=== PATIENT | male | born 1955 | race Caucasian/White ===

== ENCOUNTER 2020-08-12 06:37 | Outpatient (REF) | payer OTHER, SELFPAY ==
[2020-08-12 11:25] LABS: Estimated Average Glucose 114 mg/dL; Hemoglobin A1c % 5.6 %
[2020-08-12 11:35] LABS: Alanine Aminotransferase 17 U/L (0-40); Albumin Level 4.7 g/dL (3.5-5.0); Alkaline Phosphatase 62 U/L (39-117); Anion Gap 10 (12-20); Aspartate Amino Transferase 24 U/L (5-37); Bilirubin Total 0.7 mg/dL (0.0-1.0); Blood Urea Nitrogen 24 mg/dL (9-16); Calcium 9.4 mg/dL (8.4-10.2); Carbon Dioxide 28 mmol/L (22-29); Chloride 103 mmol/L (96-108); Cholesterol 153 mg/dL; Estimated Glomerular Filt Rate > 60; Glucose Fasting 111 mg/dL (60-99); HDL Cholesterol 46 mg/dL; LDL Cholesterol Calculated 90 mg/dl; Potassium 4.2 mmol/l (3.3-5.1); Sodium 137 mmol/L (135-145); Total Protein 7.2 g/dL (6.5-8.0); Triglycerides 85 mg/dL
== END 2020-08-12 06:38 | disposition home or self-care (01) ==
LOC: HO.HMGCLDS 06:37
PROVIDERS: PCP Physician Assistant; Visit Provider Physician Assistant
DX: E78.2 Mixed hyperlipidemia (principal); I10 Essential (primary) hypertension; R73.02 Impaired glucose tolerance (oral)
CPT/HCPCS: 80053; 80061; 83036

== ENCOUNTER 2021-01-22 06:13 | Outpatient (REF) | payer OTHER, SELFPAY ==
[2021-01-22 11:08] LABS: MANUAL DIFF FLAG NO
[2021-01-22 11:17] LABS: Basophils Percent Auto 0.4 % (0-2); Eosinophils Percent Auto 0.3 % (0-4); Hematocrit 47.7 % (42-52); Hemoglobin 16.1 g/dl (14.0-18.0); Imm Gran Abs Auto 0.03 X10*3/uL (0.00-0.03); Imm Gran Pct Auto 0.3 % (0.0-0.4); Lymphocytes Percent Auto 19.6 % (20-40); Mean Corpuscular HGB Conc 33.8 g/dl (31.0-36.0); Mean Corpuscular Hemoglobin 30.3 pg (27.0-33.0); Mean Corpuscular Volume 89.8 fL (80-98); Monocytes Absolute Auto 0.8 X10*3/uL (0.1-1.2); Monocytes Percent Auto 7.7 % (2-11); Neutrophils Absolute Auto 7.2 X10*3/uL (2.0-8.3); Neutrophils Percent Auto 71.7 % (45-73); Platelet Count 354 X10*3/uL (160-400); Red Blood Count 5.31 X10*6/uL (4.60-5.80); Red Cell Distribution Width 12.8 % (11.0-16.0)
[2021-01-22 11:32] LABS: Estimated Average Glucose 120 mg/dL; Hemoglobin A1c % 5.8 %
[2021-01-22 11:51] LABS: Alanine Aminotransferase 19 U/L (0-40); Albumin Level 4.9 g/dL (3.5-5.0); Alkaline Phosphatase 75 U/L (39-117); Anion Gap 17 (12-20); Aspartate Amino Transferase 21 U/L (5-37); Bilirubin Total 0.9 mg/dL (0.0-1.0); Blood Urea Nitrogen 18 mg/dL (9-16); Calcium 9.5 mg/dL (8.4-10.2); Carbon Dioxide 25 mmol/L (22-29); Chloride 102 mmol/L (96-108); Cholesterol 203 mg/dL; Estimated Glomerular Filt Rate > 60; Glucose Fasting 123 mg/dL (60-99); HDL Cholesterol 49 mg/dL; LDL Cholesterol Calculated 127 mg/dl; Potassium 4.8 mmol/L (3.3-5.1); Sodium 139 mmol/L (135-145); Total Protein 7.8 g/dL (6.5-8.0); Triglycerides 137 mg/dL
[2021-01-22 11:53] LABS: Creatinine Urine 208.44 mg/dL; Microalbum/Creatinine Ratio Ur 5.2 ug/mg cr
[2021-01-22 11:58] LABS: Prostate Specific Antigen Scr 1.26 ng/mL (<0.05-4.0); TSH reflex Free T4 1.52 uIU/mL (0.32-4.0)
== END 2021-01-22 06:14 | disposition home or self-care (01) ==
LOC: HO.HMGCLDS 06:13
PROVIDERS: PCP Physician Assistant; Visit Provider Physician Assistant
DX: I10 Essential (primary) hypertension (principal); E78.2 Mixed hyperlipidemia; R73.09 Other abnormal glucose; Z12.5 Encounter for screening for malignant neoplasm of prostate
CPT/HCPCS: 36415; 80053; 80061; 82043; 83036; 84153; 84443; 85025

== ENCOUNTER 2021-04-14 09:44 | Outpatient (REF) | payer MEDICARE, SELFPAY ==
--- NOTE | ~2021-04-14 | US_ITS ---
EXAMINATION: US RETROPERITONEAL LIMITED (AORTA) CLINICAL INFORMATION: Screening for cardiovascular disorders. COMPARISON: None. TECHNIQUE: Grayscale, color Doppler and spectral Doppler evaluation of the abdominal aorta. FINDINGS: The aorta is normal. The measurements of the aorta in maximum AP and transverse dimensions respectively are as follows: PROXIMAL: 2.6 x 2.3 cm. MID: 1.9 x 1.7 cm. DISTAL: 2.0 x 2.1 cm. PSV: 102.5 cm/sec. The measurements of the common iliac arteries in maximum AP dimension are as follows: RIGHT COMMON ILIAC ARTERY: 1.2 cm. LEFT COMMON ILIAC ARTERY: 1.4 cm. US/US abdominal aortic aneurysm IMPRESSION: Normal caliber abdominal aorta measuring up to 2.6 cm proximally. No evidence of aneurysm.
== END 2021-04-14 09:45 | disposition home or self-care (01) ==
LOC: HO.US 09:44
PROVIDERS: PCP Physician Assistant; Visit Provider Physician Assistant
DX: Z13.6 Encounter for screening for cardiovascular disorders (principal); Z87.891 Personal history of nicotine dependence
CPT/HCPCS: 76706

== ENCOUNTER 2022-02-16 16:46 | Observation (INO) | payer MEDICARE, SELFPAY ==
[2022-02-16] VITALS (7 sets, daily range): BP systolic 130–260; BP diastolic 83–130; PULSE 72–88; RESP 11–18; TEMP 36.6–36.8; O2SAT 95–98; BMI 28.2
--- NOTE | 2022-02-16 17:06 | ED.GENADULT ---
HPI - General Adult General Chief complaint: General Medical Stated complaint: HIGH BP 260/130 FROM [facility] PER EMS Time Seen by Provider: 02/16/22 17:06 Source: patient Mode of arrival: EMS Limitations: no limitations History of Present Illness HPI narrative: 66-year-old male who was brought to emergency department for evaluation of elevated blood pressure. The patient states he does have hypertension and takes lisinopril however he only takes his blood pressure medication when he thinks he needs it and does not take it on a regular basis. He states that over the past week he has gone on alcoholic [place]. He states that he has been drinking 14 beers per day and 4-5 shots of fireball whiskey per day. His last drink was on 02/14/2022 (3 days prior to evaluation). He denied any symptoms except for feeling very anxious. He denied headache, nausea, vomiting, weakness, chest pain, abdominal pain, fever, chills, cough, shortness of breath, dyspnea on exertion, dark tarry stools or bloody stools. In reviewing his medication list listed in the computer, the patient has been prescribed lisinopril 20 mg once a day and clonidine 0.1 mg daily Related Data Previous Rx's Medication Instructions Recorded sertraline 50 mg tablet 50 mg PO DAILY #90 tab 10/16/20 clonidine HCl 0.1 mg tablet 0.100f00? mg PO Q8H PRN #90 tab 02/19/21 atorvastatin 10 mg tablet 10 mg PO DAILY #90 tab 03/15/21 baclofen 20 mg tablet 20 mg PO TID PRN #45 tab 04/20/21 lisinopril 20 mg tablet 20 mg PO DAILY #90 tab 09/09/21 Allergies Allergy/AdvReac Type Severity Reaction Status Date / Time AVOID HCTZ - hyponatremia - Allergy Unknown Unknown Uncoded 08/19/20 13:55 1 Review of Systems Review of Systems: Yes all other systems are reviewed and are negative [facility] Past Medical History [facility] Narrative: Past medical history: Hypertension, hyperlipidemia, anxiety, impaired glucose metabolism. Past surgical history: None. Social history: Patient states that he smokes only when he drinks and has been smoking over the past week. He states that he does not drink alcohol regular basis but goes on alcoholic Benders every 3-6 months. Denies delirium tremors or withdrawal seizures. He denies drug use. Medical History (Updated 02/16/22 @ 23:22 by Nicola Gasca MD) Anxiety Hypertension Surgical History History of colonoscopy Family History Family History Father Dementia Mother Melanoma Social History Social History (Updated 03/23/21 @ 12:05 by Amrit Moura PA-C) Alcohol intake: current Alcohol intake frequency: 3 or more drinks per day Alcohol type: beer and hard liquor Patient Tobacco Use Status: Current someday Tobacco user Smoked in Last 30 Days: Yes Use of substances other than those prescribed or required for medical reasons: No Advance Directives: Yes Advance Directives Information Provided: No Advance Directives on File: No Physical Exam ED Vital Signs: Vital Signs - 24 hr 02/16/22 17:02 02/16/22 17:50 02/16/22 20:24 Temperature 98 F 98.2 F Pulse Rate 74 88 82 Respiratory Rate 14 18 11 L Blood Pressure 211/103 H 193/106 H 130/83 Pulse Oximetry 97 95 97 02/16/22 20:45 02/16/22 22:00 02/16/22 22:53 Temperature 98.1 F Pulse Rate 72 78 86 Respiratory Rate 13 18 16 Blood Pressure 145/91 H 162/91 H 162/91 H Pulse Oximetry 97 95 98 BMI result Body Mass Index 28.2 Const General: cooperative and no acute distress Orientation/consciousness: oriented to person and oriented to place Limitations: no limitations [facility] Head: Yes normal to inspection, Yes normocephalic and Yes atraumatic Ears: external ears normal General nose exam: Normal external nose present Face and sinus: Yes normal facial exam Mouth: Normal oral and palatal mucosa present Throat: Yes posterior oropharynx normal Eyes General: appearance normal, both eyes and all related structures Pupils: Equal, round and reactive pupils present Neck Neck: Yes normal visual inspection, Yes no lymphadenopathy, Yes trachea midline and Yes supple Chest Chest palpation & inspection: normal inspection of the chest and normal palpation of entire chest wall Resp Effort & Inspection: normal respiratory effort and able to speak in complete sentences Auscultation: clear to auscultation bilaterally Cardio Rate: regular rate Rhythm: regular rhythm Heart sounds: S1 normal heart sound present, S2 normal heart sound present and no murmurs GI Inspection: Yes normal to inspection Palpation (GI): Soft to palpation, nontender and no guarding Auscultation: normal bowel sounds General: Yes no CVA tenderness Back/Spine/Pelvis Back: no CVA tenderness Skin General skin exam: no rashes or lesions noted Neuro General: oriented to person and oriented to place Cranial nerves: Yes CN's II-XII intact bilaterally and Yes Equal, round and reactive pupils present Cognition (Neuro): normal cognition Motor exam (neuro): 5/5 motor strength present throughout Extrem General: Yes normal to inspection Psych Appearance: grossly normal Speech and movement: Normal speech and movement present Affect: normal affect Attitude: cooperative Thought process: Normal thought process present Thought content: Normal thought content present Course Course Course Narrative: 66-year-old male who presented to the emergency department for evaluation of anxiety and hypertension. The patient has been binge drinking for 1 week and stop drinking 3 days prior to evaluation. He does have a history of hypertension but is non compliant with his medications. He did check his blood pressure today and was elevated. The patient did have a significantly elevated blood pressure 211/103. His exam was otherwise unremarkable. He was not having any chest pain or shortness of breath. He was treated with his outpatient regimen of lisinopril 20 mg orally and Catapres 0.1 mg orally. I was also concerned that he might be withdrawing from alcohol so was given Librium 50 mg orally. Patient's blood pressure did improve to 130/83. Laboratory evaluation and EKG were ordered. 2137: Laboratory evaluation: WBC elevated 11,900. High sensitive troponin 1 at 17:45 hours was 161, repeat at 12:45 was 257. This is a greater than 50% increase. Twelve EKG: Normal sinus rhythm with a rate of 65, prolonged QRS duration of 110 milliseconds, RR prime complex in V1 with inverted T-wave in V1 otherwise no ST segment elevation or depression. The patient's elevation in his troponin with a greater than 50% increase in 3 hours is concerning for myocardial injury. This is most likely caused by his elevated blood pressure. I will discuss management with the covering cotton classer. 2318: I did discuss this patient over tiger text with the cotton classer, Dr. Drake. He felt that patient should be admitted to the hospital service but the patient does not need heparin at this time. The patient told me that he was feeling anxious but he does not appear to be in withdrawal at this time and I did give the 2nd dose of Librium 50 mg orally. I did discuss the patient's presentation with the covering hospitalist the patient will be admitted for further management of his hypertension and myocardial injury. Medical Decision Making Lab Data Result diagrams: 02/16/22 17:45 02/16/22 18:20 Labs: Lab Results 02/16/22 02/16/22 02/16/22 Range/Units 17:45 17:45 17:45 WBC 11.9 H (4.8-10.8) X10*3/uL RBC 5.18 (4.60-5.80) X10*6/uL Hgb 15.5 (14.0-18.0) g/dl Hct 45.2 (42.0-52.0) % MCV 87.3 (80.0-98.0) fL MCH 29.9 (27.0-33.0) pg MCHC 34.3 (31.0-36.0) g/dl RDW 12.2 (11.0-16.0) % Plt Count 230 (160-400) X10*3/uL MPV 9.2 L (9.4-12.4) fL Immature Gran % (Auto) 0.4 (0.0-0.4) % Neut % (Auto) 85.1 H (45-73) % Lymph % (Auto) 8.5 L (20-40) % [place] % (Auto) 5.7 (2-11) % Eos % (Auto) 0.1 (0-4) % Baso % (Auto) 0.2 (0-2) % Lymph # (Auto) 1.0 L (1.2-4.9) X10*3/uL [place] # (Auto) 0.7 (0.1-1.2) X10*3/uL Eos # (Auto) 0.0 (0.0-0.4) X10*3/uL Baso # (Auto) 0.0 (0.0-0.2) X10*3/uL Abs Immat Gran (auto) 0.05 H (0.00-0.03) X10*3/uL Absolute Neuts (auto) 10.2 H (2.0-8.3) x10*3/uL Absolute Nucleated RBC 0.000 (0.0-0.012) X10*3/uL Nucleated RBC % (auto) 0.0 (0.0-0.2) /100WBC Sodium (135-145) mmol/L Potassium (3.3-5.1) mmol/L Chloride (96-108) mmol/L Carbon Dioxide (22-29) mmol/L Anion Gap (12-20) BUN (9-16) mg/dL Creatinine (0.5-1.4) mg/dL Estim Creat Clear Calc Estimated GFR Random Glucose (60-115) mg/dL Calcium (8.4-10.2) mg/dL Total Bilirubin (0.0-1.0) mg/dL AST (5-37) U/L ALT (0-40) U/L Alkaline Phosphatase (39-117) U/L Troponin I High Sens 161.2 H* (<3.5-35.0) ng/L Total Protein (6.5-8.0) g/dL Albumin (3.5-5.0) g/dL Lipase (8-78) U/L Urine Color Urine Appearance Urine pH (5.0-8.0) Ur Specific [place] (1.005-1.025) Urine Protein (NEG-TRACE) MG/DL Urine Glucose (UA) (NEG) MG/DL Urine Ketones (NEG) MG/DL Urine Blood (NEG) Urine Nitrite (NEG) Ur Leukocyte Esterase (NEG) Urine RBC (0) /HPF Urine WBC (0-4) /HPF Ur Squamous Epith Cells /LPF Urine Bacteria /LPF Urine Opiates Screen (Not Detect) Urine Fentanyl Screen (Not Detect) Ur Barbiturates Screen (Not Detect) Ur Phencyclidine Scrn (Not Detect) Ur Amphetamines Screen (Not Detect) U Benzodiazepines Scrn (Not Detect) Urine Cocaine Screen (Not Detect) U Marijuana (THC) Screen (Not Detect) Ethyl Alcohol < 10 mg/dL COVID-19 ([facility]) (Negative) COVID-19 Clin Com Influenza Type A ([facility]) (Negative) Influenza Type B ([facility]) (Negative) Influenza A & B Note 02/16/22 02/16/22 02/16/22 Range/Units 18:20 20:36 20:36 WBC (4.8-10.8) X10*3/uL RBC (4.60-5.80) X10*6/uL Hgb (14.0-18.0) g/dl Hct (42.0-52.0) % MCV (80.0-98.0) fL MCH (27.0-33.0) pg MCHC (31.0-36.0) g/dl RDW (11.0-16.0) % Plt Count (160-400) X10*3/uL MPV (9.4-12.4) fL Immature Gran % (Auto) (0.0-0.4) % Neut % (Auto) (45-73) % Lymph % (Auto) (20-40) % [place] % (Auto) (2-11) % Eos % (Auto) (0-4) % Baso % (Auto) (0-2) % Lymph # (Auto) (1.2-4.9) X10*3/uL [place] # (Auto) (0.1-1.2) X10*3/uL Eos # (Auto) (0.0-0.4) X10*3/uL Baso # (Auto) (0.0-0.2) X10*3/uL Abs Immat Gran (auto) (0.00-0.03) X10*3/uL Absolute Neuts (auto) (2.0-8.3) x10*3/uL Absolute Nucleated RBC (0.0-0.012) X10*3/uL Nucleated RBC % (auto) (0.0-0.2) /100WBC Sodium 139 (135-145) mmol/L Potassium 5.0 (3.3-5.1) mmol/L Chloride 103 (96-108) mmol/L Carbon Dioxide 28 (22-29) mmol/L Anion Gap 13 (12-20) BUN 11 (9-16) mg/dL Creatinine 1.02 (0.5-1.4) mg/dL Estim Creat Clear Calc 83.5 Estimated GFR > 60 Random Glucose 150 H (60-115) mg/dL Calcium 10.0 (8.4-10.2) mg/dL Total Bilirubin 1.0 (0.0-1.0) mg/dL AST 39 H D (5-37) U/L ALT 26 (0-40) U/L Alkaline Phosphatase 73 (39-117) U/L Troponin I High Sens 257.0 H* D (<3.5-35.0) ng/L Total Protein 7.5 (6.5-8.0) g/dL Albumin 4.6 (3.5-5.0) g/dL Lipase 15 (8-78) U/L Urine Color YELLOW Urine Appearance CLEAR Urine pH 6.5 (5.0-8.0) Ur Specific [place] <= 1.005 (1.005-1.025) Urine Protein NEG (NEG-TRACE) MG/DL Urine Glucose (UA) NEG (NEG) MG/DL Urine Ketones NEG (NEG) MG/DL Urine Blood 1+ H (NEG) Urine Nitrite NEG (NEG) Ur Leukocyte Esterase NEG (NEG) Urine RBC 5-9 H (0) /HPF Urine WBC 0 (0-4) /HPF Ur Squamous Epith Cells NONE /LPF Urine Bacteria NONE /LPF Urine Opiates Screen (Not Detect) Urine Fentanyl Screen (Not Detect) Ur Barbiturates Screen (Not Detect) Ur Phencyclidine Scrn (Not Detect) Ur Amphetamines Screen (Not Detect) U Benzodiazepines Scrn (Not Detect) Urine Cocaine Screen (Not Detect) U Marijuana (THC) Screen (Not Detect) Ethyl Alcohol mg/dL COVID-19 ([facility]) (Negative) COVID-19 Clin Com Influenza Type A ([facility]) (Negative) Influenza Type B ([facility]) (Negative) Influenza A & B Note 02/16/22 02/16/22 02/16/22 Range/Units 22:30 22:53 22:53 WBC (4.8-10.8) X10*3/uL RBC (4.60-5.80) X10*6/uL Hgb (14.0-18.0) g/dl Hct (42.0-52.0) % MCV (80.0-98.0) fL MCH (27.0-33.0) pg MCHC (31.0-36.0) g/dl RDW (11.0-16.0) % Plt Count (160-400) X10*3/uL MPV (9.4-12.4) fL Immature Gran % (Auto) (0.0-0.4) % Neut % (Auto) (45-73) % Lymph % (Auto) (20-40) % [place] % (Auto) (2-11) % Eos % (Auto) (0-4) % Baso % (Auto) (0-2) % Lymph # (Auto) (1.2-4.9) X10*3/uL [place] # (Auto) (0.1-1.2) X10*3/uL Eos # (Auto) (0.0-0.4) X10*3/uL Baso # (Auto) (0.0-0.2) X10*3/uL Abs Immat Gran (auto) (0.00-0.03) X10*3/uL Absolute Neuts (auto) (2.0-8.3) x10*3/uL Absolute Nucleated RBC (0.0-0.012) X10*3/uL Nucleated RBC % (auto) (0.0-0.2) /100WBC Sodium (135-145) mmol/L Potassium (3.3-5.1) mmol/L Chloride (96-108) mmol/L Carbon Dioxide (22-29) mmol/L Anion Gap (12-20) BUN (9-16) mg/dL Creatinine (0.5-1.4) mg/dL Estim Creat Clear Calc Estimated GFR Random Glucose (60-115) mg/dL Calcium (8.4-10.2) mg/dL Total Bilirubin (0.0-1.0) mg/dL AST (5-37) U/L ALT (0-40) U/L Alkaline Phosphatase (39-117) U/L Troponin I High Sens (<3.5-35.0) ng/L Total Protein (6.5-8.0) g/dL Albumin (3.5-5.0) g/dL Lipase (8-78) U/L Urine Color Urine Appearance Urine pH (5.0-8.0) Ur Specific [place] (1.005-1.025) Urine Protein (NEG-TRACE) MG/DL Urine Glucose (UA) (NEG) MG/DL Urine Ketones (NEG) MG/DL Urine Blood (NEG) Urine Nitrite (NEG) Ur Leukocyte Esterase (NEG) Urine RBC (0) /HPF Urine WBC (0-4) /HPF Ur Squamous Epith Cells /LPF Urine Bacteria /LPF Urine Opiates Screen Not Detected (Not Detect) Urine Fentanyl Screen Not Detected (Not Detect) Ur Barbiturates Screen Not Detected (Not Detect) Ur Phencyclidine Scrn Not Detected (Not Detect) Ur Amphetamines Screen Not Detected (Not Detect) U Benzodiazepines Scrn POSITIVE H (Not Detect) Urine Cocaine Screen Not Detected (Not Detect) U Marijuana (THC) Screen Not Detected (Not Detect) Ethyl Alcohol mg/dL COVID-19 ([facility]) Negative (Negative) COVID-19 Clin Com See Note Influenza Type A ([facility]) Negative (Negative) Influenza Type B ([facility]) Negative (Negative) Influenza A & B Note See Note Critical Care Time Critical Care Time Critical Care Time: Yes Total Critical Care Time: 30 Attestation: Critical Care: The patient was critically ill with a high probability of imminent or life threatening deterioration. I spent greater than 30 minutes of discontinuous time evaluating the patient,delivering critical care at the bedside, discussing and evaluating pertinent data with consultants. Critical care time does not include time spent performing separately billable procedures or teaching. Total time spent performing critical care was 30 minutes. Discharge Plan Discharge Patient Disposition: Admitted As Inpatient Prescriptions: No Action sertraline 50 mg tablet 50 mg PO DAILY Qty: 90 4RF clonidine HCl 0.1 mg tablet 0.100f00? mg PO Q8H PRN (Reason: for anxiety) Qty: 90 0RF atorvastatin 10 mg tablet 10 mg PO DAILY Qty: 90 3RF baclofen 20 mg tablet 20 mg PO TID PRN (Reason: for pain) Qty: 45 2RF lisinopril 20 mg tablet 20 mg PO DAILY Qty: 90 2RF
--- NOTE | 2022-02-16 17:09 | ECG_ITS ---
Test Reason : CP/HTN Blood Pressure : / mmHG Vent. Rate : 065 BPM Atrial Rate : 065 BPM P-R Int : 182 ms QRS Dur : 110 ms QT Int : 416 ms P-R-T Axes : 060 020 051 degrees QTc Int : 432 ms Normal sinus rhythm Normal ECG When compared with ECG of 07-JAN-2016 09:01, QT has shortened Referred By: Nicola Gasca Electronically Signed By:IVET CONNER MD
[2022-02-16 17:51] LABS: MANUAL DIFF FLAG NO
[2022-02-16] MEDS: lisinopriL 20 MG TABLET PO (17:51)
[2022-02-16] MEDS: chlordiazePOXIDE HCl 25 MG CAPSULE 50 MG PO ×2 (17:51→22:20)
[2022-02-16] MEDS: cloNIDine HCL 0.1 MG TABLET PO (17:51)
--- NOTE | 2022-02-16 17:52 | PC.NURSE ---
iv inserted, labs drawn, pt medicated per order, rater associate intact nsr 70s, pt continues to be hypertensive, call [place] within reach, will continue to monitor
[2022-02-16 17:53] LABS: Basophils Percent Auto 0.2 % (0-2); Eosinophils Percent Auto 0.1 % (0-4); Hematocrit 45.2 % (42.0-52.0); Hemoglobin 15.5 g/dl (14.0-18.0); Imm Gran Abs Auto 0.05 X10*3/uL (0.00-0.03); Imm Gran Pct Auto 0.4 % (0.0-0.4); Lymphocytes Percent Auto 8.5 % (20-40); Mean Corpuscular HGB Conc 34.3 g/dl (31.0-36.0); Mean Corpuscular Hemoglobin 29.9 pg (27.0-33.0); Mean Corpuscular Volume 87.3 fL (80.0-98.0); Mean Platelet Volume 9.2 fL (9.4-12.4); Monocytes Absolute Auto 0.7 X10*3/uL (0.1-1.2); Monocytes Percent Auto 5.7 % (2-11); Neutrophils Absolute Auto 10.2 x10*3/uL (2.0-8.3); Neutrophils Percent Auto 85.1 % (45-73); Platelet Count 230 X10*3/uL (160-400); Red Blood Count 5.18 X10*6/uL (4.60-5.80); Red Cell Distribution Width 12.2 % (11.0-16.0); White Blood Count 11.9 X10*3/uL (4.8-10.8)
[2022-02-16 18:11] LABS: Ethanol < 10 mg/dL
[2022-02-16 18:26] LABS: Troponin-I High Sensitivity 161.2 ng/L (<3.5-35.0)
[2022-02-16 18:44] LABS: Alanine Aminotransferase 26 U/L (0-40); Albumin Level 4.6 g/dL (3.5-5.0); Alkaline Phosphatase 73 U/L (39-117); Anion Gap 13 (12-20); Aspartate Amino Transferase 39 U/L (5-37); Blood Urea Nitrogen 11 mg/dL (9-16); Carbon Dioxide 28 mmol/L (22-29); Chloride 103 mmol/L (96-108); Creatinine Clr Calc Pharmacy 83.5; Estimated Glomerular Filt Rate > 60; Glucose Random 150 mg/dL (60-115); Lipase 15 U/L (8-78); Sodium 139 mmol/L (135-145); Total Protein 7.5 g/dL (6.5-8.0)
--- NOTE | 2022-02-16 20:28 | PC.NURSE ---
spoke w , updated on pt status.
--- NOTE | 2022-02-16 20:37 | PC.NURSE ---
patient a&ox3, vss, repeat trop drawn, urine obtained, pt denies pain/discomfort, school lunch monitor intact, call [place] within reach, will continue to monitor
[2022-02-16 20:47] LABS: Appearance Urine CLEAR; Color Urine YELLOW; Glucose Urine UA NEG (NEG); Leukocyte Esterase Urine NEG (NEG); Nitrite Urine NEG (NEG); PH 6.5 (5.0-8.0); Specific Gravity - Urine <= 1.005 (1.005-1.025); UACC Culture Trigger NO; Urine Blood 1+ (NEG); Urine Ketones NEG (NEG); Urine Protein NEG (NEG-TRACE)
[2022-02-16 20:53] LABS: WBC Urine 0 /HPF (0-4)
[2022-02-16] MEDS: Aspirin 81 MG TAB.CHEW 324 MG PO (21:55)
--- NOTE | 2022-02-16 21:56 | PC.NURSE ---
pt medicated per order
--- NOTE | 2022-02-16 22:11 | PC.NURSE ---
patient a&ox3, residential monitor nsr 70s-80s, vss, pt c/o anxiety will speak to provider, will continue to monitor.
--- NOTE | 2022-02-16 22:21 | PC.NURSE ---
pt medicated per order
[2022-02-16 23:08] LABS: Amphetamine Screen Urine Not Detected (Not Detect); Barbiturates, Urine Not Detected (Not Detect); Benzodiazepines Screen Urine POSITIVE (Not Detect); Cannabinoid Screen Urine Not Detected (Not Detect); Cocaine Screen Urine Not Detected (Not Detect); Fentanyl, urine Not Detected (Not Detect); Opiate Screen Urine Not Detected (Not Detect); Phencyclidine Screen Urine Not Detected (Not Detect)
[2022-02-16 23:17] LABS: COVID-19 Test Negative (Negative); IDNOW Serial# 16C4AD1C; Influenza A Negative (Negative); Influenza B2 Negative (Negative)
--- NOTE | 2022-02-16 23:18 | P.HPHOSP_ITS ---
History of Present Illness Date of Service: 02/16/22 Chief Complaint: Anxiety Is a 66-year-old male with past medical history of hypertension, anxiety, and episodes of alcohol binge drinking presents to the hospital with complaints of anxiety. Patient reports that he went on about a 7 day drinking being inch cinthya amaya 15 beers as well as 5 shots of whiskey nightly. He stop drinking about 3 days ago, he has been feeling severely anxious injury. He checked his blood pressure at home today was found to be very high and he called EMS. On arrival of EMS his blood pressure systolic was found to be 260. Patient was brought into the hospital. On arrival to the hospital patient BP was found to be 211/103. Patient reports that he is usually noncompliant with his antihypertensives and he takes them sporadically. Is not taking them for the past 1 week. Patient was given his home medications with his blood pressure improving significantly. Patient denies any headache, no chest pain, no shortness of breath, no abdominal pain nausea or vomiting, no diarrhea constipation, no urinary symptoms and no lower extremity edema. Patient denies any history of withdrawal seizures in the past but reports that he does have history of withdrawals with no DTs. Labs on arrival were significant for WBC count of 11.9, troponin of 161.2 with no EKG changes, UA negative, COVID-19 negative, influenza negative Patient given Librium for alcohol withdrawal and will be admitted for further management Patient is interested in detoxing Review of Systems Review of Systems: Yes all other systems are reviewed and are negative [facility] Medical History Anxiety Hypertension Family History Father Dementia Mother Melanoma Surgical History History of colonoscopy Social History Alcohol intake: current Alcohol intake frequency: 3 or more drinks per day Alcohol type: beer and hard liquor Patient Tobacco Use Status: Current someday Tobacco user Tobacco use type: Cigarette Smoked in Last 30 Days: Yes Patient Interested in Nicotine Replacement: No Use of substances other than those prescribed or required for medical reasons: No Advance Directives: Yes Advance Directives Information Provided: No Advance Directives on File: No Advance Directives Date on File: 02/17/22 Meds Allergies Allergy/AdvReac Type Severity Reaction Status Date / Time AVOID HCTZ - hyponatremia - Allergy Unknown Unknown Uncoded 08/19/20 13:55 1 Active Medications: Current Medications Pharmacy Consult (Consult Rx Perform Med Rec) 1 each MISCELLANE ONCE PRN PRN Reason: Consult order Physical Exam Vital Signs and Narrative: Vital Signs: Last Vital Signs Temp 98.1 F 02/16/22 22:00 Pulse 86 02/16/22 22:53 Resp 16 02/16/22 22:53 BP 162/91 H 02/16/22 22:53 Pulse Ox 98 02/16/22 22:53 BMI result Body Mass Index 28.2 Const: General: cooperative and no acute distress Orientation/consciousness: patient oriented x3 Eyes: General: appearance normal, both eyes and all related structures Pupils: Equal, round and reactive pupils present Resp: Effort & Inspection: normal respiratory effort Auscultation: clear to auscultation bilaterally Cardio: Rate: regular rate Rhythm: regular rhythm GI: Palpation (GI): Soft to palpation Auscultation: normal bowel sounds Skin: General skin exam: no rashes or lesions noted Neuro: General: patient oriented x3 Cranial nerves: Yes Equal, round and reactive pupils present Cognition (Neuro): normal cognition Extrem: General: Yes normal to inspection and Yes no pedal edema Results Labs CBC and Chem 7: 02/17/22 05:25 02/16/22 18:20 Labs: Laboratory Results - last 24 hr 02/16/22 02/16/22 02/16/22 17:45 17:45 17:45 MCV 87.3 MCH 29.9 MCHC 34.3 RDW 12.2 Plt Count 230 MPV 9.2 L Immature Gran % (Auto) 0.4 Neut % (Auto) 85.1 H Lymph % (Auto) 8.5 L [place] % (Auto) 5.7 Eos % (Auto) 0.1 Baso % (Auto) 0.2 Lymph # (Auto) 1.0 L [place] # (Auto) 0.7 Eos # (Auto) 0.0 Baso # (Auto) 0.0 Abs Immat Gran (auto) 0.05 H Absolute Neuts (auto) 10.2 H Absolute Nucleated RBC 0.000 Nucleated RBC % (auto) 0.0 Anion Gap Estim Creat Clear Calc Estimated GFR Random Glucose Calcium Total Bilirubin AST ALT Alkaline Phosphatase Troponin I High Sens 161.2 H* Total Protein Albumin Lipase Urine Color Urine Appearance Urine pH Ur Specific [place] Urine Protein Urine Glucose (UA) Urine Ketones Urine Blood Urine Nitrite Ur Leukocyte Esterase Urine RBC Urine WBC Ur Squamous Epith Cells Urine Bacteria Urine Opiates Screen Urine Fentanyl Screen Ur Barbiturates Screen Ur Phencyclidine Scrn Ur Amphetamines Screen U Benzodiazepines Scrn Urine Cocaine Screen U Marijuana (THC) Screen Ethyl Alcohol < 10 COVID-19 ([facility]) COVID-19 Clin Com Influenza Type A (STEPHANY) Influenza Type B (STEPHANY) Influenza A & B Note 02/16/22 02/16/22 02/16/22 18:20 20:36 20:36 MCV MCH MCHC RDW Plt Count MPV Immature Gran % (Auto) Neut % (Auto) Lymph % (Auto) [place] % (Auto) Eos % (Auto) Baso % (Auto) Lymph # (Auto) [place] # (Auto) Eos # (Auto) Baso # (Auto) Abs Immat Gran (auto) Absolute Neuts (auto) Absolute Nucleated RBC Nucleated RBC % (auto) Anion Gap 13 Estim Creat Clear Calc 83.5 Estimated GFR > 60 Random Glucose 150 H Calcium 10.0 Total Bilirubin 1.0 AST 39 H D ALT 26 Alkaline Phosphatase 73 Troponin I High Sens 257.0 H* D Total Protein 7.5 Albumin 4.6 Lipase 15 Urine Color YELLOW Urine Appearance CLEAR Urine pH 6.5 Ur Specific [place] <= 1.005 Urine Protein NEG Urine Glucose (UA) NEG Urine Ketones NEG Urine Blood 1+ H Urine Nitrite NEG Ur Leukocyte Esterase NEG Urine RBC 5-9 H Urine WBC 0 Ur Squamous Epith Cells NONE Urine Bacteria NONE Urine Opiates Screen Urine Fentanyl Screen Ur Barbiturates Screen Ur Phencyclidine Scrn Ur Amphetamines Screen U Benzodiazepines Scrn Urine Cocaine Screen U Marijuana (THC) Screen Ethyl Alcohol COVID-19 ([facility]) COVID-19 Clin Com Influenza Type A (STEPHANY) Influenza Type B (STEPHANY) Influenza A & B Note 02/16/22 02/16/22 02/16/22 22:30 22:53 22:53 MCV MCH MCHC RDW Plt Count MPV Immature Gran % (Auto) Neut % (Auto) Lymph % (Auto) [place] % (Auto) Eos % (Auto) Baso % (Auto) Lymph # (Auto) [place] # (Auto) Eos # (Auto) Baso # (Auto) Abs Immat Gran (auto) Absolute Neuts (auto) Absolute Nucleated RBC Nucleated RBC % (auto) Anion Gap Estim Creat Clear Calc Estimated GFR Random Glucose Calcium Total Bilirubin AST ALT Alkaline Phosphatase Troponin I High Sens Total Protein Albumin Lipase Urine Color Urine Appearance Urine pH Ur Specific [place] Urine Protein Urine Glucose (UA) Urine Ketones Urine Blood Urine Nitrite Ur Leukocyte Esterase Urine RBC Urine WBC Ur Squamous Epith Cells Urine Bacteria Urine Opiates Screen Not Detected Urine Fentanyl Screen Not Detected Ur Barbiturates Screen Not Detected Ur Phencyclidine Scrn Not Detected Ur Amphetamines Screen Not Detected U Benzodiazepines Scrn POSITIVE H Urine Cocaine Screen Not Detected U Marijuana (THC) Screen Not Detected Ethyl Alcohol COVID-19 ([facility]IS) Negative COVID-19 Clin Com See Note Influenza Type A (STEPHANY) Negative Influenza Type B (STEPHANY) Negative Influenza A & B Note See Note ECG Interpretation: Normal sinus rhythm Assessment and Plan (1) Hypertensive urgency: Status: Acute (2) Alcohol use disorder, severe, dependence: Status: Acute (3) Alcohol withdrawal: Status: Acute (4) Elevated troponin: Status: Acute Plan This is a 66-year-old male with past medical history of hypertension as well as alcohol abuse presents to the hospital with complaints of anxiety found to have hypertensive urgency # hypertensive urgency - likely secondary to noncompliance worsened by withdrawal - patient has no symptoms - patient received his home medications of clonidine and lisinopril significant improvement of his blood pressure - will continue his home medications # alcohol dependence with withdrawal - patient has anxiety, hypertension, - will start him on Ativan protocol - folic and thiamine supplement - consult made to care team # elevated troponin - likely type 2 in the setting hypertensive urgency - no chest pain, no EKG changes - cardiology notified - monitor DVT prophylaxis: Lovenox Quality Stroke Does the patient have a stroke diagnosis?: No VTE Prior VTE?: No VTE Risk Level:: Medical - moderate - high VTE Device Contraindication: Treatment Not Indicated VTE Drug Contraindication: N/A - Med Ordered
[2022-02-16] MEDS: LORazepam 1 MG TABLET 2 MG PO (23:50)
[2022-02-17] VITALS (12 sets, daily range): BP systolic 80–142; BP diastolic 40–75; PULSE 55–75; RESP 16–20; TEMP 36.2–37; O2SAT 93–99
[2022-02-17] MEDS: LORazepam 1 MG TABLET PO ×3 (01:01→20:46)
[2022-02-17] MEDS: 0.9 % Sodium Chloride Flush 3 ML SYRINGE IVFLUSH ×3 (01:03→20:47)
[2022-02-17 02:03] LABS: Troponin-I High Sensitivity 195.2 ng/L (<3.5-35.0)
[2022-02-17 05:32] LABS: MANUAL DIFF FLAG NO
--- NOTE | 2022-02-17 05:35 | PM.EVENT ---
Event Note Date of Service: 02/17/22 Event Note: pt had low bp readings likely from medications and not due to sepsis he has no evidence of infection, UA negative, COVID -ve, no respiratory symptoms. he will be given 1 L of LR and reassessed BP meds held
[2022-02-17 05:43] LABS: Basophils Percent Auto 0.4 % (0-2); Eosinophils Absolute Auto 0.1 X10*3/uL (0.0-0.4); Eosinophils Percent Auto 0.5 % (0-4); Hemoglobin 14.3 g/dl (14.0-18.0); Imm Gran Abs Auto 0.04 X10*3/uL (0.00-0.03); Imm Gran Pct Auto 0.4 % (0.0-0.4); Lymphocytes Absolute Auto 1.3 X10*3/uL (1.2-4.9); Lymphocytes Percent Auto 11.9 % (20-40); Mean Corpuscular HGB Conc 33.3 g/dl (31.0-36.0); Mean Corpuscular Hemoglobin 29.7 pg (27.0-33.0); Mean Corpuscular Volume 89.4 fL (80.0-98.0); Mean Platelet Volume 9.5 fL (9.4-12.4); Monocytes Absolute Auto 0.7 X10*3/uL (0.1-1.2); Monocytes Percent Auto 6.2 % (2-11); Neutrophils Absolute Auto 8.7 x10*3/uL (2.0-8.3); Neutrophils Percent Auto 80.6 % (45-73); Platelet Count 249 X10*3/uL (160-400); Red Blood Count 4.81 X10*6/uL (4.60-5.80); Red Cell Distribution Width 12.5 % (11.0-16.0); White Blood Count 10.7 X10*3/uL (4.8-10.8)
[2022-02-17] MEDS: Lactated Ringers 1,000 ML 999 ML IV ×2 (05:43→07:05)
[2022-02-17 06:16] LABS: Anion Gap 14 (12-20); Blood Urea Nitrogen 14 mg/dL (9-16); Calcium 9.5 mg/dL (8.4-10.2); Carbon Dioxide 26 mmol/L (22-29); Chloride 101 mmol/L (96-108); Creatinine Clr Calc Pharmacy 44.6; Estimated Glomerular Filt Rate 36; Glucose Random 144 mg/dL (60-115); Potassium 4.2 mmol/L (3.3-5.1); Sodium 137 mmol/L (135-145)
--- NOTE | 2022-02-17 07:47 | P.PNIM_ITS ---
Subjective Subjective Date of Service: 02/17/22 Interval History: hypotension, alcohol withdrawal , elevated troponins,kevin Review of Systems alcohol withdrawal improving , patient was hypertensive range blood pressure receiving fluids . Patient denies any chest pain or shortness of breath or cough or phlegm or nausea or vomiting or any urinary complaints or fever or chills. Physical Exam Vital Signs: Vital Signs: Last Vital Signs Temp 97.1 F 02/17/22 07:27 Pulse 68 02/17/22 07:27 Resp 18 02/17/22 07:27 BP 84/40 L 02/17/22 07:27 Pulse Ox 99 02/17/22 07:27 BMI result Body Mass Index 28.2 Appearance: Alert.? Oriented X3.? not in distress.? cvs: rrr, [id number] , no murmur res: clear to auscultation ,no rhonchii or wheezing abd: no rebound or guarding ,nt, bs present. ext pulses present , no cyanosis . neuro: axo3 , nonfocal. Objective Data Active Medications Acetaminophen (Acetaminophen 325 Mg Tablet) 650 mg PO Q6H PRN PRN Reason: Pain, Mild (Pain Scale 1-3) Docusate Sodium (Docusate Sodium 100 Mg Capsule) 100 mg PO DAILY PRN PRN Reason: Constipation Enoxaparin Sodium (Enoxaparin Sodium 40 Mg/0.4 Ml Syringe) 40 mg SUBCUT Q24H KEELEY Folic Acid (Folic Acid 1 Mg Tablet) 1 mg PO DAILY KEELEY Lactated Ringer's (Lr) 1,000 mls @ 999 mls/hr IV .Q1H1M KEELEY Stop: 02/17/22 08:00 Last Admin: 02/17/22 07:05 Dose: 999 mls/hr Documented by: BESS Lorazepam (Lorazepam 1 Mg Tablet) 1 mg PO Q4H KEELEY; Taper Stop: 02/21/22 01:14 Last Admin: 02/17/22 04:29 Dose: Not Given Documented by: BESS Non-Admin Reason: Decreased Blood Pressure Lorazepam (Lorazepam 1 Mg Tablet) 1 mg PO Q4H PRN PRN Reason: Breakthrough alcohol withdrawa Stop: 02/20/22 23:14 Ondansetron HCl (Ondansetron Hcl 4 Mg/2 Ml Vial) 4 mg IVPUSH Q8H PRN PRN Reason: Nausea and Vomiting Pharmacy Consult (Consult Rx Perform Med Rec) 1 each MISCELLANE ONCE PRN PRN Reason: Consult order Sodium Chloride (0.9 % Sodium Chloride Flush 3 Ml Syringe) 3 ml IVFLUSH QSHIFT [facility] Last Admin: 02/17/22 01:03 Dose: 3 ml Documented by: BESS Thiamine HCl (Thiamine Hcl 100 Mg Tablet) 100 mg PO DAILY [facility] Labs CBC & Chem 7: 02/17/22 05:25 02/17/22 05:25 Labs: Laboratory Results - last 24 hr 02/16/22 02/16/22 02/16/22 17:45 17:45 17:45 MCV 87.3 MCH 29.9 MCHC 34.3 RDW 12.2 Plt Count 230 MPV 9.2 L Immature Gran % (Auto) 0.4 Neut % (Auto) 85.1 H Lymph % (Auto) 8.5 L [place] % (Auto) 5.7 Eos % (Auto) 0.1 Baso % (Auto) 0.2 Lymph # (Auto) 1.0 L [place] # (Auto) 0.7 Eos # (Auto) 0.0 Baso # (Auto) 0.0 Abs Immat Gran (auto) 0.05 H Absolute Neuts (auto) 10.2 H Absolute Nucleated RBC 0.000 Nucleated RBC % (auto) 0.0 Anion Gap Creatinine Estim Creat Clear Calc Estimated GFR Random Glucose Calcium Total Bilirubin AST ALT Alkaline Phosphatase Troponin I High Sens 161.2 H* Total Protein Albumin Lipase Urine Color Urine Appearance Urine pH Ur Specific [place] Urine Protein Urine Glucose (UA) Urine Ketones Urine Blood Urine Nitrite Ur Leukocyte Esterase Urine RBC Urine WBC Ur Squamous Epith Cells Urine Bacteria Urine Opiates Screen Urine Fentanyl Screen Ur Barbiturates Screen Ur Phencyclidine Scrn Ur Amphetamines Screen U Benzodiazepines Scrn Urine Cocaine Screen U Marijuana (THC) Screen Ethyl Alcohol < 10 COVID-19 ([facility]) COVID-19 Clin Com Influenza Type A (STEPHANY) Influenza Type B (STEPHANY) Influenza A & B Note 02/16/22 02/16/22 02/16/22 18:20 20:36 20:36 MCV MCH MCHC RDW Plt Count MPV Immature Gran % (Auto) Neut % (Auto) Lymph % (Auto) [place] % (Auto) Eos % (Auto) Baso % (Auto) Lymph # (Auto) [place] # (Auto) Eos # (Auto) Baso # (Auto) Abs Immat Gran (auto) Absolute Neuts (auto) Absolute Nucleated RBC Nucleated RBC % (auto) Anion Gap 13 Creatinine 1.02 Estim Creat Clear Calc 83.5 Estimated GFR > 60 Random Glucose 150 H Calcium 10.0 Total Bilirubin 1.0 AST 39 H D ALT 26 Alkaline Phosphatase 73 Troponin I High Sens 257.0 H* D Total Protein 7.5 Albumin 4.6 Lipase 15 Urine Color YELLOW Urine Appearance CLEAR Urine pH 6.5 Ur Specific [place] <= 1.005 Urine Protein NEG Urine Glucose (UA) NEG Urine Ketones NEG Urine Blood 1+ H Urine Nitrite NEG Ur Leukocyte Esterase NEG Urine RBC 5-9 H Urine WBC 0 Ur Squamous Epith Cells NONE Urine Bacteria NONE Urine Opiates Screen Urine Fentanyl Screen Ur Barbiturates Screen Ur Phencyclidine Scrn Ur Amphetamines Screen U Benzodiazepines Scrn Urine Cocaine Screen U Marijuana (THC) Screen Ethyl Alcohol COVID-19 ([facility]IS) COVID-19 [employer] Com Influenza Type A (STEPHANY) Influenza Type B (STEPHANY) Influenza A & B Note 02/16/22 02/16/22 02/16/22 22:30 22:53 22:53 MCV MCH MCHC RDW Plt Count MPV Immature Gran % (Auto) Neut % (Auto) Lymph % (Auto) [place] % (Auto) Eos % (Auto) Baso % (Auto) Lymph # (Auto) [place] # (Auto) Eos # (Auto) Baso # (Auto) Abs Immat Gran (auto) Absolute Neuts (auto) Absolute Nucleated RBC Nucleated RBC % (auto) Anion Gap Creatinine Estim Creat Clear Calc Estimated GFR Random Glucose Calcium Total Bilirubin AST ALT Alkaline Phosphatase Troponin I High Sens Total Protein Albumin Lipase Urine Color Urine Appearance Urine pH Ur Specific [place] Urine Protein Urine Glucose (UA) Urine Ketones Urine Blood Urine Nitrite Ur Leukocyte Esterase Urine RBC Urine WBC Ur Squamous Epith Cells Urine Bacteria Urine Opiates Screen Not Detected Urine Fentanyl Screen Not Detected Ur Barbiturates Screen Not Detected Ur Phencyclidine Scrn Not Detected Ur Amphetamines Screen Not Detected U Benzodiazepines Scrn POSITIVE H Urine Cocaine Screen Not Detected U Marijuana (THC) Screen Not Detected Ethyl Alcohol COVID-19 ([facility]IS) Negative COVID-19 [employer] Com See Note Influenza Type A (STEPHANY) Negative Influenza Type B (STEPHANY) Negative Influenza A & B Note See Note 0402/17/22 02/17/22 01:17 05:25 05:25 MCV 89.4 MCH 29.7 MCHC 33.3 RDW 12.5 Plt Count 249 MPV 9.5 Immature Gran % (Auto) 0.4 Neut % (Auto) 80.6 H Lymph % (Auto) 11.9 L [place] % (Auto) 6.2 Eos % (Auto) 0.5 Baso % (Auto) 0.4 Lymph # (Auto) 1.3 [place] # (Auto) 0.7 Eos # (Auto) 0.1 Baso # (Auto) 0.0 Abs Immat Gran (auto) 0.04 H Absolute Neuts (auto) 8.7 H Absolute Nucleated RBC 0.000 Nucleated RBC % (auto) 0.0 Anion Gap 14 Creatinine 1.91 H Estim Creat Clear Calc 44.6 Estimated GFR 36 Random Glucose 144 H Calcium 9.5 Total Bilirubin AST ALT Alkaline Phosphatase Troponin I High Sens 195.2 H* Total Protein Albumin Lipase Urine Color Urine Appearance Urine pH Ur Specific [place] Urine Protein Urine Glucose (UA) Urine Ketones Urine Blood Urine Nitrite Ur Leukocyte Esterase Urine RBC Urine WBC Ur Squamous Epith Cells Urine Bacteria Urine Opiates Screen Urine Fentanyl Screen Ur Barbiturates Screen Ur Phencyclidine Scrn Ur Amphetamines Screen U Benzodiazepines Scrn Urine Cocaine Screen U Marijuana (THC) Screen Ethyl Alcohol COVID-19 ([facility]) COVID-19 Clin Com Influenza Type A (STEPHANY) Influenza Type B (STEPHANY) Influenza A & B Note Assessment and Plan (1) Elevated troponin: Status: Acute (2) Alcohol withdrawal: Status: Acute (3) Hypertensive urgency: Status: Acute (4) Hypotension: Status: Acute Plan 66-year-old male with past medical history of hypertension as well as alcohol abuse presents to the hospital with complaints of anxiety found to have hypertensive urgency 1. hypertensive urgency initially and then became hypotensive received his home medications of clonidine and lisinopril significant i mprovement of his blood pressure Patient was given 3 L fluid bolus, blood pressure is improving, will be continue maintenance lactic linger IV at 100 mL/hour Patient is asymptomatic currently. hold clonidine and htn meds for now 2. alcohol dependence with withdrawal - patient has anxiety, Continue Ativan protocol - folic and thiamine supplement - consult made to care team 3. elevated troponin - likely type 2 in the setting hypertensive urgency, hypotension - no chest pain, no EKG changes cardiology eval noted-troponin leak due to htn urgency ,added echo 4. kevin: Probably related to hypotension/hypoperfusion. Avoid antihypertensive and nephrotoxic medications for now. Continue IV fluid, monitor renal function and electrolytes closely. need for inpatient: hypotension, kevin, alcohol withdrawal Quality Stroke Does the patient have a stroke diagnosis?: No VTE Prior VTE?: No VTE Risk Level:: Medical - moderate - high VTE Device Contraindication: Treatment Not Indicated VTE Drug Contraindication: N/A - Med Ordered
--- NOTE | 2022-02-17 08:12 | PHA.MEDREC ---
Pharmacy Consult ? Medication Reconciliation Pharmacy has completed the medication reconciliation. Patient states that he takes his lisinopril and clonidine when he feels like he needs it. He states probably about half of the time. Last time he filled either medication was 06/09/2021. The patient also states that he was prescribed sertraline at some point but doesn't know when the last time he took it was and I don't see any external fill history for sertraline.
[2022-02-17] MEDS: Lactated Ringers 500 ML 999 ML IV (08:17)
--- NOTE | 2022-02-17 08:28 | MHC.CM.PN ---
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 Home/no services vs Care Team interventions (ETOH, ANXIETY) is the goal for dc and CM has initiated and will follow for dc planning. PCP is Dr.Nicholas Moura and Patient has received Moderna vax X2.
[2022-02-17] MEDS: Lactated Ringers 1,000 ML 100 ML IVCONT ×2 (09:12→16:59)
[2022-02-17] MEDS: Folic Acid 1 MG TABLET PO (09:12)
[2022-02-17] MEDS: Thiamine HCL 100 MG TABLET PO (09:12)
[2022-02-17] MEDS: Enoxaparin Sodium 40 MG/0.4 ML SYRINGE SUBCUT (09:12)
--- NOTE | 2022-02-17 10:49 | PM.CNCAR ---
History of Present Illness History of Present Illness Date of Service: 02/17/22 Requesting physician: Jake Alonzo Consult reason: troponin elevation Chief complaint: Alcohol withdrawal, hypertensive urgency Narrative: I was requested to see Gerard in cardiology consultation today for elevated troponins and hypertensive urgency. He is a 66-year-old male with prior history of recurrent alcohol binge, hypertension, anxiety. He said he has most recent binge was about a week ago he started drinking heavily again and then did not take his medication only for 2 days. At home he is on lisinopril and clonidine for hypertension and anxiety. He has not been taking scanning. Yesterday got very anxious and then checked his blood pressure which was markedly elevated and then decided comes in with very was noted to be in hypertensive urgency with systolic blood pressure up to 260. He had no chest pain. No shortness of breath. No headaches or visual issues. His troponin done was elevated with and subsequently jeffrey further. He was admitted because of hypertensive urgency which corrected quickly with reinstate mint of his medication including Catapres and lisinopril. Blood pressure today systolic 102. He is denying any cardiac symptoms at this point time. His troponins have down trended. He has no prior cardiac history. If the generally he is well and he has no exertional symptoms in his day-to-day activity. Review of Systems Constitutional: Constitutional: Reports no additional constitutional complaints Eyes: Eyes: Reports no additional eye complaints Cardiovascular: Cardiovascular: Reports no additional cardiovascular complaints Respiratory: Respiratory: Reports no additional respiratory complaints Gastrointestinal: Gastrointestinal: Reports no additional gastrointestinal complaints Genitourinary: Genitourinary: Reports no additional male genitourinary complaints Musculoskeletal: Musculoskeletal: Reports no additional musculoskeletal complaints Integumentary/Breasts: Skin/Breast: Reports system reviewed and no additional complaints, except as docu Neurologic: Reports system reviewed and no additional complaints, except as documented Psychiatric: Psychiatric: Reports no additional psychiatric complaints Endocrine: Endocrine: Reports no additional endocrine complaints Hematologic/Lymphatic: Hematologic/Lymphatic: Reports no additional hematologic/lymphatic complaints Allergic/Immunologic: Allergic/Immunologic: Reports no additional allergic/immunologic complaints [facility] Past Medical History Medical History Anxiety Hypertension Family History Family History Father Dementia Mother Melanoma Surgical History Surgical History History of colonoscopy Social History Social History Alcohol intake: current Alcohol intake frequency: 3 or more drinks per day Alcohol type: beer and hard liquor Patient Tobacco Use Status: Current someday Tobacco user Tobacco use type: Cigarette Smoked in Last 30 Days: Yes Patient Interested in Nicotine Replacement: No Use of substances other than those prescribed or required for medical reasons: No Advance Directives: Yes Advance Directives Information Provided: No Advance Directives on File: No Advance Directives Date on File: 02/17/22 service: Yes Current occupational status: retired Meds Allergies Allergy/AdvReac Type Severity Reaction Status Date / Time AVOID HCTZ - hyponatremia - Allergy Unknown Unknown Uncoded 08/19/20 13:55 1 Active Medications: Current Medications Acetaminophen (Acetaminophen 325 Mg Tablet) 650 mg PO Q6H PRN PRN Reason: Pain, Mild (Pain Scale 1-3) Docusate Sodium (Docusate Sodium 100 Mg Capsule) 100 mg PO DAILY PRN PRN Reason: Constipation Enoxaparin Sodium (Enoxaparin Sodium 40 Mg/0.4 Ml Syringe) 40 mg SUBCUT Q24H [facility] Last Admin: 02/17/22 09:12 Dose: 40 mg Documented by: Folic Acid (Folic Acid 1 Mg Tablet) 1 mg PO DAILY [facility] Last Admin: 02/17/22 09:12 Dose: 1 mg Documented by: Lactated Ringer's (Lr) 1,000 mls @ 100 mls/hr IVCONT .Q10H [facility] Last Admin: 02/17/22 09:12 Dose: 100 mls/hr Documented by: Lorazepam (Lorazepam 1 Mg Tablet) 1 mg PO Q4H [facility]; Taper Stop: 02/21/22 01:14 Last Admin: 02/17/22 09:06 Dose: Not Given Documented by: Lorazepam (Lorazepam 1 Mg Tablet) 1 mg PO Q4H PRN PRN Reason: Breakthrough alcohol withdrawa Stop: 02/20/22 23:14 Ondansetron HCl (Ondansetron Hcl 4 Mg/2 Ml Vial) 4 mg IVPUSH Q8H PRN PRN Reason: Nausea and Vomiting Pharmacy Consult (Consult Rx Perform Med Rec) 1 each MISCELLANE ONCE PRN PRN Reason: Consult order Sodium Chloride (0.9 % Sodium Chloride Flush 3 Ml Syringe) 3 ml IVFLUSH QSHIFT [facility] Last Admin: 02/17/22 09:06 Dose: Not Given Documented by: Thiamine HCl (Thiamine Hcl 100 Mg Tablet) 100 mg PO DAILY [facility] Last Admin: 02/17/22 09:12 Dose: 100 mg Documented by: Home Medications Medication Instructions Recorded Confirmed Last Taken Type clonidine HCl 0.1 mg tablet 1 tab PO Q8H PRN 02/17/22 02/17/22 Unknown History Physical Exam Vital Signs: Vital Signs: Last Vital Signs Temp 97.1 F 02/17/22 07:27 Pulse 68 02/17/22 07:27 Resp 18 02/17/22 07:27 BP 102/56 L 02/17/22 09:44 Pulse Ox 99 02/17/22 07:27 BMI result Body Mass Index 28.2 Const: General: cooperative, comfortable, no acute distress, alert and awake Nutritional Appearance: average body habitus Orientation/consciousness: patient oriented x3 Limitations: no limitations HEENT: Head: Yes normocephalic and Yes atraumatic Neck: Neck: Yes trachea midline and Yes no JVD Chest: Chest palpation & inspection: normal inspection of the chest Resp: Effort & Inspection: normal respiratory effort Auscultation: clear to auscultation bilaterally Cardio: Jugular venous distension: no JVD Palpation: normal PMI Rate: regular rate Rhythm: regular rhythm Heart sounds: S1 normal heart sound present, S2 normal heart sound present, no click, no gallops, no murmurs and no rubs GI: Auscultation: normal bowel sounds Skin: General skin exam: no rashes or lesions noted Neuro: General: patient oriented x3 and no focal motor deficits Extrem: General: Yes no clubbing, cyanosis or edema Psych: Appearance: grossly normal Objective Labs and Meds Result diagrams: 02/17/22 05:25 02/17/22 05:25 Lab results: Laboratory Results - last 24 hr 02/16/22 02/16/22 02/16/22 17:45 17:45 17:45 WBC 11.9 H RBC 5.18 Hgb 15.5 Hct 45.2 MCV 87.3 MCH 29.9 MCHC 34.3 RDW 12.2 Plt Count 230 MPV 9.2 L Immature Gran % (Auto) 0.4 Neut % (Auto) 85.1 H Lymph % (Auto) 8.5 L [place] % (Auto) 5.7 Eos % (Auto) 0.1 Baso % (Auto) 0.2 Lymph # (Auto) 1.0 L [place] # (Auto) 0.7 Eos # (Auto) 0.0 Baso # (Auto) 0.0 Abs Immat Gran (auto) 0.05 H Absolute Neuts (auto) 10.2 H Absolute Nucleated RBC 0.000 Nucleated RBC % (auto) 0.0 Sodium Potassium Chloride Carbon Dioxide Anion Gap BUN Creatinine Estim Creat Clear Calc Estimated GFR Random Glucose Calcium Total Bilirubin AST ALT Alkaline Phosphatase Total Creatine Kinase Troponin I High Sens 161.2 H* Total Protein Albumin Lipase Urine Color Urine Appearance Urine pH Ur Specific [place] Urine Protein Urine Glucose (UA) Urine Ketones Urine Blood Urine Nitrite Ur Leukocyte Esterase Urine RBC Urine WBC Ur Squamous Epith Cells Urine Bacteria Urine Opiates Screen Urine Fentanyl Screen Ur Barbiturates Screen Ur Phencyclidine Scrn Ur Amphetamines Screen U Benzodiazepines Scrn Urine Cocaine Screen U Marijuana (THC) Screen Ethyl Alcohol < 10 COVID-19 ([facility]) COVID-19 Clin Com Influenza Type A ([facility]) Influenza Type B (STEPHANY) Influenza A & B Note 02/16/22 02/16/22 02/16/22 18:20 20:36 20:36 WBC RBC Hgb Hct MCV MCH MCHC RDW Plt Count MPV Immature Gran % (Auto) Neut % (Auto) Lymph % (Auto) [place] % (Auto) Eos % (Auto) Baso % (Auto) Lymph # (Auto) [place] # (Auto) Eos # (Auto) Baso # (Auto) Abs Immat Gran (auto) Absolute Neuts (auto) Absolute Nucleated RBC Nucleated RBC % (auto) Sodium 139 Potassium 5.0 Chloride 103 Carbon Dioxide 28 Anion Gap 13 BUN 11 Creatinine 1.02 Estim Creat Clear Calc 83.5 Estimated GFR > 60 Random Glucose 150 H Calcium 10.0 Total Bilirubin 1.0 AST 39 H D ALT 26 Alkaline Phosphatase 73 Total Creatine Kinase Troponin I High Sens 257.0 H* D Total Protein 7.5 Albumin 4.6 Lipase 15 Urine Color YELLOW Urine Appearance CLEAR Urine pH 6.5 Ur Specific [place] <= 1.005 Urine Protein NEG Urine Glucose (UA) NEG Urine Ketones NEG Urine Blood 1+ H Urine Nitrite NEG Ur Leukocyte Esterase NEG Urine RBC 5-9 H Urine WBC 0 Ur Squamous Epith Cells NONE Urine Bacteria NONE Urine Opiates Screen Urine Fentanyl Screen Ur Barbiturates Screen Ur Phencyclidine Scrn Ur Amphetamines Screen U Benzodiazepines Scrn Urine Cocaine Screen U Marijuana (THC) Screen Ethyl Alcohol COVID-19 ([facility]) COVID-19 Clin Com Influenza Type A ([facility]) Influenza Type B (STEPHANY) Influenza A & B Note 02/16/22 02/16/22 02/16/22 22:30 22:53 22:53 WBC RBC Hgb Hct MCV MCH MCHC RDW Plt Count MPV Immature Gran % (Auto) Neut % (Auto) Lymph % (Auto) [place] % (Auto) Eos % (Auto) Baso % (Auto) Lymph # (Auto) [place] # (Auto) Eos # (Auto) Baso # (Auto) Abs Immat Gran (auto) Absolute Neuts (auto) Absolute Nucleated RBC Nucleated RBC % (auto) Sodium Potassium Chloride Carbon Dioxide Anion Gap BUN Creatinine Estim Creat Clear Calc Estimated GFR Random Glucose Calcium Total Bilirubin AST ALT Alkaline Phosphatase Total Creatine Kinase Troponin I High Sens Total Protein Albumin Lipase Urine Color Urine Appearance Urine pH Ur Specific [place] Urine Protein Urine Glucose (UA) Urine Ketones Urine Blood Urine Nitrite Ur Leukocyte Esterase Urine RBC Urine WBC Ur Squamous Epith Cells Urine Bacteria Urine Opiates Screen Not Detected Urine Fentanyl Screen Not Detected Ur Barbiturates Screen Not Detected Ur Phencyclidine Scrn Not Detected Ur Amphetamines Screen Not Detected U Benzodiazepines Scrn POSITIVE H Urine Cocaine Screen Not Detected U Marijuana (THC) Screen Not Detected Ethyl Alcohol COVID-19 ([facility]) Negative COVID-19 Clin Com See Note Influenza Type A ([facility]) Negative Influenza Type B ([facility]) Negative Influenza A & B Note See Note 02/17/22 02/17/22 02/17/22 01:17 05:25 05:25 WBC 10.7 RBC 4.81 Hgb 14.3 Hct 43.0 MCV 89.4 MCH 29.7 MCHC 33.3 RDW 12.5 Plt Count 249 MPV 9.5 Immature Gran % (Auto) 0.4 Neut % (Auto) 80.6 H Lymph % (Auto) 11.9 L [place] % (Auto) 6.2 Eos % (Auto) 0.5 Baso % (Auto) 0.4 Lymph # (Auto) 1.3 [place] # (Auto) 0.7 Eos # (Auto) 0.1 Baso # (Auto) 0.0 Abs Immat Gran (auto) 0.04 H Absolute Neuts (auto) 8.7 H Absolute Nucleated RBC 0.000 Nucleated RBC % (auto) 0.0 Sodium 137 Potassium 4.2 Chloride 101 Carbon Dioxide 26 Anion Gap 14 BUN 14 Creatinine 1.91 H Estim Creat Clear Calc 44.6 Estimated GFR 36 Random Glucose 144 H Calcium 9.5 Total Bilirubin AST ALT Alkaline Phosphatase Total Creatine Kinase 414 H Troponin I High Sens 195.2 H* Total Protein Albumin Lipase Urine Color Urine Appearance Urine pH Ur Specific [place] Urine Protein Urine Glucose (UA) Urine Ketones Urine Blood Urine Nitrite Ur Leukocyte Esterase Urine RBC Urine WBC Ur Squamous Epith Cells Urine Bacteria Urine Opiates Screen Urine Fentanyl Screen Ur Barbiturates Screen Ur Phencyclidine Scrn Ur Amphetamines Screen U Benzodiazepines Scrn Urine Cocaine Screen U Marijuana (THC) Screen Ethyl Alcohol COVID-19 ([facility]) COVID-19 Clin Com Influenza Type A ([facility]PH[facility]) Influenza Type B (STEPHANY) Influenza A & B Note Assessment and Plan (1) Hypertensive urgency: Status: Acute Patient admitted with hypertensive urgency related to noncompliance with medication, with acute hypertensive urgency most likely related to clonidine withdrawal. Contin is not the ideal drug for this patient was unreliable in taking medication as this can lead to further issues with hypertensive urgency and more serious complications including intra cerebral hemorrhage. This was discussed with the patient's pressure noncompliance with medications. Complete avoidance of alcohol bingeing was also discussed with him. Taking his medication on a regular basis was discussed. Blood pressure is optimized although he has developed some acute kidney injury. Also most likely related to hypertensive urgency. His troponin elevations also related to subendocardial strain related to hypertensive urgency rather than acute coronary syndrome. He has no cardiac symptoms at this point time. 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 He will require ischemic workup which can be done as outpatient unless echocardiogram is abnormal. Please request an echocardiogram today. Will follow with him as outpatient Procedures Date of Service Date of Service: 02/17/22
--- NOTE | 2022-02-17 11:08 | MHC.CM.PN ---
Per RN CM during ROUNDS discussion, Patient is being changed from OBSERVATION to INPATIENT; IMM addressed with Patient and original was left at bedside for his review and a copy has been placed on the chart.
--- NOTE | 2022-02-17 11:27 | MHC.RECOVRN ---
Met with pt in 453 after consult placed to Care Team for alcohol use. Upon entering, pt awake, laying in bed, just looking around the room. Pt difficult to engage in conversation, responding very slowly to questions. Pt reports alcohol use for over 20 years, mostly in a binge manner. Pt reports longest period in recovery has been 5-6 months. Pt reports normal pattern is to drink for a few days and stop until cravings return-can be up to a couple months. Pt discloses that he has attempted to abstain in the past, however, states the cravings are real. When asked to quantify amount prior to admission, pt states could have been up to 30 beers over a few days. Pt had previously reported to provider that he had been drinking 14 beers and 4-5 shots of Fireball daily. Pts last drink was 02/14. Pt reports having been to AA and did not find it helpful. Pt has not had other treatment for AUD. Pt educated regarding recovery supports and resources. Pt interested in naltrexone initiation while inpatient. Pt provided with resources as well as t/w contact information if needed. Discussed with Karma Morris APRN.
[2022-02-17 12:54] LABS: Anion Gap 12 (12-20); Blood Urea Nitrogen 20 mg/dL (9-16); Calcium 9.1 mg/dL (8.4-10.2); Carbon Dioxide 26 mmol/L (22-29); Chloride 104 mmol/L (96-108); Creatinine Clr Calc Pharmacy 43.9; Estimated Glomerular Filt Rate 35; Glucose Random 102 mg/dL (60-115); Potassium 4.9 mmol/L (3.3-5.1); Sodium 137 mmol/L (135-145)
--- NOTE | 2022-02-17 13:00 | CA_ITS ---
Transthoracic Echocardiogram Patient (Last, First, Middle): Gerard Duffy P Gender: Male Date of : 1955 Age: 68 Procedure Date: 01/13/2024 Procedure Type: Transthoracic Echocardiogram Location: ER Height: 182.88 cm Weight: 92.08 kg BSA: 2.14 m2 Heart Rate: bpm BP: 117 / 71 mmHg Enterprise Sales Person: Referring MD: Jake Alonzo MD Offset Lithographic Press Setter: Stevo Drake MD Symptoms: elevated troponins Study Quality: Fair ECG Rhythm: Sinus Conclusions: - 1. Normal LV ejection fraction 55-60% with mild LVH with grade 1 diastolic dysfunction 2. Mild mitral regurgitation 3. Normal RV systolic pressure 4. Upper limits of normal ascending aortic size at 3.6 cm 5. No gross pericardial effusion Findings Left Ventricle Normal left ventricular size and systolic function. There is mildly increased left ventricular wall thickness. The visually estimated ejection fraction is between 55-60%. Spectral Doppler is indicative of an impaired relaxation filling pattern. E/E prime ratio is <8, consistent with normal filling pressures. Evidence suggests grade I (mild) diastolic dysfunction. Right Ventricle Normal right ventricular cavity size and systolic function. Atria Both atria are normal in size. There is no evidence of interatrial shunt. Aortic Valve Normal aortic valve structure and function. There is no aortic valve stenosis. There is no aortic valve regurgitation. Mitral Valve Normal mitral valve structure and function. There is mild mitral valve regurgitation. There is no mitral valve stenosis. Pulmonic Valve The pulmonic valve is likely normal. There is trace pulmonic valve regurgitation. Tricuspid Valve Normal tricuspid valve structure. There is trace tricuspid valve regurgitation. The right ventricular systolic pressure is normal. The right ventricular systolic pressure is 25 mmHg. Normal right atrial pressure. There is no evidence of pulmonary hypertension. Great Vessels All visible segments of the aorta are normal in size. The pulmonary artery was not well visualized. Venous The inferior vena cava is normal in size and collapses greater than 50% with inspiration. Pericardium/Pleural There is no evidence of pericardial effusion. Measurements 2D Linear Measurements IVSd: 1.38 0.6-0.9/0.6-1.0 cm LVIDd: 4.45 3.9-5.3/4.2-5.9 cm LVIDd Index: 2.08 2.4-3.2/2.2-3.1 cm/m2 LVIDs: 2.76 2.0-3.6 cm LVPWd: 1.35 0.7-1.1 cm Ao Root: 3.80 2.1-3.5 cm LA Diam: 3.50 2.7-3.8/3.0-4.0 cm LAIDs Index: 1.64 1.5-2.3 cm/m2 LV Mass: 293.31 67-162/88-224 g LV Mass Index: 137.06 43-95/49-115 g/m2 LVOT Diam: 2.50 3.0+(-)1.3 cm 2D Systolic Function EF 4C: 55.40 >55% EF 2C: 56.30 >55% EF BiP: 57.90 >55% Mitral Valve MV Pk E: 0.63 MV PK A: 0.67 MV Decel Time: 289.00 E/A: 0.90 E'Lateral: 8.70 E'Medial: 5.11 E/E' Med: 12.30 E/E' Lat: 7.20 PHT: 85.00 MVA PHT: 2.59 Decel Villalba: 2.17 Aortic Valve AoV Pk Michael: 1.35 AoV Mn Michael: 0.89 AoV VTI: 0.35 AoV Pk Grad: 7.00 Aov Mn Grad: 4.00 LAMONTE Cont.VTI: 3.56 LVOT LVOT Pk Michael: 1.18 LVOT Mn Michael: 0.74 LVOT VTI: 0.25 LVOT Pk Grad: 6.00 LVOT Mn Grad: 3.00 LVOT Diam: 2.50 LVOT Area: 4.91 Diastolic Function MV Pk E: 0.63 MV Pk A: 0.67 E/A: 0.90 E'Medial: 5.11 E/E' Med: 12.30 E' Laterial: 8.70 E/E' Lat: 7.20 Right Ventricle TAPSE (mm): 28.00 TVS' Michael: 14.00 Tricuspid Valve TR Pk Michael: 2.34 TR Pk Grad: 22.00 RA Press: 3.00 RVSP: 25.00 Great Vessels Aorta Ao Root-2D: 3.80 2.0-3.7 cm Ao Asc: 3.60 2.1-3.4 cm Pulmonary Valve PV Pk Michael: 0.86 Peak PV Grad: 3.00 Updated in Other Vendor System with Status of Final Stevo Drake MD electronically signed on 01/13/2024 1:13:21 PM with status of Final
--- NOTE | 2022-02-17 20:30 | HO.ADDICTCON ---
History of Present Illness Date of Service: 02/17/2022 Chief Complaint: Alcohol withdrawal, hypertensive urgency Reason for Consult: AUD Requesting physician: Jake Alonzo HPI Narrative: Patient is a 66 year old male with AUD, currently medically admitted with hypertensive crisis. Seen by Recovery Support RN and expressed interest in Naltrexone for AUD Has been drinking for over 20 years and identifies binge drinking as an issue. On average drinking btwn 7-15 beers per day for 5-10 days at a time. Denies any history or treatment, aside from mutual support groups (AA). Somewhat guarded and slow to respond. Does identify several social stressors and triggers. Minimal coping strategies. No providers or supports At time of interview, denies any withdrawal sx, but reporting some anxiety. No tremor, diaphoresis noted Review of Systems Constitutional: Reports as per HPI Diagnostics Vital Signs (24Hr): Vital Signs - 24 hr 02/16/22 20:45 02/16/22 22:00 02/16/22 22:53 Temperature 98.1 F Pulse Rate 72 78 86 Respiratory Rate 13 18 16 Blood Pressure 145/91 H 162/91 H 162/91 H Pulse Oximetry 97 95 98 02/17/22 00:00 02/17/22 04:00 02/17/22 05:25 Temperature 97.8 F 98.6 F Pulse Rate 57 60 56 Respiratory Rate 16 20 Blood Pressure 109/70 86/42 L 80/40 L Pulse Oximetry 95 96 02/17/22 06:50 02/17/22 07:27 02/17/22 08:09 Temperature 97.1 F Pulse Rate 55 68 Respiratory Rate 18 Blood Pressure 90/48 L 84/40 L 92/44 L Pulse Oximetry 99 02/17/22 09:44 02/17/22 11:10 02/17/22 15:11 Temperature 97.8 F 98.3 F Pulse Rate 75 69 Respiratory Rate 17 20 Blood Pressure 102/56 L 98/50 L 110/55 L Pulse Oximetry 96 94 02/17/22 18:55 Temperature 98.4 F Pulse Rate 72 Respiratory Rate 20 Blood Pressure 107/59 L Pulse Oximetry 95 BMI result Body Mass Index 28.2 Labs Results: 02/17/22 05:25 02/18/22 05:51 Labs: Laboratory Results - last 48 hr 02/16/22 02/16/22 02/16/22 17:45 17:45 17:45 WBC 11.9 H RBC 5.18 Hgb 15.5 Hct 45.2 MCV 87.3 MCH 29.9 MCHC 34.3 RDW 12.2 Plt Count 230 MPV 9.2 L Immature Gran % (Auto) 0.4 Neut % (Auto) 85.1 H Lymph % (Auto) 8.5 L [place] % (Auto) 5.7 Eos % (Auto) 0.1 Baso % (Auto) 0.2 Lymph # (Auto) 1.0 L [place] # (Auto) 0.7 Eos # (Auto) 0.0 Baso # (Auto) 0.0 Abs Immat Gran (auto) 0.05 H Absolute Neuts (auto) 10.2 H Absolute Nucleated RBC 0.000 Nucleated RBC % (auto) 0.0 Sodium Potassium Chloride Carbon Dioxide Anion Gap BUN Creatinine Estim Creat Clear Calc Estimated GFR Random Glucose Calcium Total Bilirubin AST ALT Alkaline Phosphatase Total Creatine Kinase Troponin I High Sens 161.2 H* Total Protein Albumin Lipase Urine Color Urine Appearance Urine pH Ur Specific [place] Urine Protein Urine Glucose (UA) Urine Ketones Urine Blood Urine Nitrite Ur Leukocyte Esterase Urine RBC Urine WBC Ur Squamous Epith Cells Urine Bacteria Urine Opiates Screen Urine Fentanyl Screen Ur Barbiturates Screen Ur Phencyclidine Scrn Ur Amphetamines Screen U Benzodiazepines Scrn Urine Cocaine Screen U Marijuana (THC) Screen Ethyl Alcohol < 10 COVID-19 ([facility]) COVID-19 Clin Com Influenza Type A ([facility]) Influenza Type B (STEPHANY) Influenza A & B Note 02/16/22 02/16/22 02/16/22 18:20 20:36 20:36 WBC RBC Hgb Hct MCV MCH MCHC RDW Plt Count MPV Immature Gran % (Auto) Neut % (Auto) Lymph % (Auto) [place] % (Auto) Eos % (Auto) Baso % (Auto) Lymph # (Auto) [place] # (Auto) Eos # (Auto) Baso # (Auto) Abs Immat Gran (auto) Absolute Neuts (auto) Absolute Nucleated RBC Nucleated RBC % (auto) Sodium 139 Potassium 5.0 Chloride 103 Carbon Dioxide 28 Anion Gap 13 BUN 11 Creatinine 1.02 Estim Creat Clear Calc 83.5 Estimated GFR > 60 Random Glucose 150 H Calcium 10.0 Total Bilirubin 1.0 AST 39 H D ALT 26 Alkaline Phosphatase 73 Total Creatine Kinase Troponin I High Sens 257.0 H* D Total Protein 7.5 Albumin 4.6 Lipase 15 Urine Color YELLOW Urine Appearance CLEAR Urine pH 6.5 Ur Specific [place] <= 1.005 Urine Protein NEG Urine Glucose (UA) NEG Urine Ketones NEG Urine Blood 1+ H Urine Nitrite NEG Ur Leukocyte Esterase NEG Urine RBC 5-9 H Urine WBC 0 Ur Squamous Epith Cells NONE Urine Bacteria NONE Urine Opiates Screen Urine Fentanyl Screen Ur Barbiturates Screen Ur Phencyclidine Scrn Ur Amphetamines Screen U Benzodiazepines Scrn Urine Cocaine Screen U Marijuana (THC) Screen Ethyl Alcohol COVID-19 ([facility]) COVID-19 Clin Com Influenza Type A ([facility]) Influenza Type B ([facility]ANY) Influenza A & B Note 02/16/22 02/16/22 02/16/22 22:30 22:53 22:53 WBC RBC Hgb Hct MCV MCH MCHC RDW Plt Count MPV Immature Gran % (Auto) Neut % (Auto) Lymph % (Auto) [place] % (Auto) Eos % (Auto) Baso % (Auto) Lymph # (Auto) [place] # (Auto) Eos # (Auto) Baso # (Auto) Abs Immat Gran (auto) Absolute Neuts (auto) Absolute Nucleated RBC Nucleated RBC % (auto) Sodium Potassium Chloride Carbon Dioxide Anion Gap BUN Creatinine Estim Creat Clear Calc Estimated GFR Random Glucose Calcium Total Bilirubin AST ALT Alkaline Phosphatase Total Creatine Kinase Troponin I High Sens Total Protein Albumin Lipase Urine Color Urine Appearance Urine pH Ur Specific [place] Urine Protein Urine Glucose (UA) Urine Ketones Urine Blood Urine Nitrite Ur Leukocyte Esterase Urine RBC Urine WBC Ur Squamous Epith Cells Urine Bacteria Urine Opiates Screen Not Detected Urine Fentanyl Screen Not Detected Ur Barbiturates Screen Not Detected Ur Phencyclidine Scrn Not Detected Ur Amphetamines Screen Not Detected U Benzodiazepines Scrn POSITIVE H Urine Cocaine Screen Not Detected U Marijuana (THC) Screen Not Detected Ethyl Alcohol COVID-19 ([facility]) Negative COVID-19 Clin Com See Note Influenza Type A ([facility]) Negative Influenza Type B ([facility]) Negative Influenza A & B Note See Note 02/17/22 02/17/22 02/17/22 01:17 05:25 05:25 WBC 10.7 RBC 4.81 Hgb 14.3 Hct 43.0 MCV 89.4 MCH 29.7 MCHC 33.3 RDW 12.5 Plt Count 249 MPV 9.5 Immature Gran % (Auto) 0.4 Neut % (Auto) 80.6 H Lymph % (Auto) 11.9 L [place] % (Auto) 6.2 Eos % (Auto) 0.5 Baso % (Auto) 0.4 Lymph # (Auto) 1.3 [place] # (Auto) 0.7 Eos # (Auto) 0.1 Baso # (Auto) 0.0 Abs Immat Gran (auto) 0.04 H Absolute Neuts (auto) 8.7 H Absolute Nucleated RBC 0.000 Nucleated RBC % (auto) 0.0 Sodium 137 Potassium 4.2 Chloride 101 Carbon Dioxide 26 Anion Gap 14 BUN 14 Creatinine 1.91 H Estim Creat Clear Calc 44.6 Estimated GFR 36 Random Glucose 144 H Calcium 9.5 Total Bilirubin AST ALT Alkaline Phosphatase Total Creatine Kinase 414 H Troponin I High Sens 195.2 H* Total Protein Albumin Lipase Urine Color Urine Appearance Urine pH Ur Specific [place] Urine Protein Urine Glucose (UA) Urine Ketones Urine Blood Urine Nitrite Ur Leukocyte Esterase Urine RBC Urine WBC Ur Squamous Epith Cells Urine Bacteria Urine Opiates Screen Urine Fentanyl Screen Ur Barbiturates Screen Ur Phencyclidine Scrn Ur Amphetamines Screen U Benzodiazepines Scrn Urine Cocaine Screen U Marijuana (THC) Screen Ethyl Alcohol COVID-19 ([facility]) COVID-19 Clin Com Influenza Type A ([facility]) Influenza Type B ([facility]) Influenza A & B Note 02/17/22 12:28 WBC RBC Hgb Hct MCV MCH MCHC RDW Plt Count MPV Immature Gran % (Auto) Neut % (Auto) Lymph % (Auto) [place] % (Auto) Eos % (Auto) Baso % (Auto) Lymph # (Auto) [place] # (Auto) Eos # (Auto) Baso # (Auto) Abs Immat Gran (auto) Absolute Neuts (auto) Absolute Nucleated RBC Nucleated RBC % (auto) Sodium 137 Potassium 4.9 Chloride 104 Carbon Dioxide 26 Anion Gap 12 BUN 20 H Creatinine 1.94 H Estim Creat Clear Calc 43.9 Estimated GFR 35 Random Glucose 102 Calcium 9.1 Total Bilirubin AST ALT Alkaline Phosphatase Total Creatine Kinase Troponin I High Sens Total Protein Albumin Lipase Urine Color Urine Appearance Urine pH Ur Specific [place] Urine Protein Urine Glucose (UA) Urine Ketones Urine Blood Urine Nitrite Ur Leukocyte Esterase Urine RBC Urine WBC Ur Squamous Epith Cells Urine Bacteria Urine Opiates Screen Urine Fentanyl Screen Ur Barbiturates Screen Ur Phencyclidine Scrn Ur Amphetamines Screen U Benzodiazepines Scrn Urine Cocaine Screen U Marijuana (THC) Screen Ethyl Alcohol COVID-19 ([facility]) COVID-19 Clin Com Influenza Type A (STE[facility]) Influenza Type B (STEPHANY) Influenza A & B Note Mental Status Exam Mental Status Exam Patient Appearance: Disheveled (hospital attire ) Patient Behavior: Guarded Mood Description: Withdrawn and Anxious Affect Description: Blunted Speech Pattern: Long Pauses Thought Process: Slowed Thinking Thought Content: positive for Helper Medications Medications Current Medications Acetaminophen (Acetaminophen 325 Mg Tablet) 650 mg PO Q6H PRN PRN Reason: Pain, Mild (Pain Scale 1-3) Docusate Sodium (Docusate Sodium 100 Mg Capsule) 100 mg PO DAILY PRN PRN Reason: Constipation Enoxaparin Sodium (Enoxaparin Sodium 40 Mg/0.4 Ml Syringe) 40 mg SUBCUT Q24H [facility] Last Admin: 02/17/22 09:12 Dose: 40 mg Documented by: Folic Acid (Folic Acid 1 Mg Tablet) 1 mg PO DAILY [facility] Last Admin: 02/17/22 09:12 Dose: 1 mg Documented by: Lactated Ringer's (Lr) 1,000 mls @ 100 mls/hr IVCONT .Q10H [facility] Last Admin: 02/17/22 16:59 Dose: 100 mls/hr Documented by: Lorazepam (Lorazepam 1 Mg Tablet) 1 mg PO Q4H [facility]; Taper Stop: 02/21/22 01:14 Last Admin: 02/17/22 17:01 Dose: 1 mg Documented by: Lorazepam (Lorazepam 1 Mg Tablet) 1 mg PO Q4H PRN PRN Reason: Breakthrough alcohol withdrawa Stop: 02/20/22 23:14 Ondansetron HCl (Ondansetron Hcl 4 Mg/2 Ml Vial) 4 mg IVPUSH Q8H PRN PRN Reason: Nausea and Vomiting Pharmacy Consult (Consult Rx Perform Med Rec) 1 each MISCELLANE ONCE PRN PRN Reason: Consult order Sodium Chloride (0.9 % Sodium Chloride Flush 3 Ml Syringe) 3 ml IVFLUSH QSHIFT [facility] Last Admin: 02/17/22 17:00 Dose: 3 ml Documented by: Thiamine HCl (Thiamine Hcl 100 Mg Tablet) 100 mg PO DAILY [facility] Last Admin: 02/17/22 09:12 Dose: 100 mg Documented by: Allergies Allergies Allergy/AdvReac Type Severity Reaction Status Date / Time AVOID HCTZ - hyponatremia - Allergy Unknown Unknown Uncoded 08/19/20 13:55 1 Assessment & Plan Assessment & Plan (1) Alcohol use disorder, severe, dependence: Status: Acute Code(s): F10.20 - Alcohol dependence, uncomplicated Assessment and Plan: patient agreeable to Naltrexone. Medication goals, side effects, dosing, etc. Natrexone 25mg X2 days then increase to 50mg daily RSRN to follow up regarding plan for outpatient follow up I spent ___45___ minutes with the patient and/or on the patient floor today, greater than?50% of which was spent counseling/coordinating care. PMFSH Past Medical History Medical History Anxiety Hypertension Family History Family History Father Dementia Mother Melanoma Surgical History Surgical History History of colonoscopy Social History Social History Alcohol intake: current Alcohol intake frequency: 3 or more drinks per day Alcohol type: beer and hard liquor Patient Tobacco Use Status: Current someday Tobacco user Tobacco use type: Cigarette Smoked in Last 30 Days: Yes Patient Interested in Nicotine Replacement: No Use of substances other than those prescribed or required for medical reasons: No Advance Directives: Yes Advance Directives Information Provided: No Advance Directives on File: No Advance Directives Date on File: 02/17/22 service: Yes Current occupational status: retired
[2022-02-18] MEDS: LORazepam 1 MG TABLET PO ×3 (01:31→13:40)
[2022-02-18 03:18] VITALS: BP 93/56; PULSE 65; RESP 16; TEMP 36.4; O2SAT 98
[2022-02-18] MEDS: Lactated Ringers 1,000 ML 100 ML IVCONT (03:28)
[2022-02-18 06:48] LABS: Anion Gap 11 (12-20); Blood Urea Nitrogen 18 mg/dL (9-16); Calcium 8.9 mg/dL (8.4-10.2); Carbon Dioxide 27 mmol/L (22-29); Chloride 106 mmol/L (96-108); Creatinine Clr Calc Pharmacy 73.5; Estimated Glomerular Filt Rate > 60; Glucose Random 139 mg/dL (60-115); Potassium 4.6 mmol/L (3.3-5.1); Sodium 139 mmol/L (135-145)
[2022-02-18 07:18] VITALS: BP 132/78; PULSE 62; RESP 20; TEMP 36.2; O2SAT 98
--- NOTE | 2022-02-18 08:36 | P.PNIM_ITS ---
Subjective Subjective Date of Service: 02/18/22 Interval History: kevin, alcohol withdrawal Physical Exam Vital Signs: Vital Signs: Last Vital Signs Temp 97.2 F 02/18/22 07:18 Pulse 62 02/18/22 07:18 Resp 20 02/18/22 07:18 BP 132/78 02/18/22 07:18 Pulse Ox 98 02/18/22 07:18 BMI result Body Mass Index 28.2 Appearance: Alert.? Oriented X3.? not in distress.? cvs: rrr, [id number] , no murmur res: clear to auscultation ,no rhonchii or wheezing abd: no rebound or guarding ,nt, bs present. ext pulses present , no cyanosis . neuro: axo3 , nonfocal. ? Objective Data Active Medications Acetaminophen (Acetaminophen 325 Mg Tablet) 650 mg PO Q6H PRN PRN Reason: Pain, Mild (Pain Scale 1-3) Docusate Sodium (Docusate Sodium 100 Mg Capsule) 100 mg PO DAILY PRN PRN Reason: Constipation Enoxaparin Sodium (Enoxaparin Sodium 40 Mg/0.4 Ml Syringe) 40 mg SUBCUT Q24H [facility] Last Admin: 02/17/22 09:12 Dose: 40 mg Documented by: GUERRERO Folic Acid (Folic Acid 1 Mg Tablet) 1 mg PO DAILY [facility] Last Admin: 02/17/22 09:12 Dose: 1 mg Documented by: GUERRERO Lactated Ringer's (Lr) 1,000 mls @ 100 mls/hr IVCONT .Q10H [facility] Last Admin: 02/18/22 03:28 Dose: 100 mls/hr Documented by: MARIN Lorazepam (Lorazepam 1 Mg Tablet) 1 mg PO Q6H [facility]; Taper Stop: 02/21/22 01:14 Last Admin: 02/18/22 01:31 Dose: 1 mg Documented by: MARIN Lorazepam (Lorazepam 1 Mg Tablet) 1 mg PO Q4H PRN PRN Reason: Breakthrough alcohol withdrawa Stop: 02/20/22 23:14 Ondansetron HCl (Ondansetron Hcl 4 Mg/2 Ml Vial) 4 mg IVPUSH Q8H PRN PRN Reason: Nausea and Vomiting Pharmacy Consult (Consult Rx Perform Med Rec) 1 each MISCELLANE ONCE PRN PRN Reason: Consult order Sodium Chloride (0.9 % Sodium Chloride Flush 3 Ml Syringe) 3 ml IVFLUSH QSHIFT [facility] Last Admin: 02/17/22 20:47 Dose: 3 ml Documented by: MARIN Thiamine HCl (Thiamine Hcl 100 Mg Tablet) 100 mg PO DAILY [facility] Last Admin: 02/17/22 09:12 Dose: 100 mg Documented by: LYNDSAYTYHAILEEI Labs CBC & Chem 7: 02/17/22 05:25 02/18/22 05:51 Labs: Laboratory Results - last 24 hr 02/16/22 02/17/22 02/17/22 18:20 05:25 12:28 Anion Gap 12 Creatinine 1.02 1.91 H 1.94 H Estim Creat Clear Calc 43.9 Estimated GFR 35 Random Glucose 102 Calcium 9.1 02/18/22 05:51 Anion Gap 11 L Creatinine 1.16 Estim Creat Clear Calc 73.5 Estimated GFR > 60 Random Glucose 139 H D Calcium 8.9 Assessment and Plan Plan 66-year-old male with past medical history of hypertension as well as alcohol abuse presents to the hospital with complaints of anxiety found to have hypertensive urgency 1. hypertensive urgency initially and then became hypotensive ?received his home medications of clonidine and lisinopril significant improvem ent of his blood pressure Patient was given 3 L fluid bolus, blood pressure is improving, will be continue maintenance lactic linger IV at 100 mL/hour Patient is asymptomatic currently. hold clonidine and htn meds for now 2. alcohol dependence with withdrawal - patient has anxiety, Continue Ativan protocol - folic and thiamine supplement - consult made to care team 3. elevated troponin - likely type 2 in the setting hypertensive urgency, hypotension - no chest pain, no EKG changes cardiology eval noted-troponin leak due to htn urgency? ,added echo 4. kevin:? Probably related to hypotension/hypoperfusion. Avoid antihypertensive and nephrotoxic medications for now. Continue IV fluid, monitor renal function and electrolytes closely. need for inpatient: hypotension, kevin, alcohol withdrawal Quality Stroke Does the patient have a stroke diagnosis?: No VTE Prior VTE?: No VTE Risk Level:: Medical - moderate - high VTE Device Contraindication: Treatment Not Indicated VTE Drug Contraindication: N/A - Med Ordered
[2022-02-18] MEDS: Folic Acid 1 MG TABLET PO (08:55)
[2022-02-18] MEDS: Enoxaparin Sodium 40 MG/0.4 ML SYRINGE SUBCUT (08:55)
[2022-02-18] MEDS: 0.9 % Sodium Chloride Flush 3 ML SYRINGE IVFLUSH (08:55)
[2022-02-18] MEDS: Thiamine HCL 100 MG TABLET PO (08:55)
[2022-02-18 11:20] VITALS: BP 157/79; PULSE 75; RESP 20; TEMP 36.8; O2SAT 98
[2022-02-18] MEDS: Naltrexone HCl 50 MG TABLET 25 MG PO (11:44)
--- NOTE | 2022-02-18 14:39 | P.DS_ITS ---
DS: Providers Provider Date of Service: 02/18/22 Date of admission: 02/16/22 23:15 Primary care physician: Amrit Moura PA-C Consults: 02/17/22 05:58 Consult to Care Team Routine Comment: Reason for consultation: Interested in detox from alcohol 02/17/22 07:44 Consult to Cardiology Routine Consulting Provider: [facility] [place] [facility] Reason for consultation: elevated troponins Has provider been notified: No DS: Diagnosis Discharge Diagnosis (1) Alcohol use disorder, severe, dependence: Status: Acute DS: Summary Hospital Course Hospital Course: 66-year-old male with past medical history of hypertension, anxiety, and episodes of alcohol binge drinking presents to the hospital with complaints of anxiety.? Patient reports that he went on about a 7 day drinking being inch drinking 15 beers as well as 5 shots of whiskey nightly.? He stop drinking about 3 days ago, he has been feeling severely anxious injury.? He checked his blood pressure at home today was found to be very high and he called EMS.? On arrival of EMS his blood pressure systolic was found to be 260.? Patient was brought into the hospital.? On arrival to the hospital patient BP was found to be 211/103.? Patient reports that he is usually noncompliant with his antihypertensives and he takes them sporadically.? Is not taking them for the past 1 week.? Patient was given his home medications with his blood pressure improving significantly.? Patient denies any headache, no chest pain, no shortness of breath, no abdominal pain nausea or vomiting, no diarrhea constipation, no urinary symptoms and no lower extremity edema.? Patient denies any history of withdrawal seizures in the past but reports that he does have history of withdrawals with no DTs.? Labs on arrival were significant for WBC count of 11.9, troponin of 161.2 with no EKG changes, UA negative, COVID-19 negative, influenza negative Patient given Librium for alcohol withdrawal and will be admitted for further management Patient is interested in detoxing hospital course:Patient came to the hospital because of alcohol withdrawal and hypertension urgency: Subsequently treated with IV hydration and antihypertensives meds-further his blood pressure dropped as well as developed acute kidney injury and required more aggressive resuscitation with IV fluid- with supportive care blood pressure and INO improved. Patient can start back lisinopril tomorrow. Monitor renal function and electrolyte outpatient with PCP. Patient also had elevated cardiac enzymes probably related to hypertension urgency: Seen by heart doctor: Echo of heart was fine. Cardiology may arrange the outpatient appointment. Due to current blood pressure fluctuation : Cardiology recommended preferably of clonidine. Discussed with psych-recommended to hold of colon and in until patient sees psych outpatient. Alcohol withdrawal: Seems like elevated high blood pressure initially probably related to withdrawals. Treated with Ativan protocol. Seems improved. Discussed with him in detail about stopping alcohol. Above management discussed with the patient in detail- he understand and in agreement with plan Time Spent with Patient Time attestation: Total time spent providing and/or coordinating discharge services: Discharge coordination time: Greater than 30 minutes Quality: Safe Use of Opioids Does Pt have an Active Cancer Diagnosis on the Problem List?: No Quality: Stroke Does the patient have a stroke diagnosis?: No Physical Exam Vital Signs: Vital Signs: Last Vital Signs Temp 98.3 F 02/18/22 11:20 Pulse 75 02/18/22 11:20 Resp 20 02/18/22 11:20 BP 157/79 H 02/18/22 11:20 Pulse Ox 98 02/18/22 11:20 BMI result Body Mass Index 28.2 Appearance: Alert.? Oriented X3.? not in distress.? cvs: rrr, [id number] , no murmur res: clear to auscultation ,no rhonchii or wheezing abd: no rebound or guarding ,nt, bs present. ext pulses present , no cyanosis . neuro: axo3 , nonfocal. DS: Data Data Completed and Pending Labs on day of discharge: Laboratory Results - last 24 hr 02/18/22 05:51 Sodium 139 Potassium 4.6 Chloride 106 Carbon Dioxide 27 Anion Gap 11 L BUN 18 H Creatinine 1.16 Estim Creat Clear Calc 73.5 Estimated GFR > 60 Random Glucose 139 H D Calcium 8.9 Additional Comments Additional comments: echo: Conclusions: - 1.? Normal LV systolic function with grade 1 diastolic ? dysfunction? 2.? Normal cardiac valvular Doppler? 3.? Normal RV systolic pressure? 4.? No pericardial effusion? Discharge Plan Discharge Patient Disposition: Home, Self-Care Discharge Diagnosis: ino ,htn urgency Referrals: Amrit Moura PA-C [Primary Care Provider] - 1 Week Discharge Medications: New folic acid 1 mg Tablet 1 mg PO DAILY Qty: 30 0RF thiamine mononitrate (vit B1) 100 mg Tablet 100 mg PO DAILY Qty: 30 0RF naltrexone 50 mg tablet 50 mg PO DAILY Qty: 30 0RF Continued lisinopril 20 mg tablet 20 mg PO DAILY Qty: 90 2RF Changed lisinopril 20 mg tablet 10 mg PO DAILY Qty: 90 2RF Held clonidine HCl 0.1 mg tablet 1 tab PO Q8H PRN (Reason: anxiety) 0RF Hold Instructions: until blood pressure improves -further use outpatient as per PCP. Discharge Orders: Discharge Order (Routine); Ordered 02/18/22 Ordered By: Jake Alonzo Diet: advance to usual diet Activity on Discharge: As tolerated Stand Alone Forms: Patient Portal Discharge page Other Ambulatory Orders: Basic Metabolic Panel (Routine) Timeframe: 1 Week Facility: [facility] - Location: Laboratory Ordered By: Jake Alonzo Care Plan Goals: Patient came to the hospital because of alcohol withdrawal and hypertension urgency: Subsequently treated with IV hydration and antihypertensives meds- further his blood pressure dropped as well as developed acute kidney injury and required more aggressive resuscitation with IV fluid- with supportive care blood pressure and INO improved. Patient can start back lisinopril tomorrow. Monitor renal function and electrolyte outpatient with PCP. Blood pressure is fluctuating so lisinopril adjusted to 10 mg daily-please monitor blood pressure outpatient and if needed and needed than adjust lisinopril back as per renal function. Further management outpatient with PCP. Patient also had elevated cardiac enzymes probably related to hypertension urgency: Seen by heart doctor: Echo of heart was fine. Cardiology may arrange the outpatient appointment. Due to current blood pressure fluctuation : Cardiology recommended preferably of clonidine. Discussed with psych-recommended to hold of colon and in until patient sees psych outpatient. Alcohol withdrawal: Seems like elevated high blood pressure initially probably related to withdrawals. Treated with Ativan protocol. Seems improved. Discussed with him in detail about stopping alcohol. Above management discussed with the patient in detail- he understand and in agreement with plan Health Concerns: As above. Plan of Treatment: As above. Assessment: As above.
--- NOTE | 2022-02-18 14:53 | MHC.CM.PN ---
Patient has been medically cleared for dc to home today, self care. Last IMM addressed yesterday.
--- NOTE | 2022-02-18 15:26 | MHC.RECOVRN ---
Pt initiated on naltrexone for AUD while inpatient. Script has been sent to pts pharmacy. Has appt on 02/25 at 0900 with Karma Morris APRN at the [facility]. Pt denies questions or concerns at this time. Pt, provider, CM aware.
== END 2022-02-18 15:37 | disposition home or self-care (01) ==
LOC: HO.ED 23:22 → HO.EDOVER 23:29 → HO.IMC 23:37
PROVIDERS: Admitting Provider Internal Medicine; Emergency Provider Emergency Medicine Emergency Medical Services; PCP Physician Assistant; Visit Provider Internal Medicine
DX: I16.0 Hypertensive urgency (principal); F10.20 Alcohol dependence, uncomplicated; Y90.0 Blood alcohol level of less than 20 mg/100 ml; F10.239 Alcohol dependence with withdrawal, unspecified; R77.8 Other specified abnormalities of plasma proteins; R74.8 Abnormal levels of other serum enzymes; R00.1 Bradycardia, unspecified; F41.9 Anxiety disorder, unspecified; F17.210 Nicotine dependence, cigarettes, uncomplicated; Z20.822 Contact with and (suspected) exposure to COVID-19; Z88.8 Allergy status to other drugs, medicaments and biological substances; Z79.899 Other long term (current) drug therapy; Z91.14 Patient's other noncompliance with medication regimen
CPT/HCPCS: 36415; 80048; 80053; 80307; 81001; 82077; 82550; 83690; 84484; 85025; 87502; 87635; 93005; 93306; 96361; 96372; 96374; 99219; 99285; J1650

== ENCOUNTER → 2022-02-25 08:41 | Outpatient (BNVA) | payer MEDICARE, SELFPAY | PROVIDERS: Visit Provider Nurse Practitioner Psychiatric/Mental Health | DX: Z51.81 Encounter for therapeutic drug level monitoring (principal); F10.20 Alcohol dependence, uncomplicated | CPT/HCPCS: 80305; 99212 ==

== ENCOUNTER → 2022-03-02 07:39 | Outpatient (REF) | payer MEDICARE, SELFPAY ==
--- NOTE | ~2022-03-02 | NM_ITS ---
EXERCISE MYOCARDIAL PERFUSION STUDY INDICATION: Elevated troponins, uncontrolled hypertension, assess for coronary disease and ischemia TECHNIQUE: The patient was brought in for an exercise perfusion study on 03/02/2022. Patient performed exercise as per Storm protocol and was injected 30 mCi of sestamibi once target heart rate was achieved. Images were obtained using the SPECT gamma camera interlaced with the gating device. Images were obtained in supine position. Resting perfusion study was performed on 03/04/2022. Patient was administered 30 mCi of sestamibi intravenously at rest. Images were then obtained in supine position. Total DLP 84mGy-cm. Images were processed with the software and compared side to side in short axis, horizontal long axis and vertical long axis views. FINDINGS: Raw images were reviewed. The stress perfusion study showed diminished tracer uptake along the basal part of inferior wall. With CT attenuation correction, there is improvement suggestive of diaphragmatic attenuation artifact. The gated study shows normal LV systolic function with calculated LVEF of 70%. LV cavity is normal in size. The gated study shows normal wall thickening and contraction of segments. Resting study shows diminished tracer uptake in the basal part of inferior wall. There is improvement with CT attenuation correction suggestive of diaphragmatic attenuation artifact. Gating at rest reveals normal wall motion with ejection fraction at 56%. The findings are consistent with fixed basal inferior defect. Suspected to be from diaphragmatic attenuation artifact. No reversible defects.. NM/NM cardiolite stress test IMPRESSION: 1. Myocardial perfusion imaging study shows likely normal myocardial perfusion. Fixed basal inferior defect suspected to be from diaphragmatic attenuation artifact. 2. Gated LVEF is 70% during stress and 56% during rest. 3. Transient ischemic dilatation not present. EKG component of the test reported separately.
--- NOTE | 2022-03-02 07:44 | CA_ITS ---
Acquisition Time: 2022-03-02 08:09:27 Total Exercise Time: 00:06:00 Test Indications: ELEVATED TROP,HTN Medications: LISINOPRIL Protocol: CORAL Max HR: 134 BPM 87% of Pred: 154 BPM Max BP: 204/070 mmHG Max Work Load: 7.0 METS Exercise stress test with exercise 6 min of Coral protocol, without anginal symptoms, with isolated PAC, atrial cupl;ets and isolated PVCs, with hypertensive response to exercise with max BP 204/70, without EKG changes meeting criteria for ischemia. Nuclear images pending. Test reviewed with Dr Mon. note: test was ordered as a pharmacological stress test and unable to perform as he had caffiene this am. Testing changed to exercise nuclear stress test. Referred By: Stevo Drake Overread By: SONIA GALLOWAY
== END ==
LOC: HO.CARD 07:39
PROVIDERS: PCP Physician Assistant; Visit Provider Internal Medicine Cardiovascular Disease
DX: R77.8 Other specified abnormalities of plasma proteins (principal)
CPT/HCPCS: 78452; 93017; A9500

== ENCOUNTER → 2022-03-22 10:46 | Outpatient (BNVA) | payer MEDICARE, SELFPAY | PROVIDERS: PCP Physician Assistant; Visit Provider Nurse Practitioner Psychiatric/Mental Health | DX: F10.20 Alcohol dependence, uncomplicated (principal); Z79.899 Other long term (current) drug therapy | CPT/HCPCS: 80305; 96372; 99211 ==

== ENCOUNTER 2022-03-25 06:05 | Outpatient (REF) | payer MEDICARE, SELFPAY ==
[2022-03-25 11:22] LABS: Hematocrit 45.3 % (42.0-52.0); Hemoglobin 15.1 g/dl (14.0-18.0); Mean Corpuscular HGB Conc 33.3 g/dl (31.0-36.0); Mean Corpuscular Hemoglobin 29.6 pg (27.0-33.0); Mean Corpuscular Volume 88.8 fL (80.0-98.0); Mean Platelet Volume 10.6 fL (9.4-12.4); Platelet Count 233 X10*3/uL (160-400); Red Cell Distribution Width 11.9 % (11.0-16.0)
[2022-03-25 11:40] LABS: Creatinine Urine 73.11 mg/dL; Microalbumin Urine < 5.0 mg/L
[2022-03-25 11:52] LABS: Alanine Aminotransferase 18 U/L (0-40); Albumin Level 4.5 g/dL (3.5-5.0); Alkaline Phosphatase 70 U/L (39-117); Anion Gap 12 (12-20); Aspartate Amino Transferase 25 U/L (5-37); Bilirubin Direct 0.3 mg/dL (0.0-0.5); Bilirubin Total 0.7 mg/dL (0.0-1.0); Blood Urea Nitrogen 21 mg/dL (9-16); Calcium 9.7 mg/dL (8.4-10.2); Carbon Dioxide 25 mmol/L (22-29); Chloride 105 mmol/L (96-108); Estimated Glomerular Filt Rate > 60; Glucose Random 142 mg/dL (60-115); Potassium 4.4 mmol/L (3.3-5.1); Sodium 138 mmol/L (135-145); Total Protein 7.4 g/dL (6.5-8.0)
== END 2022-03-25 06:06 | disposition home or self-care (01) ==
LOC: HO.HMGCLDS 06:05
PROVIDERS: Visit Provider Physician Assistant
DX: I10 Essential (primary) hypertension (principal); F10.20 Alcohol dependence, uncomplicated
CPT/HCPCS: 36415; 80048; 80076; 82043; 85027

== ENCOUNTER → 2022-04-22 09:23 | Outpatient (BNVA) | payer MEDICARE, SELFPAY | PROVIDERS: PCP Physician Assistant; Visit Provider Internal Medicine | DX: Z51.81 Encounter for therapeutic drug level monitoring (principal); F10.20 Alcohol dependence, uncomplicated | CPT/HCPCS: 80305; 96372; 99212; J2315 ==

== ENCOUNTER 2022-09-16 16:25 | Emergency (ER) | payer MEDICARE, SELFPAY ==
[2022-09-16] VITALS (7 sets, daily range): BP systolic 157–200; BP diastolic 82–113; PULSE 70–100; RESP 16–20; TEMP 36.6–36.7; O2SAT 97–98; BMI 25.0
--- NOTE | 2022-09-16 16:39 | ECG_ITS ---
Test Reason : high blood pressure Blood Pressure : / mmHG Vent. Rate : 089 BPM Atrial Rate : 089 BPM P-R Int : 204 ms QRS Dur : 120 ms QT Int : 378 ms P-R-T Axes : 093 037 061 degrees QTc Int : 459 ms Sinus rhythm with Premature atrial complexes Non-specific intra-ventricular conduction delay RSR' or QR pattern in V1 suggests right ventricular conduction delay Abnormal ECG When compared with ECG of 16-FEB-2022 18:07, Premature atrial complexes are now Present Heart rate has increased Referred By: Georgia Diez Electronically Signed By:EDDIE COVARRUBIAS MD
--- NOTE | 2022-09-16 16:41 | ED.GENADULT ---
HPI - General Adult General Chief complaint: General Medical Stated complaint: elevated blood pressure 200/120 Time Seen by Provider: 09/16/22 18:08 Related Data Previous Rx's Medication Instructions Recorded folic acid 1 mg tablet 1 mg PO DAILY #30 tabs 02/18/22 naltrexone 50 mg tablet 50 mg PO DAILY #30 tabs 02/18/22 thiamine mononitrate (vit B1) 100 100 mg PO DAILY #30 tabs 02/18/22 mg tablet naltrexone microspheres 380 mg 380 mg IM Q4W #1 ea 02/25/22 intramuscular suspension,extended release (Vivitrol) clonidine HCl 0.1 mg tablet 0.1 mg PO BID anxiety and 08/02/22 withdrawal symptoms 30 days #60 tabs hydroxyzine HCl 25 mg tablet 25 mg PO TID PRN anxiety 30 days 08/23/22 #90 tabs lisinopril 30 mg tablet 30 mg PO DAILY 30 days #30 tabs 08/28/22 amlodipine 5 mg tablet (Norvasc) 5 mg PO DAILY #30 tabs 09/16/22 Allergies Allergy/AdvReac Type Severity Reaction Status Date / Time AVOID HCTZ - hyponatremia - Allergy Unknown Unknown Uncoded 05/06/22 11:12 1 [facility] Past Medical History Medical History Alcohol use disorder, severe, dependence Anxiety Hypertension Surgical History History of colonoscopy Family History Family History Father Dementia Mother Melanoma Social History Social History Housing: House Alcohol intake: never Patient Tobacco Use Status: Current someday Tobacco user Tobacco use type: Cigarette Substance Use Type: Marijuana Advance Directives Date on File: 02/17/22 service: Yes Current occupational status: retired Cognitive needs: No Hearing needs: No Vision needs: No Physical Exam ED Vital Signs: Vital Signs - 24 hr 09/16/22 16:38 09/16/22 18:22 09/16/22 18:28 Temperature 98.1 F 98.1 F Pulse Rate 100 88 Respiratory Rate 18 Blood Pressure 200/113 H 195/107 H Pulse Oximetry 98 98 Oxygen Delivery Method Room Air Room Air 09/16/22 19:22 09/16/22 19:27 09/16/22 19:37 Temperature 97.8 F Pulse Rate 78 Respiratory Rate 20 Blood Pressure 157/82 H 176/86 H 158/85 H Pulse Oximetry 97 Oxygen Delivery Method Room Air 09/16/22 20:00 Temperature Pulse Rate 70 Respiratory Rate 16 Blood Pressure 158/88 H Pulse Oximetry Oxygen Delivery Method BMI result Body Mass Index 25.0 Course Course Course Narrative: [place]--67-year-old male with past medical history of hypertension, anxiety, and episodes of alcohol binge drinking presents c/o HTN at home. Pt reports HTN due to sciatic back pain he has been experiencing. reports compliance with his BP meds, and taking 2 Clonidine around 230PM. Denies headache, CP/SOB Hypertensive 201/113, Nontoxic appearing, ambulating with steady gait in triage > charge nurse aware EKG, labs, p.o. Flexeril ordered Medications Administered Discontinued Medications Generic Name Dose Route Start Last Admin Trade Name Freq PRN Reason Stop Dose Admin Cyclobenzaprine HCl 10 mg 09/16/22 16:39 09/16/22 18:30 Cyclobenzaprine Hcl 10 Mg Tablet PO 09/16/22 16:40 10 mg ONCE ONE Administration Lorazepam 2 mg 09/16/22 19:06 09/16/22 19:42 Lorazepam 1 Mg Tablet PO 09/16/22 19:07 2 mg ONCE ONE Administration Medical Decision Making Lab Data Result diagrams: 09/16/22 16:52 09/16/22 16:52 Labs: Lab Results 09/16/22 09/16/22 09/16/22 Range/Units 16:52 16:52 16:52 WBC 13.8 H (4.8-10.8) X10*3/uL RBC 5.16 (4.60-5.80) X10*6/uL Hgb 15.4 (14.0-18.0) g/dl Hct 44.9 (42.0-52.0) % MCV 87.0 (80.0-98.0) fL MCH 29.8 (27.0-33.0) pg MCHC 34.3 (31.0-36.0) g/dl RDW 12.4 (11.0-16.0) % Plt Count 276 (160-400) X10*3/uL MPV 9.4 (9.4-12.4) fL Immature Gran % (Auto) 0.4 (0.0-0.4) % Neut % (Auto) 84.4 H (45-73) % Lymph % (Auto) 8.2 L (20-40) % [place] % (Auto) 6.2 (2-11) % Eos % (Auto) 0.6 (0-4) % Baso % (Auto) 0.2 (0-2) % Lymph # (Auto) 1.1 L (1.2-4.9) X10*3/uL [place] # (Auto) 0.9 (0.1-1.2) X10*3/uL Eos # (Auto) 0.1 (0.0-0.4) X10*3/uL Baso # (Auto) 0.0 (0.0-0.2) X10*3/uL Abs Immat Gran (auto) 0.06 H (0.00-0.03) X10*3/uL Absolute Neuts (auto) 11.7 H (2.0-8.3) x10*3/uL Absolute Nucleated RBC 0.000 (0.0-0.012) X10*3/uL Nucleated RBC % (auto) 0.0 (0.0-0.2) /100WBC Sodium 136 (135-145) mmol/L Potassium 4.4 (3.3-5.1) mmol/L Chloride 102 (96-108) mmol/L Carbon Dioxide 22 (22-29) mmol/L Anion Gap 16 (12-20) BUN 17 H (9-16) mg/dL Creatinine 0.94 (0.5-1.4) mg/dL Estim Creat Clear Calc 84.8 Estimated GFR > 60 Random Glucose 163 H (60-115) mg/dL Calcium 9.7 (8.4-10.2) mg/dL Magnesium 2.0 (1.6-2.6) mg/dL Total Bilirubin 0.5 (0.0-1.0) mg/dL Direct Bilirubin 0.2 (0.0-0.5) mg/dL AST 33 (5-37) U/L ALT 22 (0-40) U/L Alkaline Phosphatase 76 (39-117) U/L Troponin I High Sens 23.8 (<3.5-35.0) ng/L Total Protein 7.6 (6.5-8.0) g/dL Albumin 4.8 (3.5-5.0) g/dL Urine Opiates Screen (Not Detect) Urine Fentanyl Screen (Not Detect) Ur Barbiturates Screen (Not Detect) Ur Phencyclidine Scrn (Not Detect) Ur Amphetamines Screen (Not Detect) U Benzodiazepines Scrn (Not Detect) Urine Cocaine Screen (Not Detect) U Marijuana (THC) Screen (Not Detect) Ethyl Alcohol < 10 mg/dL COVID-19 ([facility]) (Negative) COVID-19 Clin Com 09/16/22 09/16/22 09/16/22 Range/Units 16:53 18:47 19:46 WBC (4.8-10.8) X10*3/uL RBC (4.60-5.80) X10*6/uL Hgb (14.0-18.0) g/dl Hct (42.0-52.0) % MCV (80.0-98.0) fL MCH (27.0-33.0) pg MCHC (31.0-36.0) g/dl RDW (11.0-16.0) % Plt Count (160-400) X10*3/uL MPV (9.4-12.4) fL Immature Gran % (Auto) (0.0-0.4) % Neut % (Auto) (45-73) % Lymph % (Auto) (20-40) % [place] % (Auto) (2-11) % Eos % (Auto) (0-4) % Baso % (Auto) (0-2) % Lymph # (Auto) (1.2-4.9) X10*3/uL [place] # (Auto) (0.1-1.2) X10*3/uL Eos # (Auto) (0.0-0.4) X10*3/uL Baso # (Auto) (0.0-0.2) X10*3/uL Abs Immat Gran (auto) (0.00-0.03) X10*3/uL Absolute Neuts (auto) (2.0-8.3) x10*3/uL Absolute Nucleated RBC (0.0-0.012) X10*3/uL Nucleated RBC % (auto) (0.0-0.2) /100WBC Sodium (135-145) mmol/L Potassium (3.3-5.1) mmol/L Chloride (96-108) mmol/L Carbon Dioxide (22-29) mmol/L Anion Gap (12-20) BUN (9-16) mg/dL Creatinine (0.5-1.4) mg/dL Estim Creat Clear Calc Estimated GFR Random Glucose (60-115) mg/dL Calcium (8.4-10.2) mg/dL Magnesium (1.6-2.6) mg/dL Total Bilirubin (0.0-1.0) mg/dL Direct Bilirubin (0.0-0.5) mg/dL AST (5-37) U/L ALT (0-40) U/L Alkaline Phosphatase (39-117) U/L Troponin I High Sens 35.6 H D (<3.5-35.0) ng/L Total Protein (6.5-8.0) g/dL Albumin (3.5-5.0) g/dL Urine Opiates Screen Not Detected (Not Detect) Urine Fentanyl Screen Not Detected (Not Detect) Ur Barbiturates Screen Not Detected (Not Detect) Ur Phencyclidine Scrn Not Detected (Not Detect) Ur Amphetamines Screen Not Detected (Not Detect) U Benzodiazepines Scrn Not Detected (Not Detect) Urine Cocaine Screen Not Detected (Not Detect) U Marijuana (THC) Screen POSITIVE H (Not Detect) Ethyl Alcohol mg/dL COVID-19 ([facility]) Negative (Negative) COVID-19 Clin Com See Note Discharge Plan Discharge Clinical Impression: Elevated blood pressure reading, Hypertensive urgency Patient Disposition: Home, Self-Care Instructions: Hypertensive Crisis (ED) Additional Instructions: Stop taking clonidine and substitute Norvasc beginning tomorrow morning Prescriptions: New amlodipine [Norvasc] 5 mg tablet 5 mg PO DAILY Qty: 30 0RF No Action clonidine HCl 0.1 mg tablet 0.1 mg PO BID 30 Days Qty: 60 2RF hydroxyzine HCl 25 mg tablet 25 mg PO TID PRN (Reason: anxiety) 30 Days Qty: 90 3RF lisinopril 30 mg tablet 30 mg PO DAILY 30 Days Qty: 30 3RF folic acid 1 mg Tablet 1 mg PO DAILY Qty: 30 0RF thiamine mononitrate (vit B1) 100 mg Tablet 100 mg PO DAILY Qty: 30 0RF naltrexone 50 mg tablet 50 mg PO DAILY Qty: 30 0RF Vivitrol 380 mg suspension,extended rel recon 380 mg IM Q4W Qty: 1 5RF Interventions: ED Discharge Assessment Last Done: 09/16/22 21:14 Discharge Date/Time: 09/16/22 21:15
[2022-09-16 16:58] LABS: MANUAL DIFF FLAG NO
[2022-09-16 17:14] LABS: COVID-19 Test Negative (Negative); IDNOW Serial# BCCEAD1C
[2022-09-16 17:16] LABS: Basophils Percent Auto 0.2 % (0-2); Eosinophils Absolute Auto 0.1 X10*3/uL (0.0-0.4); Eosinophils Percent Auto 0.6 % (0-4); Hematocrit 44.9 % (42.0-52.0); Hemoglobin 15.4 g/dl (14.0-18.0); Imm Gran Abs Auto 0.06 X10*3/uL (0.00-0.03); Imm Gran Pct Auto 0.4 % (0.0-0.4); Lymphocytes Absolute Auto 1.1 X10*3/uL (1.2-4.9); Lymphocytes Percent Auto 8.2 % (20-40); Mean Corpuscular HGB Conc 34.3 g/dl (31.0-36.0); Mean Corpuscular Hemoglobin 29.8 pg (27.0-33.0); Mean Platelet Volume 9.4 fL (9.4-12.4); Monocytes Absolute Auto 0.9 X10*3/uL (0.1-1.2); Monocytes Percent Auto 6.2 % (2-11); Neutrophils Absolute Auto 11.7 x10*3/uL (2.0-8.3); Neutrophils Percent Auto 84.4 % (45-73); Platelet Count 276 X10*3/uL (160-400); Red Blood Count 5.16 X10*6/uL (4.60-5.80); Red Cell Distribution Width 12.4 % (11.0-16.0); White Blood Count 13.8 X10*3/uL (4.8-10.8)
[2022-09-16 17:20] LABS: Alanine Aminotransferase 22 U/L (0-40); Albumin Level 4.8 g/dL (3.5-5.0); Alkaline Phosphatase 76 U/L (39-117); Anion Gap 16 (12-20); Aspartate Amino Transferase 33 U/L (5-37); Bilirubin Direct 0.2 mg/dL (0.0-0.5); Bilirubin Total 0.5 mg/dL (0.0-1.0); Blood Urea Nitrogen 17 mg/dL (9-16); Calcium 9.7 mg/dL (8.4-10.2); Carbon Dioxide 22 mmol/L (22-29); Chloride 102 mmol/L (96-108); Creatinine Clr Calc Pharmacy 84.8; Estimated Glomerular Filt Rate > 60; Ethanol < 10 mg/dL; Glucose Random 163 mg/dL (60-115); Potassium 4.4 mmol/L (3.3-5.1); Sodium 136 mmol/L (135-145); Total Protein 7.6 g/dL (6.5-8.0)
[2022-09-16 17:22] LABS: Troponin-I High Sensitivity 23.8 ng/L (<3.5-35.0)
--- NOTE | 2022-09-16 18:29 | PC.NURSE ---
MD made aware of BP 195/107 - no sx of HTN - dizziness, RAMIREZ/blurred vision. no orders at this time..
[2022-09-16] MEDS: Cyclobenzaprine HCl 10 MG TABLET PO (18:30)
[2022-09-16 19:09] LABS: Amphetamine Screen Urine Not Detected (Not Detect); Barbiturates, Urine Not Detected (Not Detect); Benzodiazepines Screen Urine Not Detected (Not Detect); Cannabinoid Screen Urine POSITIVE (Not Detect); Cocaine Screen Urine Not Detected (Not Detect); Fentanyl, urine Not Detected (Not Detect); Opiate Screen Urine Not Detected (Not Detect); Phencyclidine Screen Urine Not Detected (Not Detect)
--- NOTE | 2022-09-16 19:09 | ED.GENADULT ---
HPI - General Adult General Chief complaint: General Medical Stated complaint: elevated blood pressure 200/120 Time Seen by Provider: 09/16/22 18:08 Source: patient Mode of arrival: ambulatory Limitations: no limitations History of Present Illness HPI narrative: 67-year-old male with a past medical history hypertension, sciatica, acute kidney injury and alcohol use disorder presents to the emergency department with hypertension. The patient states he took his blood pressure at home tonight and it was significantly elevated, over 200 systolic. The patient also states that he has had several weeks of sciatica pain for which he is seeing a chiropractor, but is not taking any medications other than [id number] ibuprofen. The patient states that he does take clonidine for his blood pressure, but just started recently taking it again. The patient denies any headaches, chest pain, blurry or double vision. There is no back pain or abdominal pain. Onset (ago): day(s) Severity: moderate Relieving factors: none Exacerbating factors: none Related Data Previous Rx's Medication Instructions Recorded folic acid 1 mg tablet 1 mg PO DAILY #30 tabs 02/18/22 naltrexone 50 mg tablet 50 mg PO DAILY #30 tabs 02/18/22 thiamine mononitrate (vit B1) 100 100 mg PO DAILY #30 tabs 02/18/22 mg tablet naltrexone microspheres 380 mg 380 mg IM Q4W #1 ea 02/25/22 intramuscular suspension,extended release (Vivitrol) clonidine HCl 0.1 mg tablet 0.1 mg PO BID anxiety and 08/02/22 withdrawal symptoms 30 days #60 tabs hydroxyzine HCl 25 mg tablet 25 mg PO TID PRN anxiety 30 days 08/23/22 #90 tabs lisinopril 30 mg tablet 30 mg PO DAILY 30 days #30 tabs 08/28/22 amlodipine 5 mg tablet (Norvasc) 5 mg PO DAILY #30 tabs 09/16/22 Allergies Allergy/AdvReac Type Severity Reaction Status Date / Time AVOID HCTZ - hyponatremia - Allergy Unknown Unknown Uncoded 05/06/22 11:12 1 Review of Systems Review of Systems: Yes all other systems are reviewed and are negative Constitutional: Constitutional: Denies chills, Reports daytime sleepiness, Denies fever(s) and Denies headache(s) Eyes: Eyes: Denies blurry vision, Denies eye discharge and Denies loss of vision ENT: Denies dizziness, Denies facial pain and Denies headache(s) Cardiovascular: Cardiovascular: Denies chest pain, Denies irregular heart rhythm and Denies leg edema Respiratory: Respiratory: Reports no additional respiratory complaints Gastrointestinal: Gastrointestinal: Reports no additional gastrointestinal complaints Musculoskeletal: Musculoskeletal: Reports back pain, Denies numbness and Reports radiating pain into limb Integumentary/Breasts: Skin/Breast: Reports system reviewed and no additional complaints, except as docu Neurologic: Reports system reviewed and no additional complaints, except as documented, Denies Abnormal speech present, Denies confusion, Denies dizziness, Denies headache(s), Denies focal weakness, Denies loss of vision and Denies numbness Psychiatric: Psychiatric: Denies confusion PMFSH Past Medical History Medical History Alcohol use disorder, severe, dependence Anxiety Hypertension Surgical History History of colonoscopy Family History Family History Father Dementia Mother Melanoma Social History Social History Housing: House Alcohol intake: never Patient Tobacco Use Status: Current someday Tobacco user Tobacco use type: Cigarette Smoked in Last 30 Days: Yes Use of substances other than those prescribed or required for medical reasons: No Substance Use Type: Marijuana Substance Use Frequency: Occasionally Advance Directives: Yes Advance Directives Information Provided: No Advance Directives on File: No Advance Directives Date on File: 02/17/22 service: Yes Current occupational status: retired Cognitive needs: No Hearing needs: No Vision needs: No Physical Exam ED Vital Signs: Vital Signs - 24 hr 09/16/22 16:38 09/16/22 18:22 09/16/22 18:28 Temperature 98.1 F 98.1 F Pulse Rate 100 88 Respiratory Rate 18 Blood Pressure 200/113 H 195/107 H Pulse Oximetry 98 98 Oxygen Delivery Method Room Air Room Air 09/16/22 19:22 09/16/22 19:27 09/16/22 19:37 Temperature 97.8 F Pulse Rate 78 Respiratory Rate 20 Blood Pressure 157/82 H 176/86 H 158/85 H Pulse Oximetry 97 Oxygen Delivery Method Room Air BMI result Body Mass Index 25.0 Vital signs noted. Patient is hypertensive Const General: cooperative, healthy appearing and comfortable; No confusion Nutritional Appearance: average body habitus Orientation/consciousness: patient oriented x3 and No confusion HENMT Head: Yes normal to inspection, Yes normocephalic and Yes atraumatic Ears: hearing grossly normal bilaterally and external ears normal General nose exam: Normal external nose present and Normal nares present Face and sinus: Yes normal facial exam Mouth: Normal oral and palatal mucosa present Eyes General: appearance normal, both eyes and all related structures Eyelids: Yes eyelids normal Conjunctivae: conjunctivae normal Sclerae: sclerae normal Pupils: Equal, round and reactive pupils present EOM: EOMs intact bilaterally Direct Ophthalmoscopy: normal light reflex Neck Neck: Yes normal visual inspection and Yes full ROM Chest Chest palpation & inspection: normal inspection of the chest Resp Effort & Inspection: normal respiratory effort, able to speak in complete sentences and no cough Auscultation: clear to auscultation bilaterally Cardio Rate: regular rate Rhythm: regular rhythm GI Inspection: Yes normal to inspection Palpation (GI): nontender and no masses Back/Spine/Pelvis Cervical Spine: normal cervical lordosis and cervical ROM normal Skin General skin exam: no rashes or lesions noted, no erythema, no mottling and no pallor Neuro General: patient oriented x3 and No confusion Cranial nerves: Yes CN's II-XII intact bilaterally and Yes Equal, round and reactive pupils present Cognition (Neuro): normal cognition Speech: No Abnormal speech present Medications Administered Discontinued Medications Generic Name Dose Route Start Last Admin Trade Name Freq PRN Reason Stop Dose Admin Cyclobenzaprine HCl 10 mg 09/16/22 16:39 09/16/22 18:30 Cyclobenzaprine Hcl 10 Mg Tablet PO 09/16/22 16:40 10 mg ONCE ONE Administration Lorazepam 2 mg 09/16/22 19:06 09/16/22 19:42 Lorazepam 1 Mg Tablet PO 09/16/22 19:07 2 mg ONCE ONE Administration Medical Decision Making [facility] Narrative Medical decision making narrative: 67-year-old male with past medical history of alcohol use, hypertension and anxiety presents to the emergency department tonight complaining of high blood pressure at home. Patient states he is nervous and anxious all the time, and took his blood pressure at home this evening which was elevated. The patient also complains of some sciatica on left side of his back which has been bothering him for approximately 6 weeks. Has been taking clonidine for his blood pressure, prescribed by his primary care doctor. Laboratory studies were reviewed. EKG was reviewed. Lab Data Lab results reviewed: Yes I reviewed the patient's lab results. Lab results narrative: WBC slightly elevated at 13.8, remainder of lab studies unremarkable Result diagrams: 09/16/22 16:52 09/16/22 16:52 Labs: Lab Results 09/16/22 09/16/22 09/16/22 Range/Units 16:52 16:52 16:52 WBC 13.8 H (4.8-10.8) X10*3/uL RBC 5.16 (4.60-5.80) X10*6/uL Hgb 15.4 (14.0-18.0) g/dl Hct 44.9 (42.0-52.0) % MCV 87.0 (80.0-98.0) fL MCH 29.8 (27.0-33.0) pg MCHC 34.3 (31.0-36.0) g/dl RDW 12.4 (11.0-16.0) % Plt Count 276 (160-400) X10*3/uL MPV 9.4 (9.4-12.4) fL Immature Gran % (Auto) 0.4 (0.0-0.4) % Neut % (Auto) 84.4 H (45-73) % Lymph % (Auto) 8.2 L (20-40) % [place] % (Auto) 6.2 (2-11) % Eos % (Auto) 0.6 (0-4) % Baso % (Auto) 0.2 (0-2) % Lymph # (Auto) 1.1 L (1.2-4.9) X10*3/uL [place] # (Auto) 0.9 (0.1-1.2) X10*3/uL Eos # (Auto) 0.1 (0.0-0.4) X10*3/uL Baso # (Auto) 0.0 (0.0-0.2) X10*3/uL Abs Immat Gran (auto) 0.06 H (0.00-0.03) X10*3/uL Absolute Neuts (auto) 11.7 H (2.0-8.3) x10*3/uL Absolute Nucleated RBC 0.000 (0.0-0.012) X10*3/uL Nucleated RBC % (auto) 0.0 (0.0-0.2) /100WBC Sodium 136 (135-145) mmol/L Potassium 4.4 (3.3-5.1) mmol/L Chloride 102 (96-108) mmol/L Carbon Dioxide 22 (22-29) mmol/L Anion Gap 16 (12-20) BUN 17 H (9-16) mg/dL Creatinine 0.94 (0.5-1.4) mg/dL Estim Creat Clear Calc 84.8 Estimated GFR > 60 Random Glucose 163 H (60-115) mg/dL Calcium 9.7 (8.4-10.2) mg/dL Magnesium 2.0 (1.6-2.6) mg/dL Total Bilirubin 0.5 (0.0-1.0) mg/dL Direct Bilirubin 0.2 (0.0-0.5) mg/dL AST 33 (5-37) U/L ALT 22 (0-40) U/L Alkaline Phosphatase 76 (39-117) U/L Troponin I High Sens 23.8 (<3.5-35.0) ng/L Total Protein 7.6 (6.5-8.0) g/dL Albumin 4.8 (3.5-5.0) g/dL Urine Opiates Screen (Not Detect) Urine Fentanyl Screen (Not Detect) Ur Barbiturates Screen (Not Detect) Ur Phencyclidine Scrn (Not Detect) Ur Amphetamines Screen (Not Detect) U Benzodiazepines Scrn (Not Detect) Urine Cocaine Screen (Not Detect) U Marijuana (THC) Screen (Not Detect) Ethyl Alcohol < 10 mg/dL COVID-19 ([facility]) (Negative) COVID-19 Clin Com 09/16/22 09/16/22 09/16/22 Range/Units 16:53 18:47 19:46 WBC (4.8-10.8) X10*3/uL RBC (4.60-5.80) X10*6/uL Hgb (14.0-18.0) g/dl Hct (42.0-52.0) % MCV (80.0-98.0) fL MCH (27.0-33.0) pg MCHC (31.0-36.0) g/dl RDW (11.0-16.0) % Plt Count (160-400) X10*3/uL MPV (9.4-12.4) fL Immature Gran % (Auto) (0.0-0.4) % Neut % (Auto) (45-73) % Lymph % (Auto) (20-40) % [place] % (Auto) (2-11) % Eos % (Auto) (0-4) % Baso % (Auto) (0-2) % Lymph # (Auto) (1.2-4.9) X10*3/uL [place] # (Auto) (0.1-1.2) X10*3/uL Eos # (Auto) (0.0-0.4) X10*3/uL Baso # (Auto) (0.0-0.2) X10*3/uL Abs Immat Gran (auto) (0.00-0.03) X10*3/uL Absolute Neuts (auto) (2.0-8.3) x10*3/uL Absolute Nucleated RBC (0.0-0.012) X10*3/uL Nucleated RBC % (auto) (0.0-0.2) /100WBC Sodium (135-145) mmol/L Potassium (3.3-5.1) mmol/L Chloride (96-108) mmol/L Carbon Dioxide (22-29) mmol/L Anion Gap (12-20) BUN (9-16) mg/dL Creatinine (0.5-1.4) mg/dL Estim Creat Clear Calc Estimated GFR Random Glucose (60-115) mg/dL Calcium (8.4-10.2) mg/dL Magnesium (1.6-2.6) mg/dL Total Bilirubin (0.0-1.0) mg/dL Direct Bilirubin (0.0-0.5) mg/dL AST (5-37) U/L ALT (0-40) U/L Alkaline Phosphatase (39-117) U/L Troponin I High Sens 35.6 H D (<3.5-35.0) ng/L Total Protein (6.5-8.0) g/dL Albumin (3.5-5.0) g/dL Urine Opiates Screen Not Detected (Not Detect) Urine Fentanyl Screen Not Detected (Not Detect) Ur Barbiturates Screen Not Detected (Not Detect) Ur Phencyclidine Scrn Not Detected (Not Detect) Ur Amphetamines Screen Not Detected (Not Detect) U Benzodiazepines Scrn Not Detected (Not Detect) Urine Cocaine Screen Not Detected (Not Detect) U Marijuana (THC) Screen POSITIVE H (Not Detect) Ethyl Alcohol mg/dL COVID-19 ([facility]) Negative (Negative) COVID-19 Clin Com See Note ECG Data Attestation: I personally reviewed and interpreted this ECG as follows: Interpretation: Normal sinus rhythm at 89, with a normal axis and normal intervals. No old EKG for comparison. Discharge Plan Discharge Clinical Impression: Elevated blood pressure reading, Hypertensive urgency Patient Disposition: Home, Self-Care Instructions: Hypertensive Crisis (ED) Additional Instructions: Stop taking clonidine and substitute Norvasc beginning tomorrow morning Prescriptions: New amlodipine [Norvasc] 5 mg tablet 5 mg PO DAILY Qty: 30 0RF No Action clonidine HCl 0.1 mg tablet 0.1 mg PO BID 30 Days Qty: 60 2RF hydroxyzine HCl 25 mg tablet 25 mg PO TID PRN (Reason: anxiety) 30 Days Qty: 90 3RF lisinopril 30 mg tablet 30 mg PO DAILY 30 Days Qty: 30 3RF folic acid 1 mg Tablet 1 mg PO DAILY Qty: 30 0RF thiamine mononitrate (vit B1) 100 mg Tablet 100 mg PO DAILY Qty: 30 0RF naltrexone 50 mg tablet 50 mg PO DAILY Qty: 30 0RF Vivitrol 380 mg suspension,extended rel recon 380 mg IM Q4W Qty: 1 5RF
--- NOTE | 2022-09-16 19:21 | PC.NURSE ---
Assumed care of patient.
--- NOTE | 2022-09-16 19:36 | PC.NURSE ---
Patient states sciatic pain went from 6/10 to 3/10 after being administered medication prior to my assuming care. Patient states that he has to continue to lay on his R side helps with the sciatic pain. Patient's blood pressure went from 157/82 at 192 to 176/86 at 1926 when he changed his position from supine to getting up to use the restroom. At 193, patient's bp went back down to 158/85 while supine. Patient denies headache and dizziness (including changing positions) at this time.
[2022-09-16] MEDS: LORazepam 1 MG TABLET 2 MG PO (19:42)
--- NOTE | 2022-09-16 19:43 | PC.NURSE ---
Administered lorazepam 2mg PO per DEC.
--- NOTE | 2022-09-16 19:44 | PC.NURSE ---
Patient resting quietly on his R side supine. No respiratory distress.
[2022-09-16 20:15] LABS: Troponin-I High Sensitivity 35.6 ng/L (<3.5-35.0)
== END 2022-09-16 21:15 | disposition home or self-care (01) ==
PROVIDERS: Physician Assistant; Emergency Provider Emergency Medicine; PCP Physician Assistant
DX: I16.0 Hypertensive urgency (principal); F41.1 Generalized anxiety disorder; F43.0 Acute stress reaction; Z79.899 Other long term (current) drug therapy; Z20.822 Contact with and (suspected) exposure to COVID-19; F17.210 Nicotine dependence, cigarettes, uncomplicated; Z71.6 Tobacco abuse counseling
CPT/HCPCS: 36415; 80048; 80076; 80307; 82077; 83735; 84484; 85025; 87635; 93005; 99283; 99285

== ENCOUNTER 2022-09-17 08:41 | Outpatient (REF) | payer MEDICARE, SELFPAY ==
--- NOTE | ~2022-09-17 | XR_ITS ---
EXAMINATION: XR LUMBOSACRAL SPINE CLINICAL INFORMATION: Low back pain COMPARISON: None TECHNIQUE: Three views of the lumbosacral spine. FINDINGS: Bone alignment is normal. No fracture or dislocation. Degenerative disc disease at L3-L4 and L5-S1. Degenerative spondylosis at L3-L4. Lower lumbar spine facet arthritis. XR/XR lumbar spine 2-3V IMPRESSION: Mild degenerative changes.
== END 2022-09-17 08:42 | disposition home or self-care (01) ==
LOC: HO.XRAY 08:41
PROVIDERS: PCP Physician Assistant; Visit Provider Chiropractor
DX: M54.50 Low back pain, unspecified (principal)
CPT/HCPCS: 72100

== ENCOUNTER 2022-09-18 13:30 | Emergency (ER) | payer MEDICARE, SELFPAY ==
[2022-09-18 13:37] VITALS: BP 215/125; PULSE 100; RESP 19; TEMP 36.6; O2SAT 99; BMI 25.0
--- NOTE | 2022-09-18 14:10 | ECG_ITS ---
Test Reason : HYPERTENTION Blood Pressure : / mmHG Vent. Rate : 081 BPM Atrial Rate : 081 BPM P-R Int : 162 ms QRS Dur : 098 ms QT Int : 358 ms P-R-T Axes : 059 034 059 degrees QTc Int : 415 ms Normal sinus rhythm RSR' or QR pattern in V1 suggests right ventricular conduction delay Otherwise normal ECG When compared with ECG of 16-SEP-2022 16:47, Premature atrial complexes are no longer Present Referred By: Georgia Diez Electronically Signed By:EDDIE COVARRUBIAS MD
[2022-09-18] MEDS: LORazepam 1 MG TABLET PO (14:34)
[2022-09-18 15:06] LABS: MANUAL DIFF FLAG NO
[2022-09-18 15:08] LABS: Basophils Absolute Auto 0.1 X10*3/uL (0.0-0.2); Basophils Percent Auto 0.3 % (0-2); Eosinophils Absolute Auto 0.1 X10*3/uL (0.0-0.4); Eosinophils Percent Auto 0.5 % (0-4); Hematocrit 47.8 % (42.0-52.0); Hemoglobin 16.6 g/dl (14.0-18.0); Imm Gran Abs Auto 0.05 X10*3/uL (0.00-0.03); Imm Gran Pct Auto 0.3 % (0.0-0.4); Lymphocytes Absolute Auto 1.3 X10*3/uL (1.2-4.9); Mean Corpuscular HGB Conc 34.7 g/dl (31.0-36.0); Mean Corpuscular Hemoglobin 29.8 pg (27.0-33.0); Mean Corpuscular Volume 85.8 fL (80.0-98.0); Mean Platelet Volume 9.2 fL (9.4-12.4); Monocytes Percent Auto 6.9 % (2-11); Neutrophils Absolute Auto 11.9 x10*3/uL (2.0-8.3); Platelet Count 280 X10*3/uL (160-400); Red Blood Count 5.57 X10*6/uL (4.60-5.80); Red Cell Distribution Width 12.4 % (11.0-16.0); White Blood Count 14.4 X10*3/uL (4.8-10.8)
[2022-09-18 15:30] LABS: Anion Gap 16 (12-20); Blood Urea Nitrogen 17 mg/dL (9-16); Calcium 10.2 mg/dL (8.4-10.2); Carbon Dioxide 21 mmol/L (22-29); Chloride 102 mmol/L (96-108); Creatinine Clr Calc Pharmacy 80.5; Estimated Glomerular Filt Rate > 60; Glucose Random 143 mg/dL (60-115); Potassium 4.8 mmol/L (3.3-5.1); Sodium 134 mmol/L (135-145)
--- NOTE | 2022-09-18 15:31 | ED_ITS ---
HPI - General Adult General Chief complaint: General Medical Stated complaint: high bp Time Seen by Provider: 09/18/22 15:31 Source: patient Mode of arrival: ambulatory Limitations: no limitations History of Present Illness HPI narrative: 67-year-old male who presents emergency department for evaluation of anxiety and elevated blood pressure. The patient states that 6 weeks prior developed sciatica and since that time he has been having anxiety attacks and high blood pressure. Patient states that whenever he checks his blood pressure meds high it makes him very anxious and then this makes his blood pressure higher. The patient was seen in the emergency department 2 days prior (09/16/2022) for elevated blood pressures at home. The patient's laboratory evaluation at that time was unremarkable. The patient's clonidine was stopped and he was started on amlodipine. Patient states that today his blood pressure was elevated and this made of anxious therefore came back to the emergency department for ev aluation. He denied fever, chills, chest pain, shortness of breath, nausea, vomiting or diarrhea. He denied headache, numbness or weakness. Related Data Previous Rx's Medication Instructions Recorded folic acid 1 mg tablet 1 mg PO DAILY #30 tabs 02/18/22 naltrexone 50 mg tablet 50 mg PO DAILY #30 tabs 02/18/22 thiamine mononitrate (vit B1) 100 100 mg PO DAILY #30 tabs 02/18/22 mg tablet naltrexone microspheres 380 mg 380 mg IM Q4W #1 ea 02/25/22 intramuscular suspension,extended release (Vivitrol) clonidine HCl 0.1 mg tablet 0.1 mg PO BID anxiety and 08/02/22 withdrawal symptoms 30 days #60 tabs hydroxyzine HCl 25 mg tablet 25 mg PO TID PRN anxiety 30 days 08/23/22 #90 tabs lisinopril 30 mg tablet 30 mg PO DAILY 30 days #30 tabs 08/28/22 amlodipine 5 mg tablet (Norvasc) 5 mg PO DAILY #30 tabs 09/16/22 lorazepam 1 mg tablet (Ativan) 1 mg PO TID PRN anxiety #12 tabs 09/18/22 Allergies Allergy/AdvReac Type Severity Reaction Status Date / Time AVOID HCTZ - hyponatremia - Allergy Unknown Unknown Uncoded 05/06/22 11:12 1 Review of Systems Review of Systems: Yes all other systems are reviewed and are negative PMFSH Past Medical History PMFSH Narrative: Past medical history: Reviewed below. Social history: The patient does smoke cigarettes. He states he does not drink alcohol. He states he occasionally smokes marijuana. Medical History Alcohol use disorder, severe, dependence Anxiety Hypertension Surgical History History of colonoscopy Family History Family History Father Dementia Mother Melanoma Social History Social History Housing: House Alcohol intake: never Patient Tobacco Use Status: Current someday Tobacco user Tobacco use type: Cigarette Smoked in Last 30 Days: Yes Use of substances other than those prescribed or required for medical reasons: Yes Substance Use Type: Marijuana Advance Directives: No Advance Directives Information Provided: No Advance Directives Date on File: 02/17/22 service: Yes Current occupational status: retired Cognitive needs: No Hearing needs: No Vision needs: No Physical Exam ED Vital Signs: Vital Signs - 24 hr 09/18/22 13:37 09/18/22 15:33 Temperature 98 F 97.9 F Pulse Rate 100 80 Respiratory Rate 19 18 Blood Pressure 215/125 H 183/107 H Pulse Oximetry 99 98 Oxygen Delivery Method Room Air Room Air BMI result Body Mass Index 25.0 Const Other: Awake, alert, male patient, very pleasant and cooperative, he does appear to be anxious, he is in no distress [facility] Head: Yes normal to inspection, Yes normocephalic and Yes atraumatic Ears: external ears normal General nose exam: Normal external nose present Face and sinus: Yes normal facial exam Mouth: Normal oral and palatal mucosa present Throat: Yes posterior oropharynx normal Eyes General: appearance normal, both eyes and all related structures Pupils: Equal, round and reactive pupils present Neck Neck: Yes normal visual inspection, Yes no lymphadenopathy, Yes trachea midline and Yes supple Chest Chest palpation & inspection: normal inspection of the chest and normal palpation of entire chest wall Resp Effort & Inspection: normal respiratory effort and able to speak in complete sentences Auscultation: clear to auscultation bilaterally Cardio Rate: regular rate Rhythm: regular rhythm Heart sounds: S1 normal heart sound present, S2 normal heart sound present and no murmurs GI Inspection: Yes normal to inspection Palpation (GI): Soft to palpation, nontender and no guarding Auscultation: normal bowel sounds General: Yes no CVA tenderness Back/Spine/Pelvis Back: no CVA tenderness Skin General skin exam: no rashes or lesions noted Neuro Cranial nerves: Yes CN's II-XII intact bilaterally and Yes Equal, round and reactive pupils present Cognition (Neuro): normal cognition Motor exam (neuro): 5/5 motor strength present throughout Extrem General: Yes normal to inspection Psych Appearance: grossly normal Speech and movement: Normal speech and movement present Affect: Anxious affect present Attitude: cooperative Thought process: Normal thought process present Thought content: Normal thought content present Course Course Course Narrative: 67-year-old male who presents emergency department for evaluation of anxiety and hypertension. The patient's vital signs did reveal elevated blood pressures of 215/125 and 183/107 . Despite these elevated blood pressures the patient does not appear to be in distress. The patient does have essential hypertension and does not have hypertensive urgency or emergency based on his clinical presentation. The patient had a CBC, CMP and troponin. His WBC was elevated 14,400, his troponin was detectable but not elevated 12.8. Twelve EKG was unremarkable. The patient was taking clonidine on a regular basis and this was stopped 2 days prior and I told the patient that he should restart this medication since rapid clonidine withdrawal can cause rebound hypertension. Also, I think can continue the clonidine ending amlodipine improve his blood pressure and I did discuss this with him. Patient was also advised to restart his Zoloft (sertraline) for his anxiety and his depression. The patient states that his anxiety is out of control and is requesting medications to take over the next several days therefore I did prescribe a limited dose of Ativan (lorazepam) 1 mg tablets 1 pill 3 times a day as needed for anxiety. Patient was advised to check his blood pressures on Wednesdays and Fridays for 2 weeks and discuss these readings with his doctor Medications Administered Discontinued Medications Generic Name Dose Route Start Last Admin Trade Name [place] PRN Reason Stop Dose Admin Lorazepam 1 mg 09/18/22 14:10 09/18/22 14:34 Lorazepam 1 Mg Tablet PO 09/18/22 14:11 1 mg ONCE ONE Administration Medical Decision Making Lab Data Lab results reviewed: Yes I reviewed the patient's lab results. Result diagrams: 09/18/22 15:00 09/18/22 15:00 Labs: Lab Results 09/18/22 09/18/22 09/18/22 Range/Units 15:00 15:00 15:00 WBC 14.4 H (4.8-10.8) X10*3/uL RBC 5.57 (4.60-5.80) X10*6/uL Hgb 16.6 (14.0-18.0) g/dl Hct 47.8 (42.0-52.0) % MCV 85.8 (80.0-98.0) fL MCH 29.8 (27.0-33.0) pg MCHC 34.7 (31.0-36.0) g/dl RDW 12.4 (11.0-16.0) % Plt Count 280 (160-400) X10*3/uL MPV 9.2 L (9.4-12.4) fL Immature Gran % (Auto) 0.3 (0.0-0.4) % Neut % (Auto) 83.0 H (45-73) % Lymph % (Auto) 9.0 L (20-40) % [place] % (Auto) 6.9 (2-11) % Eos % (Auto) 0.5 (0-4) % Baso % (Auto) 0.3 (0-2) % Lymph # (Auto) 1.3 (1.2-4.9) X10*3/uL [place] # (Auto) 1.0 (0.1-1.2) X10*3/uL Eos # (Auto) 0.1 (0.0-0.4) X10*3/uL Baso # (Auto) 0.1 (0.0-0.2) X10*3/uL Abs Immat Gran (auto) 0.05 H (0.00-0.03) X10*3/uL Absolute Neuts (auto) 11.9 H (2.0-8.3) x10*3/uL Absolute Nucleated RBC 0.000 (0.0-0.012) X10*3/uL Nucleated RBC % (auto) 0.0 (0.0-0.2) /100WBC Sodium 134 L (135-145) mmol/L Potassium 4.8 (3.3-5.1) mmol/L Chloride 102 (96-108) mmol/L Carbon Dioxide 21 L (22-29) mmol/L Anion Gap 16 (12-20) BUN 17 H (9-16) mg/dL Creatinine 0.99 (0.5-1.4) mg/dL Estim Creat Clear Calc 80.5 Estimated GFR > 60 Random Glucose 143 H (60-115) mg/dL Calcium 10.2 (8.4-10.2) mg/dL Troponin I High Sens 12.8 (<3.5-35.0) ng/L ECG Data Attestation: I personally reviewed and interpreted this ECG as follows: Interpretation: 1531: Normal sinus rhythm rate of 81, normal intervals, no ST segment elevation, no ST segment depression, no T-wave abnormalities, no PVCs, no PACs, compared to EKG dated 09/16/2022, no change. Discharge Plan Discharge Clinical Impression: Essential hypertension, Anxiety Patient Disposition: Home, Self-Care Additional Instructions: Your laboratory evaluation was unremarkable. Your 12 EKG was normal and unchanged from several days ago I want you to restart your clonidine since stopping this medication suddenly can cause rebound high blood pressure. Also, I believe that you should continue taking clonidine and also continue taking the amlodipine that was prescribed to use and go. These medications will take 4-6 weeks to lower your blood pressure. I want you to check your blood pressure on Mondays, Wednesdays and Tuesday mornings only, write these blood pressures down and do not take anymore blood pressures except for these 3 readings are week. You then need to show these blood pressure readings to your doctor. Restart your Zoloft (sertraline) as prescribed by your doctor. This will help improve your anxiety in your depression I am starting you on Ativan (lorazepam) 1 mg pill every 6 hours as needed for stress and anxiety. This medication is a benzodiazepine which can be addicting. If your concerned about addiction do not get this medication filled or you can ask your doctor for less pills than prescribed. This medication will make you sleepy. Do not drive while taking this medication Follow-up with your doctor in 2 days. Please return to the emergency department if your symptoms get worse or if you develop any symptoms that are concerning to you. Prescriptions: New lorazepam [Ativan] 1 mg tablet 1 mg PO TID PRN (Reason: anxiety) Qty: 12 0RF Rx Instructions: Patient may request partial fill No Action clonidine HCl 0.1 mg tablet 0.1 mg PO BID 30 Days Qty: 60 2RF hydroxyzine HCl 25 mg tablet 25 mg PO TID PRN (Reason: anxiety) 30 Days Qty: 90 3RF lisinopril 30 mg tablet 30 mg PO DAILY 30 Days Qty: 30 3RF amlodipine [Norvasc] 5 mg tablet 5 mg PO DAILY Qty: 30 0RF folic acid 1 mg Tablet 1 mg PO DAILY Qty: 30 0RF thiamine mononitrate (vit B1) 100 mg Tablet 100 mg PO DAILY Qty: 30 0RF naltrexone 50 mg tablet 50 mg PO DAILY Qty: 30 0RF Vivitrol 380 mg suspension,extended rel recon 380 mg IM Q4W Qty: 1 5RF
[2022-09-18 15:33] VITALS: BP 183/107; PULSE 80; RESP 18; TEMP 36.6; O2SAT 98
--- NOTE | 2022-09-18 15:35 | PC.NURSE ---
patient a&ox3, property assessment monitor applied nsr 80s, pt noted hypertensive in triage and once brought into the room, ekg performed, labs previously drawn in triage, pt awaiting to be seen by provider, will continue to monito r
[2022-09-18 15:38] LABS: Troponin-I High Sensitivity 12.8 ng/L (<3.5-35.0)
[2022-09-18 17:17] VITALS: BP 166/65; PULSE 87; RESP 16; TEMP 36.6; O2SAT 96
== END 2022-09-18 17:21 | disposition home or self-care (01) ==
PROVIDERS: Physician Assistant; Emergency Provider Emergency Medicine Emergency Medical Services; PCP Physician Assistant
DX: I10 Essential (primary) hypertension (principal); F41.9 Anxiety disorder, unspecified; F10.20 Alcohol dependence, uncomplicated; E78.5 Hyperlipidemia, unspecified; F17.210 Nicotine dependence, cigarettes, uncomplicated; F12.90 Cannabis use, unspecified, uncomplicated; Z79.899 Other long term (current) drug therapy
CPT/HCPCS: 36415; 80048; 84484; 85025; 93005; 99283; 99284

== ENCOUNTER 2023-02-03 06:06 | Outpatient (REF) | payer MEDICARE, SELFPAY ==
[2023-02-03 11:50] LABS: Hematocrit 46.3 % (42.0-52.0); Hemoglobin 15.3 g/dl (14.0-18.0); Mean Corpuscular Hemoglobin 29.2 pg (27.0-33.0); Mean Corpuscular Volume 88.4 fL (80.0-98.0); Mean Platelet Volume 10.4 fL (9.4-12.4); Platelet Count 221 X10*3/uL (160-400); Red Blood Count 5.24 X10*6/uL (4.60-5.80); Red Cell Distribution Width 12.2 % (11.0-16.0); White Blood Count 6.4 X10*3/uL (4.8-10.8)
[2023-02-03 12:13] LABS: Alanine Aminotransferase 17 U/L (0-40); Albumin Level 4.4 g/dL (3.5-5.0); Alkaline Phosphatase 67 U/L (39-117); Anion Gap 13 (12-20); Aspartate Amino Transferase 29 U/L (5-37); Bilirubin Total 0.9 mg/dL (0.0-1.0); Blood Urea Nitrogen 17 mg/dL (9-16); Calcium 9.2 mg/dL (8.4-10.2); Carbon Dioxide 24 mmol/L (22-29); Chloride 106 mmol/L (96-108); Cholesterol 227 mg/dL; Estimated Average Glucose 120 mg/dL; Estimated Glomerular Filt Rate > 60; Glucose Fasting 137 mg/dL (60-99); HDL Cholesterol 42 mg/dL; Hemoglobin A1c % 5.8 %; LDL Cholesterol Calculated 169 mg/dl; Potassium 4.3 mmol/L (3.3-5.1); Sodium 139 mmol/L (135-145); Triglycerides 82 mg/dL
[2023-02-03 12:30] LABS: Prostate Specific Antigen Scr 0.67 ng/mL (<0.05-4.0)
== END 2023-02-03 06:07 | disposition home or self-care (01) ==
LOC: HO.HMGCLDS 06:06
PROVIDERS: PCP Physician Assistant; Visit Provider Physician Assistant
DX: Z12.5 Encounter for screening for malignant neoplasm of prostate (principal); R73.01 Impaired fasting glucose; I10 Essential (primary) hypertension
CPT/HCPCS: 36415; 80053; 80061; 83036; 84153; 85027

== ENCOUNTER 2023-05-19 06:06 | Outpatient (REF) | payer MEDICARE, SELFPAY ==
[2023-05-19 20:12] LABS: Cholesterol 160 mg/dL; HDL Cholesterol 44 mg/dL; LDL Cholesterol Calculated 97 mg/dl; Triglycerides 97 mg/dL
== END 2023-05-19 06:07 | disposition home or self-care (01) ==
LOC: HO.LAB 06:06
PROVIDERS: Visit Provider Nurse Practitioner Family
DX: E78.5 Hyperlipidemia, unspecified (principal)
CPT/HCPCS: 36415; 80061

== ENCOUNTER 2023-05-24 08:31 | Outpatient (AMB) | payer MEDICARE, SELFPAY ==
--- NOTE | 2023-05-24 08:37 | A.OFFPC_ITS ---
Vital Signs 05/24/23 08:38 05/24/23 08:58 Height 6 ft Weight 197 lb BMI 26.7 BP 158/86 H 130/80 Blood Pressure Location Lt brachial Position Sitting Pulse 88 Pulse Source Pulse Oximeter Temp Source Skin Pulse Oximetry (%) 98 Oxygen Delivery Method Room Air Intake Visit Reasons: HTN, HLD Allergies AVOID HCTZ - hyponatremia - 1 Allergy (Unknown, Uncoded 05/24/23 08:48) Unknown Medication List - Last Reconciled 05/24/23 by Amrit Moura PA-C baclofen 20 mg PO BID 10 days clonidine HCl 0.1 mg PO BID 30 days lisinopril 30 mg PO DAILY rosuvastatin 5 mg PO DAILY Tobacco use date assessed: 05/24/23 Fall risk assessment: No Falls in past year Last assessed Fall Risk: 05/24/23 Dental Screening Dental Screen Date: 05/24/23 Did you have a dental visit in the last 12 months?: Yes Did you have a dental problem in the last 6 months where you did not have access to dental care?: No Was dental information given to patient?: Patient has dentist HPI HTN, HLD HPI Details A 68-year-old male here today for follow-up visit. Patient has a past medical history significant for essential hypertension, history alcohol use disorder, hyperlipidemia, impaired glucose metabolism. Hyperlipidemia: Patient recently started on statin therapy and most recent fasting lipid panel much improved total cholesterol and LDL. Hypertension: Patient continues on lisinopril 30 mg, blood pressures today in office still slightly elevated. He reports that home blood pressures 130s to 135 systolic. Otherwise denies any chest discomfort, headaches, dizziness or vision issues. .. Alcohol use disorder- in remission, has stopped taking Ultrex own and Vivitrol injections. He reports he has a handle on his alcohol use. Does drink 1-2 beers from time to time while golfing. Laboratory Tests 02/16/22 02/17/22 02/17/22 20:36 05:25 05:25 RBC 4.81 Hgb 14.3 Total Creatine Kin ase 414 H Troponin I High Se ns 257.0 H* D Triglycerides Cholesterol LDL Cholesterol, C alc 02/03/23 05/19/23 06:28 06:23 RBC 5.24 Hgb Total Creatine Kin ase Troponin I High Se ns Triglycerides 97 Cholesterol 160 LDL Cholesterol, C alc 97 PFSH Medical History Alcohol use disorder, severe, dependence Anxiety Hypertension Surgical History History of colonoscopy Family History Father Dementia Mother Melanoma Social History Housing: House Alcohol intake: never Patient Tobacco Use Status: Current someday Tobacco user Tobacco use type: Cigarette Substance Use Type: Marijuana Advance Directives Date on File: 02/17/22 service: Yes Current occupational status: retired Cognitive needs: No Hearing needs: No Vision needs: No Questionnaire PHQ-9 Over the last 2 weeks, how often have you been bothered by any of the following problems? 1. Little interest or pleasure in doing things: not at all 2. Feeling down, depressed, or hopeless: not at all 3. Trouble falling or staying asleep, or sleeping too much: not at all 4. Feeling tired or having little energy: not at all 5. Poor appetite or overeating: not at all 6. Feeling bad about yourself - or that you are a failure or have let yourself o r your family down: not at all 7. Trouble concentrating on things, such as reading the newspaper or watching television: not at all 8. Moving or speaking so slowly that other people could have noticed. Or the opposite - being so fidgety or restless that you have been moving around a lot more than usual: not at all 9. Thoughts that you would be better off or of hurting yourself in some way: not at all Total score: 0 Depression Screening Interpretation: Negative Source: Developed by Drs. Angel Reveles, Kim Landeros, Wayne Levy and colleagues, with an educational jaime from [employer]. Thrive Questionnaire Date Thrive assessed: 02/19/22 AUDIT C Alcohol Use Questionnaire (AUDIT-C) 1. How often do you have a drink containing alcohol?: Never 3. How often do you have six or more drinks on one occasion?: Never Total Score: 0 Score Reviewed/Action Taken: No DAVID-7 AMB Questionnaire DAVID-7 Date DAVID - 7 assessed: 05/24/23 Feeling nervous, anxious, or on edge: 0 = Not at all Not being able to stop or control worryin = Not at all Worrying too much about different things: 0 = Not at all Trouble relaxin = Not at all Being so restless that it is hard to sit still: 0 = Not at all Becoming easily annoyed or irritable: 0 = Not at all Feeling afraid as if something awful might happen: 0 = Not at all Total DAVID-7 score (0-4 normal; 5-9 mild; 10-14 moderate; 15-21 severe): 0 Source: Developed by Drs. Angel Reveles, Kim Landeros, Wayne Levy and colleagues, with an educational jaime from [employer]. Review of Systems Const Denies headache(s) Eyes Denies loss of vision ENT Denies vertigo, Denies dizziness, Denies headache(s) and Denies sore throat Card Denies chest pain, Denies leg edema and Denies lightheadedness Resp Denies cough, Denies hemoptysis and Denies wheezing GI Denies abdominal pain, Denies melena, Denies constipation, Denies diarrhea and Denies vomiting Denies dysuria, Denies urinary frequency and Denies urinary urgency Musc Denies arthralgias, Denies joint swelling, Denies numbness and Denies tingling Neuro Denies Abnormal speech present, Denies behavioral changes, Denies vertigo, Denies dizziness, Denies headache(s), Denies loss of vision, Denies memory loss, Denies numbness and Denies tingling Psych Denies anxiety, Denies behavioral changes, Denies depression, Denies memory loss and Denies panic attacks Deny/Lymph Denies easy bleeding and Denies easy bruising Aller/Immun Denies wheezing Physical exam (Primary Care) Vital Signs: Last Vital Signs Pulse 88 05/24/23 08:38 BP 130/80 05/24/23 08:58 Pulse Ox 98 05/24/23 08:38 Oxygen Delivery Method Room Air 05/24/23 08:38 BMI result Body Mass Index 26.7 Tobacco/Smoking Status: Tobacco use Status Tobacco use date assessed 05/24/23 05/24/23 08:42 Patient Tobacco Use Status Current someday Tobacco 05/24/23 08:42 Tobacco use type Cigarette 05/24/23 08:42 PHQ-9: PHQ-9 Score PHQ-9: Total score 0 05/24/23 08:47 Depression Screening Interpretation: Negative Thrive Assessment: Date of Thrive Assessment Date Thrive assessed 02/19/22 05/24/23 08:42 Const General: healthy appearing, no acute distress, alert and awake Nutritional Appearance: well nourished Orientation/consciousness: oriented to person, oriented to place and oriented to time HENMT Ears: TM's normal bilaterally General nose exam: Normal nasal mucous membranes and turbinates present Eyes Conjunctivae: conjunctivae normal Sclerae: sclerae normal Pupils: Equal, round and reactive pupils present Neck Neck: Yes no lymphadenopathy and Yes no JVD Thyroid: Thyroid normal Carotids: no bruits Resp Effort & Inspection: normal respiratory effort and not tachypneic Auscultation: no crackles, no rales, no rhonchi and no wheezes Cardio Rate: regular rate Rhythm: regular rhythm Heart sounds: no murmurs and normal S1 and S2 GI Palpation (GI): Soft to palpation, nontender, no hepatomegaly and no splenomegaly Auscultation: normal bowel sounds Skin General skin exam: no rashes or lesions noted and dry skin Neuro General: oriented to person, oriented to place and oriented to time Cranial nerves: Yes Equal, round and reactive pupils present Speech: No Abnormal speech present Gait exam (Neuro): Normal gait present Motor exam (neuro): no tremor noted Extrem Right upper extremity: full ROM Left upper extremity: full ROM Right lower extremity: full ROM; no edema Left lower extremity: full ROM; no edema Psych Mental Status: mental status grossly normal Speech and movement: Normal speech and movement present Affect: normal affect Attitude: cooperative Thought process: Normal thought process present Assessment and Plan Assessment & Plan (1) HTN (hypertension): Code(s): I10 - Essential (primary) hypertension Qualifiers: Hypertension type: essential hypertension Qualified Code(s): I10 - Essential (primary) hypertension Plan: Blood pressures today in office slightly elevated. Likely has white coat hypertension as home blood pressures have been stable. Otherwise asymptomatic. Will continue his current dose of lisinopril with goal blood pressure to be below 140/90 (2) HLD (hyperlipidemia): Code(s): E78.5 - Hyperlipidemia, unspecified Qualifiers: Hyperlipidemia type: mixed hyperlipidemia Qualified Code(s): E78.2 - Mixed hyperlipidemia Plan: Patient recently started on statin therapy and total cholesterol and LDL much improved. Will continue statin therapy at this time with goal LDL to be below 130. (3) Alcohol use disorder in remission: Code(s): F10.91 - Alcohol use, unspecified, in remission Plan: Has drastically reduced his alcohol use. Does report having 1-2 beers when golfing. Has stop naltrexone and Vivitrol injections. He reports he is able to manage his alcohol use. Orders: Orders Comprehensive [place]. Panel Fast 5 Months I10 - Essential (primary) hypertension Hemoglobin A1c 5 Months R73.09 - Other abnormal glucose Lipid Panel 5 Months E78.2 - Mixed hyperlipidemia Complete Blood Count no Diff 5 Months I10 - Essential (primary) hypertension Prostate Specific Antigen Scr 5 Months I10 - Essential (primary) hypertension, Z12.5 - Encounter for screening for malignant neoplasm of prostate Medications: Changed From rosuvastatin 5 mg PO DAILY 30 tabs 2RF E78.5 - Hyperlipidemia, unspecified To rosuvastatin 5 mg PO DAILY 90 days 90 tabs 1RF E78.5 - Hyperlipidemia, unspecified Refilled clonidine HCl 0.1 mg PO BID 30 days 60 tabs 2RF anxiety and withdrawal symptoms I10 - Essential (primary) hypertension lisinopril 30 mg PO DAILY 90 tabs 1RF I10 - Essential (primary) hypertension Coding Level of Care Code Est Pt Level 4 (70123) Diagnoses HTN (hypertension) I10 Hypertension type: essential hypertension HLD (hyperlipidemia) E78.2 Hyperlipidemia type: mixed hyperlipidemia Alcohol use disorder in remission F10.91
[2023-05-24 08:38] VITALS: BP 158/86; PULSE 88; O2SAT 98; BMI 26.7
[2023-05-24 08:58] VITALS: BP 130/80
== END 2023-05-24 09:08 | disposition home or self-care (01) ==
PROVIDERS: Visit Provider Physician Assistant
DX: I10 Essential (primary) hypertension (principal); E78.2 Mixed hyperlipidemia; F10.91 Alcohol use, unspecified, in remission
CPT/HCPCS: 99214

== ENCOUNTER 2024-01-12 13:08 | Inpatient (IN) | payer MEDICARE, SELFPAY ==
--- NOTE | 2024-01-12 13:17 | ECG_ITS ---
Test Reason : HYPERTENSION Blood Pressure : / mmHG Vent. Rate : 090 BPM Atrial Rate : 090 BPM P-R Int : 156 ms QRS Dur : 098 ms QT Int : 372 ms P-R-T Axes : 056 008 046 degrees QTc Int : 455 ms Sinus rhythm with Premature atrial complexes Incomplete right bundle branch block Borderline ECG When compared with ECG of 18-SEP-2022 15:32, Premature atrial complexes are now Present Referred By: Wilda Zuluaga Electronically Signed By:IVET CONNER MD
[2024-01-12 13:20] VITALS: BP 195/98; PULSE 92; RESP 17; TEMP 37.1; O2SAT 95; BMI 27.6
--- NOTE | 2024-01-12 13:21 | ED.GENADULT ---
HPI - General Adult General Chief complaint: General Medical Stated complaint: High BP Time Seen by Provider: 01/12/24 18:28 Related Data Previous Rx's Medication Instructions Recorded baclofen 20 mg tablet 20 mg PO BID 10 days #20 tabs 09/20/22 rosuvastatin 5 mg tablet 5 mg PO DAILY 90 days #90 tabs 05/24/23 clonidine HCl 0.1 mg tablet 0.1 mg PO BID anxiety and 09/21/23 withdrawal symptoms 30 days #60 tabs lisinopril 30 mg tablet 30 mg PO DAILY #90 tabs 01/04/24 Allergies Allergy/AdvReac Type Severity Reaction Status Date / Time AVOID HCTZ - hyponatremia - Allergy Unknown Unknown Uncoded 01/12/24 13:20 1 PMF Past Medical History Medical History Alcohol use disorder, severe, dependence Hypertension Anxiety Surgical History History of colonoscopy Family History Family History Father Dementia Mother Melanoma Social History Social History Housing: House Alcohol intake: never Patient Tobacco Use Status: Current someday Tobacco user Tobacco use type: Cigarette Substance Use Type: Marijuana Advance Directives: Yes Advance Directives on File: Yes Advance Directives Date on File: 02/17/22 service: Yes Current occupational status: retired Cognitive needs: No Hearing needs: No Vision needs: No Physical Exam ED Vital Signs: Vital Signs - 24 hr 01/12/24 13:20 01/12/24 16:48 Temperature 98.7 F 96.6 F L Pulse Rate 92 90 Respiratory Rate 17 18 Blood Pressure 195/98 H 172/108 H Pulse Oximetry 95 96 Oxygen Delivery Method Room Air Room Air BMI result Body Mass Index 27.6 Course Course Course Narrative: This is an RME: Additional HPI, ROS, PE not included below will be deferred to primary provider. 68 year old male presents feeling unwell s/p binge drinking alcholic seltzers for the past 3 days, last drink at 0100 today. Hx of withdrawl per patient. Drank to much cant quantify. Feels like BP is high despite home lisinopril and clonidine ( more than he should have) to make his symptoms improve. No si or hi. No drug use.Slight palpitations. No cp or sob. Plan- labs, ekg, ethanol, will give 2 mg of ativan Medical Decision Making Lab Data 01/12/24 13:29 01/12/24 13:29 Labs: Lab Results 01/12/24 01/12/24 Range/Units 13:29 16:15 WBC 14.4 H (4.8-10.8) X10*3/uL RBC 5.25 (4.60-5.80) X10*6/uL Hgb 15.9 (14.0-18.0) g/dl Hct 43.9 (42.0-52.0) % MCV 83.6 (80.0-98.0) fL MCH 30.3 (27.0-33.0) pg MCHC 36.2 H (31.0-36.0) g/dl RDW 12.3 (11.0-16.0) % Plt Count 266 (160-400) X10*3/uL MPV 8.9 L (9.4-12.4) fL Immature Gran % (Auto) 0.3 (0.0-0.4) % Neut % (Auto) 81.9 H (45-73) % Lymph % (Auto) 7.8 L (20-40) % [place] % (Auto) 9.8 (2-11) % Eos % (Auto) 0.1 (0-4) % Baso % (Auto) 0.1 (0-2) % Lymph # (Auto) 1.1 L (1.2-4.9) X10*3/uL [place] # (Auto) 1.4 H (0.1-1.2) X10*3/uL Eos # (Auto) 0.0 (0.0-0.4) X10*3/uL Baso # (Auto) 0.0 (0.0-0.2) X10*3/uL Abs Immat Gran (auto) 0.05 H (0.00-0.03) X10*3/uL Absolute Neuts (auto) 11.8 H (2.0-8.3) x10*3/uL Absolute Nucleated RBC 0.000 (0.0-0.012) X10*3/uL Nucleated RBC % (auto) 0.0 (0.0-0.2) /100WBC Sodium 131 L (135-145) mmol/L Potassium 4.1 (3.3-5.1) mmol/L Chloride 94 L (96-108) mmol/L Carbon Dioxide 24 (22-29) mmol/L Anion Gap 17 (12-20) BUN 9 (9-16) mg/dL Creatinine 0.86 (0.5-1.4) mg/dL Estim Creat Clear Calc 91.4 Estimated GFR > 60 Random Glucose 172 H (60-115) mg/dL Calcium 9.5 (8.4-10.2) mg/dL Magnesium 1.8 (1.6-2.6) mg/dL Total Bilirubin 1.6 H (0.0-1.0) mg/dL AST 63 H (5-37) U/L ALT 23 (0-40) U/L Alkaline Phosphatase 74 (39-117) U/L Total Creatine Kinase 2014 H (38-174) U/L Troponin I High Sens 270.7 H* D 387.8 H* (<3.5-35.0) ng/L Total Protein 7.7 (6.5-8.0) g/dL Albumin 4.6 (3.5-5.0) g/dL Ethyl Alcohol < 10 mg/dL Discharge Plan Discharge Clinical Impression: Myocardial injury, Elevated blood pressure reading, Alcohol withdrawal, Rhabdomyolysis Patient Disposition: Admitted As Inpatient
[2024-01-12 13:39] LABS: MANUAL DIFF FLAG NO
[2024-01-12 13:42] LABS: Basophils Percent Auto 0.1 % (0-2); Eosinophils Percent Auto 0.1 % (0-4); Hematocrit 43.9 % (42.0-52.0); Hemoglobin 15.9 g/dl (14.0-18.0); Imm Gran Abs Auto 0.05 X10*3/uL (0.00-0.03); Imm Gran Pct Auto 0.3 % (0.0-0.4); Lymphocytes Absolute Auto 1.1 X10*3/uL (1.2-4.9); Lymphocytes Percent Auto 7.8 % (20-40); Mean Corpuscular HGB Conc 36.2 g/dl (31.0-36.0); Mean Corpuscular Hemoglobin 30.3 pg (27.0-33.0); Mean Corpuscular Volume 83.6 fL (80.0-98.0); Mean Platelet Volume 8.9 fL (9.4-12.4); Monocytes Absolute Auto 1.4 X10*3/uL (0.1-1.2); Monocytes Percent Auto 9.8 % (2-11); Neutrophils Absolute Auto 11.8 x10*3/uL (2.0-8.3); Neutrophils Percent Auto 81.9 % (45-73); Platelet Count 266 X10*3/uL (160-400); Red Blood Count 5.25 X10*6/uL (4.60-5.80); Red Cell Distribution Width 12.3 % (11.0-16.0); White Blood Count 14.4 X10*3/uL (4.8-10.8)
[2024-01-12 13:54] LABS: Ethanol < 10 mg/dL
[2024-01-12 13:55] LABS: Alanine Aminotransferase 23 U/L (0-40); Albumin Level 4.6 g/dL (3.5-5.0); Alkaline Phosphatase 74 U/L (39-117); Anion Gap 17 (12-20); Aspartate Amino Transferase 63 U/L (5-37); Bilirubin Total 1.6 mg/dL (0.0-1.0); Blood Urea Nitrogen 9 mg/dL (9-16); Calcium 9.5 mg/dL (8.4-10.2); Carbon Dioxide 24 mmol/L (22-29); Chloride 94 mmol/L (96-108); Creatinine Clr Calc Pharmacy 91.4; Estimated Glomerular Filt Rate > 60; Glucose Random 172 mg/dL (60-115); Magnesium 1.8 mg/dL (1.6-2.6); Potassium 4.1 mmol/L (3.3-5.1); Sodium 131 mmol/L (135-145); Total Protein 7.7 g/dL (6.5-8.0)
[2024-01-12 14:05] LABS: Troponin-I High Sensitivity 270.7 ng/L (<3.5-35.0)
[2024-01-12 16:48] VITALS: BP 172/108; PULSE 90; RESP 18; TEMP 35.9; O2SAT 96
[2024-01-12 18:00] LABS: Troponin-I High Sensitivity 387.8 ng/L (<3.5-35.0)
--- NOTE | 2024-01-12 18:29 | ECG_ITS ---
Test Reason : elevated trop Blood Pressure : / mmHG Vent. Rate : 077 BPM Atrial Rate : 077 BPM P-R Int : 166 ms QRS Dur : 096 ms QT Int : 396 ms P-R-T Axes : 043 005 039 degrees QTc Int : 448 ms Normal sinus rhythm Normal ECG When compared with ECG of 12-JAN-2024 13:29, Premature atrial complexes are no longer Present Referred By: Aggie Ferreira Electronically Signed By:IVET CONNER MD
--- NOTE | 2024-01-12 18:52 | ED_ITS ---
HPI - General Adult General Chief complaint: General Medical Stated complaint: High BP Time Seen by Provider: 01/12/24 18:28 History of Present Illness HPI narrative: Patient is a 68-year-old male with a history of alcohol abuse. Patient claims that he binge drinks from time to time. Drank heavily for the last 3-4 days. Last night. Has a history of alcohol withdrawal. Has a history of hypertension. Baseline patient is on lisinopril and clonidine. Patient at times when he drinks elected to stop taking his blood pressure medication. Last night he was noted to have high blood pressure. Patient decided to come to the hospital today after taking his clonidine and his lisinopril this morning. And even took an extra dose of clonidine at approximately noon just prior to coming in. I saw the patient at approximately 18:30. Patient denies having any chest pain. No fever no chills. No coughing or congestion or upper respiratory symptoms. No focal weakness. Related Data Previous Rx's Medication Instructions Recorded baclofen 20 mg tablet 20 mg PO BID 10 days #20 tabs 09/20/22 rosuvastatin 5 mg tablet 5 mg PO DAILY 90 days #90 tabs 05/24/23 clonidine HCl 0.1 mg tablet 0.1 mg PO BID anxiety and 09/21/23 withdrawal symptoms 30 days #60 tabs lisinopril 30 mg tablet 30 mg PO DAILY #90 tabs 01/04/24 Allergies Allergy/AdvReac Type Severity Reaction Status Date / Time AVOID HCTZ - hyponatremia - Allergy Unknown Unknown Uncoded 01/12/24 13:20 1 Review of Systems 2 Review of Systems: Positive history of ETOH positive history of hypertension Yes all other systems are reviewed and are negative [facility] Past Medical History Attestation statement: The following information was validated with the patient. Medical History Alcohol use disorder, severe, dependence Hypertension Anxiety Surgical History History of colonoscopy Family History Family History Father Dementia Mother Melanoma Social History Social History Housing: House Alcohol intake: never Patient Tobacco Use Status: Current someday Tobacco user Tobacco use type: Cigarette Substance Use Type: Marijuana Advance Directives: Yes Advance Directives on File: Yes Advance Directives Date on File: 02/17/22 service: Yes Current occupational status: retired Cognitive needs: No Hearing needs: No Vision needs: No Physical Exam ED Vital Signs: Vital Signs - 24 hr 01/12/24 13:20 01/12/24 16:48 Temperature 98.7 F 96.6 F L Pulse Rate 92 90 Respiratory Rate 17 18 Blood Pressure 195/98 H 172/108 H Pulse Oximetry 95 96 Oxygen Delivery Method Room Air Room Air BMI result Body Mass Index 27.6 Appearance: Alert. Oriented X3. No acute distress. Eyes: Pupils equal, round and reactive to light. ENT: Pharynx normal. Neck: Normal inspection. Neck supple. No lymph nodes noted. No crepitus CVS: Normal heart rate and rhythm. Pulses normal. Normal S1 and S2 Respiratory: No respiratory distress. Breath sounds normal. No Wheezing. No rales Abdomen: Soft and nontender. No rigidity. No distention. good BS x4 Skin: Skin warm and dry. Normal skin color. Normal skin turgor. Extremities: No lower extremity edema. Neurovascular intact to all extremities. No Lacerations. No Rash Neuro: Oriented X 3. No motor deficit. No sensory deficit. Moving all extermities. No slurred speech Medical Decision Making Medical Decision Making MDM Narrative: Patient well-appearing not acute distress. My interpretation of patient's EKG showed a sinus rhythm heart rate is 80 MS QRS QTC within normal limits there has no STEMI noted. Patient's troponin came back x2 sets elevated. The initial 1 was over 270. A repeat troponin done hours later was 387.8. An EKG was repeated. My interpretation of that EKG as above. There has no evidence for STEMI patient has no chest pain no shortness a breath no dizziness no focal weakness. He does have a CK of 2000. Question early rhabdo. Will give IV fluids. Case discussed with cardiology. Okay to observe here in [place]. Patient's creatinine is normal. Will give IV fluids. Will monitor carefully. Alcohol level was actually negative. Case discussed with hospitalist team for admission. Differential Diagnosis Differential Diagnoses: The differential diagnosis associated with the presentation includes Rhabdo, renal failure, hypertensive emergency Consult Healthcare Provider Management of the patient was discussed with: Hospitalist and Precipitate Washer (Internist Medical Doctor Md) Lab Data MDM Lab Attestation statement: I reviewed the patient's lab results. 01/12/24 13:29 01/12/24 13:29 Labs: Lab Results 01/12/24 01/12/24 Range/Units 13:29 16:15 WBC 14.4 H (4.8-10.8) X10*3/uL RBC 5.25 (4.60-5.80) X10*6/uL Hgb 15.9 (14.0-18.0) g/dl Hct 43.9 (42.0-52.0) % MCV 83.6 (80.0-98.0) fL MCH 30.3 (27.0-33.0) pg MCHC 36.2 H (31.0-36.0) g/dl RDW 12.3 (11.0-16.0) % Plt Count 266 (160-400) X10*3/uL MPV 8.9 L (9.4-12.4) fL Immature Gran % (Auto) 0.3 (0.0-0.4) % Neut % (Auto) 81.9 H (45-73) % Lymph % (Auto) 7.8 L (20-40) % [place] % (Auto) 9.8 (2-11) % Eos % (Auto) 0.1 (0-4) % Baso % (Auto) 0.1 (0-2) % Lymph # (Auto) 1.1 L (1.2-4.9) X10*3/uL [place] # (Auto) 1.4 H (0.1-1.2) X10*3/uL Eos # (Auto) 0.0 (0.0-0.4) X10*3/uL Baso # (Auto) 0.0 (0.0-0.2) X10*3/uL Abs Immat Gran (auto) 0.05 H (0.00-0.03) X10*3/uL Absolute Neuts (auto) 11.8 H (2.0-8.3) x10*3/uL Absolute Nucleated RBC 0.000 (0.0-0.012) X10*3/uL Nucleated RBC % (auto) 0.0 (0.0-0.2) /100WBC Sodium 131 L (135-145) mmol/L Potassium 4.1 (3.3-5.1) mmol/L Chloride 94 L (96-108) mmol/L Carbon Dioxide 24 (22-29) mmol/L Anion Gap 17 (12-20) BUN 9 (9-16) mg/dL Creatinine 0.86 (0.5-1.4) mg/dL Estim Creat Clear Calc 91.4 Estimated GFR > 60 Random Glucose 172 H (60-115) mg/dL Calcium 9.5 (8.4-10.2) mg/dL Magnesium 1.8 (1.6-2.6) mg/dL Total Bilirubin 1.6 H (0.0-1.0) mg/dL AST 63 H (5-37) U/L ALT 23 (0-40) U/L Alkaline Phosphatase 74 (39-117) U/L Total Creatine Kinase 2014 H (38-174) U/L Troponin I High Sens 270.7 H* D 387.8 H* (<3.5-35.0) ng/L Total Protein 7.7 (6.5-8.0) g/dL Albumin 4.6 (3.5-5.0) g/dL Ethyl Alcohol < 10 mg/dL Independent Interpretation I performed an independent interpretation of an: EKG (Sinus heart rate is 80 MS QRS QTC within normal limits is no acute ST segment elevation noted.) External Record Review External record reviewed: Inpatient record Previous cardiology records reviewed Chronic Conditions Patient?s care impacted by: Hypertension Social Determinants Patient?s care significantly limited by Social Determinants of Health including: Alcoholism and drug addiction in family Critical Care Time Critical Care Time Critical Care Time: Yes Total Critical Care Time: 40 Attestation: I have personally provided 40 minutes of critical care time exclusive of time spent on separately billable procedures. ?Time includes review of lab data, radiology results, discussion with consultants, and monitoring for potential decompensation. ?Interventions were performed as documented above Discharge Plan Discharge Clinical Impression: Myocardial injury, Elevated blood pressure reading, Alcohol withdrawal, Rhabdomyolysis Patient Disposition: Admitted As Inpatient Prescriptions: No Action clonidine HCl 0.1 mg tablet 0.1 mg PO BID 30 Days Qty: 60 3RF lisinopril 30 mg tablet 30 mg PO DAILY Qty: 90 1RF baclofen 20 mg tablet 20 mg PO BID 10 Days Qty: 20 0RF rosuvastatin 5 mg tablet 5 mg PO DAILY 90 Days Qty: 90 1RF
--- NOTE | 2024-01-12 19:01 | MHC.EDTECH ---
This tech spoke with the doctor, 3rd EKG ordered is not needed.
--- NOTE | 2024-01-12 19:12 | PM.IMHP ---
History of Present Illness Date of Service: 01/12/24 Attending physician on admission: Polly Jenkins Chief Complaint: Eleveatd BP Pt is a 68-year-old male with a PMH significant for?HTN, HLD, and alcohol use disorder who presents to the ED for evaluation of high blood pressure. Pt is a rather poor historian and unable to provide some clarification and/or details. Reports he presented to the ED today after measuring his BP at home and finding it elevated in the 170s. States he has had some mild headache but no other symptoms. Denies chest pain/pressure, though reports some palpitations. No fever, chills, N/V/D, abdominal pain. Denies SOB. No cough. Reports he has been drinking heavily lately, saying he has been on a 3-4 day binge while skiing. Is unable to clarify how much he has been drinking of exactly when his last drink was, but believes it was sometime yesterday. Says he has a his tory of alcohol withdrawal, but denies withdrawal seizures or hallucinations. Do reports some increase in anxiety but currently denies any auditory visual hallucinations. In the ED pt was hypertensive up to 195/98, tachycardic up to 92, and with low temp of 96.6 degrees. Labs were significant for leukocytosis of 14.4, sodium 131, bilirubin 1.6, AST 63, CPK 2014, initial troponin 270.7 with repeats 387.8 and 327.0. EKG demonstrated sinus rhythm with PACs but no evidence of ST elevations or depressions. Repeat EKG showed normal sinus rhythm without evidence of ST elevations or depressions or PACs. ED contacted Cardiology, who said patient should be admitted and given therapeutic Lovenox. Pt was treated with therapeutic Lovenox, Ativan, and Valium. Pt will be admitted to the hospital for treatment and further evaluation of NSTEMI, mild rhabdomyolysis, and alcohol withdrawal. Review of Systems Review of Systems: Elevated blood pressure Intermittent palpitations Increased anxiety Denies chest pain/pressure No SOB, cough Denies fever, chills, nausea, vomiting, abdominal pain No auditory or visual hallucinations [facility] Medical History Alcohol use disorder, severe, dependence Hypertension Anxiety Family History Father Dementia Mother Melanoma Surgical History History of colonoscopy Social History Housing: House Alcohol intake: never Patient Tobacco Use Status: Never used Tobacco Tobacco use type: Cigarette Smoked in Last 30 Days: No Use of substances other than those prescribed or required for medical reasons: No Substance Use Type: Marijuana Advance Directives: Yes Advance Directives on File: Yes Advance Directives Date on File: 02/17/22 service: Yes Current occupational status: retired Cognitive needs: No Hearing needs: No Vision needs: No Meds Allergies Allergy/AdvReac Type Severity Reaction Status Date / Time AVOID HCTZ - hyponatremia - Allergy Unknown Unknown Uncoded 01/12/24 13:20 1 Home Medications Medication Instructions Recorded Confirmed Last Taken Type clonidine HCl 0.1 mg tablet 0.1 mg PO BID PRN anxiety and 01/12/24 01/12/24 Unknown History withdrawal symptoms Physical Exam Vital Signs and Narrative: Vital Signs: Last Vital Signs Temp 96.6 F L 01/12/24 16:48 Pulse 90 01/12/24 16:48 Resp 18 01/12/24 16:48 BP 172/108 H 01/12/24 16:48 Pulse Ox 96 01/12/24 16:48 O2 Del Method Room Air 01/12/24 16:48 BMI result Body Mass Index 27.6 Constitutional: Alert, in no acute distress. Mental Status: Oriented to person, place and time. Eyes: Pupils are equal, round, and reactive to light. Ear, Nose, and Throat: Oropharynx clear, mucous membranes moist. Ears and nose without deformities. Trachea midline. Respiratory: Clear to auscultation bilaterally. No wheezing, rales, or rhonchi. Cardiovascular: S1, S2 regular. No murmurs, rubs, or gallops. Gastrointestinal: Abdomen soft, non-tender, non-distended. Normal bowel sounds. Neurologic: Cranial nerves II-XII are grossly intact bilaterally. No focal neurological deficits. Moves all extremities spontaneously. Skin: Warm, dry. Musculoskeletal: No cyanosis or clubbing. Extremities: No edema. Psychiatric: Normal mood and affect. Results Labs 01/12/24 19:31 01/12/24 13:29 Labs: Laboratory Results - last 24 hr 01/12/24 01/12/24 01/12/24 13:29 16:15 18:45 MCV 83.6 MCH 30.3 MCHC 36.2 H RDW 12.3 Plt Count 266 MPV 8.9 L Immature Gran % (Auto) 0.3 Neut % (Auto) 81.9 H Lymph % (Auto) 7.8 L [place] % (Auto) 9.8 Eos % (Auto) 0.1 Baso % (Auto) 0.1 Lymph # (Auto) 1.1 L [place] # (Auto) 1.4 H Eos # (Auto) 0.0 Baso # (Auto) 0.0 Abs Immat Gran (auto) 0.05 H Absolute Neuts (auto) 11.8 H Absolute Nucleated RBC 0.000 Nucleated RBC % (auto) 0.0 Anion Gap 17 Estim Creat Clear Calc 91.4 Estimated GFR > 60 Random Glucose 172 H Calcium 9.5 Magnesium 1.8 Total Bilirubin 1.6 H AST 63 H ALT 23 Alkaline Phosphatase 74 Total Creatine Kinase 2014 H Troponin I High Sens 270.7 H* D 387.8 H* 327.0 H* Total Protein 7.7 Albumin 4.6 Ethyl Alcohol < 10 Assessment and Plan (1) Rhabdomyolysis: Status: Acute (2) Alcohol withdrawal: Status: Acute (3) Elevated troponin: Status: Acute Plan Pt is a 68-year-old male with a PMH significant for?HTN, HLD, and alcohol use disorder who presents to the ED for evaluation of high blood pressure. Pt will be admitted to the hospital for treatment and further evaluation of NSTEMI, mild rhabdomyolysis, and alcohol withdrawal. NSTEMI Initial troponin 270.7 with repeat 387.8 and 327.0 EKG without ischemic changes Patient with intermittent palpitations, denies chest pain/pressure Will treat with therapeutic Lovenox Cardiology consult Monitor on telemetry Rhabdomyolysis, mild CPK 2013 at time of presentation Patient resuscitated with IVF Acute alcohol withdrawal Patient with recent alcoholic binge, last drink yesterday History of alcohol withdrawal without seizures Will start on phenobarb protocol Daily multivitamin, folic acid, thiamine Follow lytes, Mag IVF CIWA scale Addiction medicine consult Monitor on telemetry HTN Blood pressure initially 195/98 at time of presentation Currently normotensive Continue lisinopril, clonidine Full Code Attending:?Dr. Gregory DVT Prophylaxis: On therapeutic Lovenox Pt will require a hospitalization of at least two nights for treatment of?NSTEMI, rhabdomyolysis, and alcohol withdrawal. Patient required hospitalization for treatment with IVF, phenobarb protocol, specialist consultation, and close monitoring of cardiac function, CPK, and blood pressure. Quality Stroke Does the patient have a stroke diagnosis?: No VTE Prior VTE?: No VTE Risk Level:: Medical - moderate - high VTE Device Contraindication: Treatment Not Indicated VTE Drug Contraindication: N/A - Med Ordered
[2024-01-12] MEDS: Enoxaparin Sodium 100 MG/ML SYRINGE 90 MG SUBCUT (19:21)
[2024-01-12] MEDS: diazePAM 10 MG/2 ML CARTRIDGE IVPUSH (19:21)
[2024-01-12 19:22] VITALS: BP 84/46; PULSE 70; RESP 20; TEMP 36.6; O2SAT 93
[2024-01-12] MEDS: Lactated Ringers 1,000 ML 150 ML IVCONT (19:32)
--- NOTE | 2024-01-12 19:34 | PC.NURSE ---
Assumed care of the pt at 1900> Pt resting in bed, A&Ox4, GCS 15. I medicated pt with IV valium and pt quickly fell asleep, arousable to painful stimuli. Pt Pressure noted to be low, MD aware and at bedside ordered a second IV and a liter of fluids. Pt vitals improved and pt is resting at this time.
[2024-01-12 19:39] LABS: Hematocrit 44.1 % (42.0-52.0); Hemoglobin 15.6 g/dl (14.0-18.0); Mean Corpuscular HGB Conc 35.4 g/dl (31.0-36.0); Mean Corpuscular Hemoglobin 30.2 pg (27.0-33.0); Mean Corpuscular Volume 85.3 fL (80.0-98.0); Mean Platelet Volume 9.2 fL (9.4-12.4); Platelet Count 234 X10*3/uL (160-400); Red Blood Count 5.17 X10*6/uL (4.60-5.80); Red Cell Distribution Width 12.5 % (11.0-16.0); White Blood Count 9.8 X10*3/uL (4.8-10.8)
[2024-01-12 19:48] LABS: INTERNATIONAL NORM RATIO 0.9 (0.9-1.1); Prothrombin Time 11.5 SEC (11.1-13.3)
[2024-01-12] MEDS: Thiamine HCL 200 MG in 0.9 % Sodium Chloride 100 ML 204 MG IV (20:37)
[2024-01-12] MEDS: Lactated Ringers 1,000 ML 999 ML IV (20:38)
[2024-01-12] MEDS: Aspirin Enteric Coated 325 MG TABLET.DR PO (20:42)
[2024-01-12 22:18] VITALS: BP 97/69; PULSE 64; RESP 15; O2SAT 95
[2024-01-12] MEDS: PHENobarbitaL 200 MG, PHENobarbitaL 30 MG 230 MG PO (22:26)
--- NOTE | 2024-01-13 | ECG_ITS ---
Test Reason : NSTEMI Blood Pressure : / mmHG Vent. Rate : 072 BPM Atrial Rate : 072 BPM P-R Int : 180 ms QRS Dur : 102 ms QT Int : 386 ms P-R-T Axes : 000 050 100 degrees QTc Int : 422 ms Sinus rhythm with Premature atrial complexes Possible Lateral infarct , age undetermined Abnormal ECG When compared with ECG of 12-JAN-2024 18:38, Premature atrial complexes are now Present Borderline criteria for Lateral infarct are now Present Nonspecific T wave abnormality now evident in Inferior leads Referred By: Lonnie Navarrete Electronically Signed By:IVET CONNER MD
[2024-01-13] MEDS: PHENobarbitaL 200 MG, PHENobarbitaL 30 MG 230 MG PO (02:06)
[2024-01-13] MEDS: Lactated Ringers 1,000 ML 150 ML IVCONT ×3 (02:09→23:51)
[2024-01-13 02:48] VITALS: BP 86/49; PULSE 47; RESP 15; TEMP 36.6; O2SAT 95
[2024-01-13] MEDS: Lactated Ringers 1,000 ML 999 ML IV (04:12)
[2024-01-13 06:12] LABS: Hematocrit 39.9 % (42.0-52.0); Hemoglobin 13.6 g/dl (14.0-18.0); Mean Corpuscular HGB Conc 34.1 g/dl (31.0-36.0); Mean Corpuscular Volume 88.1 fL (80.0-98.0); Mean Platelet Volume 9.6 fL (9.4-12.4); Platelet Count 177 X10*3/uL (160-400); Red Blood Count 4.53 X10*6/uL (4.60-5.80); Red Cell Distribution Width 12.6 % (11.0-16.0); White Blood Count 7.3 X10*3/uL (4.8-10.8)
[2024-01-13 06:30] LABS: Anion Gap 11 (12-20); Blood Urea Nitrogen 12 mg/dL (9-16); Calcium 8.3 mg/dL (8.4-10.2); Carbon Dioxide 23 mmol/L (22-29); Chloride 104 mmol/L (96-108); Creatinine Clr Calc Pharmacy 66.6; Estimated Glomerular Filt Rate > 60; Glucose Random 123 mg/dL (60-115); Potassium 4.2 mmol/L (3.3-5.1); Sodium 134 mmol/L (135-145)
--- NOTE | 2024-01-13 07:00 | CA_ITS ---
Transthoracic Echocardiogram Amended Patient (Last, First, Middle): Gerard Duffy P Gender: Male Date of : 1955 Age: 68 Procedure Date: 01/13/2024 Procedure Type: Transthoracic Echocardiogram Location: ER Height: 182.88 cm Weight: 92.08 kg BSA: 2.14 m2 Heart Rate: bpm BP: 117 / 71 mmHg Helpdesk Manager: Referring MD: Polly Jenkins MD Wood Patternmaker: Stevo Drake MD Symptoms: NSTEMI Study Quality: Fair ECG Rhythm: Sinus Conclusions: - 1. Normal LV ejection fraction 55-60% with mild LVH with grade 1 diastolic dysfunction 2. Mild mitral regurgitation 3. Normal RV systolic pressure 4. Upper limits of normal ascending aortic size at 3.6 cm 5. No gross pericardial effusion - (due to technical issues, report is being re-signed; originally reported by ) Findings Left Ventricle Normal left ventricular size and systolic function. There is mildly increased left ventricular wall thickness. The visually estimated ejection fraction is between 55-60%. Spectral Doppler is indicative of an impaired relaxation filling pattern. E/E prime ratio is <8, consistent with normal filling pressures. Evidence suggests grade I (mild) diastolic dysfunction. Right Ventricle Normal right ventricular cavity size and systolic function. Atria Both atria are normal in size. There is no evidence of interatrial shunt. Aortic Valve Normal aortic valve structure and function. There is no aortic valve stenosis. There is no aortic valve regurgitation. Mitral Valve Normal mitral valve structure and function. There is mild mitral valve regurgitation. There is no mitral valve stenosis. Pulmonic Valve The pulmonic valve is likely normal. There is trace pulmonic valve regurgitation. Tricuspid Valve Normal tricuspid valve structure. There is trace tricuspid valve regurgitation. The right ventricular systolic pressure is normal. The right ventricular systolic pressure is 25 mmHg. Normal right atrial pressure. There is no evidence of pulmonary hypertension. Great Vessels All visible segments of the aorta are normal in size. The pulmonary artery was not well visualized. Venous The inferior vena cava is normal in size and collapses greater than 50% with inspiration. Pericardium/Pleural There is no evidence of pericardial effusion. Measurements 2D Linear Measurements IVSd: 1.38 0.6-0.9/0.6-1.0 cm LVIDd: 4.45 3.9-5.3/4.2-5.9 cm LVIDd Index: 2.08 2.4-3.2/2.2-3.1 cm/m2 LVIDs: 2.76 2.0-3.6 cm LVPWd: 1.35 0.7-1.1 cm Ao Root: 3.80 2.1-3.5 cm LA Diam: 3.50 2.7-3.8/3.0-4.0 cm LAIDs Index: 1.64 1.5-2.3 cm/m2 LV Mass: 293.31 67-162/88-224 g LV Mass Index: 137.06 43-95/49-115 g/m2 LVOT Diam: 2.50 3.0+(-)1.3 cm 2D Volumes LA Vol: 29.90 2D Systolic Function EF 4C: 55.40 >55% EF 2C: 56.30 >55% EF BiP: 57.90 >55% Mitral Valve MV Pk E: 0.63 MV PK A: 0.67 MV Decel Time: 289.00 E/A: 0.90 E'Lateral: 8.70 E'Medial: 5.11 E/E' Med: 12.30 E/E' Lat: 7.20 PHT: 85.00 MVA PHT: 2.59 Decel Mcdonough: 2.17 Aortic Valve AoV Pk Michael: 1.35 AoV Mn Michael: 0.89 AoV VTI: 0.35 AoV Pk Grad: 7.00 Aov Mn Grad: 4.00 LAMONTE Cont.VTI: 3.56 LVOT LVOT Pk Michael: 1.18 LVOT Mn Michael: 0.74 LVOT VTI: 0.25 LVOT Pk Grad: 6.00 LVOT Mn Grad: 3.00 LVOT Diam: 2.50 LVOT Area: 4.91 Diastolic Function MV Pk E: 0.63 MV Pk A: 0.67 E/A: 0.90 E'Medial: 5.11 E/E' Med: 12.30 E' Laterial: 8.70 E/E' Lat: 7.20 Right Ventricle TAPSE (mm): 28.00 TVS' Michael: 14.00 Tricuspid Valve TR Pk Michael: 2.34 TR Pk Grad: 22.00 RA Press: 3.00 RVSP: 25.00 Great Vessels Aorta Ao Root-2D: 3.80 2.0-3.7 cm Ao Asc: 3.60 2.1-3.4 cm Pulmonary Valve PV Pk Michael: 0.86 Peak PV Grad: 3.00 Updated in Other Vendor System with Status of Final Don Chatterjee MD electronically signed on 01/20/2024 11:41:26 AM with status of Final
--- NOTE | 2024-01-13 07:17 | PHA.MEDREC ---
Pharmacy Consult ? Medication Reconciliation Pharmacy has completed the medication reconciliation.
--- NOTE | 2024-01-13 07:38 | PC.NURSE ---
Pt removed both of his IVs in his room and ambulated out of room to go to bathroom. Pt assisted back to bed, IV access obtained in left hand 20G. Pt is calm and cooperative at this time, reported that he really needed to use the bathroom and could not wait for anyone.
[2024-01-13 08:02] VITALS: BP 117/71; PULSE 72; RESP 16; O2SAT 96
--- NOTE | 2024-01-13 08:05 | PC.NURSE ---
VSS, Pt NSR on electronic organ mechanic. Pt denies any CP or SOB, pt resting in bed.
[2024-01-13] MEDS: Atorvastatin Calcium 20 MG TABLET PO (09:09)
[2024-01-13] MEDS: Thiamine HCL 100 MG TABLET PO (09:09)
[2024-01-13] MEDS: PHENobarbitaL 30 MG TABLET 60 MG PO ×2 (09:10→20:05)
[2024-01-13] MEDS: Enoxaparin Sodium 100 MG/ML SYRINGE 90 MG SUBCUT ×2 (09:11→20:05)
[2024-01-13] MEDS: 0.9 % Sodium Chloride 250 ML 999 ML IV (09:13)
[2024-01-13 09:29] LABS: Amphetamine Screen Urine Not Detected (Not Detect); Barbiturates, Urine POSITIVE (Not Detect); Cannabinoid Screen Urine Not Detected (Not Detect); Cocaine Screen Urine Not Detected (Not Detect); Fentanyl, urine Not Detected (Not Detect); Opiate Screen Urine Not Detected (Not Detect); Phencyclidine Screen Urine Not Detected (Not Detect)
[2024-01-13 09:33] LABS: Benzodiazepines Screen Urine POSITIVE (Not Detect)
[2024-01-13 09:43] LABS: Troponin-I High Sensitivity 165.1 ng/L (<3.5-35.0)
--- NOTE | 2024-01-13 10:34 | P.PNIM_ITS ---
Subjective Subjective Date of Service: 01/13/24 Interval History: Pt seen and examined, he presented to the ED for evaluation of high BPs, while his inital blood pressure was 195/98 and then 172/108, his blood pressure dropped precipitously after ativan, phenobarbital and lorazempam and required fluid boluses. Most of his BP were low overnight along with low heart rate He did not receive meds to treat initial high BP, he was given multiple fluid boluses and BP is now better, he reports no chest pain. His troponin were high but have trended down, CPK was around 2000, ECGs show no acute ischemic changes. He feels fine this morning Physical Exam 2 Vital Signs: Vital Signs: Last Vital Signs Temp 97.8 F 01/13/24 02:48 Pulse 72 01/13/24 08:02 Resp 16 01/13/24 08:02 BP 117/71 01/13/24 08:02 Pulse Ox 96 01/13/24 08:02 O2 Del Method Room Air 01/13/24 08:02 BMI result Body Mass Index 27.6 General: AO X 3, no acute distress Resp: CTA bilateral CVS: S1,S2,RRR GI: +BS, NT, no distention Skin: No rash Neuro: motor grossly intact Psych: appropriate affect Objective Data Active Medications Acetaminophen (Acetaminophen 325 Mg Tablet) 650 mg PO Q6H PRN PRN Reason: Pain, Mild (Pain Scale 1-3) Atorvastatin Calcium (Atorvastatin Calcium 20 Mg Tablet) 20 mg PO DAILY [facility] Last Admin: 01/13/24 09:09 Dose: 20 mg Documented By: YENIFER Enoxaparin Sodium (Enoxaparin Sodium 100 Mg/Ml Syringe) 90 mg SUBCUT Q12H [facility] Last Admin: 01/13/24 09:11 Dose: 90 mg Documented By: YENIFER Lactated Ringer's (Lr) 1,000 mls @ 150 mls/hr IVCONT .Q6H40M [facility] Last Admin: 01/13/24 02:09 Dose: 150 mls/hr Documented By: CARLOS Melatonin (Melatonin 3 Mg Tablet) 6 mg PO BEDTIME PRN PRN Reason: Insomnia Ondansetron HCl (Ondansetron Hcl 4 Mg/2 Ml Vial) 4 mg IVPUSH Q8H PRN PRN Reason: Nausea and Vomiting Pharmacy Consult (Consult Rx Etoh Phenob Po Only) 1 each MISCELLANE ONCE PRN; Protocol PRN Reason: Consult order Phenobarbital (Phenobarbital 30 Mg Tablet) 30 mg PO BID [facility]; Protocol Stop: 01/16/24 21:01 Phenobarbital (Phenobarbital 30 Mg Tablet) 30 mg PO DAILY [facility]; Protocol Stop: 01/18/24 09:01 Phenobarbital (Phenobarbital 30 Mg Tablet) 60 mg PO BID [facility]; Protocol Stop: 01/14/24 21:01 Last Admin: 01/13/24 09:10 Dose: 60 mg Documented By: YENIFER Sodium Chloride (0.9 % Sodium Chloride Flush 3 Ml Syringe) 3 ml IVFLUSH QSHIFT [facility] Last Admin: 01/13/24 07:54 Dose: Not Given Documented By: YENIFER Non-Admin Reason: IV Running Thiamine HCl (Thiamine Hcl 100 Mg Tablet) 100 mg PO DAILY [facility] Last Admin: 01/13/24 09:09 Dose: 100 mg Documented By: YENIFER Labs 01/13/24 05:43 01/13/24 05:43 Labs: Laboratory Results - last 24 hr 01/12/24 01/12/24 01/12/24 13:29 16:15 18:45 MCV 83.6 MCH 30.3 MCHC 36.2 H RDW 12.3 Plt Count 266 MPV 8.9 L Immature Gran % (Auto) 0.3 Neut % (Auto) 81.9 H Lymph % (Auto) 7.8 L [place] % (Auto) 9.8 Eos % (Auto) 0.1 Baso % (Auto) 0.1 Lymph # (Auto) 1.1 L [place] # (Auto) 1.4 H Eos # (Auto) 0.0 Baso # (Auto) 0.0 Abs Immat Gran (auto) 0.05 H Absolute Neuts (auto) 11.8 H Absolute Nucleated RBC 0.000 Nucleated RBC % (auto) 0.0 PT INR APTT Anion Gap 17 Estim Creat Clear Calc 91.4 Estimated GFR > 60 Random Glucose 172 H Calcium 9.5 Magnesium 1.8 Total Bilirubin 1.6 H AST 63 H ALT 23 Alkaline Phosphatase 74 Total Creatine Kinase 2014 H Troponin I High Sens 270.7 H* D 387.8 H* 327.0 H* Total Protein 7.7 Albumin 4.6 Urine Opiates Screen Urine Fentanyl Screen Ur Barbiturates Screen Ur Phencyclidine Scrn Ur Amphetamines Screen U Benzodiazepines Scrn Urine Cocaine Screen U Marijuana (THC) Screen Ethyl Alcohol < 10 01/12/24 01/13/24 01/13/24 19:31 05:43 09:01 MCV 85.3 88.1 MCH 30.2 30.0 MCHC 35.4 34.1 RDW 12.5 12.6 Plt Count 234 177 MPV 9.2 L 9.6 Immature Gran % (Auto) Neut % (Auto) Lymph % (Auto) [place] % (Auto) Eos % (Auto) Baso % (Auto) Lymph # (Auto) [place] # (Auto) Eos # (Auto) Baso # (Auto) Abs Immat Gran (auto) Absolute Neuts (auto) Absolute Nucleated RBC 0.000 0.000 Nucleated RBC % (auto) 0.0 0.0 PT 11.5 INR 0.9 APTT 29.0 Anion Gap 11 L Estim Creat Clear Calc 66.6 Estimated GFR > 60 Random Glucose 123 H Calcium 8.3 L D Magnesium Total Bilirubin AST ALT Alkaline Phosphatase Total Creatine Kinase 779 H Troponin I High Sens 165.1 H* Total Protein Albumin Urine Opiates Screen Urine Fentanyl Screen Ur Barbiturates Screen Ur Phencyclidine Scrn Ur Amphetamines Screen U Benzodiazepines Scrn Urine Cocaine Screen U Marijuana (THC) Screen Ethyl Alcohol 01/13/24 09:05 MCV MCH MCHC RDW Plt Count MPV Immature Gran % (Auto) Neut % (Auto) Lymph % (Auto) [place] % (Auto) Eos % (Auto) Baso % (Auto) Lymph # (Auto) [place] # (Auto) Eos # (Auto) Baso # (Auto) Abs Immat Gran (auto) Absolute Neuts (auto) Absolute Nucleated RBC Nucleated RBC % (auto) PT INR APTT Anion Gap Estim Creat Clear Calc Estimated GFR Random Glucose Calcium Magnesium Total Bilirubin AST ALT Alkaline Phosphatase Total Creatine Kinase Troponin I High Sens Total Protein Albumin Urine Opiates Screen Not Detected Urine Fentanyl Screen Not Detected Ur Barbiturates Screen POSITIVE H Ur Phencyclidine Scrn Not Detected Ur Amphetamines Screen Not Detected U Benzodiazepines Scrn POSITIVE H Urine Cocaine Screen Not Detected U Marijuana (THC) Screen Not Detected Ethyl Alcohol Assessment and Plan (1) Rhabdomyolysis: Status: Acute (2) Alcohol withdrawal: Status: Acute (3) Elevated troponin: Status: Acute Plan 68-year-old male with a PMH significant for?HTN, HLD, and alcohol use disorder who presents to the ED for evaluation of high blood pressure. He was found to have elevated troponin I consistent with acute NSTEMI, later developed Hypotension and concern for alcohol withdrawal NSTEMI-- Initial troponin 270.7 with repeat 387.8 and 327.0 and now 165, EKG without ischemic changes. Patient with intermittent palpitations, denies chest pain/pressure Being treated with Lovenox, given no ECG changes doubt ACS and high troponin maybe related rhabdomyoslsis Will get an echo and get cardiology input Monitor on telemetry Rhabdomyolysis, mild CPK 2013 at time of presentation Patient resuscitated with IVF Hypotension--having initially presented with Hypertenison and BP dropping after receiving valium, ativan and Phenobarbital -He has received multiple fluidboluses and BP is now better. Avoid further benzo and he maybe overally sensitive, he had similar presentation 2 years ago Acute alcohol withdrawal Patient with recent alcoholic binge, last drink yesterday History of alcohol withdrawal without seizures continue phenobarb protocol Daily multivitamin, folic acid, thiamine Follow lytes, Mag IVF CIWA scale Addiction medicine consult Monitor on telemetry HTN on Clonidine and Lisinopril at home, initial BP was very high but became very low. Hold BP meds today and give IV fluid Full Code Attending:?Dr. Jenkins DVT Prophylaxis: On therapeutic Lovenox need for inpatient: Alcohol withdrawal, NSTEMi treatment Quality Stroke Does the patient have a stroke diagnosis?: No VTE Prior VTE?: No VTE Risk Level:: Medical - moderate - high VTE Device Contraindication: Treatment Not Indicated VTE Drug Contraindication: N/A - Med Ordered
--- NOTE | 2024-01-13 11:45 | PM.CNCAR ---
History of Present Illness History of Present Illness Date of Service: 01/13/24 Consult reason: troponin elevation Chief complaint: alcohol withdrawal Narrative: I was consulted to see Don in cardiology consultation today for abnormal troponin. I was never consulted from the ED regarding management but ask for whether patient should be admitted. At that time I would advise given troponin elevation unclear history to be admitted. Patient currently on Lovenox dose. I did consult with patient at bedside and asked him why he came to the hospital. He has not able to provide me any good history. He said he drinks a lot and when he stops drinking he does not feel good and he therefore he decided to come to the hospital. It seems like he was drinking heavily 3 days prior to the hospital presentation then stopped. He has had issue with alcohol dependence and uses binge drinking significantly. He has prior history of hypertension. He did check his blood sugar at home and noted to be elevated. When he came to the emergency room also noted to have significantly elevated blood pressure. Troponin was drawn for unclear reasons. When I asked patient whether he was having any chest pain he said no although his history is very unreliable. He denies any palpitations, lightheadedness, syncope. Overnight was admitted for alcohol withdrawal and elevated troponin was given Lovenox therapeutic dose. He is currently on alcohol withdrawal protocol. Overnight has been hypotensive with a blood pressure in the 80s. Was given IV fluids started this morning blood pressure is normalized. Patient is awaiting echocardiogram. Denies any chest pain at current time. Review of Systems Review of Systems: Yes Unobtainable due to mental status PMFSH Past Medical History Medical History Alcohol use disorder, severe, dependence Hypertension Anxiety Family History Family History Father Dementia Mother Melanoma Surgical History Surgical History History of colonoscopy Social History Social History Housing: House Alcohol intake: never Patient Tobacco Use Status: Never used Tobacco Tobacco use type: Cigarette Smoked in Last 30 Days: No Use of substances other than those prescribed or required for medical reasons: No Substance Use Type: Marijuana Advance Directives: Yes Advance Directives on File: Yes Advance Directives Date on File: 01/13/24 service: Yes Current occupational status: retired Cognitive needs: No Hearing needs: No Vision needs: No Meds Allergies Allergy/AdvReac Type Severity Reaction Status Date / Time AVOID HCTZ - hyponatremia - Allergy Unknown Unknown Uncoded 01/12/24 13:20 1 Active Medications: Current Medications Acetaminophen (Acetaminophen 325 Mg Tablet) 650 mg PO Q6H PRN PRN Reason: Pain, Mild (Pain Scale 1-3) Aspirin (Aspirin Enteric Coated 81 Mg Tablet.) 81 mg PO DAILY [facility] Atorvastatin Calcium (Atorvastatin Calcium 20 Mg Tablet) 20 mg PO DAILY [facility] Last Admin: 01/13/24 09:09 Dose: 20 mg Enoxaparin Sodium (Enoxaparin Sodium 100 Mg/Ml Syringe) 90 mg SUBCUT Q12H [facility] Last Admin: 01/13/24 09:11 Dose: 90 mg Lactated Ringer's (Lr) 1,000 mls @ 150 mls/hr IVCONT .Q6H40M [facility] Last Admin: 01/13/24 02:09 Dose: 150 mls/hr Melatonin (Melatonin 3 Mg Tablet) 6 mg PO BEDTIME PRN PRN Reason: Insomnia Ondansetron HCl (Ondansetron Hcl 4 Mg/2 Ml Vial) 4 mg IVPUSH Q8H PRN PRN Reason: Nausea and Vomiting Pharmacy Consult (Consult Rx Etoh Phenob Po Only) 1 each MISCELLANE ONCE PRN; Protocol PRN Reason: Consult order Phenobarbital (Phenobarbital 30 Mg Tablet) 30 mg PO BID [facility]; Protocol Stop: 01/16/24 21:01 Phenobarbital (Phenobarbital 30 Mg Tablet) 30 mg PO DAILY [facility]; Protocol Stop: 01/18/24 09:01 Phenobarbital (Phenobarbital 30 Mg Tablet) 60 mg PO BID [facility]; Protocol Stop: 01/14/24 21:01 Last Admin: 01/13/24 09:10 Dose: 60 mg Sodium Chloride (0.9 % Sodium Chloride Flush 3 Ml Syringe) 3 ml IVFLUSH QSHIFT [facility] Last Admin: 01/13/24 07:54 Dose: Not Given Thiamine HCl (Thiamine Hcl 100 Mg Tablet) 100 mg PO DAILY [facility] Last Admin: 01/13/24 09:09 Dose: 100 mg Home Medications Medication Instructions Recorded Confirmed Last Taken Type clonidine HCl 0.1 mg tablet 0.1 mg PO BID PRN anxiety and 01/12/24 01/12/24 Unknown History withdrawal symptoms Physical Exam Vital Signs: Vital Signs: Last Vital Signs Temp 97.8 F 01/13/24 02:48 Pulse 72 01/13/24 08:02 Resp 16 01/13/24 08:02 BP 117/71 01/13/24 08:02 Pulse Ox 96 01/13/24 08:02 O2 Del Method Room Air 01/13/24 08:02 BMI result Body Mass Index 27.6 Const: General: cooperative, comfortable, no acute distress, alert and awake Nutritional Appearance: average body habitus Orientation/consciousness: patient oriented x3 HEENT: Head: Yes normocephalic and Yes atraumatic Neck: Neck: Yes trachea midline, Yes supple and Yes no JVD Resp: Effort & Inspection: decreased respiratory effort Auscultation: clear to auscultation bilaterally Cardio: Jugular venous distension: no JVD Palpation: normal PMI Rate: regular rate Rhythm: regular rhythm Heart sounds: S1 normal heart sound present, S2 normal heart sound present, no click, no gallops, no murmurs and no rubs Skin: General skin exam: no rashes or lesions noted Neuro: General: patient oriented x3 and no focal motor deficits Extrem: General: Yes no clubbing, cyanosis or edema Objective Labs and Meds 01/13/24 05:43 01/13/24 05:43 Lab results: Laboratory Results - last 24 hr 01/12/24 01/12/24 01/12/24 13:29 16:15 18:45 WBC 14.4 H RBC 5.25 Hgb 15.9 Hct 43.9 MCV 83.6 MCH 30.3 MCHC 36.2 H RDW 12.3 Plt Count 266 MPV 8.9 L Immature Gran % (Auto) 0.3 Neut % (Auto) 81.9 H Lymph % (Auto) 7.8 L [place] % (Auto) 9.8 Eos % (Auto) 0.1 Baso % (Auto) 0.1 Lymph # (Auto) 1.1 L [place] # (Auto) 1.4 H Eos # (Auto) 0.0 Baso # (Auto) 0.0 Abs Immat Gran (auto) 0.05 H Absolute Neuts (auto) 11.8 H Absolute Nucleated RBC 0.000 Nucleated RBC % (auto) 0.0 PT INR APTT Sodium 131 L Potassium 4.1 Chloride 94 L Carbon Dioxide 24 Anion Gap 17 BUN 9 Creatinine 0.86 Estim Creat Clear Calc 91.4 Estimated GFR > 60 Random Glucose 172 H Calcium 9.5 Magnesium 1.8 Total Bilirubin 1.6 H AST 63 H ALT 23 Alkaline Phosphatase 74 Total Creatine Kinase 2014 H Troponin I High Sens 270.7 H* D 387.8 H* 327.0 H* Total Protein 7.7 Albumin 4.6 Urine Opiates Screen Urine Fentanyl Screen Ur Barbiturates Screen Ur Phencyclidine Scrn Ur Amphetamines Screen U Benzodiazepines Scrn Urine Cocaine Screen U Marijuana (THC) Screen Ethyl Alcohol < 10 01/12/24 01/13/24 01/13/24 19:31 05:43 09:01 WBC 9.8 7.3 RBC 5.17 4.53 L Hgb 15.6 13.6 L Hct 44.1 39.9 L MCV 85.3 88.1 MCH 30.2 30.0 MCHC 35.4 34.1 RDW 12.5 12.6 Plt Count 234 177 MPV 9.2 L 9.6 Immature Gran % (Auto) Neut % (Auto) Lymph % (Auto) [place] % (Auto) Eos % (Auto) Baso % (Auto) Lymph # (Auto) [place] # (Auto) Eos # (Auto) Baso # (Auto) Abs Immat Gran (auto) Absolute Neuts (auto) Absolute Nucleated RBC 0.000 0.000 Nucleated RBC % (auto) 0.0 0.0 PT 11.5 INR 0.9 APTT 29.0 Sodium 134 L Potassium 4.2 Chloride 104 Carbon Dioxide 23 Anion Gap 11 L BUN 12 Creatinine 1.18 Estim Creat Clear Calc 66.6 Estimated GFR > 60 Random Glucose 123 H Calcium 8.3 L D Magnesium Total Bilirubin AST ALT Alkaline Phosphatase Total Creatine Kinase 779 H Troponin I High Sens 165.1 H* Total Protein Albumin Urine Opiates Screen Urine Fentanyl Screen Ur Barbiturates Screen Ur Phencyclidine Scrn Ur Amphetamines Screen U Benzodiazepines Scrn Urine Cocaine Screen U Marijuana (THC) Screen Ethyl Alcohol 01/13/24 09:05 WBC RBC Hgb Hct MCV MCH MCHC RDW Plt Count MPV Immature Gran % (Auto) Neut % (Auto) Lymph % (Auto) [place] % (Auto) Eos % (Auto) Baso % (Auto) Lymph # (Auto) [place] # (Auto) Eos # (Auto) Baso # (Auto) Abs Immat Gran (auto) Absolute Neuts (auto) Absolute Nucleated RBC Nucleated RBC % (auto) PT INR APTT Sodium Potassium Chloride Carbon Dioxide Anion Gap BUN Creatinine Estim Creat Clear Calc Estimated GFR Random Glucose Calcium Magnesium Total Bilirubin AST ALT Alkaline Phosphatase Total Creatine Kinase Troponin I High Sens Total Protein Albumin Urine Opiates Screen Not Detected Urine Fentanyl Screen Not Detected Ur Barbiturates Screen POSITIVE H Ur Phencyclidine Scrn Not Detected Ur Amphetamines Screen Not Detected U Benzodiazepines Scrn POSITIVE H Urine Cocaine Screen Not Detected U Marijuana (THC) Screen Not Detected Ethyl Alcohol EKG shows no acute ST T wave changes Assessment and Plan (1) Elevated troponin: Status: Acute Patient with rise and fall in troponin consistent with myocardial injury of unclear etiology. Patient denies any ischemic symptoms and there are no EKG changes suggestive ischemia. Likelihood of coronary artery disease exist based on age and other risk factors. Although currently he came into the hospital not feeling well because he stopped drinking alcohol all of a sudden and was heavily drink alcohol 3 days prior to presentation. He also was noted to have some rhabdomyolysis. His blood pressure initially was elevated which could also cause subendocardial strain and troponin elevation. Echocardiogram being done. If he has no significant wall motion abnormalities, management would be medical. I would start him on aspirin, high-intensity statin therapy and metoprolol for myocardial protection. Will require outpatient stress test if he remained stable. Continue treat his alcohol withdrawal. No inpatient workup is required unless he has significant wall motion abnormality on echocardiogram. Importance of complete cessation of alcohol and avoiding alcohol binge was discussed with him. Will follow with you if there is significant echocardiographic findings. Procedures Date of Service Date of Service: 01/13/24
[2024-01-13] MEDS: Aspirin Enteric Coated 81 MG TABLET.DR PO (12:04)
[2024-01-13 12:06] VITALS: BP 114/63; PULSE 56; RESP 16; O2SAT 96
--- NOTE | 2024-01-13 13:41 | MHC.CM.PN ---
Attempted to meet with patient in regards to discharge planning. Patient not currently in his room. No family present. Will attempt to meet again. Continue to monitor for d/c needs.
[2024-01-13 18:39] VITALS: BP 162/85; PULSE 78; RESP 16; O2SAT 95
[2024-01-13 19:12] LABS: INTERNATIONAL NORM RATIO 0.9 (0.9-1.1); Prothrombin Time 10.9 SEC (11.1-13.3)
--- NOTE | 2024-01-13 19:19 | PC.NURSE ---
assumed care of patient at 1900 - report received from Mariola GUNN
[2024-01-13 19:36] VITALS: BP 179/84; PULSE 72; RESP 16; TEMP 36.8; O2SAT 96
[2024-01-13 20:00] VITALS: BP 160/84; PULSE 81; RESP 20; TEMP 36.2; O2SAT 97
[2024-01-13] MEDS: Metoprolol Tartrate 25 MG TABLET PO (20:05)
[2024-01-14] VITALS (9 sets, daily range): BP systolic 146–181; BP diastolic 88–98; PULSE 57–72; RESP 18–20; TEMP 36.1–36.7; O2SAT 94–97; BMI 27.3
[2024-01-14] MEDS: Lactated Ringers 1,000 ML 150 ML IVCONT (05:33)
[2024-01-14] MEDS: Atorvastatin Calcium 40 MG TABLET PO (07:56)
[2024-01-14] MEDS: PHENobarbitaL 30 MG TABLET 60 MG PO ×2 (07:56→19:58)
[2024-01-14] MEDS: Metoprolol Tartrate 25 MG TABLET PO ×2 (07:57→19:58)
[2024-01-14] MEDS: Thiamine HCL 100 MG TABLET PO (07:57)
[2024-01-14] MEDS: Enoxaparin Sodium 100 MG/ML SYRINGE 90 MG SUBCUT ×2 (07:57→19:59)
[2024-01-14] MEDS: Aspirin Enteric Coated 81 MG TABLET.DR PO (07:57)
[2024-01-14] MEDS: Acetaminophen 325 MG TABLET 650 MG PO (08:04)
--- NOTE | 2024-01-14 10:55 | PM.PNCARD ---
Subjective Subjective Date of Service: 01/14/24 Principal diagnosis: Elevated troponins, hypertensive urgency Interval history: Echo done yesterday although has not crossed over to the [facility] [employer] system showed normal LV ejection fraction without any significant wall motion abnormality. Patient denies any chest pain. Blood pressure is elevated on today's exam. Being treated for alcohol withdrawal. Also elevated troponins unclear etiology, he continues to denies any chest pain Review of Systems Constitutional: Reports no additional constitutional complaints Cardiovascular: Denies chest pain Respiratory: Reports no additional respiratory complaints Reports system reviewed and no additional complaints, except as documented Endocrine: Reports no additional endocrine complaints Physical Exam Vital Signs: Last Vital Signs Temp 97.2 F 01/14/24 07:25 Pulse 66 01/14/24 07:25 Resp 18 01/14/24 07:25 BP 175/98 H 01/14/24 07:25 Pulse Ox 95 01/14/24 07:25 O2 Del Method Room Air 01/14/24 07:25 BMI result Body Mass Index 27.3 Const General: cooperative, comfortable, no acute distress, alert and awake Nutritional Appearance: average body habitus Orientation/consciousness: patient oriented x3 HEENT Head: Yes normocephalic and Yes atraumatic Neck Neck: Yes trachea midline, Yes supple and Yes no JVD Resp Effort & Inspection: decreased respiratory effort Auscultation: clear to auscultation bilaterally Cardio Jugular venous distension: no JVD Palpation: normal PMI Rate: regular rate Rhythm: regular rhythm Heart sounds: S1 normal heart sound present, S2 normal heart sound present, no click, no gallops, no murmurs and no rubs Skin General skin exam: no rashes or lesions noted Neuro General: patient oriented x3 and no focal motor deficits Extrem General: Yes no clubbing, cyanosis or edema Objective Labs and Meds 01/13/24 05:43 01/13/24 05:43 Lab results: Laboratory Results - last 24 hr 01/13/24 18:57 PT 10.9 L INR 0.9 Progress Note: A&P Assessment and plan (1) Elevated troponin: Status: Acute Assessment and Plan: Elevated troponin in this elderly gentleman with history of hypertension of unclear etiology. He has no clear ischemic symptoms. Echo shows no significant wall motion abnormality or cardiomyopathy process. EKG does not show any acute ischemia. Elevated troponin could be from subendocardial ischemia from hypertension. I have advised him to follow with outpatient nuclear stress test to rule out obstructive coronary artery disease for sure. Meanwhile treat him with aspirin, high-intensity statin therapy. Switch is metoprolol to Toprol-XL 50 mg daily and add Norvasc 5 mg to his regimen for better blood pressure control. From cardiac perspective he can be discharged home if he is medically cleared from his alcohol withdrawal perspective. Will set him up for outpatient follow-up. Will sign of the case. Thank you for allowing me to partake in his care Time Spent With Patient Time: Total time managing care of this patient today ____ minutes. Progress Note: Quality Stroke Does the patient have a stroke diagnosis?: No Procedures Date of Service Date of Service: 01/14/24
--- NOTE | 2024-01-14 11:38 | PM.DS ---
DS: Providers Provider Date of Service: 01/15/24 Date of admission: 01/12/24 19:10 Primary care physician: Amrit Moura PA-C Consults: 01/12/24 19:10 Consult to Cardiology Routine Consulting Provider: [facility] [place] Cardiovascular Services Reason for consultation: NSTEMI 01/12/24 20:32 Addiction Medicine Routine Consulting Provider: Addiction Covering Reason for consultation: alcohol use disorder DS: Diagnosis Discharge Diagnosis (1) Elevated troponin: Status: Resolved DS: Summary Hospital Course Hospital Course: admission hpi Chief Complaint: Eleveatd BP Pt is a 68-year-old male with a PMH significant for?HTN, HLD, and alcohol use disorder who presents to the ED for evaluation of high blood pressure. Pt is a rather poor historian and unable to provide some clarification and/or details. Reports he presented to the ED today after measuring his BP at home and finding it elevated in the 170s. States he has had some mild headache but no other symptoms. Denies chest pain/pressure, though reports some palpitations. No fever, chills, N/V/D, abdominal pain. Denies SOB. No cough. Reports he has been drinking heavily lately, saying he has been on a 3-4 day binge while skiing. Is unable to clarify how much he has been drinking of exactly when his last drink was, but believes it was sometime yesterday. Says he has a his tory of alcohol withdrawal, but denies withdrawal seizures or hallucinations. Do reports some increase in anxiety but currently denies any auditory visual hallucinations. In the ED pt was hypertensive up to 195/98, tachycardic up to 92, and with low temp of 96.6 degrees. Labs were significant for leukocytosis of 14.4, sodium 131, bilirubin 1.6, AST 63, CPK 2014, initial troponin 270.7 with repeats 387.8 and 327.0. EKG demonstrated sinus rhythm with PACs but no evidence of ST elevations or depressions. Repeat EKG showed normal sinus rhythm without evidence of ST elevations or depressions or PACs. ED contacted Cardiology, who said patient should be admitted and given therapeutic Lovenox. Pt was treated with therapeutic Lovenox, Ativan, and Valium. Pt will be admitted to the hospital for treatment and further evaluation of NSTEMI, mild rhabdomyolysis, and alcohol withdrawal. Hospital course: Elevated troponin I (270--.>387-->327-->165) without chest pain and no ischemic changes on ECG. He was treated with Lovenox per ACS protocol, ASA and metoprolol. He was evaluated by cardiology with the thought that elevaed troponin possibly related to subendocardial ischemia from hypertension. Echo showed no wall motion abnormality or cardiomyopathy process. He is symptom free at this time and will be discharge on Metoprolol, ASA and Lipitor Rhabdomyolysis, mild, CPK jose alberto from 2014 to 779 after IV fluid Hypotension--having initially presented with Hypertenison and BP dropping after receiving valium, ativan and Phenobarbital -He has received multiple fluid boluses and fluid is back up, he has been started on metoprol and willl continue Lisinopril and Norvasc 5 mg will be started as well Acute alcohol withdrawal--he has history of withdrwal with seizure and was treated with phenobarbita to prevent full blown alcohol withdrwal and presently is not showing any signs of withdrawal. He is advised to avoid alcohol Time Attestation Discharge Coordination Time (in mins): 40 Quality: Safe Use of Opioids Does Pt have an Active Cancer Diagnosis on the Problem List?: No Quality: Stroke Does the patient have a stroke diagnosis?: No Physical Exam Vital Signs: Vital Signs: Last Vital Signs Temp 97.2 F 01/14/24 07:25 Pulse 66 01/14/24 07:25 Resp 18 01/14/24 07:25 BP 175/98 H 01/14/24 07:25 Pulse Ox 95 01/14/24 07:25 O2 Del Method Room Air 01/14/24 07:25 BMI result Body Mass Index 27.3 DS: Data Data Completed and Pending Labs on day of discharge: Laboratory Results - last 24 hr 01/13/24 18:57 PT 10.9 L INR 0.9 Discharge Plan Discharge Anticipated Discharge Date/Time: 01/15/24 17:35 Patient Disposition: Home, Self-Care Discharge Diagnosis: Elevated troponin I, Uncontrolled HTN and Hypotension Referrals: Amrit Moura PA-C [Primary Care Provider] - 1 Week Discharge Medications: Continued lisinopril 30 mg tablet 30 mg PO DAILY Qty: 90 1RF clonidine HCl 0.1 mg tablet 0.1 mg PO BID PRN (Reason: anxiety and withdrawal symptoms) rosuvastatin 5 mg tablet 5 mg PO DAILY 90 Days Qty: 90 1RF No Action amlodipine 2.5 mg tablet 2.5 mg PO DAILY Qty: 90 1RF metoprolol succinate 25 mg tablet extended release 24 hr 25 mg PO DAILY 90 Days Qty: 90 1RF Discharge Orders: Discharge Order (Routine); Ordered 01/15/24 Ordered By: Lonnie Navarrete Diet: Advance to usual diet Activity on Discharge: As tolerated Stand Alone Forms: Patient Portal Discharge page Print Language: Pashto Care Plan Goals: recovery from High blood pressure, elevated troponin and alcohol withdrawal Health Concerns: uncontrolled high blood pressure alcohol use disorder elevated cardiac troponin Plan of Treatment: take all medications as prescribedtake metoprolol abd norvasc as directed , bothare new medications . your blood pressure daily and record them. if the too number stays above 180, call your doctor for qdvise. If the bottom number over 100 , call yourDoctor . please call your doctor qnd make a follow up appointment within a week Assessment: see above Discharge Date/Time: 01/15/24 18:11
[2024-01-14] MEDS: lisinopriL 10 MG TABLET 30 MG PO (11:44)
[2024-01-14] MEDS: amLODIPine Besylate 5 MG TABLET PO (15:15)
--- NOTE | 2024-01-14 15:29 | MHC.RECOVRN ---
Met with pt in 453 after consult placed to Addiction Medicine for alcohol use disorder. Pt had presented to the ED reporting alcohol use x 3 days, hx withdrawal, last drink 0100 night prior to arrival. Pt sitting in bed, awake, alert, difficult to engage in conversation, appears comfortable. Pt currently on phenobarb protocol. Pt reports unknown amount of alcohol x 3 days prior to admission. Pt difficult to engage in conversation as he continually looks at his phone during conversation and does not answer t/w questions. Pt denies hx tx for AUD other than hospitalizations. When asked if pt is concerned regarding alcohol use, pt states not really. Pt reports is concerned however he will not engage in treatment because someone else wants me to. Pt provided with written resources if needed as well as t/w contact information. Pt encouraged to reach out if he has questions would like to discuss recovery further.
--- NOTE | 2024-01-14 15:36 | MHC.CM.PN ---
IMM 01/14/2024 DELIVERED TO BEDSIDE, CM MET W/PT WHO REPORTS HE LIVES W/, DENIES USE OF DME/SERVICES AND DRIVES, PT DID SEEM CONFUSED WHEN CM FIRST APPROACHED PT BUT WAS ABLE TO ANSWER QUESTIONS, PT DOES REPORTS HE DRIVES AND HIS CAR IS IN [facility] LOT. PT REPORTS GOAL FOR DC IS HOME, ADDICTION MEDICINE CONSULT PENDING. PT VERIFIES PCP IS FRED MORRIS AND HCP IS PT'S MASSIEL AND COPY ON FILE.
[2024-01-14] MEDS: cloNIDine HCL 0.1 MG TABLET PO (16:43)
[2024-01-14] MEDS: 0.9 % Sodium Chloride Flush 3 ML SYRINGE IVFLUSH ×2 (16:44→19:57)
[2024-01-15 03:16] VITALS: BP 165/95; PULSE 63; RESP 20; TEMP 36.4; O2SAT 96
[2024-01-15 07:23] VITALS: BP 161/92; PULSE 65; RESP 18; TEMP 36.2; O2SAT 97
[2024-01-15] MEDS: PHENobarbitaL 30 MG TABLET PO (07:52)
[2024-01-15] MEDS: Thiamine HCL 100 MG TABLET PO (07:52)
[2024-01-15] MEDS: lisinopriL 10 MG TABLET 30 MG PO (07:52)
[2024-01-15] MEDS: amLODIPine Besylate 5 MG TABLET PO ×2 (07:52→14:26)
[2024-01-15] MEDS: Enoxaparin Sodium 100 MG/ML SYRINGE 90 MG SUBCUT (07:52)
[2024-01-15] MEDS: Metoprolol Succinate ER 50 MG TAB.ER.24H PO (07:52)
[2024-01-15] MEDS: 0.9 % Sodium Chloride Flush 3 ML SYRINGE IVFLUSH ×2 (07:53→14:35)
[2024-01-15] MEDS: Aspirin Enteric Coated 81 MG TABLET.DR PO (07:53)
[2024-01-15] MEDS: lisinopriL 10 MG TABLET PO (10:59)
[2024-01-15 11:23] VITALS: BP 177/98; PULSE 67; RESP 18; TEMP 36.7; O2SAT 95
[2024-01-15] MEDS: hydrOXYzine HCL 10 MG TABLET PO (14:26)
[2024-01-15 15:31] VITALS: BP 200/90; PULSE 69; RESP 16; TEMP 37.1; O2SAT 95
[2024-01-15] MEDS: hydrALAZINE HCl 20 MG/ML VIAL 10 MG IVPUSH (16:21)
[2024-01-15 17:15] VITALS: BP 168/70
== END 2024-01-15 18:11 | disposition home or self-care (01) | DRG 558 ==
LOC: HO.ED 19:07 → HO.EDOVER 22:31 → HO.IMC 01-13 19:20
PROVIDERS: Physician Assistant; Admitting Provider Student in an Organized Health Care Education/Training Program; Emergency Provider Emergency Medicine Emergency Medical Services; PCP Physician Assistant; Visit Provider Internal Medicine
DX: M62.82 Rhabdomyolysis (principal); F10.239 Alcohol dependence with withdrawal, unspecified; I10 Essential (primary) hypertension; I95.9 Hypotension, unspecified; E78.5 Hyperlipidemia, unspecified; Z79.899 Other long term (current) drug therapy
CPT/HCPCS: 36415; 80048; 80053; 80307; 82550; 83735; 84484; 85025; 85027; 85610; 85730; 93005; 93306; 99285; J0360; J1650; J3360; J3411; J7120; Q9957

== ENCOUNTER → 2024-01-12 18:27 | Outpatient (BNV) | payer MEDICARE, SELFPAY | PROVIDERS: Emergency Provider Emergency Medicine Emergency Medical Services; PCP Physician Assistant; Visit Provider Student in an Organized Health Care Education/Training Program | DX: R77.8 Other specified abnormalities of plasma proteins (principal); I10 Essential (primary) hypertension | CPT/HCPCS: 99223; 99232; 99239 ==

== ENCOUNTER 2024-01-12 19:10 | Outpatient (BNV) | payer MEDICARE, SELFPAY | END 2024-01-13 19:39 | PROVIDERS: Admitting Provider Student in an Organized Health Care Education/Training Program; Emergency Provider Emergency Medicine Emergency Medical Services; PCP Physician Assistant; Visit Provider Internal Medicine Cardiovascular Disease | DX: I34.0 Nonrheumatic mitral (valve) insufficiency (principal) | CPT/HCPCS: 93010; 93306 ==

== ENCOUNTER → 2024-01-12 19:10 | Outpatient (BNV) | payer MEDICARE, SELFPAY | PROVIDERS: Admitting Provider Student in an Organized Health Care Education/Training Program; Emergency Provider Emergency Medicine Emergency Medical Services; PCP Physician Assistant; Visit Provider Internal Medicine Cardiovascular Disease | DX: R77.8 Other specified abnormalities of plasma proteins (principal); I49.1 Atrial premature depolarization; R79.89 Other specified abnormal findings of blood chemistry | CPT/HCPCS: 93010; 99222; 99233 ==

== ENCOUNTER 2024-01-18 17:21 | Emergency (ER) | payer MEDICARE, SELFPAY ==
[2024-01-18 17:58] VITALS: BP 146/96; PULSE 74; RESP 20; TEMP 37.1; O2SAT 97; BMI 26.1
--- NOTE | 2024-01-18 18:00 | ED_ITS ---
HPI - General Adult General Chief complaint: General Medical Stated complaint: High blood pressure Time Seen by Provider: 01/19/24 00:50 Source: patient Mode of arrival: ambulatory History of Present Illness HPI narrative: 68-year-old male with presentation for recent NSTEMI and presents with concerns regarding high blood pressure and increasing episodes of anxiety and panic that he states occurs this time of the year. Related Data Home Medications Medication Instructions Recorded Confirmed clonidine HCl 0.1 mg tablet 0.1 mg PO BID PRN anxiety and 01/12/24 01/12/24 withdrawal symptoms Previous Rx's Medication Instructions Recorded rosuvastatin 5 mg tablet 5 mg PO DAILY 90 days #90 tabs 05/24/23 lisinopril 30 mg tablet 30 mg PO DAILY #90 tabs 01/04/24 amlodipine 5 mg tablet (Norvasc) 5 mg PO DAILY #30 tabs 01/15/24 metoprolol succinate 50 mg 50 mg PO DAILY #30 tabs 01/15/24 tablet,extended release 24 hr (Toprol XL) Allergies Allergy/AdvReac Type Severity Reaction Status Date / Time AVOID HCTZ - hyponatremia - Allergy Unknown Unknown Uncoded 01/18/24 18:02 1 Review of Systems 2 Review of Systems: Pertinent positives and negatives as stated in HPI [facility] Past Medical History Source: nursing notes reviewed Medical History Alcohol use disorder, severe, dependence Hypertension Anxiety Surgical History History of colonoscopy Family History Family History Father Dementia Mother Melanoma Social History Social History Household Members: Significant Other Housing: House Alcohol intake: current Alcohol intake frequency: 3 or more drinks per day Alcohol type: hard liquor Patient Tobacco Use Status: Never used Tobacco Tobacco use type: Cigarette Smoked in Last 30 Days: Yes Second Hand Smoke Exposure: Yes Use of substances other than those prescribed or required for medical reasons: Yes Substance Use Type: Marijuana Substance Use Frequency: Occasionally Advance Directives: Yes Advance Directives on File: Yes Advance Directives Date on File: 01/13/24 service: Yes Current occupational status: retired Cognitive needs: No Hearing needs: No Vision needs: No Physical Exam ED Vital Signs: Vital Signs - 24 hr 01/18/24 17:58 01/19/24 00:59 Temperature 98.7 F 98.0 F Pulse Rate 74 75 Respiratory Rate 20 16 Blood Pressure 146/96 H 153/81 H Pulse Oximetry 97 97 Oxygen Delivery Method Room Air Room Air BMI result Body Mass Index 26.1 VITAL SIGNS: Reviewed. GENERAL: Well developed, well nourished, in no acute distress. HEAD: Normocephalic/atraumatic EYES: PERRLA, EOMI intact without pain, no nystagmus/pallor/icterus noted EARS: Ext canals without abnormality, TMs non-bulging and non-erythematous NOSE: Nares patent bilateral OROPHARYNX: no oral lesions noted, posterior pharynx clear and non-erythematous without noted tonsillar enlargement/erythema/exudates NECK: Supple, no adenopathy LUNGS: Normal breath sounds. No adventitious sounds or accessory muscle use. SpO2<97> CARDIOVASCULAR: Regular rate and rhythm without noted murmurs ABDOMEN: Soft, non-tender, non-distended with bowel sounds. MUSCULOSKELETAL: No tenderness, deformities, or effusions noted on gross inspection. EXTREMITIES: No cyanosis, clubbing or edema. SKIN: Inspection of the skin reveals no rashes NEUROLOGIC: Alert and oriented x 4. Strength and sensation to light touch were grossly intact x 4. Course Course Course Narrative: This is an RME: Additional HPI, ROS, PE not included below will be deferred to primary provider. Pt is a 68-year-old male with a PMH significant for?HTN, HLD, and alcohol use disorder who presents to the ED for evaluation of high blood pressure. Patient is a poor historian, and unclear about what is exactly bring him in today. Patient was seen here in the emergency room several days ago was diagnosed with NSTEMI, rhabdo, as well as alcohol withdrawal. Patient states that he has had increased stress, it is concerned with some blood pressure readings in the 180s, 190s over 100. He has not seen his primary care physician. He has a stress test on Tuesday. Reporting increasing anxiety and panic attacks. Plan: Labs, EKG, chest x-ray Medical Decision Making Medical Decision Making MDM Narrative: 68-year-old male with history and clinical presentation, DDX: High blood pressure, chest discomfort, infection/anemia/electrolyte derangements. I reviewed all investigations and hematologic indices demonstrate a non infectious leukocytosis and no anemia or thrombocytopenia. Chemistry indices do not demonstrate an INO and there is no electrolyte derangement, there is a noted elevation of transaminases without abdominal pain high sensitivity troponin levels are detectable and mildly elevated but flat without acute changes on EKG. I did review the cardiac workup that patient underwent during his admission and there were no acute findings on the echocardiogram. Patient has no cough or congestion to suggest underlying pneumonia or viral illness. ETOH-undetectable. My interpretation is it patient may have been experiencing an episode of anxiety which cause elevation in the blood pressure, there are no acute findings to suggest ACS. Patient is otherwise discharged home in stable condition. Differential Diagnosis Differential Diagnoses: The differential diagnosis associated with the presentation includes Please see the discussion above Admission/Observation Consideration of admission/observation: Escalation of care including admission/observation considered Please see the discussion above Lab Data MDM Lab Attestation statement: I reviewed the patient's lab results. Please see the discussion above 01/18/24 18:30 01/18/24 18:30 Labs: Lab Results 01/18/24 01/18/24 Range/Units 18:30 23:32 WBC 12.6 H (4.8-10.8) X10*3/uL RBC 5.50 D (4.60-5.80) X10*6/uL Hgb 16.8 D (14.0-18.0) g/dl Hct 48.5 D (42.0-52.0) % MCV 88.2 (80.0-98.0) fL MCH 30.5 (27.0-33.0) pg MCHC 34.6 (31.0-36.0) g/dl RDW 12.4 (11.0-16.0) % Plt Count 251 D (160-400) X10*3/uL MPV 9.4 (9.4-12.4) fL Immature Gran % (Auto) 0.3 (0.0-0.4) % Neut % (Auto) 79.9 H (45-73) % Lymph % (Auto) 10.9 L (20-40) % [place] % (Auto) 7.0 (2-11) % Eos % (Auto) 1.3 (0-4) % Baso % (Auto) 0.6 (0-2) % Lymph # (Auto) 1.4 (1.2-4.9) X10*3/uL [place] # (Auto) 0.9 (0.1-1.2) X10*3/uL Eos # (Auto) 0.2 (0.0-0.4) X10*3/uL Baso # (Auto) 0.1 (0.0-0.2) X10*3/uL Abs Immat Gran (auto) 0.04 H (0.00-0.03) X10*3/uL Absolute Neuts (auto) 10.1 H (2.0-8.3) x10*3/uL Absolute Nucleated RBC 0.000 (0.0-0.012) X10*3/uL Nucleated RBC % (auto) 0.0 (0.0-0.2) /100WBC Sodium 136 (135-145) mmol/L Potassium 5.1 D (3.3-5.1) mmol/L Chloride 103 (96-108) mmol/L Carbon Dioxide 25 (22-29) mmol/L Anion Gap 13 (12-20) BUN 22 H (9-16) mg/dL Creatinine 1.01 (0.5-1.4) mg/dL Estim Creat Clear Calc 82.5 Estimated GFR > 60 Random Glucose 140 H (60-115) mg/dL Calcium 10.0 D (8.4-10.2) mg/dL Total Bilirubin 0.3 (0.0-1.0) mg/dL Direct Bilirubin 0.2 (0.0-0.5) mg/dL AST 82 H (5-37) U/L ALT 145 H (0-40) U/L Alkaline Phosphatase 98 (39-117) U/L Total Creatine Kinase 347 H (38-174) U/L Troponin I High Sens 22.8 D 20.5 (<3.5-35.0) ng/L Total Protein 8.4 H (6.5-8.0) g/dL Albumin 4.9 (3.5-5.0) g/dL Ethyl Alcohol < 10 mg/dL Independent Interpretation I performed an independent interpretation of an: EKG Interpretation: Normal sinus rhythm, HR-63, no STEMI, [place]/QRS/QTC is within normal limits. External Record Review External record reviewed: Inpatient record, Outpatient record, Prior outpatient labs and Prior outpatient radiology Chronic Conditions Patient?s care impacted by: Hypertension NSTEMI Critical Care Time Critical Care Time Critical Care Time: Yes Total Critical Care Time: 30 Attestation: I personally attest to this time spent taking care of the patient. Discharge Plan Discharge Clinical Impression: Anxiety Patient Disposition: Home, Self-Care Instructions: Anxiety (ED) Additional Instructions: 1. Resume all home medications as prescribed. 2. Please follow-up with your primary care doctor in the next 1-2 days and keep the appointment for your stress test. Return to the ER for any worsening symptoms. Prescriptions: No Action lisinopril 30 mg tablet 30 mg PO DAILY Qty: 90 1RF clonidine HCl 0.1 mg tablet 0.1 mg PO BID PRN (Reason: anxiety and withdrawal symptoms) amlodipine [Norvasc] 5 mg tablet 5 mg PO DAILY Qty: 30 0RF metoprolol succinate [Toprol XL] 50 mg tablet extended release 24 hr 50 mg PO DAILY Qty: 30 2RF rosuvastatin 5 mg tablet 5 mg PO DAILY 90 Days Qty: 90 1RF Referrals: Amrit Moura PA-C [Primary Care Provider] -
--- NOTE | 2024-01-18 18:05 | ECG_ITS ---
Test Reason : HIGH BLOOD PRESSURE Blood Pressure : / mmHG Vent. Rate : 063 BPM Atrial Rate : 063 BPM P-R Int : 178 ms QRS Dur : 104 ms QT Int : 386 ms P-R-T Axes : 058 014 049 degrees QTc Int : 395 ms Normal sinus rhythm Normal ECG When compared with ECG of 13-JAN-2024 19:39, Nonspecific T wave abnormality no longer evident in Inferior leads Referred By: Landy Negro Electronically Signed By:DARCY VIEYRA
[2024-01-18 18:36] LABS: MANUAL DIFF FLAG NO
[2024-01-18 18:40] LABS: Basophils Absolute Auto 0.1 X10*3/uL (0.0-0.2); Basophils Percent Auto 0.6 % (0-2); Eosinophils Absolute Auto 0.2 X10*3/uL (0.0-0.4); Eosinophils Percent Auto 1.3 % (0-4); Hematocrit 48.5 % (42.0-52.0); Hemoglobin 16.8 g/dl (14.0-18.0); Imm Gran Abs Auto 0.04 X10*3/uL (0.00-0.03); Imm Gran Pct Auto 0.3 % (0.0-0.4); Lymphocytes Absolute Auto 1.4 X10*3/uL (1.2-4.9); Lymphocytes Percent Auto 10.9 % (20-40); Mean Corpuscular HGB Conc 34.6 g/dl (31.0-36.0); Mean Corpuscular Hemoglobin 30.5 pg (27.0-33.0); Mean Corpuscular Volume 88.2 fL (80.0-98.0); Mean Platelet Volume 9.4 fL (9.4-12.4); Monocytes Absolute Auto 0.9 X10*3/uL (0.1-1.2); Neutrophils Absolute Auto 10.1 x10*3/uL (2.0-8.3); Neutrophils Percent Auto 79.9 % (45-73); Platelet Count 251 X10*3/uL (160-400); Red Cell Distribution Width 12.4 % (11.0-16.0); White Blood Count 12.6 X10*3/uL (4.8-10.8)
[2024-01-18 18:57] LABS: Alanine Aminotransferase 145 U/L (0-40); Albumin Level 4.9 g/dL (3.5-5.0); Alkaline Phosphatase 98 U/L (39-117); Anion Gap 13 (12-20); Aspartate Amino Transferase 82 U/L (5-37); Bilirubin Direct 0.2 mg/dL (0.0-0.5); Bilirubin Total 0.3 mg/dL (0.0-1.0); Blood Urea Nitrogen 22 mg/dL (9-16); Carbon Dioxide 25 mmol/L (22-29); Chloride 103 mmol/L (96-108); Creatinine Clr Calc Pharmacy 82.5; Estimated Glomerular Filt Rate > 60; Glucose Random 140 mg/dL (60-115); Potassium 5.1 mmol/L (3.3-5.1); Sodium 136 mmol/L (135-145); Total Protein 8.4 g/dL (6.5-8.0)
[2024-01-18 19:04] LABS: Troponin-I High Sensitivity 22.8 ng/L (<3.5-35.0)
[2024-01-18 19:28] LABS: Ethanol < 10 mg/dL
[2024-01-18 23:56] LABS: Troponin-I High Sensitivity 20.5 ng/L (<3.5-35.0)
[2024-01-19 00:59] VITALS: BP 153/81; PULSE 75; RESP 16; TEMP 36.7; O2SAT 97
[2024-01-19 01:42] VITALS: BP 156/81; PULSE 63; RESP 18; TEMP 36.4; O2SAT 97
== END 2024-01-19 01:53 | disposition home or self-care (01) ==
PROVIDERS: Physician Assistant; Physician Assistant Medical; Emergency Provider Student in an Organized Health Care Education/Training Program; PCP Physician Assistant
DX: F41.9 Anxiety disorder, unspecified (principal); I10 Essential (primary) hypertension; I21.4 Non-ST elevation (NSTEMI) myocardial infarction
CPT/HCPCS: 36415; 80048; 80076; 80307; 82550; 84484; 85025; 93005; 99283; 99285

== ENCOUNTER → 2024-01-18 18:05 | Outpatient (BNV) | payer MEDICARE, SELFPAY | PROVIDERS: Emergency Provider Student in an Organized Health Care Education/Training Program; PCP Physician Assistant; Visit Provider Internal Medicine | DX: I10 Essential (primary) hypertension (principal) | CPT/HCPCS: 93010 ==

== ENCOUNTER → 2024-01-20 09:09 | Outpatient (REF) | payer MEDICARE, SELFPAY ==
--- NOTE | ~2024-01-20 | NM_ITS ---
EXERCISE MYOCARDIAL PERFUSION STUDY INDICATION: Elevated troponins, assess for ischemia TECHNIQUE: The patient was brought in for an exercise perfusion study on 01/20/2024. Patient performed exercise as per Storm protocol and was injected 30 mCi of sestamibi once target heart rate was achieved. Images were obtained using the SPECT gamma camera interlaced with the gating device. Images were obtained in supine position. Resting perfusion study was performed on 01/25/2024. Patient was administered 30 mCi of sestamibi intravenously at rest. Images were then obtained in supine position. Images were processed with the software and compared side to side in short axis, horizontal long axis and vertical long axis views. Total DLP 95mGy-cm. FINDINGS: Raw images were reviewed. The stress perfusion study showed no significant perfusion abnormality. Both uncorrected as well as CT attenuation corrected images were reviewed. The gated study shows normal LV systolic function with calculated LVEF of 71%. LV cavity is normal in size. The gated study shows normal wall thickening and contraction of segments. Resting study shows no significant perfusion abnormality. Gating at rest reveals normal wall motion with ejection fraction at 64%. The findings are consistent with no clear reversible or fixed perfusion abnormality. ID/NM cardiolite stress test IMPRESSION: 1. Myocardial perfusion imaging study shows normal myocardial perfusion. 2. Gated LVEF is 70% during stress and 64% during rest. 3. Transient ischemic dilatation not present. EKG component of the test reported separately.
--- NOTE | 2024-01-20 09:16 | CA_ITS ---
Acquisition Time: 2024-01-20 09:29:05 Total Exercise Time: 00:09:16 Test Indications: ELEVATED TROPONIN Medications: AMLODIPINE METOPROLOL LISINOPRIL Protocol: CORAL Max HR: 157 BPM 102% of Pred: 153 BPM Max BP: 180/064 mmHG Max Work Load: 10.5 METS Exercise stress test exercise 9 min 16 sec of Coral protocol achieving 98% MPHR, with mild SOB, no chest discomfort, with isolated PACs and PVCs, with normotensive response to exercise, without EKG changes. Nuclear images pending. Test reviewed with Dr. Chatterjee. Referred By: Stevo Drake Overread By: Maria Del Rosario Todd
== END ==
LOC: HO.CARD 09:09
PROVIDERS: PCP Physician Assistant; Visit Provider Internal Medicine Cardiovascular Disease
DX: I10 Essential (primary) hypertension (principal); I16.0 Hypertensive urgency; I5A Non-ischemic myocardial injury (non-traumatic); R77.8 Other specified abnormalities of plasma proteins; R79.89 Other specified abnormal findings of blood chemistry
CPT/HCPCS: 78452; 93017; A9500

== ENCOUNTER → 2024-01-20 09:16 | Outpatient (BNV) | payer MEDICARE, SELFPAY | PROVIDERS: PCP Physician Assistant; Visit Provider Nurse Practitioner | DX: R06.02 Shortness of breath (principal); R79.89 Other specified abnormal findings of blood chemistry | CPT/HCPCS: 78452; 93016; 93018 ==

== ENCOUNTER 2024-02-09 12:45 | Outpatient (AMB) | payer MEDICARE, SELFPAY ==
--- NOTE | 2024-02-09 12:51 | MHC.PC.OV ---
Vital Signs 02/09/24 13:01 Height 6 ft 2 in Weight 198 lb 6 oz BMI 25.5 BP 158/82 H Blood Pressure Location Lt brachial Position Sitting Pulse 80 Pulse Source Pulse Oximeter Pulse Oximetry (%) 98 Oxygen Delivery Method Room Air Intake Visit Reasons: 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 Required: No Accompanied by: Self / Same As Patient Allergies AVOID HCTZ - hyponatremia - 1 Allergy (Unknown, Uncoded 02/09/24 13:16) Unknown Medication List - Last Reconciled 02/09/24 by Amrit Moura PA-C amlodipine (Norvasc) 5 mg PO DAILY clonidine HCl 0.1 mg PO BID PRN lisinopril 30 mg PO DAILY metoprolol succinate ER (Toprol XL) 50 mg PO DAILY rosuvastatin 5 mg PO DAILY 90 days Tobacco use date assessed: 02/09/24 Fall risk assessment: No Falls in past year Last assessed Fall Risk: 02/09/24 Dental Screening Dental Screen Date: 02/09/24 Did you have a dental visit in the last 12 months?: Yes Did you have a dental problem in the last 6 months where you did not have access to dental care?: No Was dental information given to patient?: Patient has dentist HPI [facility] 01/14-R/S from 02/05 HPI Details 68-year-old male here today for hospital discharge follow-up. Patient has a past medical history significant for essential hypertension, history alcohol use disorder, hyperlipidemia, impaired glucose metabolism. Patient recently admitted to [facility] for chest pain, hypertension alcohol withdrawal. Was found to have elevated troponins above 300. No ischemic changes on EKG during cardiac stress test. He underwent echocardiogram did not show any wall motion abnormalities or cardiomyopathy. He was discharged with metoprolol, aspirin and Lipitor. For the alcohol withdrawal he was placed on phenobarbital protocol. He reports since his hospitalization taking all of his blood pressure medication amlodipine, lisinopril metoprolol he reports having low blood pressure readings 90/60 and feels unwell. He has been taking half dose of amlodipine and metoprolol. He reports blood pressures have stabilized 120s to 130 systolic. He has been abstaining from alcohol as he notes that alcohol withdrawal causes him increased anxiety and taxing on his heart. TCM TCM Information Date of Discharge 01/15/24 Discharged From [facility] Medical History Alcohol use disorder, severe, dependence Hypertension Anxiety Surgical History History of colonoscopy Family History Father Dementia Mother Melanoma Social History Household Members: Significant Other Housing: House Alcohol intake: current Alcohol intake frequency: 3 or more drinks per day Alcohol type: hard liquor Patient Tobacco Use Status: Never used Tobacco Tobacco use type: Cigarette e-Cigarette/Vaping Use: Never Used Second Hand Smoke Exposure: Yes Substance Use Type: Marijuana Advance Directives Date on File: 01/13/24 service: Yes Current occupational status: retired Cognitive needs: No Hearing needs: No Vision needs: No Questionnaire PHQ-9 Over the last 2 weeks, how often have you been bothered by any of the following problems? 1. Little interest or pleasure in doing things: not at all 2. Feeling down, depressed, or hopeless: not at all 3. Trouble falling or staying asleep, or sleeping too much: not at all 4. Feeling tired or having little energy: not at all 5. Poor appetite or overeating: not at all 6. Feeling bad about yourself - or that you are a failure or have let yourself or your family down: not at all 7. Trouble concentrating on things, such as reading the newspaper or watching television: not at all 8. Moving or speaking so slowly that other people could have noticed. Or the opposite - being so fidgety or restless that you have been moving around a lot more than usual: not at all 9. Thoughts that you would be better off or of hurting yourself in some way: not at all Total score: 0 Depression Screening Interpretation: Negative Depression Screening Done: Yes [id number] - PHQ-9 Billing: Yes Source: Developed by Drs. Angel Reveles, Kim Landeros, Wayne Levy and colleagues, with an educational jaime from [employer]. Thrive Questionnaire Date Thrive assessed: 02/09/24 I am a: Patient What is your living situation today?: I have a steady place to live Within the past 12 months, did the food you bought not last and you didn't have the money to get more?: Never true Within the past 12 months, did you worry whether your food would run out before you got money to buy more?: Never true Do you have trouble paying for medicines?: No Do you have trouble getting transportation to medical appointments?: No Do you have trouble paying your heating and electricity bill?: No Do you have trouble taking care of your child, family member or friend?: No Do you have trouble with day-to-day activities such as bathing, preparing meals, shopping, managing finances, etc.?: No Are you currently unemployed and looking for a job?: No Are you interested in more education?: No Please select the resources that you would like help with: None Currently or been in a relationship where the following occur: no concerns reported THRIVE Score: 0 AUDIT C Alcohol Use Questionnaire (AUDIT-C) 1. How often do you have a drink containing alcohol?: Never 3. How often do you have six or more drinks on one occasion?: Never Total Score: 0 DAVID-7 AMB Questionnaire DAVID-7 Date DAVID - 7 assessed: 02/09/24 Feeling nervous, anxious, or on edge: 0 = Not at all Not being able to stop or control worryin = Not at all Worrying too much about different things: 0 = Not at all Trouble relaxin = Not at all Being so restless that it is hard to sit still: 0 = Not at all Becoming easily annoyed or irritable: 0 = Not at all Feeling afraid as if something awful might happen: 0 = Not at all Total DAVID-7 score (0-4 normal; 5-9 mild; 10-14 moderate; 15-21 severe): 0 Source: Developed by Drs. Angel Reveles, Kim Landeros, Wayne Levy and colleagues, with an educational jaime from [employer]. DAVID-7 Assessment Billing DAVID-7 Assessment Tool: DAVID-7 Assessment 51429 Review of Systems Const Denies headache(s) Eyes Denies loss of vision ENT Denies vertigo, Denies dizziness, Denies headache(s) and Denies sore throat Card Denies chest pain, Denies leg edema and Denies lightheadedness Resp Denies cough, Denies hemoptysis and Denies wheezing GI Denies abdominal pain, Denies melena, Denies constipation, Denies diarrhea and Denies vomiting Denies dysuria, Denies urinary frequency and Denies urinary urgency Musc Denies arthralgias, Denies joint swelling, Denies numbness and Denies tingling Neuro Denies Abnormal speech present, Denies behavioral changes, Denies vertigo, Denies dizziness, Denies headache(s), Denies loss of vision, Denies memory loss, Denies numbness and Denies tingling Psych Denies anxiety, Denies behavioral changes, Denies depression, Denies memory loss and Denies panic attacks Deny/Lymph Denies easy bleeding and Denies easy bruising Aller/Immun Denies wheezing Physical exam (Primary Care) Vital Signs: Last Vital Signs Pulse 80 02/09/24 13:01 BP 158/82 H 02/09/24 13:01 Pulse Ox 98 02/09/24 13:01 Oxygen Delivery Method Room Air 02/09/24 13:01 BMI result Body Mass Index 25.5 Tobacco/Smoking Status: Tobacco use Status Tobacco use date assessed 02/09/24 02/09/24 13:08 Patient Tobacco Use Status Never used Tobacco 02/09/24 12:51 Tobacco use type Cigarette 02/09/24 12:51 e-Cigarette/Vaping Use Never Used 02/09/24 13:08 PHQ-9: PHQ-9 Score PHQ-9: Total score 0 02/09/24 13:04 Depression Screening Interpretation: Negative Thrive Assessment: Date of Thrive Assessment Date Thrive assessed 02/09/24 02/09/24 13:04 Currently or been in a relationship where the following occur: no concerns reported Const General: healthy appearing, no acute distress, alert and awake Nutritional Appearance: well nourished Orientation/consciousness: oriented to person, oriented to place and oriented to time HENMT Ears: TM's normal bilaterally General nose exam: Normal nasal mucous membranes and turbinates present Eyes Conjunctivae: conjunctivae normal Sclerae: sclerae normal Pupils: Equal, round and reactive pupils present Neck Neck: Yes no lymphadenopathy and Yes no JVD Thyroid: Thyroid normal Carotids: no bruits Resp Effort & Inspection: normal respiratory effort and not tachypneic Auscultation: no crackles, no rales, no rhonchi and no wheezes Cardio Rate: regular rate Rhythm: regular rhythm Heart sounds: no murmurs and normal S1 and S2 GI Palpation (GI): Soft to palpation, nontender, no hepatomegaly and no splenomegaly Auscultation: normal bowel sounds Skin General skin exam: no rashes or lesions noted and dry skin Neuro General: oriented to person, oriented to place and oriented to time Cranial nerves: Yes Equal, round and reactive pupils present Speech: No Abnormal speech present Gait exam (Neuro): Normal gait present Motor exam (neuro): no tremor noted Extrem Right upper extremity: full ROM Left upper extremity: full ROM Right lower extremity: full ROM; no edema Left lower extremity: full ROM; no edema Psych Mental Status: mental status grossly normal Speech and movement: Normal speech and movement present Affect: normal affect Attitude: cooperative Thought process: Normal thought process present Assessment and Plan Assessment & Plan (1) Hospital discharge follow-up: Code(s): Z09 - Encounter for follow-up examination after completed treatment for conditions other than malignant neoplasm Plan: As per HPI (2) HTN (hypertension): Code(s): I10 - Essential (primary) hypertension Qualifiers: Hypertension type: essential hypertension Qualified Code(s): I10 - Essential (primary) hypertension Plan: Blood pressures today in office slightly elevated. Likely has white coat hypertension as home blood pressures have been stable. He reports blood pressures at are 110s- 120 systolic. Otherwise asymptomatic. Will reduce amlodipine dose to 2.5 mg, metoprolol dose reduced to 25 mg. Advised to continue monitoring blood pressure at home with goal blood pressure to remain below 140/90 (3) HLD (hyperlipidemia): Code(s): E78.5 - Hyperlipidemia, unspecified Qualifiers: Hyperlipidemia type: mixed hyperlipidemia Qualified Code(s): E78.2 - Mixed hyperlipidemia Plan: Most recent fasting lipid panel showing excellent control of his total cholesterol and LDL. Will continue statin therapy at this time with goal LDL to be below 130. (4) Alcohol use disorder in remission: Code(s): F10.91 - Alcohol use, unspecified, in remission Plan: He is completely stopped drinking. He does admit to binge drinking and when in alcohol withdrawal he has increasing anxiety and hypertensive events. Orders: Orders Microalbumin, Random (w Creat) Today I10 - Essential (primary) hypertension Lipid Panel Today E78.2 - Mixed hyperlipidemia Hemoglobin A1c Today R73.09 - Other abnormal glucose Comprehensive [place]. Panel Fast Today I10 - Essential (primary) hypertension Medications: New amlodipine 2.5 mg PO DAILY 90 tabs 1RF I10 - Essential (primary) hypertension metoprolol succinate ER 25 mg PO DAILY 90 days 90 tabs 1RF I10 - Essential (primary) hypertension Discontinued amlodipine (Norvasc) Discontinued Reason: Doctor's Order 5 mg PO DAILY 30 tabs 0RF metoprolol succinate ER (Toprol XL) Discontinued Reason: Doctor's Order 50 mg PO DAILY 30 tabs 2RF Coding Level of Care Code Est Pt Level 4 (94358) Diagnoses Hospital discharge follow-up Z09 Essential hypertension I10 Hypertension type: essential hypertension Mixed hyperlipidemia E78.2 Hyperlipidemia type: mixed hyperlipidemia Alcohol use disorder in remission F10.91 Additional Codes DAVID-7 Assessment Billing - DAVID-7 Assessment Tool: DAVID-7 Assessment 69164 ([id number])
[2024-02-09 13:01] VITALS: BP 158/82; PULSE 80; O2SAT 98; BMI 25.5
== END 2024-02-09 13:37 | disposition home or self-care (01) ==
PROVIDERS: PCP Physician Assistant; Visit Provider Physician Assistant
DX: I10 Essential (primary) hypertension (principal); E78.2 Mixed hyperlipidemia; F10.239 Alcohol dependence with withdrawal, unspecified
CPT/HCPCS: 99214

== ENCOUNTER 2024-03-15 06:11 | Outpatient (REF) | payer MEDICARE, SELFPAY ==
[2024-03-15 10:21] LABS: Hematocrit 46.6 % (42.0-52.0); Hemoglobin 15.4 g/dl (14.0-18.0); Mean Corpuscular Hemoglobin 29.7 pg (27.0-33.0); Mean Corpuscular Volume 89.8 fL (80.0-98.0); Mean Platelet Volume 10.2 fL (9.4-12.4); Platelet Count 256 X10*3/uL (160-400); Red Blood Count 5.19 X10*6/uL (4.60-5.80); Red Cell Distribution Width 12.7 % (11.0-16.0); White Blood Count 7.6 X10*3/uL (4.8-10.8)
[2024-03-15 10:47] LABS: Alanine Aminotransferase 28 U/L (0-40); Albumin Level 4.6 g/dL (3.5-5.0); Alkaline Phosphatase 68 U/L (39-117); Anion Gap 13 (12-20); Aspartate Amino Transferase 36 U/L (5-37); Bilirubin Total 0.9 mg/dL (0.0-1.0); Blood Urea Nitrogen 13 mg/dL (9-16); Calcium 9.9 mg/dL (8.4-10.2); Carbon Dioxide 26 mmol/L (22-29); Chloride 103 mmol/L (96-108); Cholesterol 175 mg/dL (<200); Estimated Glomerular Filt Rate > 60; Glucose Fasting 152 mg/dL (60-99); HDL Cholesterol 46 mg/dL (>40); LDL Cholesterol Calculated 107 mg/dL (<100); Potassium 4.6 mmol/L (3.3-5.1); Sodium 137 mmol/L (135-145); Total Protein 7.6 g/dL (6.5-8.0); Triglycerides 112 mg/dL (<150)
[2024-03-15 11:04] LABS: Estimated Average Glucose 131 mg/dL; Hemoglobin A1c % 6.2 % (<6.0)
[2024-03-15 11:05] LABS: Prostate Specific Antigen Scr 0.77 ng/mL (<0.05-4.0)
== END 2024-03-15 06:12 | disposition home or self-care (01) ==
LOC: HO.HMGCLDS 06:11
PROVIDERS: PCP Physician Assistant; Visit Provider Physician Assistant
DX: I10 Essential (primary) hypertension (principal); R73.09 Other abnormal glucose; E78.2 Mixed hyperlipidemia; Z12.5 Encounter for screening for malignant neoplasm of prostate
CPT/HCPCS: 36415; 80053; 80061; 83036; 84153; 85027

== ENCOUNTER 2024-03-21 08:20 | Outpatient (AMB) | payer MEDICARE, SELFPAY ==
[2024-03-21 08:25] VITALS: BP 142/88; PULSE 81; O2SAT 96; BMI 25.8
--- NOTE | 2024-03-21 08:25 | MHC.PC.OV ---
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 Required: No Accompanied by: Self / Same As Patient Allergies AVOID HCTZ - hyponatremia - 1 Allergy (Unknown, Uncoded 03/21/24 08:59) Unknown Medication List - Last Reconciled 03/21/24 by Amrit Moura PA-C amlodipine 2.5 mg PO DAILY clonidine HCl 0.1 mg PO BID PRN lisinopril 30 mg PO DAILY metoprolol succinate ER 25 mg PO DAILY 90 days rosuvastatin 5 mg PO DAILY 90 days Tobacco use date assessed: 02/09/24 Fall risk assessment: 1 Fall in past year Last assessed Fall Risk: 03/21/24 Dental Screening Dental Screen Date: 02/09/24 HPI Annual Physician HPI Details Done is a 69-year-old male here today for routine annual physical Patient has a past medical history significant for essential hypertension, history alcohol use disorder, hyperlipidemia, impaired glucose metabolism. Concern--> he does report having some low back pain as of recently due to doing some work in his garage. He is interested in a muscle relaxer to use on as needed basis Hyperlipidemia: Patient recently started on statin therapy and most recent fasting lipid panel much improved total cholesterol and LDL. .. Impaired glucose metabolism: Most recent labs showing an elevated fasting blood sugar 157 and A1c is 6.2. He does admit to dietary indiscretion. Was on metformin in the past though stopped taking this medication. He is considering restarting metformin 500 daily. He will work on lifestyle and dietary modifications. Hypertension: Patient continues on lisinopril 30 mg, blood pressures today in office still slightly elevated. He reports that home blood pressures 130s to 135 systolic. Otherwise denies any chest discomfort, headaches, dizziness or vision issues. .. Alcohol use disorder- in remission, was previously on Vivitrol injections. He reports he has a handle on his alcohol use. Does drink 1-2 beers from time to time while golfing. Colonoscopy: Done in 2014 Dr. Gr, repeat 10 years .. vaccine: UTD with PCV and Tdap, up-to-date with COVID vaccine, considering shingrex Laboratory Tests 01/13/24 01/18/24 01/18/24 09:01 18:30 23:32 RBC Creatinine 1.01 Fasting Glucose Hemoglobin A1c % Troponin I High Se ns 165.1 H* 22.8 D 20.5 Cholesterol LDL Cholesterol, C alc PSA Screen 03/15/24 06:20 RBC 5.19 Creatinine 1.14 Fasting Glucose 152 H Hemoglobin A1c % 6.2 H Troponin I High Se ns Cholesterol 175 LDL Cholesterol, C alc 107 H PSA Screen 0.77 [facility] Medical History (Updated 03/21/24 @ 13:30 by Amrit Moura PA-C) Hypertension Anxiety Surgical History History of colonoscopy Family History Father Dementia Mother Melanoma Social History (Updated 03/21/24 @ 08:46 by Amrit Moura PA-C) Household Members: Significant Other Housing: House Alcohol intake: current Alcohol intake frequency: a few times a week Alcohol type: beer Patient Tobacco Use Status: Never used Tobacco e-Cigarette/Vaping Use: Never Used Second Hand Smoke Exposure: Yes Substance Use Type: Marijuana Advance Directives Date on File: 01/13/24 service: Yes Current occupational status: retired Cognitive needs: No Hearing needs: No Vision needs: Yes Questionnaire Thrive Questionnaire Date Thrive assessed: 02/09/24 DAVID-7 AMB Questionnaire DAVID-7 Date DAVID - 7 assessed: 02/09/24 Source: Developed by Drs. Angel Reveles, Kim Landeros, Wayne Levy and colleagues, with an educational jaime from [employer]. Review of Systems Const Denies body aches, Denies chills, Denies excessive sweating, Denies fatigue, Denies fever(s) and Denies headache(s) Eyes Denies blurry vision ENT Denies dysphagia, Denies vertigo, Denies dizziness, Denies headache(s), Denies hearing loss and Denies tinnitus Card Denies chest pain, Denies chest pain with activity, Denies syncope, Denies irregular heart rhythm and Denies dyspnea Resp Denies chest congestion, Denies cough, Denies hemoptysis, Denies dyspnea and Denies wheezing GI Denies abdominal pain, Denies melena, Denies hematochezia, Denies coffee ground emesis, Denies dysphagia, Denies diarrhea, Denies nausea and Denies vomiting Denies difficulty urinating, Denies dysuria, Denies urinary frequency, Denies urinary hesitancy and Denies urinary urgency Musc Denies arthralgias, Denies limited range of motion, Denies muscle cramps and Denies muscle weakness Skin/Breast Denies rash and Denies skin ulcer Neuro Denies Abnormal speech present, Denies confusion, Denies vertigo, Denies dizziness, Denies syncope, Denies headache(s), Denies memory loss and Denies seizure-like activity Psych Denies anxiety, Denies confusion, Denies depression, Denies memory loss, Denies panic attacks and Denies paranoia Endo Denies excessive sweating, Denies fatigue, Denies flushing, Denies polydipsia and Denies polyuria Aller/Immun Denies wheezing Physical exam (Primary Care) Vital Signs: Last Vital Signs Pulse 81 03/21/24 08:25 BP 142/88 H 03/21/24 08:25 Pulse Ox 96 03/21/24 08:25 Oxygen Delivery Method Room Air 03/21/24 08:25 BMI result Body Mass Index 25.8 Tobacco/Smoking Status: Tobacco use Status Tobacco use date assessed 02/09/24 03/21/24 08:30 Patient Tobacco Use Status Never used Tobacco 03/21/24 08:46 Tobacco use type 03/21/24 08:30 e-Cigarette/Vaping Use Never Used 03/21/24 08:46 Thrive Assessment: Date of Thrive Assessment Date Thrive assessed 02/09/24 03/21/24 08:30 Const General: cooperative, comfortable, no acute distress, alert and awake; No confusion Orientation/consciousness: oriented to person, oriented to place, patient oriented x3 and No confusion HENMT Head: Yes normocephalic Ears: external ears normal and TM's normal bilaterally Face and sinus: No sinus tenderness Mouth: Normal oral and palatal mucosa present and tongue normal Teeth and gingiva: dentition normal and gingiva normal Throat: Yes posterior oropharynx normal, Yes tonsils normal and Yes uvula midline Eyes Conjunctivae: conjunctivae normal Sclerae: sclerae normal Pupils: Equal, round and reactive pupils present EOM: EOMs intact bilaterally Direct Ophthalmoscopy: No no photophobia Neck Neck: Yes no lymphadenopathy, No tender and Yes no JVD Thyroid: Thyroid normal Carotids: no bruits Chest Chest palpation & inspection: no tenderness Resp Effort & Inspection: normal respiratory effort, no audible wheezes, not labored and no stridor Auscultation: no crackles, no rales, no rhonchi and no wheezes Cardio Jugular venous distension: no JVD Rate: regular rate, not bradycardic and not tachycardic Rhythm: regular rhythm Bruits: no carotid bruits Peripheral pulses: Peripheral pulses 2+ throughout GI Inspection: Yes normal to inspection, No abdominal wall ecchymosis and No visible herniation Palpation (GI): Soft to palpation, nontender, no guarding, not rigid and No hepatosplenomegaly present Auscultation: normoactive bowel sounds General: Yes no CVA tenderness Back/Spine/Pelvis Back: no CVA tenderness and No back tenderness Cervical Spine: cervical ROM normal Thoracic/Lumbar Spine: thoracic and lumbar spine normal to inspection, straight leg raise negative bilaterally, No thoraco-lumbar ROM limited and No lumbar spinal tenderness Skin Lesions: no lesions Rashes: no rashes Wounds: no wounds Neuro General: oriented to person, oriented to place, patient oriented x3, CN's II-XI intact bilaterally and No confusion Cranial nerves: Yes Equal, round and reactive pupils present and Yes Normal accommodation reflex present Cognition (Neuro): normal cognition Speech: No Abnormal speech present Gait exam (Neuro): Normal gait present Motor exam (neuro): 5/5 motor strength present throughout Extrem Right upper extremity: full ROM; no cyanosis Left upper extremity: full ROM; no cyanosis Right lower extremity: no edema Left lower extremity: no edema Psych Appearance: grossly normal Mental Status: mental status grossly normal Affect: normal affect Attitude: cooperative Thought process: Normal thought process present Assessment and Plan Assessment & Plan (1) Annual physical exam: Code(s): Z00.00 - Encounter for general adult medical examination without abnormal findings (2) HTN (hypertension): Code(s): I10 - Essential (primary) hypertension Qualifiers: Hypertension type: essential hypertension Qualified Code(s): I10 - Essential (primary) hypertension Plan: Blood pressures today in office slightly elevated. Likely has white coat hypertension as home blood pressures have been stable. He reports blood pressures at are 110s- 120 systolic. Otherwise asymptomatic. Will continue amlodipine 2.5 mg , metoprolol dose reduced to 25 mg. Advised to continue monitoring blood pressure at home with goal blood pressure to remain below 140/90 (3) HLD (hyperlipidemia): Code(s): E78.5 - Hyperlipidemia, unspecified Qualifiers: Hyperlipidemia type: mixed hyperlipidemia Qualified Code(s): E78.2 - Mixed hyperlipidemia Plan: Most recent fasting lipid panel showing excellent control of his total cholesterol and LDL. Will continue statin therapy at this time with goal LDL to be below 130. (4) Alcohol use disorder in remission: Code(s): F10.91 - Alcohol use, unspecified, in remission Plan: He is completely stopped drinking. He does admit to binge drinking and when in alcohol withdrawal he has increasing anxiety and hypertensive events. (5) Impaired glucose metabolism: Code(s): R73.09 - Other abnormal glucose Plan: Most recent fasting blood sugar at 157 A1c at 6.2. Patient does understand he has a prediabetic and his consider restarting metformin 500. He will work extensively on lifestyle and dietary modifications. Goal A1c is to be below 5.7. (6) Back pain: Code(s): M54.9 - Dorsalgia, unspecified Qualifiers: Back pain location: low back pain Chronicity: acute Back pain laterality: midline Sciatica presence: with sciatica Sciatica laterality: sciatica of right side Qualified Code(s): M54.41 - Lumbago with sciatica, right side Plan: As per HPI will supply patient with muscle relaxer to use on an as needed basis. Orders: Orders Hemoglobin A1c 6 Months R73.09 - Other abnormal glucose Lipid Panel 6 Months E78.2 - Mixed hyperlipidemia Comprehensive [place]. Panel Fast 6 Months I10 - Essential (primary) hypertension Complete Blood Count no Diff 6 Months I10 - Essential (primary) hypertension Microalbumin, Random (w Creat) 6 Months I10 - Essential (primary) hypertension Medications: New baclofen 10 mg PO BID PRN 14 tabs 0RF muscle spasm 7 days M54.9 - Dorsalgia, unspecified metformin 500 mg PO DAILY 90 tabs 1RF R73.09 - Other abnormal glucose Patient Instructions: Goal: Blood pressure to be below 140/90 at home, A1c to be below 5.7 Barriers: Adherence to physical activity and healthy eating habits. Coding Level of Care Code Est Pt Prev Care >65y(75214) Diagnoses Annual physical exam Z00.00 Essential hypertension I10 Hypertension type: essential hypertension Mixed hyperlipidemia E78.2 Hyperlipidemia type: mixed hyperlipidemia Alcohol use disorder in remission F10.91 Impaired glucose metabolism R73.09 Acute midline low back pain with right-sided sciatica M54.41 Back pain location: low back pain Chronicity: acute Back pain laterality: midline Sciatica presence: with sciatica Sciatica laterality: sciatica of right side
== END 2024-03-21 09:01 | disposition home or self-care (01) ==
PROVIDERS: PCP Physician Assistant; Visit Provider Physician Assistant
DX: I10 Essential (primary) hypertension (principal); E78.2 Mixed hyperlipidemia; F10.91 Alcohol use, unspecified, in remission; R73.09 Other abnormal glucose; M54.41 Lumbago with sciatica, right side
CPT/HCPCS: 99214

== ENCOUNTER 2024-07-24 13:37 | Emergency (ER) | payer MEDICARE, SELFPAY ==
--- NOTE | ~2024-07-24 | XR_ITS ---
EXAMINATION: XR CHEST CLINICAL INFORMATION: Hypertension. Cough. COMPARISON: Prior chest December 2015 report only. TECHNIQUE: 2 views of the chest were obtained. FINDINGS: Minimal calcification of the dorsal aorta No acute significant abnormality is noted involving the heart, lungs, mediastinum, bony thorax or soft tissues. XR/XR chest 2V IMPRESSION: No acute disease. Electronically signed by: Kanu Connors MD 07/24/2024 03:55 PM EDT RP
[2024-07-24 14:18] VITALS: BP 210/106; PULSE 98; RESP 18; TEMP 36.7; O2SAT 97; BMI 26.4
--- NOTE | 2024-07-24 14:27 | ECG_ITS ---
Test Reason : ANXIETY Blood Pressure : / mmHG Vent. Rate : 080 BPM Atrial Rate : 080 BPM P-R Int : 178 ms QRS Dur : 114 ms QT Int : 370 ms P-R-T Axes : 056 022 059 degrees QTc Int : 426 ms Normal sinus rhythm Incomplete right bundle branch block Borderline ECG When compared with ECG of 18-JAN-2024 18:23, No significant change was found Referred By: Lupe Gresham Electronically Signed By:ARTHUR ARMANDO
--- NOTE | 2024-07-24 14:54 | ED.GENADULT ---
HPI - General Adult General Chief complaint: Anxiety Stated complaint: Anxiety Time Seen by Provider: 07/24/24 22:14 Source: patient Mode of arrival: ambulatory Limitations: no limitations History of Present Illness ED Provider: trini CAI narrative: Patient complaining of increased anxiety with history of same with hypotension was triaged at 13:37 at the time patient's blood pressure was 210/106 repeat blood pressure is 186/102 patient is on amlodipine 2.5 mg daily and takes clonidine for anxiety patient is noncompliant with medication says that he does not take clonidine every day and he does not have any more also noncompliant to his amlodipine repeat blood pressure 170/100 denies any headache no chest pain does have anxiety no precipitating factor according to patient Related Data Home Medications ?Medication ?Instructions ?Recorded ?Confirmed clonidine HCl 0.1 mg tablet 0.1 mg PO BID PRN anxiety and 01/12/24 03/21/24 withdrawal symptoms Previous Rx's ?Medication ?Instructions ?Recorded rosuvastatin 5 mg tablet 5 mg PO DAILY 90 days #90 tabs 05/24/23 lisinopril 30 mg tablet 30 mg PO DAILY #90 tabs 01/04/24 amlodipine 2.5 mg tablet 2.5 mg PO DAILY #90 tabs 02/09/24 metoprolol succinate 25 mg 25 mg PO DAILY 90 days #90 tabs 02/09/24 tablet,extended release 24 hr baclofen 10 mg tablet 10 mg PO BID PRN muscle spasm 7 03/21/24 days #14 tabs metformin 500 mg tablet 500 mg PO DAILY #90 tabs 03/21/24 clonidine HCl 0.1 mg tablet 0.1 mg PO BID PRN anxiety #20 tabs 07/24/24 Allergies Allergy/AdvReac Type Severity Reaction Status Date / Time AVOID HCTZ - hyponatremia - Allergy Unknown Unknown Uncoded 07/24/24 14:20 1 Review of Systems Review of Systems: Yes all other systems are reviewed and are negative PMFSH Past Medical History Medical History Hypertension Anxiety Surgical History History of colonoscopy Family History Family History Father Dementia Mother Melanoma Social History Social History Household Members: Significant Other Housing: House Alcohol intake: never Patient Tobacco Use Status: Never used Tobacco Smoked in Last 30 Days: No e-Cigarette/Vaping Use: Never Used Second Hand Smoke Exposure: Yes Substance Use Type: Marijuana Advance Directives: Yes Advance Directives on File: Yes Advance Directives Date on File: 01/13/24 Do you have a plan to hurt others: No Plan service: Yes Current occupational status: retired Cognitive needs: No Hearing needs: No Vision needs: Yes Physical Exam ED Vital Signs: Vital Signs - 24 hr 07/24/24 19:54 07/24/24 22:00 07/24/24 22:52 Temperature 98.4 F 98.4 F Pulse Rate 92 71 Respiratory Rate 16 16 Blood Pressure 204/100 H 186/102 H 158/87 H Pulse Oximetry 97 96 Oxygen Delivery Method Room Air Room Air 07/24/24 23:56 07/25/24 00:15 Temperature 98.0 F 98.0 F Pulse Rate 62 62 Respiratory Rate 16 16 Blood Pressure 113/72 113/72 Pulse Oximetry 96 96 Oxygen Delivery Method Room Air Room Air BMI result Body Mass Index 26.4 Appearance: Alert. Oriented X3. No acute distress. anxious Eyes: No pallor or icterus ENT: Pharynx normal. Oral Mucosa moist Neck: Normal inspection. Neck supple. CVS: Normal heart rate and rhythm. Pulses normal. Respiratory: No respiratory distress. Equal air entry bilateral, no wheezing/rales/rhonchi Abdomen: Soft and nontender. Bowel sounds are present, no mass palpable, no CVA tenderness Skin: Skin warm and dry. Normal skin color. Normal skin turgor. Extremities: No lower extremity edema. No calf tenderness Neuro: Oriented X 3. No motor deficit. Course Course Course Narrative: This is a rapid medical exam performed by uLpe Gresham PA-C. The patient is a 69-year-old male with a history of poorly controlled blood pressure, prior alcohol abuse presents with hypertensive urgency. Patient noted his blood pressure was elevated at home, over 200 systolic. Patient states it makes him anxious. On exam, patient is well in appearance, he is alert and oriented x3, no active symptoms. We will be screening basic labs, urinalysis, troponin assessing for end-organ damage, also obtaining a chest x-ray and EKG. The patient will return to the waiting room pending his full assessment Medications Administered Discontinued Medications Generic Name Dose Route Start Last Admin Trade Name [place] PRN Reason Stop Dose Admin Clonidine HCl 0.2 mg 07/24/24 22:24 07/24/24 22:52 Clonidine Hcl 0.2 Mg Tablet PO 07/24/24 22:25 0.2 mg ONCE ONE Administration Protocol Medical Decision Making Medical Decision Making [facility] Narrative: Patient's symptoms improved after clonidine anxiety improved blood pressure improved discharge patient home on clonidine advised to follow with PCP Lab Data [facility] Lab Attestation statement: I reviewed the patient's lab results. 07/24/24 14:58 07/24/24 14:58 Labs: Lab Results 07/24/24 07/24/24 07/24/24 Range/Units 14:58 20:01 21:22 WBC 11.4 H (4.8-10.8) X10*3/uL RBC 4.99 (4.60-5.80) X10*6/uL Hgb 15.1 (14.0-18.0) g/dl Hct 43.2 (42.0-52.0) % MCV 86.6 (80.0-98.0) fL MCH 30.3 (27.0-33.0) pg MCHC 35.0 (31.0-36.0) g/dl RDW 12.2 (11.0-16.0) % Plt Count 182 D (160-400) X10*3/uL MPV 8.8 L (9.4-12.4) fL Immature Gran % (Auto) 0.4 (0.0-0.4) % Neut % (Auto) 84.5 H (45-73) % Lymph % (Auto) 5.5 L (20-40) % [place] % (Auto) 9.1 (2-11) % Eos % (Auto) 0.2 (0-4) % Baso % (Auto) 0.3 (0-2) % Lymph # (Auto) 0.6 L (1.2-4.9) X10*3/uL [place] # (Auto) 1.0 (0.1-1.2) X10*3/uL Eos # (Auto) 0.0 (0.0-0.4) X10*3/uL Baso # (Auto) 0.0 (0.0-0.2) X10*3/uL Abs Immat Gran (auto) 0.05 H (0.00-0.03) X10*3/uL Absolute Neuts (auto) 9.6 H (2.0-8.3) x10*3/uL Absolute Nucleated RBC 0.000 (0.0-0.012) X10*3/uL Nucleated RBC % (auto) 0.0 (0.0-0.2) /100WBC Sodium 135 (135-145) mmol/L Potassium 5.0 (3.3-5.1) mmol/L Chloride 100 (96-108) mmol/L Carbon Dioxide 26 (22-29) mmol/L Anion Gap 14 (12-20) BUN 17 H (9-16) mg/dL Creatinine 1.07 (0.5-1.4) mg/dL Estim Creat Clear Calc 72.5 Estimated GFR > 60 Random Glucose 129 H (60-115) mg/dL Calcium 10.5 H D (8.4-10.2) mg/dL Total Bilirubin 0.9 (0.0-1.0) mg/dL AST 28 (5-37) U/L ALT 19 (0-40) U/L Alkaline Phosphatase 81 (39-117) U/L Troponin I High Sens 12.0 19.0 D (<3.5-35.0) ng/L Total Protein 8.1 H (6.5-8.0) g/dL Albumin 4.9 (3.5-5.0) g/dL Urine Color Yellow Urine Appearance Clear Urine pH 6.0 (5.0-9.0) Ur Specific [place] <= 1.005 (1.005-1.025) Urine Protein Negative (Neg-Trace) mg/dL Urine Glucose (UA) Negative (Negative) mg/dL Urine Ketones Negative (Negative) mg/dL Urine Blood Small (1+) H (Negative) Urine Nitrite Negative (Negative) Ur Leukocyte Esterase Negative (Negative) Urine RBC 6-10 H (0-2) /HPF Urine WBC 0-5 (0-5) /HPF Ur Squamous Epith Cells 0-2 (0-2) /HPF Urine Bacteria None Seen (None Seen) Hyaline Casts 0-2 (0-2) /LPF Independent Interpretation I performed an independent interpretation of an: EKG Interpretation: Normal sinus rhythm heart rate 80 beats per minute incomplete right bundle-branch block no acute STT wave changes no acute ischemia Discharge Plan Discharge Clinical Impression: Anxiety, Essential hypertension Patient Disposition: Home, Self-Care Instructions: Chronic Hypertension (DC), Anxiety (ED) Additional Instructions: Take medication as prescribed for your blood pressure Clonidine for anxiety Follow with your PCP Prescriptions: New clonidine HCl 0.1 mg tablet 0.1 mg PO BID PRN (Reason: anxiety) Qty: 20 0RF No Action lisinopril 30 mg tablet 30 mg PO DAILY Qty: 90 1RF clonidine HCl 0.1 mg tablet 0.1 mg PO BID PRN (Reason: anxiety and withdrawal symptoms) metformin 500 mg tablet 500 mg PO DAILY Qty: 90 1RF baclofen 10 mg tablet 10 mg PO BID PRN (Reason: muscle spasm) 7 Days Qty: 14 0RF amlodipine 2.5 mg tablet 2.5 mg PO DAILY Qty: 90 1RF metoprolol succinate 25 mg tablet extended release 24 hr 25 mg PO DAILY 90 Days Qty: 90 1RF rosuvastatin 5 mg tablet 5 mg PO DAILY 90 Days Qty: 90 1RF Interventions: ED Discharge Assessment Last Done: 07/25/24 00:15 Discharge Date/Time: 07/25/24 00:16 Print Language: Guyanese
[2024-07-24 15:04] LABS: MANUAL DIFF FLAG NO
[2024-07-24 15:05] LABS: Basophils Percent Auto 0.3 % (0-2); Eosinophils Percent Auto 0.2 % (0-4); Hematocrit 43.2 % (42.0-52.0); Hemoglobin 15.1 g/dl (14.0-18.0); Imm Gran Abs Auto 0.05 X10*3/uL (0.00-0.03); Imm Gran Pct Auto 0.4 % (0.0-0.4); Lymphocytes Absolute Auto 0.6 X10*3/uL (1.2-4.9); Lymphocytes Percent Auto 5.5 % (20-40); Mean Corpuscular Hemoglobin 30.3 pg (27.0-33.0); Mean Corpuscular Volume 86.6 fL (80.0-98.0); Mean Platelet Volume 8.8 fL (9.4-12.4); Monocytes Percent Auto 9.1 % (2-11); Neutrophils Absolute Auto 9.6 x10*3/uL (2.0-8.3); Neutrophils Percent Auto 84.5 % (45-73); Platelet Count 182 X10*3/uL (160-400); Red Blood Count 4.99 X10*6/uL (4.60-5.80); Red Cell Distribution Width 12.2 % (11.0-16.0); White Blood Count 11.4 X10*3/uL (4.8-10.8)
[2024-07-24 15:39] LABS: Alanine Aminotransferase 19 U/L (0-40); Albumin Level 4.9 g/dL (3.5-5.0); Alkaline Phosphatase 81 U/L (39-117); Anion Gap 14 (12-20); Aspartate Amino Transferase 28 U/L (5-37); Bilirubin Total 0.9 mg/dL (0.0-1.0); Blood Urea Nitrogen 17 mg/dL (9-16); Calcium 10.5 mg/dL (8.4-10.2); Carbon Dioxide 26 mmol/L (22-29); Chloride 100 mmol/L (96-108); Creatinine Clr Calc Pharmacy 72.5; Estimated Glomerular Filt Rate > 60; Glucose Random 129 mg/dL (60-115); Sodium 135 mmol/L (135-145); Total Protein 8.1 g/dL (6.5-8.0)
[2024-07-24 19:54] VITALS: BP 204/100; PULSE 92; RESP 16; TEMP 36.9; O2SAT 97
[2024-07-24 20:13] LABS: Appearance Urine Clear; Color Urine Yellow; Glucose Urine UA Negative (Negative); Leukocyte Esterase Urine Negative (Negative); Nitrite Urine Negative (Negative); Specific Gravity - Urine <= 1.005 (1.005-1.025); UMIC TRIGGER UACC YES; Urine Blood Small (1+) (Negative); Urine Ketones Negative (Negative); Urine Protein Negative (Neg-Trace)
[2024-07-24 20:16] LABS: Bacteria Urine None Seen (None Seen); Hyaline Casts Urine 0-2 /LPF (0-2); Squamous Epithelial Cell Urine 0-2 /HPF (0-2); WBC Urine 0-5 /HPF (0-5)
[2024-07-24 22:00] VITALS: BP 186/102; PULSE 71; RESP 16; TEMP 36.9; O2SAT 96
[2024-07-24 22:52] VITALS: BP 158/87
[2024-07-24] MEDS: cloNIDine HCL 0.2 MG TABLET PO (22:52)
[2024-07-24 23:56] VITALS: BP 113/72; PULSE 62; RESP 16; TEMP 36.7; O2SAT 96
[2024-07-25 00:15] VITALS: BP 113/72; PULSE 62; RESP 16; TEMP 36.7; O2SAT 96
== END 2024-07-25 00:16 | disposition home or self-care (01) ==
PROVIDERS: Physician Assistant Medical; Emergency Provider Internal Medicine; PCP Physician Assistant
DX: F41.1 Generalized anxiety disorder (principal); I10 Essential (primary) hypertension; I45.10 Unspecified right bundle-branch block; R94.31 Abnormal electrocardiogram [ECG] [EKG]; Z79.899 Other long term (current) drug therapy
CPT/HCPCS: 36415; 71046; 80053; 81001; 84484; 85025; 93005; 99283; 99285

== ENCOUNTER 2024-07-30 11:05 | Outpatient (AMB) | payer MEDICARE, SELFPAY ==
[2024-07-30 11:07] VITALS: BP 220/110; PULSE 95; O2SAT 98; BMI 26.2
--- NOTE | 2024-07-30 11:07 | A.OFFPC_ITS ---
Vital Signs 3 07/30/24 11:07 07/30/24 11:31 Height 6 ft Weight 193 lb BMI 26.2 BP 220/110 H 170/90 H Blood Pressure Location Lt brachial Position Sitting Pulse 95 Pulse Source Pulse Oximeter Pulse Oximetry (%) 98 Oxygen Delivery Method Room Air Intake Visit Reasons: [facility] [place] 07/24-HTN/Anxiety Intake Note: Patient is here to follow-up after a visit the emergency department at [hospital name] on [date] Allergies AVOID HCTZ - hyponatremia - 1 Allergy (Unknown, Uncoded 07/30/24 11:17) Unknown Medication List - Last Reconciled 07/30/24 by Amrit Moura PA-C amlodipine 2.5 mg PO DAILY baclofen 10 mg PO BID PRN 7 days clonidine HCl 0.1 mg PO BID PRN clonidine HCl 0.1 mg PO BID PRN lisinopril 30 mg PO DAILY metformin 500 mg PO DAILY metoprolol succinate ER 25 mg PO DAILY 90 days rosuvastatin 5 mg PO DAILY 90 days Tobacco use date assessed: 02/09/24 Dental Screening Dental Screen Date: 02/09/24 HPI [facility] [place] 07/24-HTN/Anxiety 2 HPI0 Details Patient is a 69-year-old male here today for an ER follow-up visit. Recently seen at the ER for acute feelings of anxiety. Was found to be fairly hypertensive. Labs, EKG and troponins fairly stable. He otherwise denies any chest discomfort, dizziness, headache or presyncopal episodes. He can not recall trigger to his anxiety though does report visiting his brother low in the hospital which may have caused him some anxiety. He denies drinking any excessive amounts of alcohol recently. At home he has been checking his blood pressures since being in the ER and noted acceptable readings. Has been using clonidine 0.1 mg on an as needed basis. Does seem that he suffers from a panic disorder/anxiety disorder. He is willing to try an as needed anxiety medication [facility] Medical History Hypertension Anxiety Surgical History History of colonoscopy Family History Father Dementia Mother Melanoma Social History Household Members: Significant Other Housing: House Alcohol intake: never Patient Tobacco Use Status: Never used Tobacco e-Cigarette/Vaping Use: Never Used Second Hand Smoke Exposure: Yes Substance Use Type: Marijuana Advance Directives Date on File: 01/13/24 service: Yes Current occupational status: retired Cognitive needs: No Hearing needs: No Vision needs: Yes Questionnaire Thrive Questionnaire Date Thrive assessed: 02/09/24 DAVID-7 AMB Questionnaire DAVID-7 Date DVAID - 7 assessed: 02/09/24 Feeling nervous, anxious, or on edge: 3 = Nearly every day Not being able to stop or control worryin = Nearly every day Worrying too much about different things: 3 = Nearly every day Trouble relaxin = Nearly every day Being so restless that it is hard to sit still: 3 = Nearly every day Becoming easily annoyed or irritable: 3 = Nearly every day Feeling afraid as if something awful might happen: 0 = Not at all Total DAVID-7 score (0-4 normal; 5-9 mild; 10-14 moderate; 15-21 severe): 18 Source: Developed by Drs. Angel Reveles, Kim Landeros, Wayne Levy and colleagues, with an educational jaime from [employer] ([employer]). DAVID-7 Assessment Billing DAVID-7 Assessment Tool: DAVID-7 Assessment 72088 Review of Systems Const Denies headache(s) Eyes Denies loss of vision ENT Denies vertigo, Denies dizziness, Denies headache(s) and Denies sore throat Card Denies chest pain, Denies leg edema and Denies lightheadedness Resp Denies cough, Denies hemoptysis and Denies wheezing GI Denies abdominal pain, Denies melena, Denies constipation, Denies diarrhea and Denies vomiting Denies dysuria, Denies urinary frequency and Denies urinary urgency Musc Denies arthralgias, Denies joint swelling, Denies numbness and Denies tingling Neuro Denies Abnormal speech present, Denies behavioral changes, Denies vertigo, Denies dizziness, Denies headache(s), Denies loss of vision, Denies memory loss, Denies numbness and Denies tingling Psych Denies anxiety, Denies behavioral changes, Denies depression, Denies memory loss and Denies panic attacks Deny/Lymph Denies easy bleeding and Denies easy bruising Aller/Immun Denies wheezing Physical exam (Primary Care) Vital Signs: Last Vital Signs Pulse 95 07/30/24 11:07 BP 170/90 H 07/30/24 11:31 Pulse Ox 98 07/30/24 11:07 Oxygen Delivery Method Room Air 07/30/24 11:07 BMI result Body Mass Index 26.2 Tobacco/Smoking Status: Tobacco use Status Tobacco use date assessed 02/09/24 07/30/24 11:08 Patient Tobacco Use Status Never used Tobacco 07/30/24 11:08 Tobacco use type 03/21/24 09:02 e-Cigarette/Vaping Use Never Used 07/30/24 11:08 Thrive Assessment: Date of Thrive Assessment Date Thrive assessed 02/09/24 07/30/24 11:08 Const Other: General: healthy appearing, no acute distress, alert and awake Nutritional Appearance: well nourished Orientation/consciousness: oriented to person, oriented to place and oriented to time HENMT Ears: TM's normal bilaterally General nose exam: Normal nasal mucous membranes and turbinates present Eyes Conjunctivae: conjunctivae normal Sclerae: sclerae normal Pupils: Equal, round and reactive pupils present Neck Neck: Yes no lymphadenopathy and Yes no JVD Thyroid: Thyroid normal Carotids: no bruits Resp Effort & Inspection: normal respiratory effort and not tachypneic Auscultation: no crackles, no rales, no rhonchi and no wheezes Cardio Rate: regular rate Rhythm: regular rhythm Heart sounds: no murmurs and normal S1 and S2 GI Palpation (GI): Soft to palpation, nontender, no hepatomegaly and no splenomegaly Auscultation: normal bowel sounds Skin General skin exam: no rashes or lesions noted and dry skin Neuro General: oriented to person, oriented to place and oriented to time Cranial nerves: Yes Equal, round and reactive pupils present Speech: No Abnormal speech present Gait exam (Neuro): Normal gait present Motor exam (neuro): no tremor noted Extrem Right upper extremity: full ROM Left upper extremity: full ROM Right lower extremity: full ROM; no edema Left lower extremity: full ROM; no edema Psych Mental Status: mental status grossly normal Speech and movement: Normal speech and movement present Affect: normal affect Attitude: cooperative Thought process: Normal thought process present Assessment and Plan Assessment & Plan (1) HTN (hypertension): Code(s): I10 - Essential (primary) hypertension Qualifiers: Hypertension type: essential hypertension Qualified Code(s): I10 - Essential (primary) hypertension Plan: Patient's blood pressure elevated today in office. He brings in home readings which seemed to be acceptable and even on the low side. He continues on lisinopril and metoprolol. Has been holding amlodipine 2.5 as he felt lethargic with this medication. PLEASE SEE PICTURE OF HOME PRESSURE READINGS AND PHYSICAL EXAM SECTION. It does seem patient has a panic disorder thus will supply patient with lorazepam 0.5 mg to use on a p.r.n. emergency basis only when feeling high points of anxiety. (2) Panic disorder: Code(s): F41.0 - Panic disorder [episodic paroxysmal anxiety] Plan: As above. Patient's DAVID-7 score elevated which has been existing condition for him. He does report suffering with anxiety since his 30s. Orders: Referrals 2 Counseling Referral F41.0 - Panic disorder [episodic paroxysmal anxiety] Medications: New 2 lorazepam 0.5 mg PO DAILY PRN 7 tabs 0RF anxiety 7 days F41.0 - Panic disorder [episodic paroxysmal anxiety] On Hold 2 amlodipine Hold Comment: Doctor's Order 2.5 mg PO DAILY 90 tabs 1RF I10 - Essential (primary) hypertension Coding Level of Care Code Est Pt Level 3 (86721) Diagnoses Essential hypertension I10 Hypertension type: essential hypertension Panic disorder F41.0 Additional Codes DAVID-7 Assessment Billing - DAVID-7 Assessment Tool: DAVID-7 Assessment 39948 ([id number])
[2024-07-30 11:31] VITALS: BP 170/90
== END 2024-07-30 11:36 | disposition home or self-care (01) ==
PROVIDERS: PCP Physician Assistant; Visit Provider Physician Assistant
DX: I10 Essential (primary) hypertension (principal); F41.0 Panic disorder [episodic paroxysmal anxiety]

== ENCOUNTER → 2024-07-30 11:05 | Outpatient (BNVA) | payer MEDICARE, SELFPAY | PROVIDERS: PCP Physician Assistant; Visit Provider Physician Assistant | DX: I10 Essential (primary) hypertension (principal); F41.0 Panic disorder [episodic paroxysmal anxiety] | CPT/HCPCS: 96127; 99212 ==

== ENCOUNTER 2024-09-13 06:11 | Outpatient (REF) | payer MEDICARE, SELFPAY ==
[2024-09-13 10:27] LABS: Hematocrit 43.9 % (42.0-52.0); Hemoglobin 14.4 g/dl (14.0-18.0); Mean Corpuscular HGB Conc 32.8 g/dl (31.0-36.0); Mean Corpuscular Hemoglobin 29.7 pg (27.0-33.0); Mean Corpuscular Volume 90.5 fL (80.0-98.0); Mean Platelet Volume 10.1 fL (9.4-12.4); Platelet Count 216 X10*3/uL (160-400); Red Blood Count 4.85 X10*6/uL (4.60-5.80); Red Cell Distribution Width 12.4 % (11.0-16.0); White Blood Count 6.5 X10*3/uL (4.8-10.8)
[2024-09-13 10:36] LABS: Alanine Aminotransferase 23 U/L (0-40); Albumin Level 4.2 g/dL (3.5-5.0); Alkaline Phosphatase 58 U/L (39-117); Anion Gap 9 (12-20); Aspartate Amino Transferase 36 U/L (5-37); Bilirubin Total 0.8 mg/dL (0.0-1.0); Blood Urea Nitrogen 20 mg/dL (9-16); Carbon Dioxide 27 mmol/L (22-29); Chloride 107 mmol/L (96-108); Cholesterol 160 mg/dL (<200); Estimated Glomerular Filt Rate > 60; Glucose Fasting 134 mg/dL (60-99); HDL Cholesterol 43 mg/dL (>40); LDL Cholesterol Calculated 103 mg/dL (<100); Potassium 4.5 mmol/L (3.3-5.1); Sodium 138 mmol/L (135-145); Total Protein 6.9 g/dL (6.5-8.0); Triglycerides 73 mg/dL (<150)
[2024-09-13 10:48] LABS: Creatinine Urine 141.07 mg/dL; Microalbumin Urine < 5.0 mg/L
[2024-09-13 14:13] LABS: Estimated Average Glucose 123 mg/dL; Hemoglobin A1C 150.3341 umol/L; Hemoglobin A1c % 5.9 % (<6.0)
== END 2024-09-13 06:12 | disposition home or self-care (01) ==
LOC: HO.HMGCLDS 06:11
PROVIDERS: PCP Physician Assistant; Visit Provider Physician Assistant
DX: I10 Essential (primary) hypertension (principal); E78.2 Mixed hyperlipidemia; R73.09 Other abnormal glucose
CPT/HCPCS: 36415; 80053; 80061; 82570; 83036; 85027

== ENCOUNTER 2024-09-19 08:02 | Outpatient (AMB) | payer MEDICARE, SELFPAY ==
--- NOTE | 2024-09-19 08:11 | A.OFFPC_ITS ---
Vital Signs 09/19/24 08:12 Height 6 ft Weight 196 lb BMI 26.6 BP 150/72 H Blood Pressure Location Lt brachial Position Sitting Pulse 70 Pulse Source Pulse Oximeter Pulse Oximetry (%) 97 Oxygen Delivery Method Room Air Intake Visit Reasons: 6 Month F/U Allergies AVOID HCTZ - hyponatremia - 1 Allergy (Unknown, Uncoded 09/19/24 08:19) Unknown Medication List - Last Reconciled 09/19/24 by Amrit Moura PA-C amlodipine 2.5 mg PO DAILY baclofen 10 mg PO BID PRN 7 days clonidine HCl 0.1 mg PO BID PRN clonidine HCl 0.1 mg PO BID PRN lisinopril 30 mg PO DAILY lorazepam 0.5 mg PO DAILY PRN 7 days metformin 500 mg PO DAILY metoprolol succinate ER 25 mg PO DAILY 90 days rosuvastatin 5 mg PO DAILY 90 days Tobacco use date assessed: 09/19/24 Fall risk assessment: No Falls in past year Last assessed Fall Risk: 09/19/24 Dental Screening Dental Screen Date: 02/09/24 HPI 6 Month F/U HPI Details Done is a 69-year-old male here today for follow-up visit. Patient has a past medical history significant for essential hypertension, history alcohol use disorder, hyperlipidemia, impaired glucose metabolism. Concern--> reports falling last week injuring his right side of his ribs. Would like a refill on baclofen to use for his pain. Otherwise he denies any pulmonary issues. Hyperlipidemia: Patient recently started on statin therapy and most recent fasting lipid panel much improved total cholesterol and LDL. .. Impaired glucose metabolism: Most recent labs showing an elevated fasting blood sugar 157 and A1c is 5.9 from 6.2. He does admit to dietary indiscretion. Was on metformin in the past though stopped taking this medication. He is conside ring restarting metformin 500 daily. He will work on lifestyle and dietary modifications. Hypertension: Patient continues on lisinopril 30 mg, blood pressures today in office still slightly elevated. He reports that home blood pressures 120s to 135 systolic. Otherwise denies any chest discomfort, headaches, dizziness or vision issues. .. Laboratory Tests 03/15/24 07/24/24 07/24/24 06:20 14:58 21:22 WBC 11.4 H RBC 4.99 Hgb Creatinine Fasting Glucose Hemoglobin A1c % 6.2 H Troponin I High Se ns 12.0 19.0 D LDL Cholesterol, C alc Urine Microalbumin 09/13/24 09/13/24 06:20 06:25 WBC RBC 4.85 Hgb 14.4 Creatinine 0.92 Fasting Glucose 134 H Hemoglobin A1c % 5.9 Troponin I High Se ns LDL Cholesterol, C alc 103 H Urine Microalbumin < 5.0 PFSH Medical History Hypertension Anxiety Surgical History History of colonoscopy Family History Father Dementia Mother Melanoma Social History Household Members: Significant Other Housing: House Alcohol intake: never Patient Tobacco Use Status: Never used Tobacco e-Cigarette/Vaping Use: Never Used Second Hand Smoke Exposure: Yes Substance Use Type: Marijuana Advance Directives Date on File: 01/13/24 service: Yes Current occupational status: retired Cognitive needs: No Hearing needs: No Vision needs: Yes Questionnaire Thrive Questionnaire Date Thrive assessed: 02/09/24 AUDIT C Alcohol Use Questionnaire (AUDIT-C) 1. How often do you have a drink containing alcohol?: Never 3. How often do you have six or more drinks on one occasion?: Never Total Score: 0 DAVID-7 AMB Questionnaire DAVID-7 Date DAVID - 7 assessed: 02/09/24 Source: Developed by Drs. Angel Reveles, Kim Landeros, Wayne Levy and colleagues, with an educational jaime from [employer]. Review of Systems Const Denies headache(s) Eyes Denies loss of vision ENT Denies vertigo, Denies dizziness, Denies headache(s) and Denies sore throat Card Denies chest pain, Denies leg edema and Denies lightheadedness Resp Denies cough, Denies hemoptysis and Denies wheezing GI Denies abdominal pain, Denies melena, Denies constipation, Denies diarrhea and Denies vomiting Denies dysuria, Denies urinary frequency and Denies urinary urgency Musc Denies arthralgias, Denies joint swelling, Denies numbness and Denies tingling Neuro Denies Abnormal speech present, Denies behavioral changes, Denies vertigo, Denies dizziness, Denies headache(s), Denies loss of vision, Denies memory loss, Denies numbness and Denies tingling Psych Denies anxiety, Denies behavioral changes, Denies depression, Denies memory loss and Denies panic attacks Deny/Lymph Denies easy bleeding and Denies easy bruising Aller/Immun Denies wheezing Physical exam (Primary Care) Vital Signs: Last Vital Signs Pulse 70 09/19/24 08:12 BP 150/72 H 09/19/24 08:12 Pulse Ox 97 09/19/24 08:12 Oxygen Delivery Method Room Air 09/19/24 08:12 BMI result Body Mass Index 26.6 Tobacco/Smoking Status: Tobacco use Status Tobacco use date assessed 09/19/24 09/19/24 08:16 Patient Tobacco Use Status Never used Tobacco 09/19/24 08:13 Tobacco use type 03/21/24 09:02 e-Cigarette/Vaping Use Never Used 09/19/24 08:13 Thrive Assessment: Date of Thrive Assessment Date Thrive assessed 02/09/24 09/19/24 08:13 Const General: healthy appearing, no acute distress, alert and awake Nutritional Appearance: well nourished Orientation/consciousness: oriented to person, oriented to place and oriented to time HENMT Ears: TM's normal bilaterally General nose exam: Normal nasal mucous membranes and turbinates present Eyes Conjunctivae: conjunctivae normal Sclerae: sclerae normal Pupils: Equal, round and reactive pupils present Neck Neck: Yes no lymphadenopathy and Yes no JVD Thyroid: Thyroid normal Carotids: no bruits Resp Effort & Inspection: normal respiratory effort and not tachypneic Auscultation: no crackles, no rales, no rhonchi and no wheezes Cardio Rate: regular rate Rhythm: regular rhythm Heart sounds: no murmurs and normal S1 and S2 GI Palpation (GI): Soft to palpation, nontender, no hepatomegaly and no s plenomegaly Auscultation: normal bowel sounds Skin General skin exam: no rashes or lesions noted and dry skin Neuro General: oriented to person, oriented to place and oriented to time Cranial nerves: Yes Equal, round and reactive pupils present Speech: No Abnormal speech present Gait exam (Neuro): Normal gait present Motor exam (neuro): no tremor noted Extrem Right upper extremity: full ROM Left upper extremity: full ROM Right lower extremity: full ROM; no edema Left lower extremity: full ROM; no edema Psych Mental Status: mental status grossly normal Speech and movement: Normal speech and movement present Affect: normal affect Attitude: cooperative Thought process: Normal thought process present Coding Level of Care Code Est Pt Level 4 (67453) Diagnoses Mixed hyperlipidemia E78.2 Hyperlipidemia type: mixed hyperlipidemia Essential hypertension I10 Hypertension type: essential hypertension Anxiety F41.9 Impaired glucose metabolism R73.09 Assessment & Plan Assessment & Plan (1) HLD (hyperlipidemia): Code(s): E78.5 - Hyperlipidemia, unspecified Category: Medical Qualifiers: Hyperlipidemia type: mixed hyperlipidemia Qualified Code(s): E78.2 - Mixed hyperlipidemia Plan: Patient's most recent lipid panel showing excellent control of his total cholesterol and LDL. Will continue his current dose rosuvastatin. Goal LDL to remain below 130 (2) HTN (hypertension): Code(s): I10 - Essential (primary) hypertension Category: Medical Qualifiers: Hypertension type: essential hypertension Qualified Code(s): I10 - Essential (primary) hypertension Plan: Patient's blood pressure elevated today in office, he reports that home blood pressures are 120s to 130 systolic. He believes he has a element of white coat hypertension. Goal blood pressures to remain below 1 40/90 at home. Will continue him on his current dose of lisinopril, amlodipine and metoprolol. (3) Anxiety: Code(s): F41.9 - Anxiety disorder, unspecified Category: Medical Plan: Patient reports his anxiety has been fairly well controlled. He is now enjoying his hunting. He does use clonidine from time to time. (4) Impaired glucose metabolism: Code(s): R73.09 - Other abnormal glucose Category: Medical Plan: Most recent fasting blood sugar improved and A1c at 5.9 from 6.2. He will continue metformin 500 daily.. He will continue working on lifestyle and dietary modifications Orders: Orders Comprehensive [place]. Panel Fast 6 Months I10 - Essential (primary) hypertension Microalbumin, Random (w Creat) 6 Months I10 - Essential (primary) hypertension Lipid Panel 6 Months E78.2 - Mixed hyperlipidemia Complete Blood Count no Diff 6 Months I10 - Essential (primary) hypertension Prostate Specific Antigen Scr 6 Months I10 - Essential (primary) hypertension, Z12.5 - Encounter for screening for malignant neoplasm of prostate Medications: Refilled baclofen 10 mg PO BID PRN 14 tabs 0RF muscle spasm 7 days M54.9 - Dorsalgia, unspecified Resumed amlodipine 2.5 mg PO DAILY 90 tabs 1RF I10 - Essential (primary) hypertension Patient Instructions: Goal: Blood pressure to be below 140/90 Barriers: Adherence to physical activity and healthy eating habits
[2024-09-19 08:12] VITALS: BP 150/72; PULSE 70; O2SAT 97; BMI 26.6
== END 2024-09-19 08:40 | disposition home or self-care (01) ==
PROVIDERS: PCP Physician Assistant; Visit Provider Physician Assistant
DX: E78.2 Mixed hyperlipidemia (principal); I10 Essential (primary) hypertension; F41.9 Anxiety disorder, unspecified; R73.09 Other abnormal glucose

== ENCOUNTER → 2024-09-19 08:02 | Outpatient (BNVA) | payer MEDICARE, SELFPAY | PROVIDERS: PCP Physician Assistant; Visit Provider Physician Assistant | DX: E78.2 Mixed hyperlipidemia (principal); I10 Essential (primary) hypertension; F41.9 Anxiety disorder, unspecified; R73.09 Other abnormal glucose | CPT/HCPCS: 99212 ==

== ENCOUNTER 2025-03-09 05:23 | Emergency (ER) | payer MEDICARE, SELFPAY ==
[2025-03-09 05:31] VITALS: BP 197/110; PULSE 94; RESP 16; TEMP 36.6; O2SAT 97; BMI 26.1
--- NOTE | 2025-03-09 05:49 | ED_ITS ---
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 feeling increased anxious and depressed denies any SI unable to sleep taking his medication for anxiety used to be on Zoloft in the past Related Data Home Medications ?Medication ?Instructions ?Recorded ?Confirmed clonidine HCl 0.1 mg tablet 0.1 mg PO BID PRN anxiety and 01/12/24 09/19/24 withdrawal symptoms Previous Rx's ?Medication ?Instructions ?Recorded rosuvastatin 5 mg tablet 5 mg PO DAILY 90 days #90 tabs 05/24/23 amlodipine 2.5 mg tablet 2.5 mg PO DAILY #90 tabs 02/09/24 clonidine HCl 0.1 mg tablet 0.1 mg PO BID PRN anxiety #20 tabs 07/24/24 metformin 500 mg tablet 500 mg PO DAILY #90 tabs 07/26/24 lorazepam 0.5 mg tablet 0.5 mg PO DAILY PRN anxiety 7 days 07/30/24 #7 tabs baclofen 10 mg tablet 10 mg PO BID PRN muscle spasm 7 09/19/24 days #14 tabs lisinopril 30 mg tablet 30 mg PO DAILY #90 tabs 10/20/24 metoprolol succinate 25 mg 25 mg PO DAILY 90 days #90 tabs 01/31/25 tablet,extended release 24 hr sertraline 50 mg tablet (Zoloft) 50 mg PO DAILY #30 tabs 03/09/25 Allergies Allergy/AdvReac Type Severity Reaction Status Date / Time AVOID HCTZ - hyponatremia - Allergy Unknown Unknown Uncoded 03/09/25 05:33 1 Review of Systems Review of Systems: Yes all other systems are reviewed and are negative PMF Past Medical History Medical History Hypertension Anxiety Surgical History History of colonoscopy Family History Family History Father Dementia Mother Melanoma Social History Social History Household Members: Significant Other Housing: House Alcohol intake: current Alcohol intake frequency: a few times a month Alcohol type: beer and hard liquor Patient Tobacco Use Status: Never used Tobacco Smoked in Last 30 Days: Yes e-Cigarette/Vaping Use: Never Used Second Hand Smoke Exposure: Yes Use of substances other than those prescribed or required for medical reasons: No Substance Use Type: Marijuana Advance Directives: Yes Advance Directives on File: Yes Advance Directives Date on File: 01/13/24 Do you have a plan to hurt others: No Plan service: Yes Current occupational status: retired Cognitive needs: No Hearing needs: No Vision needs: Yes Physical Exam Vital Signs: Vital Signs: Last Vital Signs Temp 98.3 F 03/09/25 07:03 Pulse 75 03/09/25 07:03 Resp 14 03/09/25 07:03 BP 132/90 H 03/09/25 07:03 Pulse Ox 96 03/09/25 07:03 O2 Del Method Room Air 03/09/25 07:03 BMI result Body Mass Index 26.1 Appearance: Alert. Oriented X3. No acute distress. Anxious Eyes: PERRLA, No Nystagmus ENT: Pharynx normal. Oral Mucosa moist Neck: Normal inspection. Neck supple. CVS: Normal heart rate and rhythm. Pulses normal. Respiratory: No respiratory distress. Equal air entry bilateral, no wheezing/rales/rhonchi Abdomen: Soft and nontender. Bowel sounds are present, no mass palpable, no CVA tenderness Skin: Skin warm and dry. Normal skin color. Normal skin turgor. Extremities: No lower extremity edema. No calf tenderness Psych: Anxious denies any SI or HI Neuro: Oriented X 3. No motor deficit. No sensory deficit.No cerebellar signs , cranial nerves II-XII intact Medications Administered Discontinued Medications Generic Name Dose Route Start Last Admin Trade Name Freq PRN Reason Stop Dose Admin Lisinopril 30 mg 03/09/25 05:50 03/09/25 05:57 Lisinopril 10 Mg Tablet PO 03/09/25 05:51 30 mg ONCE ONE Administration Protocol Lorazepam 2 mg 03/09/25 05:50 03/09/25 05:57 Lorazepam 1 Mg Tablet PO 03/09/25 05:51 2 mg ONCE ONE Administration Medical Decision Making Medical Decision Making MDM Narrative: Patient has acute anxiety blood pressure was elevated responded to his blood pressure medication anxiety medication give him instruction to follow up as outpatient also give the prescription was Zoloft Discharge Plan Discharge Clinical Impression: Acute anxiety, Hypertension Patient Disposition: Home, Self-Care Instructions: Chronic Hypertension (ED), Anxiety (ED) Additional Instructions: Take medication for anxiety and hypertension follow up with your therapist/PCP Prescriptions: New sertraline [Zoloft] 50 mg tablet 50 mg PO DAILY Qty: 30 0RF No Action metformin 500 mg tablet 500 mg PO DAILY Qty: 90 1RF lisinopril 30 mg tablet 30 mg PO DAILY Qty: 90 1RF metoprolol succinate 25 mg tablet extended release 24 hr 25 mg PO DAILY 90 Days Qty: 90 1RF clonidine HCl 0.1 mg tablet 0.1 mg PO BID PRN (Reason: anxiety and withdrawal symptoms) clonidine HCl 0.1 mg tablet 0.1 mg PO BID PRN (Reason: anxiety) Qty: 20 0RF amlodipine 2.5 mg tablet 2.5 mg PO DAILY Qty: 90 1RF rosuvastatin 5 mg tablet 5 mg PO DAILY 90 Days Qty: 90 1RF baclofen 10 mg tablet 10 mg PO BID PRN (Reason: muscle spasm) 7 Days Qty: 14 0RF lorazepam 0.5 mg tablet 0.5 mg PO DAILY PRN (Reason: anxiety) 7 Days Qty: 7 0RF Interventions: ED Discharge Assessment Last Done: 03/09/25 07:03 Discharge Date/Time: 03/09/25 07:26 Print Language: Hebrew
[2025-03-09] MEDS: lisinopriL 10 MG TABLET 30 MG PO (05:57)
[2025-03-09] MEDS: LORazepam 1 MG TABLET 2 MG PO (05:57)
[2025-03-09 06:04] VITALS: BP 206/112; PULSE 75; RESP 18; O2SAT 98
--- NOTE | 2025-03-09 06:06 | PC.NURSE ---
a&ox4. vss and up to date aside from being hypertensive - denies any chest pain/palpitations/dizziness/lightheadedness. pt presents to the ED c/o increased depression/anxiety over the past month but more specifically over the past two week s/p receiving OUI. denies SI/HI. using medications at home w/ little to no relief. pt medicated per provider order. effectiveness pending. on RA w/o difficulty. no sob/wob noted. respirations even/unlabored. lights dimmed to promote comfort. plan of care ongoing. call [facility] placed within reach.
[2025-03-09 07:03] VITALS: BP 132/90; PULSE 75; RESP 14; TEMP 36.8; O2SAT 96
== END 2025-03-09 07:26 | disposition home or self-care (01) ==
PROVIDERS: Emergency Provider Internal Medicine; PCP Physician Assistant
DX: F41.9 Anxiety disorder, unspecified (principal); R45.851 Suicidal ideations; I10 Essential (primary) hypertension; Z79.899 Other long term (current) drug therapy
CPT/HCPCS: 99283; 99284

== ENCOUNTER 2025-03-14 11:53 | Inpatient (IN) | payer MEDICARE, SELFPAY ==
[2025-03-14] VITALS (9 sets, daily range): BP systolic 81–232; BP diastolic 47–112; PULSE 52–77; RESP 12–18; TEMP 36.2–37.2; O2SAT 95–97; BMI 26.0
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
--- NOTE | 2025-03-14 12:05 | ECG_ITS ---
Test Reason : hyperten Blood Pressure : */* mmHG Vent. Rate : 63 BPM Atrial Rate : 63 BPM P-R Int : 162 ms QRS Dur : 106 ms QT Int : 398 ms P-R-T Axes : 71 47 65 degrees QTcB Int : 407 ms Normal sinus rhythm Incomplete right bundle branch block Borderline ECG When compared with ECG of 24-Jul-2024 14:47, No significant change was found Referred By: Keith Naylor Electronically Signed By: IVET CONNER MD
[2025-03-14 12:23] LABS: MANUAL DIFF FLAG NO
[2025-03-14 12:24] LABS: Basophils Percent Auto 0.3 % (0-2); Eosinophils Percent Auto 0.1 % (0-4); Hematocrit 46.1 % (42.0-52.0); Hemoglobin 16.1 g/dl (14.0-18.0); Imm Gran Abs Auto 0.06 X10*3/uL (0.00-0.03); Imm Gran Pct Auto 0.4 % (0.0-0.4); Lymphocytes Absolute Auto 1.3 X10*3/uL (1.2-4.9); Lymphocytes Percent Auto 9.7 % (20-40); Mean Corpuscular HGB Conc 34.9 g/dl (31.0-36.0); Mean Corpuscular Hemoglobin 29.9 pg (27.0-33.0); Mean Corpuscular Volume 85.7 fL (80.0-98.0); Monocytes Absolute Auto 0.7 X10*3/uL (0.1-1.2); Monocytes Percent Auto 5.3 % (2-11); Neutrophils Absolute Auto 11.5 x10*3/uL (2.0-8.3); Neutrophils Percent Auto 84.2 % (45-73); Platelet Count 272 X10*3/uL (160-400); Red Blood Count 5.38 X10*6/uL (4.60-5.80); Red Cell Distribution Width 11.9 % (11.0-16.0); White Blood Count 13.6 X10*3/uL (4.8-10.8)
--- NOTE | 2025-03-14 12:29 | PC.NURSE ---
Patient presents to ED c/o of depression which has started 2 weeks ago. Patient reports being started on zoloft last tuesday and has been med compliant. Denies SI/HI, Denies pain, denies SOB. Patient hypertensive but all other vitals are normal. Patient changed in ruthie. Plan of care on going
[2025-03-14 12:38] LABS: Acetaminophen LAB < 3 mcg/mL (<30); Alanine Aminotransferase 23 U/L (0-40); Albumin Level 4.8 g/dL (3.5-5.0); Alkaline Phosphatase 81 U/L (39-117); Anion Gap 15 (12-20); Aspartate Amino Transferase 25 U/L (5-37); Bilirubin Total 0.7 mg/dL (0.0-1.0); Blood Urea Nitrogen 15 mg/dL (9-16); Calcium 10.1 mg/dL (8.4-10.2); Carbon Dioxide 23 mmol/L (22-29); Chloride 101 mmol/L (96-108); Creatinine Clr Calc Pharmacy 70.8; Estimated Glomerular Filt Rate > 60; Ethanol 11 mg/dL; Glucose Random 179 mg/dL (60-115); Potassium 4.5 mmol/L (3.3-5.1); Salicylate < 5.0 mg/dL (15-30); Sodium 134 mmol/L (135-145); Total Protein 7.8 g/dL (6.5-8.0)
[2025-03-14 12:40] LABS: Amphetamine Screen Urine Not Detected (Not Detect); Barbiturates, Urine Not Detected (Not Detect); Benzodiazepines Screen Urine Not Detected (Not Detect); Buprenorphine Scr Not Detected (Not Detect); Cannabinoid Screen Urine Not Detected (Not Detect); Cocaine Screen Urine Not Detected (Not Detect); Fentanyl, urine Not Detected (Not Detect); Methadone Screen, Urine Not Detected (Not Detect); Opiate Screen Urine Not Detected (Not Detect); Oxycodone Screen Urine Not Detected (Not Detect); Phencyclidine Screen Urine Not Detected (Not Detect)
--- OUTSIDE RECORDS SUMMARY | 2025-03-14 13:07 | XMS_ITS | Clinical Summary ---
Author Organization [facility] Address [address] [place] [address] Care Team Providers Care Termite Treater Helper Name Role Phone Unavailable Primary Care Provider Unavailabl e Source Comments PLEASE NOTE, if this patient is a minor, it may be UNLAWFUL to discuss sensitive information that is contained in these records (such as FAMILY PLANNING, MENTAL HEALTH or SUBSTANCE ABUSE) with the minor patient's parent or other person without the patient's specific authorization.[facility] Immunizations Immunization Administration Dates Next Due Moderna COVID-19 Vaccine, re d cap blue label, 12+ Primary Series 03/04/2021,02/04/2021 Social History Tobacco Use Types Packs/Day Years Used Date Smoking Tobacco: Never Assessed Social Connections Answer Date Recorded Social Connections and Isolation 0 02/04/2021 Financial Resource Strain Answer Date R ecorded Financial Resource Strain 0 2020 Stress Answer Date Recorded Stress 0 02/04/2021 Physical Activity Answer Date Recorded Physical Activity 0 02/04/2021 Food Insecurity Answer Date Recorded Food 0 02/04/2021 Transportation Needs Answer Date Record ed Transportation 0 02/04/2021 Housing Stability Answer Date Recorded Housing 0 02/04/2021 Safety and Environment Answer Date Efrain rded Safety 0 02/04/2021 Utilities Answer Date Recorded Utilities 0 02/04/2021 Employment Answer Date Recorded Employment 0 02/04/2021 Sex and Gender Information Value Date Recorded Sex Assigned at Not on file Legal Sex Male 5:52 AM PDT Gender Identity Not on file Sexual Orientation Not on file Plan of Treatment Health Maintenance Due Date Last Done Comments Diabetes Screening 1955 Hepatitis C Screening 1956 Lipid Screening 1956 Tobacco Screening 1955 Hypertension Screening (#1) 1974 CT Colonography 2001 Colonoscopy 2001 Colorectal Cancer Screening 2001 FIT/gFOBT 2001 Fecal DNA 2001 Flexible Sigmoidoscopy 2001 Imm-Zoster, Recombinant (1 of 2) 2006 Imm-Pneumococcal 65+ (2 of 2 - PCV) 01/21/201701/21 Abdominal Aortic Aneurysm Screening 2021 Falls Prevention 2021 [id number] (3 - 2023- season) 2024 021, 02/04/2021 Imm-Influenza (#1) 2024 Alcohol and Drug Screen 10/31/2024 Depression Annual Screen 10/31/2024 Imm-DTaP/Tdap/Td (2 - Td or Tdap) 11/28/2025 016 Insurance [employer] Member Subscriber Plan / Payer (Ef fective 2021-Present) Name:Gerard Duffy Relation to Subscriber:Self Name:Gerard Duffy Payer ID:[id number] Type:Indemnity Address: [address] [address]
[2025-03-14] MEDS: lisinopriL 40 MG TABLET PO (13:30)
[2025-03-14] MEDS: cloNIDine HCL 0.2 MG TABLET PO (13:30)
[2025-03-14] MEDS: hydrOXYzine HCL 50 MG TABLET PO (13:30)
[2025-03-14 14:33] LABS: Troponin-I High Sensitivity 56.7 ng/L (<3.5-35.0)
[2025-03-14 15:46] LABS: Troponin-I High Sensitivity 106.1 ng/L (<3.5-35.0)
--- NOTE | 2025-03-14 16:07 | MHC.CARE ---
Patient will be referred to [facility] for a 3 day follow up and referral to outpatient services. Patient has also been referred to Recovery Team to discuss additional services.
--- NOTE | 2025-03-14 16:33 | MHC.RECOVRN ---
It was requested that t/w meet with pt. in ED bed 3 to provide him with resources on outpt. [facility]UL[facility]. Written and verbal resources provided and t/w called [facility] with pt. for appt. to meet and discuss [facility]. Appt is 03/22 at 10:15AM. Pt has info for appt.
[2025-03-14] MEDS: 0.9 % Sodium Chloride 1,000 ML 999 ML IV (16:54)
--- NOTE | 2025-03-14 17:05 | PC.NURSE ---
20G placed in left forearm, currently running NaCl 1 L
[2025-03-14 17:39] LABS: Troponin-I High Sensitivity 136.7 ng/L (<3.5-35.0)
--- NOTE | 2025-03-14 18:18 | PHA.MEDREC ---
Addendum entered by Rach See RPh 03/14/25 18:23: reviewed by [facility]. Original Note: Pharmacy Consult ? Medication Reconciliation Pharmacy has completed the medication reconciliation. Spoke to patient to confirm med list. Patient states he is no longer taking Amlodipine 2.5 mg, Baclofen 10 mg and Rosuvastatin 5 mg. Patient states he takes Clonidine BCl 0.1 mg , however last fill date was 07/25/24 for 10 days.
--- NOTE | 2025-03-14 19:11 | P.HPHOSP_ITS ---
History of Present Illness Date of Service: 03/14/25 Attending physician on admission: Polly Jenkins Chief Complaint: HTN Patient is a 70-year-old male with past medical history hypertension, tui-iwukvip-uwhqiipto diabetes, hyperlipidemia, , anxiety with panic disorder, depression, alcohol use disorder with frequent withdrawal symptoms presents to the emergency department for issues related to high blood pressure. Patient checked his blood pressure at home and it was 187/90, heart rate in the 50s. Patient states he has been told his heart rate usually is in the 50s. Patient is somewhat athletic mostly skis during the winter. Pt received clonidine in the ED and BP has normalized. Pt has been having increased anxiety since being arrested for a DUI recently. Patient's last drink was Mar 08 2025. Pt uses alcohol 2-3 times a month but when he drinks, he drinks heavily using shots, spiked seltzers and beer. Pt states his withdrawal symptoms including jitters are worsening with each episode of drinking. Patient has now lost his license as this is not his first OUI. Toxicology screen today negative and pt denies use of marijuana, illict drugs or hx of IVDA. Patient is currently retired but the inability to drive has increased his boredom and has increased his desire to drink alcohol. Pt was in the ED this past Tuesday for anxiety and was started on Zoloft per pt report. Pt denies any SI, HI today. Patient denies any chronic liver issues, hepatitis-C, B or pancreatitis history. Incidentally patient's troponins were rising during his ED visit (56, 106, 136) . Patient denies any chest pain, palpitations, nausea or vomiting. Patient is being admitted under observation for monitoring with repeat troponin in the a.m. and consultation with Cardiology. Noted ECG with SInus Des, Incomplete RBBB. Patient also reporting intermittent diarrhea/soft formed stool over the last 2 weeks with fair appetite secondary patient attributes a lot of this to stress. Patient has had colonoscopy in the past, and years prior and results were normal. Patient reports about a 6-7 lb weight loss over the last month. LFTs were within normal limits. Total bilirubin 0.7. Patient still has his gallbladder. Review of Systems 2 Review of Systems: Patient currently denying any chest pain, nausea, vomiting, abdominal pain, shortness of breath at rest or with exertion. Patient denies any headache or visual changes. Patient denies any recent falls. Patient states appetite has been fair with intermittent diarrhea over the last 2 weeks.. [facility] Medical History Hypertension Anxiety Cognitive capacity: Alert and orientated x3 Family History Father Dementia Mother Melanoma Surgical History History of colonoscopy Social History Household Members: Significant Other Housing: House Alcohol intake: current Alcohol intake frequency: a few times a month Alcohol type: beer and hard liquor Patient Tobacco Use Status: Never used Tobacco Smoked in Last 30 Days: Yes e-Cigarette/Vaping Use: Never Used Second Hand Smoke Exposure: Yes Use of substances other than those prescribed or required for medical reasons: No Substance Use Type: Marijuana Advance Directives: Yes Advance Directives on File: Yes Advance Directives Date on File: 01/13/24 Nutrition Risks: No Nutritional Risk service: Yes Current occupational status: retired Cognitive needs: No Hearing needs: No Vision needs: Yes Ebola Risk: Travel/Contact With Anyone From Affected Area/s: No Has Patient Experienced Ebola Symptoms: No Meds Allergies Allergy/AdvReac Type Severity Reaction Status Date / Time AVOID HCTZ - hyponatremia - Allergy Unknown Unknown Uncoded 03/14/25 12:07 1 Active Medications: Current Medications Acetaminophen (Acetaminophen 325 Mg Tablet) 650 mg PO Q6H PRN PRN Reason: Pain, Mild 1-3,fever,headache Calcium Carbonate (Calcium Carbonate 750 Mg Tab.Chew) 750 mg PO Q4H PRN PRN Reason: Heartburn Dextrose (Dextrose 50 % 25 Gm/50 Ml Syringe) 25 gm IVPUSH Q15M PRN; Protocol PRN Reason: per Hypoglycemia Standing Ord. Glucose (Glucose Gel 15 Gm Gel..Gram.) 15 gm PO Q15M PRN; Protocol PRN Reason: per Hypoglycemia Standing Ord. Insulin Human Lispro (Insulin Lispro 100 Unit/Ml 3 Ml Vial) 0 unit SUBCUT QIDACHS KEELEY; Protocol Magnesium Hydroxide (Milk Of Magnesia 30 Ml Oral.Susp) 30 ml PO DAILY PRN PRN Reason: Constipation Melatonin (Melatonin 3 Mg Tablet) 6 mg PO BEDTIME PRN PRN Reason: Insomnia Sodium Chloride (0.9 % Sodium Chloride Flush 3 Ml Syringe) 3 ml IVFLUSH QSHIFT [facility] Home Medications ?Medication ?Instructions ?Recorded ?Confirmed ?Last Taken ?Type clonidine HCl 0.1 mg tablet 0.1 mg PO BID PRN anxiety and 01/12/24 03/14/25 Unknown History withdrawal symptoms Physical Exam 2 Vital Signs and Narrative: Vital Signs: Last Vital Signs Temp 97.1 F 03/14/25 16:54 Pulse 52 03/14/25 16:54 Resp 12 03/14/25 16:54 BP 130/78 03/14/25 16:54 Pulse Ox 97 03/14/25 16:54 O2 Del Method Room Air 03/14/25 16:54 BMI result Body Mass Index 26.0 Alert and orientated X3, able to give good history. Neuro: CN II-X11 intact, no deficits, visual acuity intact EYES: PERRLA, EOM intact ENT: hearing intact, no issues with swallowing, uvula midline, lips moist, nares patent no epistaxis Cardiac: S1 S2 bradycardia, incomplete RBBB, ECG with Normal AL and Qtc. no murmur, no JVD, no edema in Lower ext Pulmonary: lungs clear to auscultation B Abdominal: BS active in all 4 quadrants, no guarding, tenderness, rebounding, no hepatomegaly MSK: strength 5/5 upper and lower extremities : no CVA tenderness no bladder distension Extremities: no edema in lower extremities, PT and DP pulses palpable +2 Psych: mood stable, judgement and insight good Skin: Intact Results Labs 03/14/25 12:11 03/14/25 12:11 Labs: Laboratory Results - last 24 hr 03/14/25 03/14/25 12:11 12:19 MCV 85.7 MCH 29.9 MCHC 34.9 RDW 11.9 Plt Count 272 D MPV 9.0 L Immature Gran % (Auto) 0.4 Neut % (Auto) 84.2 H Lymph % (Auto) 9.7 L [place] % (Auto) 5.3 Eos % (Auto) 0.1 Baso % (Auto) 0.3 Lymph # (Auto) 1.3 [place] # (Auto) 0.7 Eos # (Auto) 0.0 Baso # (Auto) 0.0 Abs Immat Gran (auto) 0.06 H Absolute Neuts (auto) 11.5 H Absolute Nucleated RBC 0.000 Nucleated RBC % (auto) 0.0 Anion Gap 15 Estim Creat Clear Calc 70.8 Estimated GFR > 60 Random Glucose 179 H Calcium 10.1 D Total Bilirubin 0.7 AST 25 ALT 23 Alkaline Phosphatase 81 Total Protein 7.8 Albumin 4.8 Salicylates < 5.0 L Urine Opiates Screen Not Detected Ur Buprenorphine Scrn Not Detected Ur Oxycodone Screen Not Detected Urine Methadone Screen Not Detected Urine Fentanyl Screen Not Detected Acetaminophen < 3 Ur Barbiturates Screen Not Detected Ur Phencyclidine Scrn Not Detected Ur Amphetamines Screen Not Detected U Benzodiazepines Scrn Not Detected Urine Cocaine Screen Not Detected U Marijuana (THC) Screen Not Detected Ethyl Alcohol 11 ECG Attestation: I personally reviewed and interpreted this ECG as follows: (Normal sinus rhythm Incomplete right bundle branch block Borderline ECG) Prior ECG tracings: available for review Assessment and Plan (1) Elevated troponin: Status: Acute Plan Patient is a 70-year-old male with past medical history hypertension, jvr-kldnash-ktzlfqzbe diabetes, hyperlipidemia, , anxiety with panic disorder, depression, alcohol use disorder with frequent withdrawal symptoms was seen in the emergency department for elevated blood pressure noted at home. Patient dealing with extreme anxiety and has a history of anxiety with panic attacks secondary to recent DUI arrest secondary to alcohol abuse. 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 Incidentally patient's troponins noted to be on the rise. Patient is not complaining of chest pain. Plan is to admit under observation with a.m. troponin and cardiology consultation. Hypertension -patient received clonidine 0.2 mg in the ED, blood pressure now well controlled -we will need to hold patient's usual antihypertensives including lisinopril and metoprolol due to patient's current blood pressure, resume medications in the morning if blood pressure has normalized -low-sodium diet Elevated troponin -56, 106, 136, repeat in AM per cardiology -Cardiology consulted -BNP, LIPID panel pending, if BNP elevated consider ECHO Bradycardia -not new per pt -IRBBB on ECG -Monitor on tele overnight -If any issues, consult cardiology -MG 1.9 -TSH pending -Pt normally on metoprolol succinate 25 mgs QD, consider holding/ reviewing with cardiology Alcohol use disorder -ongoing for years with increased use since half-way -DUI recently, pt lost license as this was not his first offense -Thiamine and Folic Acid ordered -MG 1.9, will give 1 gm MG -patient has information on outpatient programs as well as naltrexone -last drink 03/08/2025, CIWA is ordered just in case noting that patient states his withdrawal symptoms are increasingly worse with every episode of drinking. Patient currently asymptomatic -noted intermittent diarrhea with fair appetite and 6 lb weight loss over the last month to 2 months, nothing conclusive to workup at this time as labs and clinical exam are reassuring Patient may need GI consultation as an outpatient if his symptoms persist -No SI, HI this admission Ebv-zcrjqhf-afqwplktz diabetes mellitus -hold metformin -sliding scale insulin -diabetic diet Anxiety/history of panic attacks/depression -continue Zoloft -patient is not having any active SI or HI -no indication for section 12 were psychiatric consultation DVT prophylaxis: Lovenox PPI prophylaxis: Omeprazole Med rec pending Full Code status Quality Stroke Does the patient have a stroke diagnosis?: No Reason for No Anti-thrombotic by Day Two: N/A - Med Ordered VTE Prior VTE?: No VTE Risk Level:: Medical - low VTE Device Contraindication: Treatment Not Indicated VTE Drug Contraindication: Treatment Not Indicated
[2025-03-14 19:44] LABS: Magnesium 1.9 mg/dL (1.6-2.6)
[2025-03-14 19:59] LABS: Thyroid Stimulating Hormone 0.72 uIU/mL (0.32-4.0)
[2025-03-14 20:17] LABS: Lipase 18 U/L (8-78)
[2025-03-14 20:30] LABS: Glucose, Whole Blood 178 mg/dL (60-115)
[2025-03-14] MEDS: Insulin Lispro 100 UNIT/ML 3 ML VIAL SUBCUT (20:45)
[2025-03-14] MEDS: Magnesium Sulfate/D5W 1 GM/100 ML PIGGYBACK IV (20:47)
[2025-03-14] MEDS: 0.9 % Sodium Chloride Flush 3 ML SYRINGE IVFLUSH (22:56)
[2025-03-14] MEDS: Albumin Human 25 % 50 ML 100 ML IV (23:25)
[2025-03-14] MEDS: 0.9 % Sodium Chloride 500 ML IV (23:26)
[2025-03-15] VITALS (13 sets, daily range): BP systolic 88–189; BP diastolic 42–93; PULSE 34–77; RESP 11–24; TEMP 36.2–37.1; O2SAT 95–98
--- NOTE | 2025-03-15 | ECG_ITS ---
Test Reason : bradycardia hypotension Blood Pressure : */* mmHG Vent. Rate : 51 BPM Atrial Rate : 51 BPM P-R Int : 216 ms QRS Dur : 114 ms QT Int : 492 ms P-R-T Axes : 67 39 54 degrees QTcB Int : 453 ms Sinus bradycardia with 1st degree A-V block Otherwise normal ECG When compared with ECG of 14-Mar-2025 12:11, [place] interval has increased Referred By: Michelle Lama Electronically Signed By: IVET CONNER MD
[2025-03-15] MEDS: Albumin Human 25 % 50 ML 100 ML IV ×2 (02:12→02:33)
--- NOTE | 2025-03-15 02:14 | PC.NURSE ---
pt heart rate dropped to 34 inpatient provider messaged and EKG obtained MANNEQUIN MAKER Michelle Kelby at bedside verbal order given for 1 L NS and 25% Albumin ordered
[2025-03-15] MEDS: 0.9 % Sodium Chloride 1,000 ML 1000 ML IVCONT (02:18)
[2025-03-15] MEDS: Atropine Sulfate 1 MG/10 ML SYRINGE 0.5 MG IVPUSH ×2 (02:25→02:48)
--- NOTE | 2025-03-15 02:40 | P.EN_ITS ---
Event Note Date of Service: 03/15/25 Event Note: Received call from nursing, Pt's BP low, 81/46, HR 48. Pt sleeping, asymptomatic. Pt had received 0.2 clonidine in ED. Ordered 12.5 albumin andf 500 ccs of fluid. By 0210, pt now with HR 38, BP 101 systolic, ECG first degree AVB with CT 212. Pt remains asymptomatic. Additional 1 L of fluid provided and 25 G albumin. Reviewed case with Dr. Jenkins, requested atropine. A total of 1.0 mg given with no change in HR. BP continues to stablizile. Found that if pt sits mo re upright, HR stays in the mid 40's. Pt interviewed further, denies chest pain or SOB but reports multiple TIC bites, most recently 1-2 weeks ago. Pt has never been tested for treated for Lyme's disease prior. DOxycyline started empirically and ordered Tick borne panel with AM labs. Cardiology and echo pending. Metoprolol not ordered. Dr. Jenkins updated on pt's overall codition and updated medical hx, agrees with plan. Time Spent With Patient Time: Total time managing care of this patient today ____ minutes.
[2025-03-15] MEDS: Doxycycline Monohydrate 100 MG CAPSULE PO ×3 (02:46→22:03)
[2025-03-15] MEDS: Omeprazole 20 MG CAPSULE.DR PO (06:24)
[2025-03-15 06:30] LABS: Hematocrit 37.1 % (42.0-52.0); Hemoglobin 12.9 g/dl (14.0-18.0); Mean Corpuscular HGB Conc 34.8 g/dl (31.0-36.0); Mean Corpuscular Hemoglobin 30.2 pg (27.0-33.0); Mean Corpuscular Volume 86.9 fL (80.0-98.0); Mean Platelet Volume 9.2 fL (9.4-12.4); Platelet Count 190 X10*3/uL (160-400); Red Blood Count 4.27 X10*6/uL (4.60-5.80); Red Cell Distribution Width 12.3 % (11.0-16.0); White Blood Count 7.8 X10*3/uL (4.8-10.8)
--- NOTE | 2025-03-15 07:00 | CA_ITS ---
Transthoracic Echocardiogram Patient (Last, First, Middle): Gerard Duffy P Gender: Male Date of : 1955 Age: 70 Procedure Date: 03/15/2025 Procedure Type: Transthoracic Echocardiogram Location: ER Height: 182.88 cm Weight: 86.64 kg BSA: 2.09 m2 Heart Rate: 48 bpm BP: 105 / 59 mmHg Rubber Block Layer: MARY Referring MD: Tez ROTH Head Of Human Resources: Stevo Drake MD Symptoms: Elevated trops Study Quality: Adequate ECG Rhythm: Bradycardia Conclusions: - 1. Normal LV ejection fraction of 65-70% with mild LVH 2. Mildly dilated left atrium 3. Cardiac valvular Dopplers within normal limits 4. Normal RV systolic pressure 5. Mildly dilated ascending aorta 6. No gross pericardial effusion Findings Left Ventricle Normal left ventricular size and systolic function. There is mildly increased left ventricular wall thickness. The visually estimated ejection fraction is between 65-70%. Spectral Doppler is indicative of an impaired relaxation filling pattern. E/E prime ratio is between 8 and 15 consistent with indeterminate filling pressures. Right Ventricle Normal right ventricular cavity size and systolic function. Atria The left atrium is mildly dilated. There is lipomatous hypertrophy of the interatrial septum. There is no evidence of interatrial shunt. The right atrium is normal in size. Aortic Valve Normal aortic valve structure and function. There is no aortic valve stenosis. There is no aortic valve regurgitation. Mitral Valve Normal mitral valve structure and function. There is trace mitral valve regurgitation. There is no mitral valve stenosis. Pulmonic Valve The pulmonic valve is likely normal. Tricuspid Valve Normal tricuspid valve structure. There is trace tricuspid valve regurgitation. The right ventricular systolic pressure is normal. The right ventricular systolic pressure is 26 mmHg. Normal right atrial pressure. There is no evidence of pulmonary hypertension. Great Vessels The pulmonary artery was not well visualized. There is mild dilatation of the ascending aorta measuring 3.80 cm. Venous The inferior vena cava is normal in size and collapses greater than 50% with inspiration. Pericardium/Pleural There is no evidence of pericardial effusion. Prior Study Comparison No significant change compared to prior study dated: 01/13/2024. Measurements 2D Linear Measurements IVSd: 1.31 0.6-0.9/0.6-1.0 cm LVIDd: 4.82 3.9-5.3/4.2-5.9 cm LVIDd Index: 2.31 2.4-3.2/2.2-3.1 cm/m2 LVIDs: 2.94 2.0-3.6 cm LVPWd: 1.31 0.7-1.1 cm LA Diam: 3.80 2.7-3.8/3.0-4.0 cm LAIDs Index: 1.82 1.5-2.3 cm/m2 LV Mass: 311.84 67-162/88-224 g LV Mass Index: 149.21 43-95/49-115 g/m2 LVOT Diam: 2.40 3.0+(-)1.3 cm Mitral Valve MV Pk E: 0.70 MV PK A: 0.60 MV Decel Time: 252.00 E/A: 1.20 E'Lateral: 10.30 E'Medial: 6.31 E/E' Med: 11.10 E/E' Lat: 6.80 PHT: 74.00 MVA PHT: 2.97 Decel Coryell: 2.78 Aortic Valve AoV Pk Michael: 1.65 AoV Mn Michael: 1.00 AoV VTI: 0.35 AoV Pk Grad: 11.00 Aov Mn Grad: 5.00 LAMONTE Cont.VTI: 3.58 LVOT LVOT Pk Michael: 1.30 LVOT Mn Michael: 0.83 LVOT VTI: 0.28 LVOT Pk Grad: 7.00 LVOT Mn Grad: 3.00 LVOT Diam: 2.40 LVOT Area: 4.52 Diastolic Function MV Pk E: 0.70 MV Pk A: 0.60 E/A: 1.20 E'Medial: 6.31 E/E' Med: 11.10 E' Laterial: 10.30 E/E' Lat: 6.80 Right Ventricle TAPSE (mm): 30.10 TVS' Michael: 15.40 Tricuspid Valve TR Pk Michael: 2.38 TR Pk Grad: 23.00 RA Press: 3.00 RVSP: 26.00 Great Vessels Aorta Sinus of Valsalva: 3.50 2.0-3.5 cm Ao Asc: 3.80 2.1-3.4 cm Pulmonary Valve PV Pk Michael: 0.94 Peak PV Grad: 4.00 Updated in Other Vendor System with Status of Final Stevo Drake MD electronically signed on 03/15/2025 3:59:45 PM with status of Final
[2025-03-15 07:04] LABS: B Type Natriuretic Peptide 53 pg/mL (<100)
[2025-03-15 07:16] LABS: Cholesterol 134 mg/dL (<200); HDL Cholesterol 28 mg/dL (>40); LDL Cholesterol Calculated 89 mg/dL (<100); Triglycerides 89 mg/dL (<150)
[2025-03-15 07:17] LABS: Glucose, Whole Blood 134 mg/dL (60-115)
[2025-03-15 07:17] LABS: Anion Gap 12 (12-20); Blood Urea Nitrogen 19 mg/dL (9-16); Carbon Dioxide 22 mmol/L (22-29); Chloride 108 mmol/L (96-108); Estimated Glomerular Filt Rate > 60; Glucose Random 134 mg/dL (60-115); Potassium 4.6 mmol/L (3.3-5.1); Sodium 137 mmol/L (135-145)
[2025-03-15 07:32] LABS: Calcium 8.6 mg/dL (8.4-10.2)
--- NOTE | 2025-03-15 07:48 | PC.NURSE ---
assumed care of patient at 0700, patient awakes to verbal stimuli. VSS, patient states he has no pain. patient states he did not sleep well. patient ambulates with steady gait to the bathroom. patient noted to be sleeping and will become bradycardic, lowest is 38-45 bpm, when patient awakes rate stays between 55-75. patient is asymptomatic
[2025-03-15 09:57] LABS: Troponin-I High Sensitivity 37.8 ng/L (<3.5-35.0)
[2025-03-15] MEDS: lisinopriL 10 MG TABLET 30 MG PO (10:21)
[2025-03-15] MEDS: Sertraline HCL 50 MG TABLET PO (10:21)
[2025-03-15] MEDS: Folic Acid 1 MG TABLET PO (10:21)
[2025-03-15] MEDS: Thiamine HCL 100 MG TABLET PO (10:21)
--- NOTE | 2025-03-15 10:46 | PM.CNCAR ---
History of Present Illness History of Present Illness Date of Service: 03/15/25 Requesting physician: Lonnie Patiño Consult reason: troponin elevation Chief complaint: Elevated Trops Narrative: I was consulted to see Charline in cardiology consultation today for troponin elevation. Patient is 70-year-old male with anxiety disorder, alcoholic disorder, hypotension present as he has recently lost his ability to drive and lost his license and has been homebound and said he has been getting very anxious. He also has a legal ramírez to reclaim in his license. He said he got very stressed and anxious because of loss of his independence and being dependent on the people and he came to the hospital as he notice that his blood pressure is elevated. When he noted his blood pressure to be elevated he came here. He denied any chest pain or shortness of breath. Denied any palpitations. No other cardiac symptoms. His EKG was nonischemic. However troponin was done for unclear reason. His troponins elevated and there was rising troponin with a delta of greater than 50 %. At that point time we discussed about further observing him for trending troponins and obtaining an echocardiogram. No repeat troponins were done yesterday although this morning to troponins down trended. Still minimally elevated. His echo was done at bedside which shows normal LV ejection fraction without any regional wall motion abnormality. Patient continues to deny chest pain. Blood pressure is stabilized. He is less anxious. Review of Systems Constitutional: Constitutional: Reports other ([place] very anxious) Eyes: Eyes: Reports no additional eye complaints ENT: Reports system reviewed and no additional complaints, except as documented Cardiovascular: Cardiovascular: Reports no additional cardiovascular complaints and Reports other (Elevated blood pressure) Respiratory: Respiratory: Reports no additional respiratory complaints Gastrointestinal: Gastrointestinal: Reports no additional gastrointestinal complaints Genitourinary: Genitourinary: Reports no additional male genitourinary complaints Neurologic: Reports system reviewed and no additional complaints, except as documented Allergic/Immunologic: Allergic/Immunologic: Reports no additional allergic/immunologic complaints PMFSH Past Medical History Medical History Hypertension Anxiety Family History Family History Father Dementia Mother Melanoma Surgical History Surgical History History of colonoscopy Social History Social History Household Members: Significant Other Housing: House Alcohol intake: current Alcohol intake frequency: a few times a month Alcohol type: beer and hard liquor Patient Tobacco Use Status: Never used Tobacco Smoked in Last 30 Days: Yes e-Cigarette/Vaping Use: Never Used Second Hand Smoke Exposure: Yes Use of substances other than those prescribed or required for medical reasons: No Substance Use Type: Marijuana Advance Directives: Yes Advance Directives on File: Yes Advance Directives Date on File: 01/13/24 Nutrition Risks: No Nutritional Risk service: Yes Current occupational status: retired Cognitive needs: No Hearing needs: No Vision needs: Yes Travel History Ebola Risk: Travel/Contact With Anyone From Affected Area/s: No Has Patient Experienced Ebola Symptoms: No Meds Allergies Allergy/AdvReac Type Severity Reaction Status Date / Time AVOID HCTZ - hyponatremia - Allergy Unknown Unknown Uncoded 03/14/25 12:07 1 Active Medications: Current Medications Acetaminophen (Acetaminophen 325 Mg Tablet) 650 mg PO Q6H PRN PRN Reason: Pain, Mild 1-3,fever,headache Calcium Carbonate (Calcium Carbonate 750 Mg Tab.Chew) 750 mg PO Q4H PRN PRN Reason: Heartburn Dextrose (Dextrose 50 % 25 Gm/50 Ml Syringe) 25 gm IVPUSH Q15M PRN; Protocol PRN Reason: per Hypoglycemia Standing Ord. Doxycycline Monohydrate (Doxycycline Monohydrate 100 Mg Capsule) 100 mg PO BID@1000,2200 [facility] Last Admin: 03/15/25 10:21 Dose: 100 mg Folic Acid (Folic Acid 1 Mg Tablet) 1 mg PO DAILY [facility] Last Admin: 03/15/25 10:21 Dose: 1 mg Glucose (Glucose Gel 15 Gm Gel..Gram.) 15 gm PO Q15M PRN; Protocol PRN Reason: per Hypoglycemia Standing Ord. Insulin Human Lispro (Insulin Lispro 100 Unit/Ml 3 Ml Vial) 0 unit SUBCUT QIDACHS [facility]; Protocol Last Admin: 03/15/25 07:43 Dose: Not Given Lisinopril (Lisinopril 10 Mg Tablet) 30 mg PO DAILY [facility]; Protocol Last Admin: 03/15/25 10:21 Dose: 30 mg Magnesium Hydroxide (Milk Of Magnesia 30 Ml Oral.Susp) 30 ml PO DAILY PRN PRN Reason: Constipation Melatonin (Melatonin 3 Mg Tablet) 6 mg PO BEDTIME PRN PRN Reason: Insomnia Omeprazole (Omeprazole 20 Mg Capsule.) 20 mg PO DAILY@0630 [facility] Last Admin: 03/15/25 06:24 Dose: 20 mg Sertraline HCl (Sertraline Hcl 50 Mg Tablet) 50 mg PO DAILY [facility] Last Admin: 03/15/25 10:21 Dose: 50 mg Sodium Chloride (0.9 % Sodium Chloride Flush 3 Ml Syringe) 3 ml IVFLUSH QSHIFT [facility] Last Admin: 03/15/25 07:51 Dose: Not Given Thiamine HCl (Thiamine Hcl 100 Mg Tablet) 100 mg PO DAILY [facility] Last Admin: 03/15/25 10:21 Dose: 100 mg Home Medications ?Medication ?Instructions ?Recorded ?Confirmed ?Last Taken ?Type clonidine HCl 0.1 mg tablet 0.1 mg PO BID PRN anxiety and 01/12/24 03/14/25 Unknown History withdrawal symptoms Physical Exam Vital Signs: Vital Signs: Last Vital Signs Temp 98.2 F 03/15/25 07:46 Pulse 77 03/15/25 07:46 Resp 16 03/15/25 07:46 BP 130/76 03/15/25 07:46 Pulse Ox 95 03/15/25 07:46 O2 Del Method Room Air 03/15/25 07:46 BMI result Body Mass Index 26.0 Const: General: cooperative, comfortable, no acute distress, alert, awake and anxious Nutritional Appearance: average body habitus Orientation/consciousness: patient oriented x3 Limitations: no limitations HEENT: Head: Yes normocephalic and Yes atraumatic Neck: Neck: Yes trachea midline, Yes supple and Yes no JVD Resp: Effort & Inspection: normal respiratory effort Auscultation: clear to auscultation bilaterally Cardio: Jugular venous distension: no JVD Palpation: normal PMI Rate: regular rate Rhythm: regular rhythm Heart sounds: S1 normal heart sound present, S2 normal heart sound present, no click, no gallops, no murmurs and no rubs GI: Auscultation: normal bowel sounds Skin: General skin exam: no rashes or lesions noted Neuro: General: patient oriented x3 and no focal motor deficits Extrem: General: Yes no clubbing, cyanosis or edema Psych: Affect: Anxious affect present Objective Labs and Meds 03/15/25 06:21 03/15/25 06:21 Lab results: Laboratory Results - last 24 hr 03/14/25 03/14/25 03/14/25 12:11 12:19 15:14 WBC 13.6 H RBC 5.38 Hgb 16.1 Hct 46.1 MCV 85.7 MCH 29.9 MCHC 34.9 RDW 11.9 Plt Count 272 D MPV 9.0 L Immature Gran % (Auto) 0.4 Neut % (Auto) 84.2 H Lymph % (Auto) 9.7 L [place] % (Auto) 5.3 Eos % (Auto) 0.1 Baso % (Auto) 0.3 Lymph # (Auto) 1.3 [place] # (Auto) 0.7 Eos # (Auto) 0.0 Baso # (Auto) 0.0 Abs Immat Gran (auto) 0.06 H Absolute Neuts (auto) 11.5 H Absolute Nucleated RBC 0.000 Nucleated RBC % (auto) 0.0 Sodium 134 L Potassium 4.5 Chloride 101 Carbon Dioxide 23 Anion Gap 15 BUN 15 Creatinine 1.08 Estim Creat Clear Calc 70.8 Estimated GFR > 60 POC Glucose Random Glucose 179 H Calcium 10.1 D Magnesium 1.9 Total Bilirubin 0.7 AST 25 ALT 23 Alkaline Phosphatase 81 Troponin I High Sens 56.7 H D 106.1 H* D B-Natriuretic Peptide Total Protein 7.8 Albumin 4.8 Triglycerides Cholesterol LDL Cholesterol, Calc HDL Cholesterol Lipase 18 TSH 0.72 Free T4 1.10 Salicylates < 5.0 L Urine Opiates Screen Not Detected Ur Buprenorphine Scrn Not Detected Ur Oxycodone Screen Not Detected Urine Methadone Screen Not Detected Urine Fentanyl Screen Not Detected Acetaminophen < 3 Ur Barbiturates Screen Not Detected Ur Phencyclidine Scrn Not Detected Ur Amphetamines Screen Not Detected U Benzodiazepines Scrn Not Detected Urine Cocaine Screen Not Detected U Marijuana (THC) Screen Not Detected Ethyl Alcohol 11 03/14/25 03/14/25 03/15/25 16:52 20:26 06:21 WBC 7.8 RBC 4.27 L D Hgb 12.9 L Hct 37.1 L MCV 86.9 MCH 30.2 MCHC 34.8 RDW 12.3 Plt Count 190 D MPV 9.2 L Immature Gran % (Auto) Neut % (Auto) Lymph % (Auto) [place] % (Auto) Eos % (Auto) Baso % (Auto) Lymph # (Auto) [place] # (Auto) Eos # (Auto) Baso # (Auto) Abs Immat Gran (auto) Absolute Neuts (auto) Absolute Nucleated RBC 0.000 Nucleated RBC % (auto) 0.0 Sodium 137 Potassium 4.6 Chloride 108 Carbon Dioxide 22 Anion Gap 12 BUN 19 H Creatinine 1.02 Estim Creat Clear Calc 75.0 Estimated GFR > 60 POC Glucose 178 H Random Glucose 134 H Calcium 8.6 D Magnesium Total Bilirubin AST ALT Alkaline Phosphatase Troponin I High Sens 136.7 H* B-Natriuretic Peptide 53 Total Protein Albumin Triglycerides 89 Cholesterol 134 LDL Cholesterol, Calc 89 HDL Cholesterol 28 L Lipase TSH Free T4 Salicylates Urine Opiates Screen Ur Buprenorphine Scrn Ur Oxycodone Screen Urine Methadone Screen Urine Fentanyl Screen Acetaminophen Ur Barbiturates Screen Ur Phencyclidine Scrn Ur Amphetamines Screen U Benzodiazepines Scrn Urine Cocaine Screen U Marijuana (THC) Screen Ethyl Alcohol 03/15/25 03/15/25 07:11 09:13 WBC RBC Hgb Hct MCV MCH MCHC RDW Plt Count MPV Immature Gran % (Auto) Neut % (Auto) Lymph % (Auto) [place] % (Auto) Eos % (Auto) Baso % (Auto) Lymph # (Auto) [place] # (Auto) Eos # (Auto) Baso # (Auto) Abs Immat Gran (auto) Absolute Neuts (auto) Absolute Nucleated RBC Nucleated RBC % (auto) Sodium Potassium Chloride Carbon Dioxide Anion Gap BUN Creatinine Estim Creat Clear Calc Estimated GFR POC Glucose 134 H Random Glucose Calcium Magnesium Total Bilirubin AST ALT Alkaline Phosphatase Troponin I High Sens 37.8 H D B-Natriuretic Peptide Total Protein Albumin Triglycerides Cholesterol LDL Cholesterol, Calc HDL Cholesterol Lipase TSH Free T4 Salicylates Urine Opiates Screen Ur Buprenorphine Scrn Ur Oxycodone Screen Urine Methadone Screen Urine Fentanyl Screen Acetaminophen Ur Barbiturates Screen Ur Phencyclidine Scrn Ur Amphetamines Screen U Benzodiazepines Scrn Urine Cocaine Screen U Marijuana (THC) Screen Ethyl Alcohol Assessment and Plan (1) Elevated troponin: Status: Acute Elevated troponin most likely related to anxiety/acute hypotension. He has had stress test last year which was within normal limits at good workload. He is functionally otherwise well and has no exertional symptoms. Likelihood of primary acute coronary syndrome is extremely low. His echocardiogram does not show any significant LVH or wall motion abnormality. I think he can be safely discharged home at this point time. I would prescribe him low-dose aspirin therapy and should be on statin therapy. Avoidance of alcohol was discussed. He will need coronary CTA as outpatient which will be scheduled. (2) Hypertensive urgency: Status: Acute Hypertensive urgency most likely cause by his acute anxiety which is related to his current living situation. Continue his usual medications for blood pressure. Stress mitigation strategies was discussed. He will require medications for general anxiety/panic disorder. Will sign of the case at this point time. Thank you for allowing me to partake in his care Procedures Date of Service Date of Service: 03/15/25
--- NOTE | 2025-03-15 10:49 | PC.NURSE ---
patient has been resting quietly through out morning, rings [place] appropriately. patient CIWA remains 0, alert and oriented. patient asked for snack, given sandwich and cheese stick. patient remains bradycardic rate 40s-50s, patient asymptomatic
[2025-03-15 11:34] LABS: Glucose, Whole Blood 92 mg/dL (60-115)
--- NOTE | 2025-03-15 11:56 | MHC.CM.PN ---
CM met with Patient at bedside in the ED and addressed MARTINEZ with him (original was given to Patient and a copy will be placed on the chart). Patient lives in a house with his /HCP/Jen, who will transport to home at time of dc.Home self care is Patient's goal and CM has initiated and will follow for dc planning. PCP/PA is Amrit Moura.
--- NOTE | 2025-03-15 12:02 | MHC.CM.PN ---
Patient has been medically cleared for dc to home today, self care.
--- NOTE | 2025-03-15 12:42 | HO.PM.IMPN ---
Subjective Subjective Date of Service: 03/15/25 Interval History: f/u on hypertension emergency bp is better, no shortness of breath has been having low HR into 30s and 40 No SI/HI Physical Exam Vital Signs: Vital Signs: Last Vital Signs Temp 98.2 F 03/15/25 07:46 Pulse 77 03/15/25 07:46 Resp 16 03/15/25 07:46 BP 130/76 03/15/25 07:46 Pulse Ox 95 03/15/25 07:46 O2 Del Method Room Air 03/15/25 07:46 BMI result Body Mass Index 26.0 Const: Other: General: AO X 3, no acute distress Resp: CTA bilateral CVS: S1,S2,RRR GI: +BS, NT, no distention Skin: No rash Neuro: motor grossly intact Psych: appropriate affect Objective Data Active Medications Acetaminophen (Acetaminophen 325 Mg Tablet) 650 mg PO Q6H PRN PRN Reason: Pain, Mild 1-3,fever,headache Calcium Carbonate (Calcium Carbonate 750 Mg Tab.Chew) 750 mg PO Q4H PRN PRN Reason: Heartburn Dextrose (Dextrose 50 % 25 Gm/50 Ml Syringe) 25 gm IVPUSH Q15M PRN; Protocol PRN Reason: per Hypoglycemia Standing Ord. Doxycycline Monohydrate (Doxycycline Monohydrate 100 Mg Capsule) 100 mg PO BID@1000,2200 [facility] Last Admin: 03/15/25 10:21 Dose: 100 mg Documented By: YAIR Folic Acid (Folic Acid 1 Mg Tablet) 1 mg PO DAILY [facility] Last Admin: 03/15/25 10:21 Dose: 1 mg Documented By: YAIR Glucose (Glucose Gel 15 Gm Gel..Gram.) 15 gm PO Q15M PRN; Protocol PRN Reason: per Hypoglycemia Standing Ord. Insulin Human Lispro (Insulin Lispro 100 Unit/Ml 3 Ml Vial) 0 unit SUBCUT QIDACHS [facility]; Protocol Last Admin: 03/15/25 11:34 Dose: Not Given Documented By: YAIR Non-Admin Reason: No Insulin Coverage Lisinopril (Lisinopril 10 Mg Tablet) 30 mg PO DAILY [facility]; Protocol Last Admin: 03/15/25 10:21 Dose: 30 mg Documented By: YAIR Magnesium Hydroxide (Milk Of Magnesia 30 Ml Oral.Susp) 30 ml PO DAILY PRN PRN Reason: Constipation Melatonin (Melatonin 3 Mg Tablet) 6 mg PO BEDTIME PRN PRN Reason: Insomnia Omeprazole (Omeprazole 20 Mg Capsule.Dr) 20 mg PO DAILY@0630 [facility] Last Admin: 03/15/25 06:24 Dose: 20 mg Documented By: JOHN PAUL Sertraline HCl (Sertraline Hcl 50 Mg Tablet) 50 mg PO DAILY [facility] Last Admin: 03/15/25 10:21 Dose: 50 mg Documented By: YAIR Sodium Chloride (0.9 % Sodium Chloride Flush 3 Ml Syringe) 3 ml IVFLUSH QSHIFT [facility] Last Admin: 03/15/25 07:51 Dose: Not Given Documented By: YAIR Non-Admin Reason: See Note Thiamine HCl (Thiamine Hcl 100 Mg Tablet) 100 mg PO DAILY [facility] Last Admin: 03/15/25 10:21 Dose: 100 mg Documented By: YAIR Labs 03/15/25 06:21 03/15/25 06:21 Labs: Laboratory Results - last 24 hr 03/14/25 03/14/25 03/15/25 12:11 20:26 06:21 MCV 86.9 MCH 30.2 MCHC 34.8 RDW 12.3 Plt Count 190 D MPV 9.2 L Absolute Nucleated RBC 0.000 Nucleated RBC % (auto) 0.0 Anion Gap 12 Estim Creat Clear Calc 75.0 Estimated GFR > 60 POC Glucose 178 H Random Glucose 134 H Calcium 8.6 D Magnesium 1.9 B-Natriuretic Peptide 53 Triglycerides 89 Cholesterol 134 LDL Cholesterol, Calc 89 HDL Cholesterol 28 L Lipase 18 TSH 0.72 Free T4 1.10 03/15/25 03/15/25 07:11 11:31 MCV MCH MCHC RDW Plt Count MPV Absolute Nucleated RBC Nucleated RBC % (auto) Anion Gap Estim Creat Clear Calc Estimated GFR POC Glucose 134 H 92 Random Glucose Calcium Magnesium B-Natriuretic Peptide Triglycerides Cholesterol LDL Cholesterol, Calc HDL Cholesterol Lipase TSH Free T4 Assessment and Plan (1) Anxiety: Status: Acute (2) DAVID (generalized anxiety disorder): Status: Acute (3) Panic disorder: Status: Acute (4) Alcohol use disorder in remission: Status: Acute Plan presented as crisis with anxiety/stress having loss driving license d/t DUI HTN emergency d/t stress and anxiety, resolved continue usual home meds. Bradycardia, suspect d/t clonidine, no heart block, lyme work up in progress continue cardiac monitoring for 1 more day, avoid clonidine DM continue metformin and sliding ernie, diabetic diet Etoh use/DUI/suspended license no juan, advise on sobriety Tick bite/exposure tick borne panel pending continue doxy DAVID sertraline Quality Stroke Does the patient have a stroke diagnosis?: No Reason for No Anti-thrombotic by Day Two: N/A - Med Ordered VTE Prior VTE?: No VTE Risk Level:: Medical - low VTE Device Contraindication: Treatment Not Indicated VTE Drug Contraindication: Treatment Not Indicated
[2025-03-15 17:54] LABS: Glucose, Whole Blood 119 mg/dL (60-115)
--- NOTE | 2025-03-15 20:08 | PC.NURSE ---
TOOK report from Ivonne, report in, tech transporting to unit.
[2025-03-15 21:21] LABS: Glucose, Whole Blood 119 mg/dL (60-115)
[2025-03-15] MEDS: Melatonin 3 MG TABLET 6 MG PO (22:03)
[2025-03-15] MEDS: hydrALAZINE HCl 20 MG/ML VIAL 10 MG IVPUSH (22:14)
[2025-03-15] MEDS: 0.9 % Sodium Chloride Flush 3 ML SYRINGE IVFLUSH (22:15)
[2025-03-16] VITALS: BP 165/91; PULSE 71; RESP 16; TEMP 36.7; O2SAT 97
[2025-03-16 04:00] VITALS: BP 180/85; PULSE 77; RESP 16; TEMP 36.9; O2SAT 96
[2025-03-16] MEDS: cloNIDine HCL 0.1 MG TABLET PO (05:12)
[2025-03-16] MEDS: Omeprazole 20 MG CAPSULE.DR PO (05:12)
[2025-03-16 08:00] VITALS: BP 182/78; PULSE 64; RESP 17; TEMP 36.4; O2SAT 95
[2025-03-16 08:01] LABS: Glucose, Whole Blood 152 mg/dL (60-115)
[2025-03-16] MEDS: Insulin Lispro 100 UNIT/ML 3 ML VIAL SUBCUT (08:29)
[2025-03-16] MEDS: Metoprolol Succinate ER 25 MG TAB.ER.24H PO (08:30)
[2025-03-16] MEDS: lisinopriL 10 MG TABLET 30 MG PO (08:30)
[2025-03-16] MEDS: Doxycycline Monohydrate 100 MG CAPSULE PO (08:30)
[2025-03-16] MEDS: Sertraline HCL 50 MG TABLET PO (08:30)
[2025-03-16] MEDS: Thiamine HCL 100 MG TABLET PO (08:30)
[2025-03-16] MEDS: Folic Acid 1 MG TABLET PO (08:30)
[2025-03-16] MEDS: amLODIPine Besylate 5 MG TABLET PO (08:30)
[2025-03-16] MEDS: 0.9 % Sodium Chloride Flush 3 ML SYRINGE IVFLUSH (08:31)
[2025-03-16 11:51] VITALS: BP 178/90; PULSE 74; RESP 18; TEMP 36.7; O2SAT 96
[2025-03-16 11:56] LABS: Glucose, Whole Blood 115 mg/dL (60-115)
--- NOTE | 2025-03-16 12:11 | P.DS_ITS ---
DS: Providers Provider Date of Service: 03/16/25 <Jaron Rodriguez MD - Last Filed: 03/16/25 12:20> Date of admission: 03/14/25 16:39 <Lonnie Navarrete MD - Last Filed: 03/18/25 07:11> Date of discharge: 03/16/25 <Jaron Rodriguez MD - Last Filed: 03/16/25 12:20> Primary care physician: Amrit Moura PA-C <Lonnie Navarrete MD - Last Filed: 03/18/25 07:11> Consults: 03/14/25 12:02 ED CARE Team Crisis Consult Stat Comment: Reason for consultation: Depression and anxiety, not SI 03/14/25 16:16 Consult to Cardiology Stat Consulting Provider: [facility] Reason for consultation: htn urgency w/ trop leak Has provider been notified: Yes 03/14/25 17:43 Consult to Cardiology Routine Consulting Provider: [facility] Reason for consultation: Elevated trops <Lonnie Navarrete MD - Last Filed: 03/18/25 07:11> DS: Diagnosis Discharge Diagnosis (1) Elevated troponin: Status: Resolved <Lonnie Navarrete MD - Last Filed: 03/18/25 07:11> (2) Hypertensive urgency: Status: Resolved <Lonnie Navarrete MD - Last Filed: 03/18/25 07:11> DS: Summary Hospital Course Hospital Course: Admission note HPI: Patient is a 70-year-old male with past medical history hypertension, xmk-gibqiyu-luzzvkwtt diabetes, hyperlipidemia, , anxiety with panic disorder, depression, alcohol use disorder with frequent withdrawal symptoms presents to the emergency department for issues related to high blood pressure. Patient checked his blood pressure at home and it was 187/90, heart rate in the 50s. Patient states he has been told his heart rate usually is in the 50s. Patient is somewhat athletic mostly skis during the winter. Pt received clonidine in the ED and BP has normalized. Pt has been having increased anxiety since being arrested for a DUI recently. Patient's last drink was Mar 08 2025. Pt uses alcohol 2-3 times a month but when he drinks, he drinks heavily using shots, spiked seltzers and beer. Pt states his withdrawal symptoms including jitters are worsening with each episode of drinking. Patient has now lost his license as this is not his first OUI. Toxicology screen today negative and pt denies use of marijuana, illict drugs or hx of IVDA. Patient is currently retired but the inability to drive has increased his boredom and has increased his desire to drink alcohol. Pt was in the ED this past Tuesday for anxiety and was started on Zoloft per pt report. Pt denies any SI, HI today. Patient denies any chronic liver issues, hepatitis-C, B or pancreatitis history. Incidentally patient's troponins were rising during his ED visit (56, 106, 136). Patient denies any chest pain, palpitations, nausea or vomiting. Patient is being admitted under observation for monitoring with repeat troponin in the a.m. and consultation with Cardiology. Noted ECG with SInus Des, Incomplete RBBB. Patient also reporting intermittent diarrhea/soft formed stool over the last 2 weeks with fair appetite secondary patient attributes a lot of this to stress. Patient has had colonoscopy in the past, and years prior and results were normal. Patient reports about a 6-7 lb weight loss over the last month. LFTs were within normal limits. Total bilirubin 0.7. Patient still has his gallbladder. Hospital course: Patient presented as a crisis patient after becoming anxious and wanted to talk to crisis team from his license being suspended. Incidentally was noted to have BP of 223/110 and troponin were elevated however without chest pain. He was given multiple medication and eventually blood pressure came down, in fact becoming low in the SBP in 80. He was evaluated by cardiology for the elevated troponin 56 to 106, then 136 and now 37. Cardiology evaluated him, ECGs reviwed with no acute ischemic changed, echo showed no wall motion abnormalities. He is reassured, HTN emergency likely due to stresss/anxiety, melissa have offered him resources to help deal with this. BP improved. Noted to have bradycardia. Cardiology recommended to hold on Clonidine. To start Amlodipine instead for blood pressure control Patient also reported multiple tick bites weeks ago and has been started on Doxy, tick borne panel sent and pending. to be covered with Doxycycline on discharge until he sees his PCP next week. Advise to avoid alcohol and to follow DMV rules. he denies any suicidal thought. Spoke with his and advised her to remove all fire-arms from home for the time being. <Lonnie Navarrete MD - Last Filed: 03/18/25 07:11> Time Attestation Discharge Coordination Time (in mins): 35 <oLnnie Navarrete MD - Last Filed: 03/18/25 07:11> Quality: Safe Use of Opioids Does Pt have an Active Cancer Diagnosis on the Problem List?: No <Lonnie Navarrete MD - Last Filed: 03/18/25 07:11> Quality: Stroke Does the patient have a stroke diagnosis?: No <Lonnie Navarrete MD - Last Filed: 03/18/25 07:11> Physical Exam Vital Signs: Vital Signs: Last Vital Signs Temp 98.2 F 03/15/25 07:46 Pulse 77 03/15/25 07:46 Resp 16 03/15/25 07:46 BP 130/76 03/15/25 07:46 Pulse Ox 95 03/15/25 07:46 O2 Del Method Room Air 03/15/25 07:46 BMI result Body Mass Index 26.0 <Lonnie Navarrete MD - Last Filed: 03/18/25 07:11> Const: Other: Constitutional : Awake, interactive, not in distress Neck : Normal inspection, Supple Cardiovascular : RRR, no JVP, no lower extremity edema Respiratory : good bilateral air entry, no crackles, wheezes or rhonchi Gastrointestinal: soft, lax, Normal bowel sounds, Non tender Skin : Warm, Dry Neurological : Alert & oriented x3, No focal deficit <Jaron Rodriguez MD - Last Filed: 03/16/25 12:20> DS: Data Data Completed and Pending Labs on day of discharge: Laboratory Results - last 24 hr 03/14/25 03/14/25 03/14/25 12:11 12:19 15:14 WBC 13.6 H RBC 5.38 Hgb 16.1 Hct 46.1 MCV 85.7 MCH 29.9 MCHC 34.9 RDW 11.9 Plt Count 272 D MPV 9.0 L Immature Gran % (Auto) 0.4 Neut % (Auto) 84.2 H Lymph % (Auto) 9.7 L [place] % (Auto) 5.3 Eos % (Auto) 0.1 Baso % (Auto) 0.3 Lymph # (Auto) 1.3 [place] # (Auto) 0.7 Eos # (Auto) 0.0 Baso # (Auto) 0.0 Abs Immat Gran (auto) 0.06 H Absolute Neuts (auto) 11.5 H Absolute Nucleated RBC 0.000 Nucleated RBC % (auto) 0.0 Sodium 134 L Potassium 4.5 Chloride 101 Carbon Dioxide 23 Anion Gap 15 BUN 15 Creatinine 1.08 Estim Creat Clear Calc 70.8 Estimated GFR > 60 POC Glucose Random Glucose 179 H Calcium 10.1 D Magnesium 1.9 Total Bilirubin 0.7 AST 25 ALT 23 Alkaline Phosphatase 81 Troponin I High Sens 56.7 H D 106.1 H* D B-Natriuretic Peptide Total Protein 7.8 Albumin 4.8 Triglycerides Cholesterol LDL Cholesterol, Calc HDL Cholesterol Lipase 18 TSH 0.72 Free T4 1.10 Salicylates < 5.0 L Urine Opiates Screen Not Detected Ur Buprenorphine Scrn Not Detected Ur Oxycodone Screen Not Detected Urine Methadone Screen Not Detected Urine Fentanyl Screen Not Detected Acetaminophen < 3 Ur Barbiturates Screen Not Detected Ur Phencyclidine Scrn Not Detected Ur Amphetamines Screen Not Detected U Benzodiazepines Scrn Not Detected Urine Cocaine Screen Not Detected U Marijuana (THC) Screen Not Detected Ethyl Alcohol 11 03/14/25 03/14/25 03/15/25 16:52 20:26 06:21 WBC 7.8 RBC 4.27 L D Hgb 12.9 L Hct 37.1 L MCV 86.9 MCH 30.2 MCHC 34.8 RDW 12.3 Plt Count 190 D MPV 9.2 L Immature Gran % (Auto) Neut % (Auto) Lymph % (Auto) [place] % (Auto) Eos % (Auto) Baso % (Auto) Lymph # (Auto) [place] # (Auto) Eos # (Auto) Baso # (Auto) Abs Immat Gran (auto) Absolute Neuts (auto) Absolute Nucleated RBC 0.000 Nucleated RBC % (auto) 0.0 Sodium 137 Potassium 4.6 Chloride 108 Carbon Dioxide 22 Anion Gap 12 BUN 19 H Creatinine 1.02 Estim Creat Clear Calc 75.0 Estimated GFR > 60 POC Glucose 178 H Random Glucose 134 H Calcium 8.6 D Magnesium Total Bilirubin AST ALT Alkaline Phosphatase Troponin I High Sens 136.7 H* B-Natriuretic Peptide 53 Total Protein Albumin Triglycerides 89 Cholesterol 134 LDL Cholesterol, Calc 89 HDL Cholesterol 28 L Lipase TSH Free T4 Salicylates Urine Opiates Screen Ur Buprenorphine Scrn Ur Oxycodone Screen Urine Methadone Screen Urine Fentanyl Screen Acetaminophen Ur Barbiturates Screen Ur Phencyclidine Scrn Ur Amphetamines Screen U Benzodiazepines Scrn Urine Cocaine Screen U Marijuana (THC) Screen Ethyl Alcohol 03/15/25 03/15/25 07:11 09:13 WBC RBC Hgb Hct MCV MCH MCHC RDW Plt Count MPV Immature Gran % (Auto) Neut % (Auto) Lymph % (Auto) [place] % (Auto) Eos % (Auto) Baso % (Auto) Lymph # (Auto) [place] # (Auto) Eos # (Auto) Baso # (Auto) Abs Immat Gran (auto) Absolute Neuts (auto) Absolute Nucleated RBC Nucleated RBC % (auto) Sodium Potassium Chloride Carbon Dioxide Anion Gap BUN Creatinine Estim Creat Clear Calc Estimated GFR POC Glucose 134 H Random Glucose Calcium Magnesium Total Bilirubin AST ALT Alkaline Phosphatase Troponin I High Sens 37.8 H D B-Natriuretic Peptide Total Protein Albumin Triglycerides Cholesterol LDL Cholesterol, Calc HDL Cholesterol Lipase TSH Free T4 Salicylates Urine Opiates Screen Ur Buprenorphine Scrn Ur Oxycodone Screen Urine Methadone Screen Urine Fentanyl Screen Acetaminophen Ur Barbiturates Screen Ur Phencyclidine Scrn Ur Amphetamines Screen U Benzodiazepines Scrn Urine Cocaine Screen U Marijuana (THC) Screen Ethyl Alcohol <Lonnie Navarrete MD - Last Filed: 03/18/25 07:11> Discharge Plan Discharge Anticipated Discharge Date/Time: 03/15/25 11:30 <Lonnie Navarrete MD - Last Filed: 03/18/25 07:11> Patient Disposition: Home, Self-Care <Lonnie Navarrete MD - Last Filed: 03/18/25 07:11> Discharge Diagnosis: HTN emergency, Stress/anxiety, elevaged troponin I <Lonnie Navarrete MD - Last Filed: 03/18/25 07:11> HTN emergency, Stress/anxiety, elevaged troponin I <Jaron Rodriguez MD - Last Filed: 03/16/25 12:20> Referrals: Amrit Moura PA-C [Primary Care Provider] - 1 Week <Lonnie Navarrete MD - Last Filed: 03/18/25 07:11> Discharge Medications: New doxycycline monohydrate 100 mg Capsule 100 mg PO BID@1000,2200 Qty: 20 0RF amlodipine 5 mg Tablet 5 mg PO DAILY Qty: 90 0RF Protocol: Hold for SBP< HOLD for SBP < : 90 hydroxyzine HCl 25 mg tablet 25 mg PO Q8H PRN (Reason: anxiety) Qty: 20 1RF Continued metformin 500 mg tablet 500 mg PO DAILY Qty: 90 1RF lisinopril 30 mg tablet 30 mg PO DAILY Qty: 90 1RF metoprolol succinate 25 mg tablet extended release 24 hr 25 mg PO DAILY 90 Days Qty: 90 1RF sertraline [Zoloft] 50 mg tablet 50 mg PO DAILY Qty: 30 0RF Discontinued clonidine HCl 0.1 mg tablet 0.1 mg PO BID PRN (Reason: anxiety and withdrawal symptoms) <Lonnie Navarrete MD - Last Filed: 03/18/25 07:11> Discharge Orders: Discharge Order (Routine); Ordered 03/16/25 Ordered By: Jaron Rodriguez <Lonnie Navarrete MD - Last Filed: 03/18/25 07:11> Diet: Advance to usual diet <Lonnie Navarrete MD - Last Filed: 03/18/25 07:11> Advance to usual diet <Jaron Rodriguez MD - Last Filed: 03/16/25 12:20> Activity on Discharge: As tolerated <Lonnie Navarrete MD - Last Filed: 03/18/25 07:11> As tolerated <Jaron Rodriguez MD - Last Filed: 03/16/25 12:20> Stand Alone Forms: Patient Portal Discharge page <Lonnie Navarrete MD - Last Filed: 03/18/25 07:11> Print Language: New Zealander <Lonnie Navarrete MD - Last Filed: 03/18/25 07:11> Care Plan Goals: recovery from stress, anxiety, elevated blood presssure Stop Clonidine Start Amlodipine Monitor blood pressure at home Doxycycline for possible Tick bite related infection Atarax as needed for anxiety Follow with PCP next week for anxiety\depression treatment plan <Lonnie aNvarrete MD - Last Filed: 03/18/25 07:11> Health Concerns: anxiety/stress elevated blood pressure history tick bite <Lonnie Navarrete MD - Last Filed: 03/18/25 07:11> Plan of Treatment: resume home medication follow up with the resources given by recovery team follow up with your doctor Follow DMV instruction <Lonnie Navarrete MD - Last Filed: 03/18/25 07:11> Assessment: see above <Lonnie Navarrete MD - Last Filed: 03/18/25 07:11> Discharge Date/Time: 03/16/25 14:40 <Lonnie Navarrete MD - Last Filed: 03/18/25 07:11>
--- NOTE | 2025-03-16 13:09 | MHC.CM.PN ---
Pt. has been medically cleared to [place], he will go home via family transport, plan is self care.
[2025-03-16 14:43] LABS: A. Phagocytphilium DNA,RT-PCR NOT DETECTED (NOT DETECTED); Babesia Microti DNA, RT-PCR NOT DETECTED (NOT DETECTED); Borrelia Miyamotoi,DNA RT-PCR NOT DETECTED (NOT DETECTED); E.Chaffeensis DNA RT-PCR NOT DETECTED (NOT DETECTED); Lyme(Borrelia ssp)DNA RT-PCR NOT DETECTED (NOT DETECTED)
== END 2025-03-16 14:40 | disposition home or self-care (01) | DRG 305 ==
LOC: HO.ED 16:16 → HO.EDOVER 16:41 → HO.IMC 03-15 17:51
PROVIDERS: Internal Medicine; Nurse Practitioner Family; Physician Assistant; Student in an Organized Health Care Education/Training Program; Admitting Provider Student in an Organized Health Care Education/Training Program; Emergency Provider Emergency Medicine; PCP Physician Assistant; Visit Provider Student in an Organized Health Care Education/Training Program
DX: I16.1 Hypertensive emergency (principal); I10 Essential (primary) hypertension; E11.9 Type 2 diabetes mellitus without complications; F41.0 Panic disorder [episodic paroxysmal anxiety]; F10.90 Alcohol use, unspecified, uncomplicated; R00.1 Bradycardia, unspecified; T46.5X5A Adverse effect of other antihypertensive drugs, initial encounter; W57.XXXA Bitten or stung by nonvenomous insect and other nonvenomous arthropods, initial encounter; Z79.84 Long term (current) use of oral hypoglycemic drugs; Z79.899 Other long term (current) drug therapy
CPT/HCPCS: 36415; 80048; 80053; 80061; 80143; 80179; 80307; 82947; 83690; 83735; 83880; 84439; 84443; 84484; 85025; 85027; 87468; 87469; 87478; 87484; 87798; 93005; 93306; 99285; J0360; J0461; J3475; P9047; Q9957; S9485

== ENCOUNTER → 2025-03-14 12:05 | Outpatient (BNV) | payer MEDICARE, SELFPAY | PROVIDERS: Admitting Provider Student in an Organized Health Care Education/Training Program; Emergency Provider Emergency Medicine; PCP Physician Assistant; Visit Provider Internal Medicine Cardiovascular Disease | DX: I45.10 Unspecified right bundle-branch block (principal) | CPT/HCPCS: 93010 ==

== ENCOUNTER 2025-03-14 16:39 | Outpatient (BNV) | payer MEDICARE, SELFPAY | END 2025-03-15 02:04 | PROVIDERS: Admitting Provider Student in an Organized Health Care Education/Training Program; Emergency Provider Emergency Medicine; PCP Physician Assistant; Visit Provider Internal Medicine Cardiovascular Disease | DX: R94.31 Abnormal electrocardiogram [ECG] [EKG] (principal); R79.89 Other specified abnormal findings of blood chemistry | CPT/HCPCS: 93306 ==

== ENCOUNTER → 2025-03-14 16:39 | Outpatient (BNV) | payer MEDICARE, SELFPAY | PROVIDERS: Admitting Provider Student in an Organized Health Care Education/Training Program; Emergency Provider Emergency Medicine; PCP Physician Assistant; Visit Provider Internal Medicine Cardiovascular Disease | DX: R79.89 Other specified abnormal findings of blood chemistry (principal); I16.0 Hypertensive urgency | CPT/HCPCS: 99222 ==

== ENCOUNTER → 2025-03-14 16:39 | Outpatient (BNV) | payer MEDICARE, SELFPAY | PROVIDERS: Admitting Provider Student in an Organized Health Care Education/Training Program; Emergency Provider Emergency Medicine; PCP Physician Assistant; Visit Provider Nurse Practitioner Family | DX: R79.89 Other specified abnormal findings of blood chemistry (principal); I16.0 Hypertensive urgency | CPT/HCPCS: 99222; 99232; 99239; 99499 ==

== ENCOUNTER 2025-03-20 06:01 | Outpatient (REF) | payer MEDICARE, SELFPAY ==
[2025-03-20 10:15] LABS: Hematocrit 45.2 % (42.0-52.0); Hemoglobin 15.2 g/dl (14.0-18.0); Mean Corpuscular HGB Conc 33.6 g/dl (31.0-36.0); Mean Corpuscular Hemoglobin 29.9 pg (27.0-33.0); Mean Platelet Volume 9.5 fL (9.4-12.4); Platelet Count 269 X10*3/uL (160-400); Red Blood Count 5.08 X10*6/uL (4.60-5.80); Red Cell Distribution Width 12.3 % (11.0-16.0); White Blood Count 10.3 X10*3/uL (4.8-10.8)
[2025-03-20 11:03] LABS: Creatinine Urine 74.18 mg/dL; Microalbum/Creatinine Ratio Ur 9.4 ug/mg cr (<30)
[2025-03-20 11:46] LABS: Alanine Aminotransferase 36 U/L (0-40); Albumin Level 4.7 g/dL (3.5-5.0); Alkaline Phosphatase 92 U/L (39-117); Anion Gap 15 (12-20); Aspartate Amino Transferase 36 U/L (5-37); Bilirubin Total 0.5 mg/dL (0.0-1.0); Blood Urea Nitrogen 23 mg/dL (9-16); Calcium 9.3 mg/dL (8.4-10.2); Carbon Dioxide 23 mmol/L (22-29); Chloride 102 mmol/L (96-108); Cholesterol 198 mg/dL (<200); Estimated Glomerular Filt Rate > 60; Glucose Fasting 192 mg/dL (60-99); HDL Cholesterol 46 mg/dL (>40); LDL Cholesterol Calculated 131 mg/dL (<100); Potassium 4.4 mmol/L (3.3-5.1); Sodium 136 mmol/L (135-145); Total Protein 7.4 g/dL (6.5-8.0); Triglycerides 107 mg/dL (<150)
[2025-03-20 11:49] LABS: Prostate Specific Antigen Scr 0.76 ng/mL (<0.05-4.0)
== END 2025-03-20 06:02 | disposition home or self-care (01) ==
LOC: HO.HMGCLDS 06:01
PROVIDERS: PCP Physician Assistant; Visit Provider Physician Assistant
DX: I10 Essential (primary) hypertension (principal)
CPT/HCPCS: 36415; 80053; 80061; 82043; 82570; 84153; 85027

== ENCOUNTER 2025-03-22 09:13 | Emergency (ER) | payer MEDICARE, SELFPAY ==
--- NOTE | 2025-03-22 | ECG_ITS ---
Test Reason : HTN Blood Pressure : */* mmHG Vent. Rate : 77 BPM Atrial Rate : 77 BPM P-R Int : 156 ms QRS Dur : 104 ms QT Int : 380 ms P-R-T Axes : 69 42 54 degrees QTcB Int : 430 ms Normal sinus rhythm Incomplete right bundle branch block Borderline ECG When compared with ECG of 15-Mar-2025 02:04, MO interval has decreased Vent. rate has increased by 26 bpm Referred By: Generic ED Physician Electronically Signed By: Nitesh Mon
[2025-03-22 09:25] VITALS: BP 165/99; PULSE 85; RESP 18; TEMP 36.4; O2SAT 97; BMI 26.3
[2025-03-22 09:45] LABS: MANUAL DIFF FLAG NO
[2025-03-22 09:46] LABS: Basophils Percent Auto 0.3 % (0-2); Eosinophils Percent Auto 0.2 % (0-4); Hematocrit 44.6 % (42.0-52.0); Hemoglobin 15.9 g/dl (14.0-18.0); Imm Gran Abs Auto 0.06 X10*3/uL (0.00-0.03); Imm Gran Pct Auto 0.5 % (0.0-0.4); Lymphocytes Absolute Auto 1.4 X10*3/uL (1.2-4.9); Lymphocytes Percent Auto 11.5 % (20-40); Mean Corpuscular HGB Conc 35.7 g/dl (31.0-36.0); Mean Corpuscular Hemoglobin 30.5 pg (27.0-33.0); Mean Corpuscular Volume 85.4 fL (80.0-98.0); Mean Platelet Volume 8.7 fL (9.4-12.4); Monocytes Absolute Auto 0.7 X10*3/uL (0.1-1.2); Monocytes Percent Auto 6.1 % (2-11); Neutrophils Absolute Auto 9.8 x10*3/uL (2.0-8.3); Neutrophils Percent Auto 81.4 % (45-73); Platelet Count 256 X10*3/uL (160-400); Red Blood Count 5.22 X10*6/uL (4.60-5.80); Red Cell Distribution Width 12.2 % (11.0-16.0); White Blood Count 12.1 X10*3/uL (4.8-10.8)
[2025-03-22 09:59] LABS: Alanine Aminotransferase 35 U/L (0-40); Alkaline Phosphatase 84 U/L (39-117); Anion Gap 17 (12-20); Aspartate Amino Transferase 28 U/L (5-37); Bilirubin Total 0.4 mg/dL (0.0-1.0); Blood Urea Nitrogen 18 mg/dL (9-16); Calcium 9.7 mg/dL (8.4-10.2); Carbon Dioxide 22 mmol/L (22-29); Chloride 98 mmol/L (96-108); Creatinine Clr Calc Pharmacy 86.9; Estimated Glomerular Filt Rate > 60; Glucose Random 213 mg/dL (60-115); Potassium 4.6 mmol/L (3.3-5.1); Sodium 132 mmol/L (135-145); Total Protein 7.7 g/dL (6.5-8.0)
--- OUTSIDE RECORDS SUMMARY | 2025-03-22 10:38 | XMS_ITS | Clinical Summary ---
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
--- NOTE | 2025-03-22 11:27 | ED_ITS ---
HPI - General Adult General Chief complaint: General Medical Stated complaint: High Blood Pressure Time Seen by Provider: 03/22/25 11:27 History of Present Illness ED Provider: Greg Lopez MD HPI narrative: 70-year-old male with history of hypertension on amlodipine, did not take his meds this morning. Complains of mild superior headache no vision changes focal neurologic complaints chest pain difficulty breathing or any other symptoms. He has been frustrated and upset says ?I got a lot going on? no SI reported to me. He has been compliant with his medications including new Zoloft which he has been off for several weeks. Related Data Previous Rx's ?Medication ?Instructions ?Recorded metformin 500 mg tablet 500 mg PO DAILY #90 tabs 07/26/24 lisinopril 30 mg tablet 30 mg PO DAILY #90 tabs 10/20/24 metoprolol succinate 25 mg 25 mg PO DAILY 90 days #90 tabs 01/31/25 tablet,extended release 24 hr sertraline 50 mg tablet (Zoloft) 50 mg PO DAILY #30 tabs 03/09/25 doxycycline monohydrate 100 mg 100 mg PO BID@1000,2200 #20 caps 03/15/25 capsule amlodipine 5 mg tablet 5 mg PO DAILY #90 tabs 03/16/25 hydroxyzine HCl 25 mg tablet 25 mg PO Q8H PRN anxiety #20 tabs 03/16/25 Allergies Allergy/AdvReac Type Severity Reaction Status Date / Time AVOID HCTZ - hyponatremia - Allergy Unknown Unknown Uncoded 03/22/25 09:26 1 [facility] Past Medical History Medical History Hypertension Anxiety Surgical History History of colonoscopy Family History Family History Father Dementia Mother Melanoma Social History Social History Household Members: Spouse Housing: House Alcohol intake: current Alcohol intake frequency: a few times a month Alcohol type: beer and hard liquor Patient Tobacco Use Status: Never used Tobacco e-Cigarette/Vaping Use: Never Used Second Hand Smoke Exposure: Yes Substance Use Type: Marijuana Advance Directives: Yes Advance Directives on File: Yes Advance Directives Date on File: 01/13/24 service: Yes Current occupational status: retired Cognitive needs: No Hearing needs: No Vision needs: Yes Physical Exam ED Vital Signs: Vital Signs - 24 hr 03/22/25 09:25 03/22/25 12:09 03/22/25 12:38 Temperature 97.6 F 98.1 F Pulse Rate 85 85 85 Respiratory Rate 18 16 16 Blood Pressure 165/99 H 183/103 H 183/103 H Pulse Oximetry 97 97 97 Oxygen Delivery Method Room Air Room Air Room Air BMI result Body Mass Index 26.3 Const Other: EXAM: Gen: Alert, awake, well appearing, well hydrated. Head: Atraumatic Eyes: Anicteric, Normal conjunctiva. ENT: Moist mucosa, no pallor. ? Neck: Supple. Respiratory: Breathing comfortably, No distress.Clear to auscultation bilaterally, symmetric chest expansion, No wheeze, rales, ronchi. Cardiovascular: Regular rate and rhythm. No murmurs or rub. Well perfused periphery, warm extremities. No edema. ? Abdominal: Soft, no objective distension. No palpable masses or obvious organomegaly. No focal tenderness, no guarding, no rebound tenderness or other peritoneal findings. : No flank tenderness. Neuro: Alert. Gross movement of all extremities intact. ? Vital signs: See flowsheet Medications Administered Discontinued Medications Generic Name Dose Route Start Last Admin Trade Name Freq PRN Reason Stop Dose Admin Acetaminophen 975 mg 03/22/25 11:30 03/22/25 11:43 Acetaminophen 325 Mg Tablet PO 03/22/25 11:31 975 mg ONCE ONE Administration Medical Decision Making Medical Decision Making MDM Narrative: [age] with mild superior headache not suggestive of hypertensive emergency. One hundred ninety systolic at home is what worried him to come in. No vision changes normal reassuring neurologic exam here including gait. No chest pain or suggestion of ACS or hypertensive emergency. Reassured counseled to take a blood pressure diary he is seeing his PCP in 5 days for possible medication adjustments. Lab Data 03/22/25 09:40 03/22/25 09:40 Labs: Lab Results 03/22/25 Range/Units 09:40 WBC 12.1 H (4.8-10.8) X10*3/uL RBC 5.22 (4.60-5.80) X10*6/uL Hgb 15.9 (14.0-18.0) g/dl Hct 44.6 (42.0-52.0) % MCV 85.4 (80.0-98.0) fL MCH 30.5 (27.0-33.0) pg MCHC 35.7 (31.0-36.0) g/dl RDW 12.2 (11.0-16.0) % Plt Count 256 (160-400) X10*3/uL MPV 8.7 L (9.4-12.4) fL Immature Gran % (Auto) 0.5 H (0.0-0.4) % Neut % (Auto) 81.4 H (45-73) % Lymph % (Auto) 11.5 L (20-40) % [place] % (Auto) 6.1 (2-11) % Eos % (Auto) 0.2 (0-4) % Baso % (Auto) 0.3 (0-2) % Lymph # (Auto) 1.4 (1.2-4.9) X10*3/uL [place] # (Auto) 0.7 (0.1-1.2) X10*3/uL Eos # (Auto) 0.0 (0.0-0.4) X10*3/uL Baso # (Auto) 0.0 (0.0-0.2) X10*3/uL Abs Immat Gran (auto) 0.06 H (0.00-0.03) X10*3/uL Absolute Neuts (auto) 9.8 H (2.0-8.3) x10*3/uL Absolute Nucleated RBC 0.000 (0.0-0.012) X10*3/uL Nucleated RBC % (auto) 0.0 (0.0-0.2) /100WBC Sodium 132 L (135-145) mmol/L Potassium 4.6 (3.3-5.1) mmol/L Chloride 98 (96-108) mmol/L Carbon Dioxide 22 (22-29) mmol/L Anion Gap 17 (12-20) BUN 18 H (9-16) mg/dL Creatinine 0.88 (0.5-1.4) mg/dL Estim Creat Clear Calc 86.9 Estimated GFR > 60 Random Glucose 213 H (60-115) mg/dL Calcium 9.7 (8.4-10.2) mg/dL Total Bilirubin 0.4 (0.0-1.0) mg/dL AST 28 (5-37) U/L ALT 35 (0-40) U/L Alkaline Phosphatase 84 (39-117) U/L Total Protein 7.7 (6.5-8.0) g/dL Albumin 5.0 (3.5-5.0) g/dL Discharge Plan Discharge Clinical Impression: HTN (hypertension) Qualifiers: Hypertension type: essential hypertension Qualified Code(s): I10 - Essential (primary) hypertension Patient Disposition: Home, Self-Care Instructions: Chronic Hypertension (ED) Additional Instructions: _ DISCHARGE DIAGNOSES: Chronic hypertension HISTORY OF PRESENTATION: High blood pressure superior scalp headache EMERGENCY DEPARTMENT COURSE,TESTS, TREATMENTS: While in the ED today you had a reassuring examination blood pressure decreased from your home measurement without any treatments DISCHARGE MEDICATIONS: ?[We have made no changes to your regular medication regimen] FOLLOW-UP: ?Call your primary or general physician soon as possible to discuss your symptoms, your ED visit and to discuss follow up plans INSTRUCTIONS ?& RETURN PRECAUTIONS: If any symptoms change first call your primary physician, if it is after-hours your primary doctors office should have a provider concrete sculptor you can speak with. If the symptoms are severe or very concerning to you then call 911 or return to the ED. [07] Greg Lopez MD Emergency Physician [facility] Prescriptions: No Action metformin 500 mg tablet 500 mg PO DAILY Qty: 90 1RF lisinopril 30 mg tablet 30 mg PO DAILY Qty: 90 1RF metoprolol succinate 25 mg tablet extended release 24 hr 25 mg PO DAILY 90 Days Qty: 90 1RF sertraline [Zoloft] 50 mg tablet 50 mg PO DAILY Qty: 30 0RF doxycycline monohydrate 100 mg Capsule 100 mg PO BID@1000,2200 Qty: 20 0RF amlodipine 5 mg Tablet 5 mg PO DAILY Qty: 90 0RF Protocol: Hold for SBP< HOLD for SBP < : 90 hydroxyzine HCl 25 mg tablet 25 mg PO Q8H PRN (Reason: anxiety) Qty: 20 1RF Interventions: ED Discharge Assessment Last Done: 03/22/25 12:38 Discharge Date/Time: 03/22/25 12:39 Print Language: Romansh
[2025-03-22] MEDS: Acetaminophen 325 MG TABLET 975 MG PO (11:43)
[2025-03-22 12:09] VITALS: BP 183/103; PULSE 85; RESP 16; O2SAT 97
[2025-03-22 12:38] VITALS: BP 183/103; PULSE 85; RESP 16; TEMP 36.7; O2SAT 97
== END 2025-03-22 12:39 | disposition home or self-care (01) ==
PROVIDERS: Emergency Provider Emergency Medicine; PCP Physician Assistant
DX: R51.9 Headache, unspecified (principal); I10 Essential (primary) hypertension; I45.10 Unspecified right bundle-branch block; Z79.899 Other long term (current) drug therapy
CPT/HCPCS: 36415; 80053; 85025; 93005; 99283; 99284

== ENCOUNTER → 2025-03-22 09:31 | Outpatient (BNV) | payer MEDICARE, SELFPAY | PROVIDERS: Emergency Provider Emergency Medicine; PCP Physician Assistant; Visit Provider Internal Medicine Cardiovascular Disease | DX: I45.10 Unspecified right bundle-branch block (principal) | CPT/HCPCS: 93010 ==

== ENCOUNTER 2025-03-27 08:10 | Outpatient (AMB) | payer MEDICARE, SELFPAY ==
--- OUTSIDE RECORDS SUMMARY | 2025-03-27 08:23 | XMS_ITS | Clinical Summary ---
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
--- NOTE | 2025-03-27 08:32 | MHC.PC.OV ---
Vital Signs 03/27/25 08:36 Height 6 ft Weight 191 lb 6 oz BMI 26.0 BP 180/100 H Blood Pressure Location Lt brachial Position Sitting Pulse 97 Pulse Source Pulse Oximeter Temp 97.1 F Temp Source Temporal Artery Scan Pulse Oximetry (%) 97 Oxygen Delivery Method Room Air Intake Visit Reasons: [facility] [place] TCM elevated troponins PE Intake Note: Patient is here for hospital discharge follow up. Patient was discharged from [facility] [place] on 03/16/25. Community Living Specialist Required: No Student Outreach Coordinator: Not Required per policy Accompanied by: Self / Same As Patient Allergies AVOID HCTZ - hyponatremia - 1 Allergy (Unknown, Uncoded 03/27/25 09:01) Unknown Medication List - Last Reconciled 03/27/25 by Amrit Moura PA-C amlodipine 5 mg See Protocol PO DAILY doxycycline monohydrate 100 mg PO BID@1000,2200 hydroxyzine HCl 25 mg PO Q8H PRN lisinopril 30 mg PO DAILY metformin 500 mg PO DAILY metoprolol succinate ER 25 mg PO DAILY 90 days sertraline (Zoloft) 50 mg PO DAILY Tobacco use date assessed: 03/27/25 Fall risk assessment: No Falls in past year Last assessed Fall Risk: 03/27/25 Dental Screening Dental Screen Date: 03/27/25 Did you have a dental visit in the last 12 months?: Yes Did you have a dental problem in the last 6 months where you did not have access to dental care?: No Was dental information given to patient?: Patient has dentist HPI [facility] [place] TCM elevated troponins HPI Details Patient's is a 70-year-old male here today for hospital discharge follow-up. Patient has a past medical history significant for hypertension, generalized anxiety disorder, hyperlipidemia, impaired glucose metabolism and alcohol use disorder. Patient was recently admitted to [facility] for acute anxiety and elevated blood pressure readings. Prior to his presentation he recently had a DUI due to intoxicated driving and had his license suspended.. While in the hospital cardiology evaluated him with the EKGs which did not show any acute ischemic changes also an echocardiogram did not show any wall motion abnormalities. He did have elevated troponins that were trended. Please also note to have bradycardia while in the hospital was advised to hold clonidine and to start amlodipine instead to control blood pressure. 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 He reports his blood pressures were better with clonidine though his clonidine was stopped due to bradycardia noted in the hospital. For now will increase his amlodipine to 10 mg due to his blood pressure still remaining high. --->PLAN: For now will work on his mental health namely his anxiety which seems to be a monahan component to his drinking. He has been started on sertraline over the last 2 weeks for his anxiety. Will also add on trazodone to help him sleep. TCM TCM Information Date of Discharge 03/16/25 Discharged From [facility] Interactive Contact Date (Reference documentation from this date) 03/18/25 [facility] Medical History Hypertension Anxiety Surgical History History of colonoscopy Family History Father Dementia Mother Melanoma Social History Household Members: Spouse Housing: House Alcohol intake: current Alcohol intake frequency: a few times a month Alcohol type: beer and hard liquor Patient Tobacco Use Status: Never used Tobacco e-Cigarette/Vaping Use: Never Used Second Hand Smoke Exposure: Yes Substance Use Type: Marijuana Advance Directives Date on File: 01/13/24 service: Yes Current occupational status: retired Cognitive needs: No Hearing needs: No Vision needs: Yes Questionnaire PHQ-9 Over the last 2 weeks, how often have you been bothered by any of the following problems? 1. Little interest or pleasure in doing things: not at all 2. Feeling down, depressed, or hopeless: not at all 3. Trouble falling or staying asleep, or sleeping too much: not at all 4. Feeling tired or having little energy: not at all 5. Poor appetite or overeating: not at all 6. Feeling bad about yourself - or that you are a failure or have let yourself or your family down: not at all 7. Trouble concentrating on things, such as reading the newspaper or watching television: not at all 8. Moving or speaking so slowly that other people could have noticed. Or the opposite - being so fidgety or restless that you have been moving around a lot more than usual: not at all 9. Thoughts that you would be better off or of hurting yourself in some way: not at all Total score: 0 Depression Screening Interpretation: Negative Depression Screening Done: Yes Source: Developed by Drs. Angel Reveles, Kim Landeros, Wayne Levy and colleagues, with an educational jaime from [employer]. Thrive Questionnaire Date Thrive assessed: 03/15/25 AUDIT C Alcohol Use Questionnaire (AUDIT-C) 1. How often do you have a drink containing alcohol?: Never Total Score: 0 DAVID-7 AMB Questionnaire DAVID-7 Date DAVID - 7 assessed: 03/27/25 Feeling nervous, anxious, or on edge: 0 = Not at all Not being able to stop or control worryin = Not at all Worrying too much about different things: 0 = Not at all Trouble relaxin = Not at all Being so restless that it is hard to sit still: 0 = Not at all Becoming easily annoyed or irritable: 0 = Not at all Feeling afraid as if something awful might happen: 0 = Not at all Total DAVID-7 score (0-4 normal; 5-9 mild; 10-14 moderate; 15-21 severe): 0 Source: Developed by Drs. Angel Reveles, Kim Landeros, Wayne Levy and colleagues, with an educational jaime from [employer]. Review of Systems Const Denies headache(s) Eyes Denies loss of vision ENT Denies vertigo, Denies dizziness, Denies headache(s) and Denies sore throat Card Denies chest pain, Denies leg edema and Denies lightheadedness Resp Denies cough, Denies hemoptysis and Denies wheezing GI Denies abdominal pain, Denies melena, Denies constipation, Denies diarrhea and Denies vomiting Denies dysuria, Denies urinary frequency and Denies urinary urgency Musc Denies arthralgias, Denies joint swelling, Denies numbness and Denies tingling Neuro Denies Abnormal speech present, Denies behavioral changes, Denies vertigo, Denies dizziness, Denies headache(s), Denies loss of vision, Denies memory loss, Denies numbness and Denies tingling Psych Denies anxiety, Denies behavioral changes, Denies depression, Denies memory loss and Denies panic attacks Deny/Lymph Denies easy bleeding and Denies easy bruising Aller/Immun Denies wheezing Physical exam (Primary Care) Vital Signs: Last Vital Signs Temp 97.1 F 03/27/25 08:36 Pulse 97 03/27/25 08:36 BP 180/100 H 03/27/25 08:36 Pulse Ox 97 03/27/25 08:36 Oxygen Delivery Method Room Air 03/27/25 08:36 BMI result Body Mass Index 26.0 Tobacco/Smoking Status: Tobacco use Status Tobacco use date assessed 03/27/25 03/27/25 08:40 Patient Tobacco Use Status Never used Tobacco 03/27/25 08:40 Tobacco use type 03/14/25 16:26 e-Cigarette/Vaping Use Never Used 03/27/25 08:40 PHQ-9: PHQ-9 Score PHQ-9: Total score 0 03/27/25 09:05 Depression Screening Interpretation: Negative Thrive Assessment: Date of Thrive Assessment Date Thrive assessed 03/15/25 03/27/25 08:40 Const General: healthy appearing, no acute distress, alert and awake Nutritional Appearance: well nourished Orientation/consciousness: oriented to person, oriented to place and oriented to time HENMT Ears: TM's normal bilaterally General nose exam: Normal nasal mucous membranes and turbinates present Eyes Conjunctivae: conjunctivae normal Sclerae: sclerae normal Pupils: Equal, round and reactive pupils present Neck Neck: Yes no lymphadenopathy and Yes no JVD Thyroid: Thyroid normal Carotids: no bruits Resp Effort & Inspection: normal respiratory effort and not tachypneic Auscultation: no crackles, no rales, no rhonchi and no wheezes Cardio Rate: regular rate Rhythm: regular rhythm Heart sounds: no murmurs and normal S1 and S2 GI Palpation (GI): Soft to palpation, nontender, no hepatomegaly and no splenomegaly Auscultation: normal bowel sounds Skin General skin exam: no rashes or lesions noted and dry skin Neuro General: oriented to person, oriented to place and oriented to time Cranial nerves: Yes Equal, round and reactive pupils present Speech: No Abnormal speech present Gait exam (Neuro): Normal gait present Motor exam (neuro): no tremor noted Extrem Right upper extremity: full ROM Left upper extremity: full ROM Right lower extremity: full ROM; no edema Left lower extremity: full ROM; no edema Psych Mental Status: mental status grossly normal Speech and movement: Normal speech and movement present Affect: normal affect Attitude: cooperative Thought process: Normal thought process present Coding Level of Care Code Est Pt Level 4 (23517) Diagnoses Hospital discharge follow-up Z09 Alcohol use disorder in remission F10.91 Essential hypertension I10 Hypertension type: essential hypertension Primary insomnia F51.01 Insomnia type: primary Impaired glucose metabolism R73.09 Assessment & Plan Assessment & Plan (1) Hospital discharge follow-up: Code(s): Z09 - Encounter for follow-up examination after completed treatment for conditions other than malignant neoplasm Category: Medical Plan: As per HPI (2) Alcohol use disorder in remission: Code(s): F10.91 - Alcohol use, unspecified, in remission Category: Medical Plan: Patient does admit that he is reduced his drinking significantly. He does admit to drinking wine from time to time currently . Again was recently given a DUI and now his license has been taken away. He is awaiting court dates. He is established with comprehensive treatment center for his alcohol use disorder. (3) HTN (hypertension): Code(s): I10 - Essential (primary) hypertension Category: Medical Qualifiers: Hypertension type: essential hypertension Qualified Code(s): I10 - Essential (primary) hypertension Plan: Patient's blood pressure still elevated today in office. In the hospital was blood pressure was elevated though cardiac workups appeared acceptable. He did have elevated troponins notably.. Will increase his amlodipine dose to 10 mg for better blood pressure control. Will consider restarting clonidine as it is seem to help his blood pressure though was believed to be causing bradycardia. He does have an upcoming CT angiogram of his coronary arteries to evaluate for any coronary artery disease. (4) Insomnia: Code(s): G47.00 - Insomnia, unspecified Category: Medical Qualifiers: Insomnia type: primary Qualified Code(s): F51.01 - Primary insomnia Plan: Patient reporting difficulty sleeping, he is interested in starting trazodone for sleep. (5) Impaired glucose metabolism: Code(s): R73.09 - Other abnormal glucose Category: Medical Plan: Recent blood sugars remain elevated. He has had an A1c in the fall of 2023 in prediabetic range. He has been intermittently taking metformin. Advised to be more consistent with taking metformin in considerations made to increase metformin to 500 b.i.d. dosing. Orders: Orders Complete Blood Count no Diff 03/27/25 I10 - Essential (primary) hypertension Hemoglobin A1c 03/27/25 R73.09 - Other abnormal glucose Comprehensive [facility]. Panel Fast 03/27/25 I10 - Essential (primary) hypertension Referrals Counseling Referral F41.1 - Generalized anxiety disorder Medications: New amlodipine 10 mg PO DAILY 90 tabs 1RF 90 days I10 - Essential (primary) hypertension trazodone 50 mg PO BEDTIME 30 tabs 2RF 30 days G47.00 - Insomnia, unspecified Changed From sertraline (Zoloft) 50 mg PO DAILY 30 tabs 0RF G47.00 - Insomnia, unspecified To sertraline (Zoloft) 50 mg PO DAILY 90 tabs 1RF 90 days G47.00 - Insomnia, unspecified Discontinued amlodipine Discontinued Reason: Doctor's Order 5 mg See Protocol PO DAILY 90 tabs 0RF
[2025-03-27 08:36] VITALS: BP 180/100; PULSE 97; TEMP 36.2; O2SAT 97; BMI 26.0
== END 2025-03-27 09:27 | disposition home or self-care (01) ==
LOC: HO.HMCH 08:10
PROVIDERS: PCP Physician Assistant; Visit Provider Physician Assistant
DX: Z09 Encounter for follow-up examination after completed treatment for conditions other than malignant neoplasm (principal); F10.91 Alcohol use, unspecified, in remission; I10 Essential (primary) hypertension; F51.01 Primary insomnia; R73.09 Other abnormal glucose

== ENCOUNTER → 2025-03-27 08:10 | Outpatient (BNVA) | payer MEDICARE, SELFPAY | PROVIDERS: PCP Physician Assistant; Visit Provider Physician Assistant | DX: Z09 Encounter for follow-up examination after completed treatment for conditions other than malignant neoplasm (principal); F10.91 Alcohol use, unspecified, in remission; I10 Essential (primary) hypertension; F51.01 Primary insomnia; R73.09 Other abnormal glucose | CPT/HCPCS: 99212 ==

== ENCOUNTER 2025-05-21 08:30 | Outpatient (REF) | payer MEDICARE, SELFPAY ==
--- OUTSIDE RECORDS SUMMARY | 2025-05-21 08:49 | XMS_ITS | Clinical Summary ---
Author Organization [facility] Address [address] [place] [address] Care Team Providers Care Residential Sales Associate Name Role Phone Unavailable Primary Care Provider [...] Imm-Zoster, Recombinant (1 of 2) 2006 Imm-Pneumococcal 50+ (2 of 2 - PCV) 01/21/201701/21 Abdominal Aortic Aneurysm Screening 2021 Falls Prevention 2021 [id number] (3 - 2023- season) 2024 021, 02/04/2021 Imm-Influenza (#1) 2024 Alcohol and Drug Screen 10/31/2024 Depression Annual Screen 10/31/2024 Imm-DTaP/Tdap/Td (2 - Td or Tdap) 11/28/2025 016 Insurance [place]/ [place]
[2025-05-21 10:48] LABS: Anion Gap 14 (12-20); Blood Urea Nitrogen 14 mg/dL (9-16); Calcium 9.2 mg/dL (8.4-10.2); Carbon Dioxide 22 mmol/L (22-29); Chloride 103 mmol/L (96-108); Estimated Glomerular Filt Rate > 60; Potassium 4.5 mmol/L (3.3-5.1); Sodium 134 mmol/L (135-145)
== END 2025-05-21 08:31 | disposition home or self-care (01) ==
LOC: HO.HMGCLDS 08:30
PROVIDERS: PCP Physician Assistant; Visit Provider Internal Medicine Cardiovascular Disease
DX: R79.89 Other specified abnormal findings of blood chemistry (principal); I10 Essential (primary) hypertension
CPT/HCPCS: 36415; 80048

== ENCOUNTER 2025-05-28 08:28 | Outpatient (REF) | payer MEDICARE, SELFPAY ==
[2025-05-28 10:18] LABS: Hematocrit 43.8 % (42.0-52.0); Hemoglobin 14.7 g/dl (14.0-18.0); Mean Corpuscular HGB Conc 33.6 g/dl (31.0-36.0); Mean Corpuscular Hemoglobin 29.9 pg (27.0-33.0); Mean Corpuscular Volume 89.2 fL (80.0-98.0); NRBC Abs Auto 0.000 X10*3/uL (0.0-0.012); NRBC Pct Auto 0.0 /100WBC (0.0-0.2); Platelet Count 234 X10*3/uL (160-400); Red Blood Count 4.91 X10*6/uL (4.60-5.80); White Blood Count 9.9 X10*3/uL (4.8-10.8)
[2025-05-28 10:24] LABS: Hemoglobin A1C 163.2623 umol/L; Total Hemoglobin (HGBA1C) 3830.7530 umol/L
[2025-05-28 10:46] LABS: Alanine Aminotransferase 18 U/L (0-40); Albumin Level 4.8 g/dL (3.5-5.0); Alkaline Phosphatase 76 U/L (39-117); Anion Gap 13 (12-20); Aspartate Amino Transferase 25 U/L (5-37); Blood Urea Nitrogen 16 mg/dL (9-16); Calcium 9.4 mg/dL (8.4-10.2); Carbon Dioxide 25 mmol/L (22-29); Chloride 104 mmol/L (96-108); Estimated Glomerular Filt Rate > 60; Potassium 4.2 mmol/L (3.3-5.1); Sodium 138 mmol/L (135-145); Total Protein 7.2 g/dL (6.5-8.0)
== END 2025-05-28 08:29 | disposition home or self-care (01) ==
LOC: HO.HMGCLDS 08:28
PROVIDERS: PCP Physician Assistant; Visit Provider Physician Assistant
DX: I10 Essential (primary) hypertension (principal); R73.09 Other abnormal glucose
CPT/HCPCS: 36415; 80053; 83036; 85027

== ENCOUNTER 2025-06-03 08:25 | Outpatient (AMB) | payer MEDICARE, SELFPAY ==
--- NOTE | 2025-06-03 08:32 | A.OFFPC_ITS ---
Vital Signs 06/03/25 08:34 Height 6 ft Weight 195 lb BMI 26.4 BP 130/80 Blood Pressure Location Lt brachial Position Sitting Pulse 106 H Pulse Source Pulse Oximeter Temp 97.3 F Temp Source Temporal Artery Scan Pulse Oximetry (%) 98 Oxygen Delivery Method Room Air Intake Visit Reasons: [facility] 06/19 vitrectomy rt eye Intake Note: Patient is here for a Pre-op for Vitrectomy right eye scheduled with [facility] on 06/19/25. 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 Required: No Contracts Representative: Not Required per policy Accompanied by: Self / Same As Patient Allergies AVOID HCTZ - hyponatremia - 1 Allergy (Unknown, Uncoded 06/03/25 08:44) Unknown Medication List - Last Reconciled 06/03/25 by Amrit Moura PA-C amlodipine 10 mg PO DAILY 90 days lisinopril 30 mg PO DAILY metformin 500 mg PO DAILY metoprolol succinate ER 25 mg PO DAILY 90 days sertraline (Zoloft) 50 mg PO DAILY 90 days trazodone 50 mg PO BEDTIME 30 days Tobacco use date assessed: 06/03/25 Fall risk assessment: No Falls in past year Last assessed Fall Risk: 06/03/25 Dental Screening Dental Screen Date: 03/27/25 HPI [facility] 06/19 vitrectomy rt eye HPI Details Done is a 70-year-old male here today for a preop visit. Patient has a past medical history significant for essential hypertension, history alcohol use disorder, hyperlipidemia, impaired glucose metabolism. Patient has no past medical history of Congestive heart failure, mi or CVA. Patient is not on any anticoagulation or antiplatelet therapy at this time. /... Hyperlipidemia: Patient recently started on statin therapy and most recent fasting lipid panel much improved total cholesterol and LDL. .. Impaired glucose metabolism: Most recent fasting blood sugar has improved and A1c is 6.1.. He does admit to dietary indiscretion. Was on metformin in the past though stopped taking this medication. He is considering restarting metformin 500 daily. He will work on lifestyle and dietary modifications. Hypertension: Patient continues on lisinopril 30 mg, blood pressures today in office acceptable. He reports that home blood pressures 120s to 135 systolic. Otherwise denies any chest discomfort, headaches, dizziness or vision issues. Laboratory Tests 09/13/24 05/28/25 06:20 08:55 WBC 9.9 RBC 4.91 Creatinine 0.97 Fasting Glucose 139 H Hemoglobin A1c % 5.9 6.1 H [facility] Medical History Anxiety Hypertension Anxiety Surgical History History of colonoscopy Family History Father Dementia Mother Melanoma Social History Household Members: Spouse Housing: House Alcohol intake: current Alcohol intake frequency: a few times a month Alcohol type: beer and hard liquor Patient Tobacco Use Status: Never used Tobacco e-Cigarette/Vaping Use: Never Used Second Hand Smoke Exposure: Yes Substance Use Type: Marijuana Advance Directives Date on File: 01/13/24 service: Yes Current occupational status: retired Cognitive needs: No Hearing needs: No Vision needs: Yes Questionnaire PHQ-9 Over the last 2 weeks, how often have you been bothered by any of the following problems? 1. Little interest or pleasure in doing things: not at all 2. Feeling down, depressed, or hopeless: not at all 3. Trouble falling or staying asleep, or sleeping too much: not at all 4. Feeling tired or having little energy: not at all 5. Poor appetite or overeating: not at all 6. Feeling bad about yourself - or that you are a failure or have let yourself or your family down: not at all 7. Trouble concentrating on things, such as reading the newspaper or watching television: not at all 8. Moving or speaking so slowly that other people could have noticed. Or the opposite - being so fidgety or restless that you have been moving around a lot more than usual: not at all 9. Thoughts that you would be better off or of hurting yourself in some way: not at all Total score: 0 Depression Screening Interpretation: Negative Depression Screening Done: Yes 55654 - PHQ-9 Billing: Yes Source: Developed by Drs. Angel Reveles, Kim Landeros, Wayne Levy and colleagues, with an educational jaime from [employer]. Thrive Questionnaire Date Thrive assessed: 03/15/25 DAVID-7 AMB Questionnaire DAVID-7 Date DAVID - 7 assessed: 03/27/25 Source: Developed by Drs. Angel Reveles, Kim Landeros, Wayne Levy and colleagues, with an educational jaime from [employer]. Review of Systems Const Denies headache(s) Eyes Denies loss of vision ENT Denies vertigo, Denies dizziness, Denies headache(s) and Denies sore throat Card Denies chest pain, Denies leg edema and Denies lightheadedness Resp Denies cough, Denies hemoptysis and Denies wheezing GI Denies abdominal pain, Denies melena, Denies constipation, Denies diarrhea and Denies vomiting Denies dysuria, Denies urinary frequency and Denies urinary urgency Musc Denies arthralgias, Denies joint swelling, Denies numbness and Denies tingling Neuro Denies Abnormal speech present, Denies behavioral changes, Denies vertigo, Denies dizziness, Denies headache(s), Denies loss of vision, Denies memory loss, Denies numbness and Denies tingling Psych Denies anxiety, Denies behavioral changes, Denies depression, Denies memory loss and Denies panic attacks Deny/Lymph Denies easy bleeding and Denies easy bruising Aller/Immun Denies wheezing Physical exam (Primary Care) Vital Signs: Last Vital Signs Temp 97.3 F 06/03/25 08:34 Pulse 106 H 06/03/25 08:34 BP 130/80 06/03/25 08:34 Pulse Ox 98 06/03/25 08:34 Oxygen Delivery Method Room Air 06/03/25 08:34 BMI result Body Mass Index 26.4 Tobacco/Smoking Status: Tobacco use Status Tobacco use date assessed 06/03/25 06/03/25 08:39 Patient Tobacco Use Status Never used Tobacco 06/03/25 08:39 Tobacco use type 03/14/25 16:26 e-Cigarette/Vaping Use Never Used 06/03/25 08:39 PHQ-9: PHQ-9 Score PHQ-9: Total score 0 06/03/25 08:39 Depression Screening Interpretation: Negative Thrive Assessment: Date of Thrive Assessment Date Thrive assessed 03/15/25 06/03/25 08:39 Const General: healthy appearing, no acute distress, alert and awake Nutritional Appearance: well nourished Orientation/consciousness: oriented to person, oriented to place and oriented to time HENMT Ears: TM's normal bilaterally General nose exam: Normal nasal mucous membranes and turbinates present Eyes Conjunctivae: conjunctivae normal Sclerae: sclerae normal Pupils: Equal, round and reactive pupils present Neck Neck: Yes no lymphadenopathy and Yes no JVD Thyroid: Thyroid normal Carotids: no bruits Resp Effort & Inspection: normal respiratory effort and not tachypneic Auscultation: no crackles, no rales, no rhonchi and no wheezes Cardio Rate: regular rate Rhythm: regular rhythm Heart sounds: no murmurs and normal S1 and S2 GI Palpation (GI): Soft to palpation, nontender, no hepatomegaly and no splenomegaly Auscultation: normal bowel sounds Skin General skin exam: no rashes or lesions noted and dry skin Neuro General: oriented to person, oriented to place and oriented to time Cranial nerves: Yes Equal, round and reactive pupils present Speech: No Abnormal speech present Gait exam (Neuro): Normal gait present Motor exam (neuro): no tremor noted Extrem Right upper extremity: full ROM Left upper extremity: full ROM Right lower extremity: full ROM; no edema Left lower extremity: full ROM; no edema Psych Mental Status: mental status grossly normal Speech and movement: Normal speech and movement present Affect: normal affect Attitude: cooperative Thought process: Normal thought process present Coding Level of Care Code Est Pt Level 3 (83471) Diagnoses Pre-op evaluation Z01.818 Vitreous hemorrhage of right eye H43.11 Essential hypertension I10 Hypertension type: essential hypertension Additional Codes PHQ-9 - 82767 - PHQ-9 Billing: Yes ([id number]) Assessment & Plan Assessment & Plan (1) Pre-op evaluation: Code(s): Z01.818 - Encounter for other preprocedural examination Category: Medical Plan: Patient's most recent labs, EKG and vitals today are stable. Patient is medically clear for needed right eye procedure (2) Vitreous hemorrhage of right eye: Code(s): H43.11 - Vitreous hemorrhage, right eye Category: Medical Plan: As above (3) HTN (hypertension): Code(s): I10 - Essential (primary) hypertension Category: Medical Qualifiers: Hypertension type: essential hypertension Qualified Code(s): I10 - Essential (primary) hypertension Plan: Patient's blood pressure acceptable today in office. Will continue his current dose of lisinopril, metoprolol. He reports at times blood pressures at home have ranged her a bit low at 100/60. Will consider reducing his amlodipine dose to 5 mg. Goal blood pressures to be below 140/90 and above 90/60. Medications: Refilled sertraline (Zoloft) 50 mg PO DAILY 90 tabs 1RF 90 days G47.00 - Insomnia, unspecified trazodone 50 mg PO BEDTIME 30 tabs 3RF 30 days G47.00 - Insomnia, unspecified
[2025-06-03 08:34] VITALS: BP 130/80; PULSE 106; TEMP 36.3; O2SAT 98; BMI 26.4
--- OUTSIDE RECORDS SUMMARY | 2025-06-03 08:44 | XMS_ITS | Clinical Summary ---
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
== END 2025-06-03 08:58 | disposition home or self-care (01) ==
LOC: HO.HMCH 08:26
PROVIDERS: PCP Physician Assistant; Visit Provider Physician Assistant
DX: Z01.818 Encounter for other preprocedural examination (principal); H43.11 Vitreous hemorrhage, right eye; I10 Essential (primary) hypertension

== ENCOUNTER → 2025-06-03 08:25 | Outpatient (BNVA) | payer MEDICARE, SELFPAY | PROVIDERS: PCP Physician Assistant; Visit Provider Physician Assistant | DX: Z01.818 Encounter for other preprocedural examination (principal); H43.11 Vitreous hemorrhage, right eye; I10 Essential (primary) hypertension | CPT/HCPCS: 96127; 99212 ==